=== PATIENT | female | born 1990 ===

== ENCOUNTER 2020-08-14 23:36 | Emergency (ER) | payer MEDICAID, SELFPAY ==
[2020-08-15 00:15] VITALS: BP 128/60; PULSE 109; RESP 17; TEMP 37; O2SAT 97; BMI 45.4
--- NOTE | 2020-08-15 00:35 | PC.NURSE ---
PT TO [facility] FOR DENTAL PAIN. MD AT BEDSIDE WITH PT.
[2020-08-15] MEDS: Lidocaine HCl 2 % MPF 5 ML VIAL INFILTRATI (00:50)
[2020-08-15] MEDS: oxyCODONE HCl Immed Release 5 MG TABLET PO (00:55)
[2020-08-15] MEDS: Amoxicillin/Potassium Clav 875 MG TABLET PO (00:55)
--- NOTE | 2020-08-15 00:58 | ED.DENTAL ---
HPI - Dental/Oral General Chief complaint: Dental/Oral Stated complaint: DENTAL PAIN Time Seen by Provider: 08/15/20 00:35 Source: patient Mode of arrival: ambulatory Limitations: language barrier History of Present Illness HPI Narrative: Patient complaining of toothache in upper right molars for last 3 days has cavities for long time plan to see a dentist next week. Patient denies any swelling of the face no fever MD Complaint: tooth pain Location: Tooth # (1,2,3) Onset (ago): day(s) (3) Related Data Previous Rx's Medication Instructions Recorded amoxicillin-pot clavulanate 1 tab PO BID #20 tab 08/15/20 [Augmentin] oxycodone 5 mg PO Q6H PRN #20 tab 08/15/20 Allergies Allergy/AdvReac Type Severity Reaction Status Date / Time No Known Allergies Allergy Verified 08/15/20 00:35 Review of Systems Review of Systems: Yes all other systems are reviewed and are negative PMFSH Past Medical History Medical History Asthma Hypotension Hypothyroid Physical Exam Vital Signs: Vital Signs: Last Vital Signs Temp 98.6 F 08/15/20 00:15 Pulse 109 H 08/15/20 00:15 Resp 17 08/15/20 00:15 BP 128/60 08/15/20 00:15 Pulse Ox 97 08/15/20 00:15 Body Mass Index 45.4 Const: General: cooperative, well developed and acute distress Orientation/consciousness: patient oriented x3 HENMT: Head: Yes normocephalic and Yes atraumatic Ears: hearing grossly normal bilaterally Face and sinus: Yes normal facial exam and No sinuses nontender Mouth: Normal oral and palatal mucosa present Teeth and gingiva: gingiva normal and caries (Right upper molars) Teeth image: 1. Broken 3rd molar with deep cavity 2. Cavity and tender 3. Cavity and tender Resp: Effort & Inspection: normal respiratory effort Auscultation: clear to auscultation bilaterally Cardio: Rate: regular rate Rhythm: regular rhythm Heart sounds: S1 normal heart sound present Neuro: General: patient oriented x3 Course Course Course Narrative: Right greater palatine block was given using lidocaine 2% patient felt much better pain is almost gone discharge home on Augmentin and oxycodone advised to see dentist next week as scheduled Procedures Nerve Block Nerve Block 1: Time out performed: Yes Amount of anesthesia used (mL): 4 Side: right Intraoral Nerve Block: other (Right greater palatine nerve) Procedure Successful: Yes Patient Tolerated Procedure: well and no complications Complications: none Discharge Plan Discharge Clinical Impression: Dental caries Patient Disposition: Home, Self-Care Instructions: Toothache (ED) Additional Instructions: Take antibiotic as prescribed. Take pain medication as prescribed. Follow with dentist as scheduled Prescriptions: New amoxicillin-pot clavulanate [Augmentin] 875-125 mg tablet 1 tab PO BID Qty: 20 RF: 0 oxycodone 5 mg tablet 5 mg PO Q6H PRN (Reason: Pain) Qty: 20 RF: 0
== END 2020-08-15 01:43 | disposition home or self-care (01) ==
LOC: HO.ED 08-15 01:12
PROVIDERS: Emergency Provider Internal Medicine
DX: K02.9 Dental caries, unspecified (principal)
CPT/HCPCS: 64400; 99283

== ENCOUNTER 2020-12-12 12:41 | Emergency (ER) | payer MEDICAID, SELFPAY ==
--- NOTE | ~2020-12-12 | US_ITS ---
EXAMINATION: US VENOUS ULTRASOUND WITH DOPPLER LOWER EXTREMITY, RIGHT CLINICAL INFORMATION: Calf pain. COMPARISON: None TECHNIQUE: Ultrasound of the deep veins is performed from the hip to the calf with compression sonography and color and pulse Doppler assessment. Spectral analysis with color-flow imaging is performed. FINDINGS: There is normal venous compression and respiratory variation and augmented flow. The visualized common femoral vein, superficial femoral vein, profunda femoral vein, popliteal vein, and the trifurcation region shows no evidence of deep venous thrombosis. There is no significant popliteal fossa cyst. If the patient's symptoms persist, followup ultrasound in 5 days 7 days might be of value to exclude proximal propagation from a non-visualized calf vein. US/US venous duplex LE RT IMPRESSION: No DVT demonstrated in the right lower extremity.
[2020-12-12 13:48] VITALS: BP 129/72; PULSE 85; RESP 18; TEMP 36.5; O2SAT 100; BMI 50.5
--- NOTE | 2020-12-12 13:54 | ED.GENADULT ---
HPI - General Adult General Chief complaint: Extremity Injury, Lower Stated complaint: FALL LEG PAIN Time Seen by Provider: 12/12/20 13:54 History of Present Illness HPI narrative: Patient complains of right lower leg pain for several weeks without injury, pain goes from the back of the ankle to the mid calf, there is no fever no chills no dizziness, no chest pain no shortness of breath Related Data Previous Rx's Medication Instructions Recorded amoxicillin-pot clavulanate 1 tab PO BID #20 tab 08/15/20 [Augmentin] oxycodone 5 mg PO Q6H PRN #20 tab 08/15/20 ibuprofen 600 mg PO Q6H PRN #20 tab 12/12/20 Allergies Allergy/AdvReac Type Severity Reaction Status Date / Time No Known Allergies Allergy Verified 08/15/20 00:35 Review of Systems Review of Systems: Positive for right leg pain Negatives are no fever no chills no dizziness no weakness no headache no neck pain no back pain no chest pain no shortness of breath no skin rash no numbness weakness or tingling Yes all other systems are reviewed and are negative PMFSH Past Medical History Source: nursing notes reviewed Medical History Asthma Hypotension Hypothyroid Social History Social History Advance Directives: No Advance Directives Information Provided: No Patient : No Physical Exam Vital Signs: Vital Signs: Last Vital Signs Temp 97.7 F 12/12/20 13:48 Pulse 85 12/12/20 13:48 Resp 18 12/12/20 13:48 BP 129/72 12/12/20 13:48 Pulse Ox 100 12/12/20 13:48 Body Mass Index 50.5 General appearance is no acute distress comfortable and cooperative Head is normocephalic atraumatic Neck is supple Respiratory are the lungs are clear to auscultation bilateral The heart no murmur Abdomen soft nontender Extremities full range of motion x4 Right lower posterior leg has tenderness to palpation, the skin is normal there is no redness no warmth no lymphangitis there is no edema there is no calf swelling, the knee has full range of motion as does the ankle Neuro no focal motor or sensory deficit Course Course Course Narrative: Ultrasound was done to rule out DVT for posterior calf pain and it was negative Most likely a muscle strain of some kind and patient is referred to Orthopedics, skin was normal there is no sign of any infection Discharge Plan Discharge Clinical Impression: Muscle strain of left lower extremity Patient Disposition: Home, Self-Care Additional Instructions: Ultrasound was done to make sure there is no blood clot and it was negative The skin was normal with no sign of any skin infection Most likely a muscle strain so if needed follow with orthopedist and primary doctor Return any time any worse condition or any concerns Prescriptions: New ibuprofen 600 mg tablet 600 mg PO Q6H PRN (Reason: pain) Qty: 20 RF: 0 No Action amoxicillin-pot clavulanate [Augmentin] 875-125 mg tablet 1 tab PO BID Qty: 20 RF: 0 oxycodone 5 mg tablet 5 mg PO Q6H PRN (Reason: Pain) Qty: 20 RF: 0 Stand Alone Forms: Work/School Release Interventions: ED Discharge Assessment Last Done: 12/12/20 15:35 Discharge Date/Time: 12/12/20 15:38
== END 2020-12-12 15:38 | disposition home or self-care (01) ==
PROVIDERS: Emergency Provider Emergency Medicine Emergency Medical Services
DX: S86.912A Strain of unspecified muscle(s) and tendon(s) at lower leg level, left leg, initial encounter (principal); R60.0 Localized edema; M79.604 Pain in right leg; X58.XXXA Exposure to other specified factors, initial encounter; Y93.9 Activity, unspecified; Y92.9 Unspecified place or not applicable; Y99.9 Unspecified external cause status; Z79.899 Other long term (current) drug therapy
CPT/HCPCS: 93971; 99283

== ENCOUNTER → 2021-02-18 10:49 | Outpatient (BNVA) | payer MEDICAID, SELFPAY | PROVIDERS: PCP Nurse Practitioner Family; Referring Provider Nurse Practitioner Family; Visit Provider Physician Assistant | DX: E66.01 Morbid (severe) obesity due to excess calories (principal); R40.0 Somnolence; J45.909 Unspecified asthma, uncomplicated; Z68.43 Body mass index [BMI] 50.0-59.9, adult | CPT/HCPCS: 99202 ==

== ENCOUNTER → 2021-03-10 08:16 | Outpatient (BNVA) | payer MEDICAID, SELFPAY | PROVIDERS: PCP Nurse Practitioner Family; Visit Provider Dietitian, Registered | DX: E66.01 Morbid (severe) obesity due to excess calories (principal) | CPT/HCPCS: 97802 ==

== ENCOUNTER → 2021-03-24 08:45 | Outpatient (REF) | payer MEDICAID, SELFPAY ==
--- NOTE | ~2021-03-24 | FL_ITS ---
EXAMINATION: XR UPPER GI SERIES CLINICAL INFORMATION: Morbid/severe obesity due to excess calories. COMPARISON: None TECHNIQUE: Routine upper GI exam was performed. FINDINGS: Following oral administration of thick barium and effervescent granules, there is normal propagation of bolus from the oral cavity through the pharynx, esophagus into the stomach without any evidence of obstruction, narrowing or stricture. On placing patient supine and prone lying, there is mild gastroesophageal reflux without hiatal hernia. There is a solitary gastric erosion in the mid body of the stomach on image 2 of 2. There are no ulcerations seen. There are increased secretions visualized likely secondary to hyperacidity. The duodenal bulb and the sweep appear normal. FLUOROSCOPY TIME: 1.6 minutes DOSE AREA PRODUCT: 49.371 uGy-m2 (microgray-meter squared) FL/FL upper GI series IMPRESSION: Mild gastroesophageal reflux without hiatal hernia. Solitary gastric erosion in the mid body of the stomach with hyperacidity suspected.
--- NOTE | ~2021-03-24 | XR_ITS ---
EXAMINATION: XR CHEST CLINICAL INFORMATION: Obesity COMPARISON: None TECHNIQUE: 2 views of the chest were obtained. FINDINGS: No significant abnormality is noted involving the heart, lungs, mediastinum, bony thorax or soft tissues. XR/XR chest 2V IMPRESSION: Unremarkable examination.
--- NOTE | ~2021-03-24 | US_ITS ---
EXAMINATION: US COMPLETE ABDOMEN WITH LIVER ELASTOGRAPHY CLINICAL INFORMATION: Obesity COMPARISON: None. TECHNIQUE: Real-time imaging of the abdominal viscera. Noninvasive ultrasound liver fibrosis assessment is performed using Lupis ElastPQ point quantification shear wave elastography (pSWE) with a C5-2 MHz transducer. Multiple elastography samples are obtained. FINDINGS: PANCREAS: Not well visualized due to bowel gas. ABDOMINAL AORTA: Not well visualized due to bowel gas INFERIOR VENA CAVA: Not well visualized due to bowel gas LIVER: Normal. The liver demonstrates normal size, contour and echogenicity. No focal lesion or intrahepatic biliary duct dilatation. The right lobe measures 12 cm in length. The left lobe measures 8 cm in length. Portal flow is normal/hepatopedal Shear wave liver elastography median stiffness is 1.5 m/s (reference: normal median stiffness is 1.3 m/s or less). IQR/median stiffness to assess sampling precision is 0.25 (reference: good quality data set is IQR/median stiffness of 0.15 or less). GALLBLADDER: Normal. The gallbladder is physiologically distended without evidence of stones, sludge, polyps, wall thickening or pericholecystic fluid. COMMON BILE DUCT: Normal in caliber measuring 0.2 cm in diameter. RIGHT KIDNEY: Normal. No hydronephrosis. No renal calculi or focal parenchymal lesions. The kidney measures 9.4 cm in maximum dimension. LEFT KIDNEY: Normal. No hydronephrosis. No renal calculi or focal parenchymal lesions. The kidney measures 10.2 cm in maximum dimension. SPLEEN: Normal. The spleen measures 11.8 cm in maximum dimension. FREE FLUID: None. US/US abdomen comp w elastography IMPRESSION: 1. Impression Limited visualization of the pancreas, aorta and IVC. Otherwise unremarkable exam. 2. Liver elastography: Slightly limited due to sampling error. In the absence of other known clinical signs, rules out compensated advanced chronic liver disease. REFERENCE: Society of Radiologists in Ultrasound Liver Stiffness Thresholds (2020): LIVER STIFFNESS THRESHOLDS: *Liver Stiffness equal or less than 1.3 m/s: High probability of being normal. *Liver Stiffness less than 1.7 m/s: In the absence of other known clinical signs, rules out compensated advanced chronic liver disease. *Liver Stiffness 1.7-2.1 m/s: Suggestive of compensated advanced chronic liver disease but need further test for confirmation. *Liver Stiffness over 2.1 m/s: Rules in compensated advanced chronic liver disease. *Liver Stiffness over 2.4 m/s: Suggestive of clinically significant portal hypertension. QUALITY OF DATA SET: *IQR/Median value equal or less than 0.15 implies a quality data set. *IQR/Median value over 0.15 implies a poor quality data set. SIGNIFICANT CHANGE FROM PRIOR EXAM: Significant change if liver stiffness measurement is 10% or greater from prior exam. OTHER CONSIDERATIONS: The stage of liver fibrosis may be overestimated in the setting of acute hepatitis, liver inflammation, elevated liver function tests, hepatic vascular congestion, obstructive cholestasis, non-fasting state, and infiltrative diseases such as amyloidosis and lymphoma. In some patients with NAFLD, the liver stiffness thresholds for compensated advanced chronic liver disease may be lower. In causes other than viral hepatitis and NAFLD, liver stiffness thresholds are not well established.
== END ==
LOC: HO.SL 08:45
PROVIDERS: Visit Provider Physician Assistant
DX: Z01.818 Encounter for other preprocedural examination (principal); G47.10 Hypersomnia, unspecified; G47.19 Other hypersomnia; E66.01 Morbid (severe) obesity due to excess calories; K21.9 Gastro-esophageal reflux disease without esophagitis; R40.0 Somnolence
CPT/HCPCS: 71046; 74240; 76705; 76981; 95806

== ENCOUNTER 2021-04-01 09:24 | Outpatient (REF) | payer MEDICAID, SELFPAY ==
[2021-04-01 10:29] LABS: MANUAL DIFF FLAG NO
[2021-04-01 10:40] LABS: Basophils Absolute Auto 0.1 X10*3/uL (0.0-0.2); Basophils Percent Auto 0.8 % (0-2); Eosinophils Absolute Auto 0.1 X10*3/uL (0.0-0.4); Hematocrit 39.6 % (37-47); Hemoglobin 12.4 g/dl (12.0-16.0); Imm Gran Abs Auto 0.02 X10*3/uL (0.00-0.03); Imm Gran Pct Auto 0.3 % (0.0-0.4); Lymphocytes Absolute Auto 1.6 X10*3/uL (1.2-4.9); Lymphocytes Percent Auto 23.2 % (20-40); Mean Corpuscular HGB Conc 31.3 g/dl (31.0-35.0); Mean Corpuscular Hemoglobin 26.5 pg (27.0-33.0); Mean Corpuscular Volume 84.6 fL (80-98); Mean Platelet Volume 11.7 fL (9.4-12.3); Monocytes Absolute Auto 0.4 X10*3/uL (0.1-1.2); Monocytes Percent Auto 5.9 % (2-11); Neutrophils Absolute Auto 4.9 X10*3/uL (2.0-8.3); Neutrophils Percent Auto 68.8 % (45-73); Platelet Count 272 X10*3/uL (160-400); Red Blood Count 4.68 X10*6/uL (4.20-5.50); White Blood Count 7.1 X10*3/uL (4.8-10.8)
[2021-04-01 10:59] LABS: Alanine Aminotransferase 11 U/L (0-31); Alkaline Phosphatase 74 U/L (39-117); Anion Gap 11 (12-20); Aspartate Amino Transferase 15 U/L (5-31); Bilirubin Total 0.6 mg/dL (0.0-1.0); Blood Urea Nitrogen 8 mg/dL (9-16); Carbon Dioxide 23 mmol/L (22-29); Chloride 107 mmol/L (96-108); Cholesterol 161 mg/dL; Estimated Glomerular Filt Rate > 60; Glucose Random 98 mg/dL (60-115); HDL Cholesterol 39 mg/dL; Iron 52 mcg/dL (30-160); LDL Cholesterol Calculated 104 mg/dl; Percent Iron Saturation 14 % (15-50); Potassium 4.3 mmol/L (3.3-5.1); Sodium 137 mmol/L (135-145); Total Iron Binding Capacity 361 mcg/dL (228-428); Total Protein 7.1 g/dL (6.5-8.0); Triglycerides 93 mg/dL; Unsaturated Iron Binding 309 ug/dL
[2021-04-01 11:16] LABS: Estimated Average Glucose 111 mg/dL; Hemoglobin A1c % 5.5 %
[2021-04-01 11:22] LABS: Ferritin 32 ng/mL (10-122); TSH reflex Free T4 0.88 uIU/mL (0.32-4.0); Vitamin D 25-OH Total 22.8 ng/mL (>30)
[2021-04-01 11:30] LABS: Folate 11.2 ng/mL (> or = 4.0); Vitamin B12 448 pg/mL (200-900)
[2021-04-02 15:25] LABS: H Pylori Breath Test Negative (Negative)
[2021-04-02 17:32] LABS: Insulin Level Total 12.6 uIU/mL
[2021-04-05 14:02] LABS: PTHI 67 pg/mL (14-64)
[2021-04-05 15:46] LABS: Zinc 63 mcg/dL (60-130)
[2021-04-07 16:52] LABS: Vitamin A 26 mcg/dL (38-98)
[2021-04-08 11:16] LABS: Vitamin B1 <6 nmol/L (8-30)
== END 2021-04-01 09:25 | disposition home or self-care (01) ==
LOC: HO.LAB 09:24
PROVIDERS: Absent Provider Physician Assistant; Visit Provider Physician Assistant Surgical
DX: E66.01 Morbid (severe) obesity due to excess calories (principal); R40.0 Somnolence
CPT/HCPCS: 36415; 80053; 80061; 82306; 82607; 82728; 82746; 83013; 83036; 83525; 83540; 83970; 84425; 84443; 84590; 84630; 85025; 86140; 99211

== ENCOUNTER → 2021-04-06 08:12 | Outpatient (BNVA) | payer MEDICAID, SELFPAY | PROVIDERS: Referring Provider Physician Assistant; Visit Provider Dietitian, Registered ==

== ENCOUNTER → 2021-04-09 09:03 | Outpatient (BNVA) | payer MEDICAID, SELFPAY | PROVIDERS: Visit Provider Physician Assistant | DX: E66.01 Morbid (severe) obesity due to excess calories (principal); Z68.42 Body mass index [BMI] 45.0-49.9, adult | CPT/HCPCS: 99212 ==

== ENCOUNTER → 2021-04-23 12:03 | Outpatient (REF) | payer MEDICAID, SELFPAY ==
--- NOTE | 2021-04-23 12:24 | ECG_ITS ---
Test Reason : morbid obesity Blood Pressure : / mmHG Vent. Rate : 081 BPM Atrial Rate : 081 BPM P-R Int : 138 ms QRS Dur : 082 ms QT Int : 362 ms P-R-T Axes : 056 035 036 degrees QTc Int : 420 ms Normal sinus rhythm Normal ECG No previous ECGs available Referred By: Tressa Brewer Electronically Signed By:TEA THAO MD
== END ==
LOC: HO.CARD 12:03
PROVIDERS: Visit Provider Physician Assistant
DX: E66.01 Morbid (severe) obesity due to excess calories (principal); R40.0 Somnolence
CPT/HCPCS: 93005

== ENCOUNTER 2022-01-10 20:33 | Emergency (ER) | payer MEDICAID, SELFPAY ==
[2022-01-10 21:19] VITALS: BP 117/68; PULSE 89; RESP 16; TEMP 36.7; O2SAT 99; BMI 50.5
--- NOTE | 2022-01-11 00:22 | PC.NURSE ---
PATIENT WAS GIVEN URINE CUP FOR SAMPLE ,PATIENT STATED NOT ABLE TO URINATE AT THIS TIME ,RN ELIO AWARE .
[2022-01-11 00:23] LABS: Basophils Absolute Auto 0.1 X10*3/uL (0.0-0.2); Basophils Percent Auto 0.7 % (0-2); Eosinophils Absolute Auto 0.2 X10*3/uL (0.0-0.4); Eosinophils Percent Auto 1.5 % (0-4); Hematocrit 43.9 % (37.0-47.0); Hemoglobin 13.7 g/dl (12.0-16.0); Imm Gran Abs Auto 0.03 X10*3/uL (0.00-0.03); Imm Gran Pct Auto 0.3 % (0.0-0.4); Lymphocytes Absolute Auto 3.4 X10*3/uL (1.2-4.9); Lymphocytes Percent Auto 29.4 % (20-40); MANUAL DIFF FLAG NO; Mean Corpuscular HGB Conc 31.2 g/dl (31.0-35.0); Mean Corpuscular Hemoglobin 26.3 pg (27.0-33.0); Mean Corpuscular Volume 84.4 fL (80.0-98.0); Mean Platelet Volume 11.2 fL (9.4-12.3); Monocytes Absolute Auto 0.7 X10*3/uL (0.1-1.2); Monocytes Percent Auto 5.7 % (2-11); Neutrophils Absolute Auto 7.2 x10*3/uL (2.0-8.3); Neutrophils Percent Auto 62.4 % (45-73); Platelet Count 319 X10*3/uL (160-400); Red Cell Distribution Width 14.6 % (11.0-16.0); White Blood Count 11.5 X10*3/uL (4.8-10.8)
--- NOTE | 2022-01-11 01:20 | ED_ITS ---
HPI - Abdominal Pain General Chief Complaint: Abdominal Pain Stated Complaint: lower abd pain, nausea Time Seen by Provider: 01/10/22 23:49 Source: patient Mode of arrival: ambulatory Limitations: language barrier History of Present Illness HPI narrative: History obtained by certified court/medical interpreter. No period since October, recent spotting. Now with pelvic and back pain. She has cramping. Home negative for . Patient with 4 pregnancies and 3 babies. one miscarriage. MD elicited complaint: abdominal pain Onset (ago): day(s) Pain Consistency: constant Severity: mild Quality: cramping Context: other (spotting) Related Data Previous Rx's Medication Instructions Recorded ibuprofen 600 mg tablet 600 mg PO Q6H PRN pain #20 tabs 12/12/20 naproxen 500 mg tablet (Naprosyn) 500 mg PO BID #20 tabs 01/11/22 Allergies Allergy/AdvReac Type Severity Reaction Status Date / Time Penicillins Allergy Unknown Verified 01/10/22 21:25 Review of Systems Constitutional: Reports no additional constitutional complaints Eyes: Reports no additional eye complaints Denies dizziness Cardiovascular: Reports no additional cardiovascular complaints Respiratory: Reports as per HPI Gastrointestinal: Reports no additional gastrointestinal complaints Genitourinary: Reports no additional female genitourinary complaints Musculoskeletal: Reports no additional musculoskeletal complaints Skin/Breast: Denies rash Reports system reviewed and no additional complaints, except as documented, Denies dizziness and Denies Sensory deficit (Neuro) Psychiatric: Denies anxiety PMFSH Past Medical History Medical History Hypotension Hypothyroid Surgical History Hx of section Family History Family History Mother Diabetes Father No problems noted. Brother No problems noted. Brother No problems noted. Daughter Asthma Prediabetes Thyroid condition Daughter Asthma Daughter No problems noted. Social History Social History Alcohol intake: never Patient Tobacco Use Status: Never used Tobacco Advance Directives: No Physical Exam ED Vital Signs: Vital Signs - 24 hr 01/10/22 21:19 01/11/22 02:27 Temperature 98.1 F 97.2 F Pulse Rate 89 82 Respiratory Rate 16 17 Blood Pressure 117/68 100/55 L Pulse Oximetry 99 100 Oxygen Delivery Method Room Air Room Air BMI result Body Mass Index 50.5 Const Nutritional Appearance: obese Orientation/consciousness: oriented to person and patient oriented x3 Limitations: no limitations HENMT Head: Yes normal to inspection Ears: external ears normal General nose exam: Normal external nose present Mouth: Normal oral and palatal mucosa present and oropharynx normal Throat: Yes posterior oropharynx normal Eyes General: appearance normal, both eyes and all related structures Neck Neck: Yes normal visual inspection Chest Chest palpation & inspection: normal inspection of the chest Resp Auscultation: clear to auscultation bilaterally Cardio Jugular venous distension: no JVD Rate: regular rate Rhythm: regular rhythm Heart sounds: S1 normal heart sound present and S2 normal heart sound present GI Inspection: Yes normal to inspection Palpation (GI): Soft to palpation, nontender and No hepatosplenomegaly present Auscultation: normal bowel sounds General: Yes no CVA tenderness Back/Spine/Pelvis Back: no CVA tenderness Skin General skin exam: no rashes or lesions noted Neuro General: oriented to person and patient oriented x3 Cranial nerves: Yes CN's II-XII intact bilaterally Motor exam (neuro): 5/5 motor strength present throughout Sensory Exam: No Sensory deficit (Neuro) Extrem General: Yes normal to inspection Psych Appearance: grossly normal Course Reevaluation(s) Reevaluation #1: patient with dysfunctional uterine bleeding, no blood work normal. Will start nsaids and dc home Time: 03:59 MDM - Abdominal Pain Lab Data Result diagrams: 01/11/22 00:19 01/11/22 00:59 Labs: Lab Results 01/11/22 01/11/22 01/11/22 Range/Units 00:19 00:59 02:37 WBC 11.5 H (4.8-10.8) X10*3/uL RBC 5.20 (4.20-5.50) X10*6/uL Hgb 13.7 (12.0-16.0) g/dl Hct 43.9 (37.0-47.0) % MCV 84.4 (80.0-98.0) fL MCH 26.3 L (27.0-33.0) pg MCHC 31.2 (31.0-35.0) g/dl RDW 14.6 (11.0-16.0) % Plt Count 319 (160-400) X10*3/uL MPV 11.2 (9.4-12.3) fL Immature Gran % (Auto) 0.3 (0.0-0.4) % Neut % (Auto) 62.4 (45-73) % Lymph % (Auto) 29.4 (20-40) % [place] % (Auto) 5.7 (2-11) % Eos % (Auto) 1.5 (0-4) % Baso % (Auto) 0.7 (0-2) % Lymph # (Auto) 3.4 (1.2-4.9) X10*3/uL [place] # (Auto) 0.7 (0.1-1.2) X10*3/uL Eos # (Auto) 0.2 (0.0-0.4) X10*3/uL Baso # (Auto) 0.1 (0.0-0.2) X10*3/uL Abs Immat Gran (auto) 0.03 (0.00-0.03) X10*3/uL Absolute Neuts (auto) 7.2 (2.0-8.3) x10*3/uL Absolute Nucleated RBC 0.000 (0.0-0.012) X10*3/uL Nucleated RBC % (auto) 0.0 (0.0-0.2) /100WBC Sodium 136 (135-145) mmol/L Potassium 4.4 (3.3-5.1) mmol/L Chloride 104 (96-108) mmol/L Carbon Dioxide 26 (22-29) mmol/L Anion Gap 10 L (12-20) BUN 12 (9-16) mg/dL Creatinine 0.79 (0.5-1.4) mg/dL Estim Creat Clear Calc 132.9 Estimated GFR > 60 Random Glucose 103 (60-115) mg/dL Calcium 9.2 (8.4-10.2) mg/dL Total Bilirubin 0.3 (0.0-1.0) mg/dL Direct Bilirubin < 0.2 (0.0-0.5) mg/dL AST 14 (5-31) U/L ALT 13 (0-31) U/L Alkaline Phosphatase 89 D (39-117) U/L Total Protein 7.5 (6.5-8.0) g/dL Albumin 4.1 (3.5-5.0) g/dL Lipase 17 (8-78) U/L Beta HCG, Quant < 2 mIU/mL Urine Color YELLOW Urine Appearance CLEAR Urine pH 5.5 (5.0-8.0) Ur Specific [place] >= 1.030 H (1.005-1.025) Urine Protein NEG (NEG-TRACE) MG/DL Urine Glucose (UA) NEG (NEG) MG/DL Urine Ketones NEG (NEG) MG/DL Urine Blood 1+ H (NEG) Urine Nitrite NEG (NEG) Ur Leukocyte Esterase NEG (NEG) Urine RBC 0-2 (0) /HPF Urine WBC 0-2 (0-4) /HPF Ur Squamous Epith Cells 2+ /LPF Urine Bacteria 1+ /LPF Urine Mucus 2+ /LPF Discharge Plan Discharge Clinical Impression: Dysfunctional uterine bleeding Patient Disposition: Home, Self-Care Instructions: Dysfunctional Uterine Bleeding (ED) Prescriptions: New naproxen [Naprosyn] 500 mg tablet 500 mg PO BID Qty: 20 0RF No Action ibuprofen 600 mg tablet 600 mg PO Q6H PRN (Reason: pain) Qty: 20 0RF Referrals: [facility] [Primary Care Provider] - 1 week
[2022-01-11 01:24] LABS: Alanine Aminotransferase 13 U/L (0-31); Albumin Level 4.1 g/dL (3.5-5.0); Alkaline Phosphatase 89 U/L (39-117); Anion Gap 10 (12-20); Aspartate Amino Transferase 14 U/L (5-31); Bilirubin Direct < 0.2 mg/dL (0.0-0.5); Bilirubin Total 0.3 mg/dL (0.0-1.0); Blood Urea Nitrogen 12 mg/dL (9-16); Calcium 9.2 mg/dL (8.4-10.2); Carbon Dioxide 26 mmol/L (22-29); Chloride 104 mmol/L (96-108); Creatinine Clr Calc Pharmacy 132.9; Estimated Glomerular Filt Rate > 60; Glucose Random 103 mg/dL (60-115); Lipase 17 U/L (8-78); Potassium 4.4 mmol/L (3.3-5.1); Sodium 136 mmol/L (135-145); Total Protein 7.5 g/dL (6.5-8.0)
[2022-01-11 02:27] VITALS: BP 100/55; PULSE 82; RESP 17; TEMP 36.2; O2SAT 100
[2022-01-11 02:53] LABS: Appearance Urine CLEAR; Color Urine YELLOW; Glucose Urine UA NEG (NEG); Leukocyte Esterase Urine NEG (NEG); Nitrite Urine NEG (NEG); PH 5.5 (5.0-8.0); Specific Gravity - Urine >= 1.030 (1.005-1.025); UACC Culture Trigger NO; Urine Blood 1+ (NEG); Urine Ketones NEG (NEG); Urine Protein NEG (NEG-TRACE)
[2022-01-11 02:56] LABS: Bacteria Urine 1+ /LPF; Mucus Urine 2+ /LPF; RBC Urine 0-2 /HPF (0); Squamous Epithelial Cell Urine 2+ /LPF; WBC Urine 0-2 /HPF (0-4)
[2022-01-11 03:43] LABS: HCG Quantitative < 2 mIU/mL
[2022-01-11] MEDS: Ketorolac Tromethamine 30 MG/ML VIAL IVPUSH (04:13)
--- NOTE | 2022-01-11 04:17 | PC.NURSE ---
I met Gloria at the same time that I discharged her. She was alert, oriented x 3, pleasant and calm and cooperative. Discharged at this time with assistance from Stephane, medical equipment repair technician. She verbalized an understanding of all DC orders and ambulated out of the ED independently and with steady gait.
== END 2022-01-11 04:18 | disposition home or self-care (01) ==
PROVIDERS: Emergency Provider Emergency Medicine
DX: N93.8 Other specified abnormal uterine and vaginal bleeding (principal)
CPT/HCPCS: 36415; 80053; 81001; 82248; 83690; 84702; 85025; 96374; 99283; 99284; J1885

== ENCOUNTER 2022-04-13 13:49 | Outpatient (REF) | payer MEDICAID, SELFPAY ==
--- NOTE | ~2022-04-13 | US_ITS ---
EXAMINATION: US PELVIS CLINICAL INFORMATION: Polycystic ovarian syndrome COMPARISON: None TECHNIQUE: Ultrasound of the pelvis is performed using both transabdominal and transvaginal transducers along with Doppler. Transvaginal imaging is performed due to inadequate visualization transabdominally. FINDINGS: The uterus is anteverted and measures 8.6 x 4.1 x 4.5 cm in dimension. No focal uterine lesion is seen. Endometrial thickness is normal measuring 0.9 cm. There are nabothian cysts in the cervix. The ovaries are not identified. There is no ascites. US/US pelvic and transvaginal IMPRESSION: Normal-appearing uterus. Ovaries not seen.
== END 2022-04-13 13:50 | disposition home or self-care (01) ==
LOC: HO.US 13:49
PROVIDERS: Visit Provider Nurse Practitioner Family
DX: E28.2 Polycystic ovarian syndrome (principal)
CPT/HCPCS: 76830; 76856

== ENCOUNTER 2023-12-01 13:55 | Outpatient (REF) | payer MEDICAID, SELFPAY ==
--- NOTE | ~2023-12-01 | US_ITS ---
EXAMINATION: US PELVIS COMPLETE TRANSVAGINAL PELVIC ULTRASOUND: CLINICAL INFORMATION: Irregular periods COMPARISON: 04/13/2022 TECHNIQUE: Transabdominal imaging initially performed. For more definitive evaluation of the endometrium and ovaries, transvaginal technique was employed. FINDINGS: Uterus is anteverted measuring 9.5 x 4.0 x 5.0cm. Endometrium measures 1.4 to 1.8 cm. There is fluid in the cervix. Nabothian cysts seen. Right ovary measures is not visualized. The left ovary measures 2.9 x 1.9 x 2.7 cm for a volume of 7.8 mL. 2.0 x 1.7 x 1.9 cm left ovarian cyst is seen. There is no pelvic free fluid. US/US pelvic and transvaginal IMPRESSION: Thickened endometrium, patient currently bleeding since 11/19/2023. 2 cm left ovarian cyst. Nonvisualization right ovary.
== END 2023-12-01 13:56 | disposition home or self-care (01) ==
LOC: HO.US 13:55
PROVIDERS: PCP Student in an Organized Health Care Education/Training Program; Visit Provider Student in an Organized Health Care Education/Training Program
DX: R10.2 Pelvic and perineal pain (principal)
CPT/HCPCS: 76830; 76856

== ENCOUNTER 2023-12-05 19:47 | Outpatient (REF) | payer MEDICAID, SELFPAY ==
[2023-12-06 09:13] LABS: Bacterial Vaginosis PCR POSITIVE (Negative); Candida Group PCR NOT DETECTED (Not Detect); Candida glab krusei PCR NOT DETECTED (Not Detect); Trichomonas vaginalis PCR NOT DETECTED (Not Detect)
[2023-12-06 09:23] LABS: CT PCR NOT DETECTED (Not Detect.); NG PCR NOT DETECTED (Not Detect.)
== END 2023-12-05 19:48 | disposition home or self-care (01) ==
LOC: HO.HHCLNP 19:47
PROVIDERS: Visit Provider Internal Medicine
DX: R10.10 Upper abdominal pain, unspecified (principal)
CPT/HCPCS: 0352U; 0353U

== ENCOUNTER 2024-01-24 08:45 | Outpatient (REF) | payer MEDICAID, SELFPAY ==
[2024-01-24 10:59] LABS: MANUAL DIFF FLAG NO
[2024-01-24 11:13] LABS: Basophils Percent Auto 0.7 % (0-2); Eosinophils Absolute Auto 0.2 X10*3/uL (0.0-0.4); Hematocrit 40.1 % (37.0-47.0); Hemoglobin 12.5 g/dl (12.0-16.0); Imm Gran Abs Auto 0.01 X10*3/uL (0.00-0.03); Imm Gran Pct Auto 0.2 % (0.0-0.4); Lymphocytes Absolute Auto 2.6 X10*3/uL (1.2-4.9); Lymphocytes Percent Auto 42.8 % (20-40); Mean Corpuscular HGB Conc 31.2 g/dl (31.0-35.0); Mean Corpuscular Hemoglobin 26.6 pg (27.0-33.0); Mean Corpuscular Volume 85.3 fL (80.0-98.0); Mean Platelet Volume 12.2 fL (9.4-12.3); Monocytes Absolute Auto 0.3 X10*3/uL (0.1-1.2); Monocytes Percent Auto 5.7 % (2-11); Neutrophils Absolute Auto 2.9 x10*3/uL (2.0-8.3); Neutrophils Percent Auto 47.6 % (45-73); Platelet Count 294 X10*3/uL (160-400); Red Cell Distribution Width 14.3 % (11.0-16.0)
[2024-01-24 11:14] LABS: INTERNATIONAL NORM RATIO 0.9 (0.9-1.1); Prothrombin Time 11.5 SEC (11.1-13.3)
[2024-01-24 11:17] LABS: Partial Thromboplastin Time 27.7 SEC (26.0-36.8)
[2024-01-24 11:42] LABS: TSH reflex Free T4 1.36 uIU/mL (0.32-4.0)
== END 2024-01-24 08:46 | disposition home or self-care (01) ==
LOC: HO.HHCL 08:45
PROVIDERS: Visit Provider Nurse Practitioner
DX: N93.8 Other specified abnormal uterine and vaginal bleeding (principal)
CPT/HCPCS: 36415; 84443; 85025; 85610; 85730

== ENCOUNTER 2024-01-25 09:04 | Outpatient (REF) | payer MEDICAID, SELFPAY | END 2024-01-25 09:05 | disposition home or self-care (01) | LOC: HO.LAB 09:04 | PROVIDERS: PCP Nurse Practitioner; Visit Provider Nurse Practitioner | DX: Z51.81 Encounter for therapeutic drug level monitoring (principal) | CPT/HCPCS: 36415; 85247 ==

== ENCOUNTER → 2024-10-02 09:30 | Outpatient (BNVA) | payer MEDICAID, SELFPAY | PROVIDERS: PCP Nurse Practitioner; Visit Provider Physician Assistant Surgical ==

== ENCOUNTER 2024-10-10 08:07 | Outpatient (AMB) | payer MEDICAID, SELFPAY ==
--- NOTE | 2024-10-10 12:03 | A.OFFVIS_ITS ---
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: Yes Obgyn Nurse Services: Obgyn Nurse Present Information Interpreted: clinical only Allergies Penicillins Allergy (Verified 10/10/24 12:03) Unknown Medication List - Last Reconciled 10/10/24 by Rodney Guevara MD albuterol sulfate 90 mcg/actuation 2 puffs inhalation Q6H PRN HPI HPI TV Re -Est SWL BMI 54.7 *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*: Details: Start time: 12PM, End time: 12.46PM ?I spent 41 minutes speaking with the patient on the phone plus an additional 5 minutes reviewing and updating records for a total of 46 minutes HPI Comments Details: Previous weight loss efforts: [facility], [facility] [place] [facility] Wakes up: 6am, Sleeps: 12am Breakfast: x3/wk 8am (Premier, eggs) Lunch: 2-3pm (pasta, rice) Dinner: 7pm (bread, cookie) Snacks: a lot of coffee Exercise: Has gym membership Beverages: Coffee (4-5/d with [place] milk), Tea: 2 cups/d (water), soda:3-4 cans of Sprite (stopped now), juice: Luu fruit punch, ETOH: none PFSH Medical History (Updated 10/10/24 @ 12:25 by Rodney Guevara MD) Sleep apnea Anxiety Hypotension Hypothyroid Asthma Surgical History Hx of section Family History Mother Diabetes Father No problems noted. Brother No problems noted. Brother No problems noted. Daughter Asthma Prediabetes Thyroid condition Daughter Asthma Daughter No problems noted. Social History Alcohol intake: never Patient Tobacco Use Status: Never used Tobacco Telehealth Telehealth Telehealth Platform: Telephone Location of provider rendering services: practice address Location of patient: address on file Patient Identification confirmed using: Name, : Yes Telehealth method: voice only Patient verbally consented to treatment: Yes Patient verbally consented to billing insurance company: Yes Patient informed of any privacy concerns related to visit: Yes Minutes spent on Phone/Video with Pt.: 46 Assessment & Plan Assessment & Plan (1) Morbid obesity: Code(s): E66.01 - Morbid (severe) obesity due to excess calories Category: Medical Plan: 1.? Plan for lap sleeve gastrectomy. If diaphragmatic or ventral hernias are present at time of surgery, these will be repaired laparoscopically as well. I emphasized the importance of close follow-up, adherence to instructions and good communication. The surgery does not replace the need to change your lifestlyle which is the cause of the obesity problem. The surgery provides the motivation to try again to change your lifestyle, it reduces the appetite and make the transition to a better lifestyle easier and doubles the amount of weight you would lose compared to doing the lifestyle change without the surgery. You will need to be on a liquid diet with protein shakes for 2 weeks before surgery to maximize weight loss and boost your nutritional status to recover better from surgery and also for the first two weeks after surgery to let the stomach heal before we introduce other foods. After the first 2 weeks we will introduce protein bars and soft foods like scrambled eggs, cottage cheese and yogurt and after the 6th week will introduce meat, fish and cooked vegetables in small amounts. Over time you should be able to eat everything in small amounts. Side effects like nausea, vomiting, heartburn or abdominal pain are not common in the practice unless you are not following in the practice. This operation requires lifetime commitment to following in our practice and communication with me. You will much less weight and experience side effects if you don?t communicate or not following in the practice. Complications are rare and in our practice is about 1/10 of the national average. However, you can develop bleeding that may require transfusion (hasn?t happened for year in the practice), you may from complications (we did not have any deaths in the practice) and infections. Infections are usually a result of breakdown in communication or not understanding or following directions correctly. They are difficult to treat, they can happen during the first 6 weeks, they may require to be in the hospital for weeks or even months, not being able to eat by mouth and you may have drains and surgeries to try and correct the issue. Other risks and complications include possible conversion to an open procedure, leaks, small bowel obstruction, blood clots, cardiac, or pulmonary complications, as [facility] complications such as ulcers, insufficient weight loss and vitamin deficiencies. 2. Nutritional counseling. Start with one PREMIER protein shake (mix 4oz of Premier with 4oz low fat unsweetened almond milk) at 7am-9am, one Fit Crunch protein bar at 10am-12pm, another PREMIER protein shake (mix 4oz of Premier with 4oz low fat unsweetened almond milk) at 1-3pm, another protein bar at 4pm-6pm, dinner at 7pm (10 forks of protein and 10 forks of salad/vegetables) AND one more protein bar after dinner at 9pm-11pm. So you do 2 protein shakes, 3 protein bars and one meal per day. Meal to include lean meat (beef, fish, pork, turkey, chicken), or vietnamese yogurt, or egg whites, or beans with a salad with olive oil and fruits (berries, pears, apples, kiwi). Avoid salt, breads, potatoes, rice, pasta, desserts. 3. Each shake would be drunk slowly, like coffee in a period of 2 hours. 4. Cut each bar in 4 pieces and eat each piece in 30min ?to make each bar last 2 hours. 5. I emphasized the importance of measuring accurately the food portion and measure it when serving the food in plate 6. The meal portions include 10 full-size forks of meat and 10 full-size forks of salad. You always eat the meat portion but you can replace up to 5 forks for salad/vegetables with rice, potatoes or pasta, or a fruit ?if you like. The less you do it the better weight loss will be. 7. One full-size fork is what it can be scooped on the fork without falling aside and not what can be bit with the fork. Use regular forks like those you find in a typical restaurant. 8.? Please buy the body composition scale we discussed and send me weight measurements as soon as possible and then once a week. Always include your diet and exercise plan. 9. Start treadmill with an incline of 2.0 and speed of 3.0. Increase incline by 1 every 3 min to a max incline of 8.0, stay 3min at 8.0 and then return to 2.0 and repeat same steps until calorie goal is met. Goal is to burn 2000 calories per week on exercise, which means either 300 calories daily, or 400 calories 5 days per week, or 500 calories 4 days per week, or 650 calories 3 days per week. Start also weight exercises with 20-30lbs for chest/shoulders/abdomen and 40- 50lbs for thighs doing 2 sets of 15 repetitions each. 10.?It is important of avoiding and for at least 18 months postoperatively and has been discussed at the infosession. 11. Goal is to lose at least 1.5-2lbs per week 12. Goal to lose 10% of your weight before surgery, which is about 30lbs. Ultimate weight goal: 278lbs before surgery 13. Please follow the diet plan exactly without any change. If you don't like something about the plan or you feel hungry you need to communicate with me so I can help you revise the plan. You should not change the plan yourself 14. To be scheduled for EGD to assess the stomach's anatomy. The possibility of biopsies was discussed. Patient needs to avoid use of NSAIDs and aspirin for 1 week prior to EGD. You must be on liquids only the day before your endoscopy. Risks of perforation and bleeding was discussed with the patient. This will be an outpatient procedure with IV sedation. Orders: Orders Lipid Panel Today E66.01 - Morbid (severe) obesity due to excess calories, G47.30 - Sleep apnea, unspecified IRON PROFILE Today E66.01 - Morbid (severe) obesity due to excess calories, G47.30 - Sleep apnea, unspecified Comprehensive Met. Panel Today E66.01 - Morbid (severe) obesity due to excess calories, G47.30 - Sleep apnea, unspecified Vitamin B12 and Folate Today E66.01 - Morbid (severe) obesity due to excess calories, G47.30 - Sleep apnea, unspecified C Reactive Protein Today E66.01 - Morbid (severe) obesity due to excess calories, G47.30 - Sleep apnea, unspecified Vitamin B1 Today E66.01 - Morbid (severe) obesity due to excess calories, G47.30 - Sleep apnea, unspecified TSH reflex Free T4 Today E66.01 - Morbid (severe) obesity due to excess calories, G47.30 - Sleep apnea, unspecified US abdomen comp w elastography Today E66.01 - Morbid (severe) obesity due to excess calories, G47.30 - Sleep apnea, unspecified XR chest 2V Today E66.01 - Morbid (severe) obesity due to excess calories, G47.30 - Sleep apnea, unspecified ECG 12 lead EKG Today E66.01 - Morbid (severe) obesity due to excess calories, G47.30 - Sleep apnea, unspecified FL upper GI w air Today E66.01 - Morbid (severe) obesity due to excess calories, G47.30 - Sleep apnea, unspecified RT home sleep study Today E66.01 - Morbid (severe) obesity due to excess calories, G47.30 - Sleep apnea, unspecified Insulin Today E66.01 - Morbid (severe) obesity due to excess calories, G47.30 - Sleep apnea, unspecified Hemoglobin A1c Today E66.01 - Morbid (severe) obesity due to excess calories, G47.30 - Sleep apnea, unspecified H Pylori Breath Test Today E66.01 - Morbid (severe) obesity due to excess calories, G47.30 - Sleep apnea, unspecified Complete Blood Count Auto Diff Today E66.01 - Morbid (severe) obesity due to excess calories, G47.30 - Sleep apnea, unspecified Zinc Today E66.01 - Morbid (severe) obesity due to excess calories, G47.30 - Sleep apnea, unspecified Vitamin A Today E66.01 - Morbid (severe) obesity due to excess calories, G47.30 - Sleep apnea, unspecified Ferritin Today E66.01 - Morbid (severe) obesity due to excess calories, G47.30 - Sleep apnea, unspecified Vitamin D 25-OH Total Today E66.01 - Morbid (severe) obesity due to excess calories, G47.30 - Sleep apnea, unspecified Referrals Behavioral Health Referral E66.01 - Morbid (severe) obesity due to excess calories, G47.30 - Sleep apnea, unspecified Nutrition/Dietitian Referral E66.01 - Morbid (severe) obesity due to excess calories, G47.30 - Sleep apnea, unspecified
[2024-10-10 12:26] VITALS: BMI 54.6
== END 2024-10-10 12:47 | disposition home or self-care (01) ==
LOC: HO.HBS 08:07
PROVIDERS: PCP Nurse Practitioner; Visit Provider Surgery
DX: E66.01 Morbid (severe) obesity due to excess calories (principal)
CPT/HCPCS: 99204

== ENCOUNTER → 2024-10-10 08:07 | Outpatient (BNVA) | payer MEDICAID, SELFPAY | PROVIDERS: PCP Nurse Practitioner; Visit Provider Surgery ==

== ENCOUNTER 2024-10-11 11:09 | Outpatient (REF) | payer MEDICAID, SELFPAY ==
[2024-10-11 13:51] LABS: Estimated Average Glucose 120 mg/dL; Hemoglobin A1c % 5.8 % (<6.0)
[2024-10-11 13:56] LABS: Anion Gap 11 (12-20); Blood Urea Nitrogen 13 mg/dL (9-16); Calcium 9.3 mg/dL (8.4-10.2); Carbon Dioxide 25 mmol/L (22-29); Chloride 105 mmol/L (96-108); Cholesterol 150 mg/dL (<200); Estimated Glomerular Filt Rate > 60; Glucose Random 96 mg/dL (60-115); HDL Cholesterol 42 mg/dL (>40); LDL Cholesterol Calculated 82 mg/dL (<100); Potassium 4.1 mmol/L (3.3-5.1); Sodium 137 mmol/L (135-145); Triglycerides 133 mg/dL (<150)
== END 2024-10-11 11:10 | disposition home or self-care (01) ==
LOC: HO.HHCL 11:09
PROVIDERS: Visit Provider Nurse Practitioner
DX: E66.01 Morbid (severe) obesity due to excess calories (principal)
CPT/HCPCS: 36415; 80048; 80061; 83036

== ENCOUNTER 2024-10-14 09:01 | Outpatient (REF) | payer MEDICAID, SELFPAY ==
--- NOTE | ~2024-10-14 | XR_ITS ---
EXAMINATION: XR CHEST 2 VIEWS HISTORY: E66.01 - Morbid (severe) obesity due to excess calories COMPARISON: Comparison is made with the prior examination dated 03/24/2021. FINDINGS: PA and lateral views of the chest are submitted. The lungs are expanded and clear. There is no pleural effusion, pneumothorax, or pulmonary vascular congestion. The heart is normal in size. The bones are intact. XR/XR chest 2V IMPRESSION: No acute cardiopulmonary abnormality. Electronically signed by: Igor Mckeon MD 10/14/2024 12:35 PM EDT
[2024-10-14 09:19] LABS: MANUAL DIFF FLAG NO
--- NOTE | 2024-10-14 09:47 | ECG_ITS ---
Test Reason : Mor Obs note: *Left Leg tremor Blood Pressure : */* mmHG Vent. Rate : 71 BPM Atrial Rate : 71 BPM P-R Int : 150 ms QRS Dur : 80 ms QT Int : 388 ms P-R-T Axes : 25 39 39 degrees QTcB Int : 421 ms Normal sinus rhythm Normal ECG When compared with ECG of 23-Apr-2021 12:27, No significant change was found Referred By: Rodney Guevara Electronically Signed By: PASCUAL SILVERIO
[2024-10-14 09:57] LABS: Basophils Absolute Auto 0.1 X10*3/uL (0.0-0.2); Basophils Percent Auto 0.9 % (0-2); Eosinophils Absolute Auto 0.2 X10*3/uL (0.0-0.4); Eosinophils Percent Auto 2.8 % (0-4); Hematocrit 41.2 % (37.0-47.0); Hemoglobin 13.2 g/dl (12.0-16.0); Imm Gran Abs Auto 0.02 X10*3/uL (0.00-0.03); Imm Gran Pct Auto 0.3 % (0.0-0.4); Lymphocytes Absolute Auto 2.3 X10*3/uL (1.2-4.9); Lymphocytes Percent Auto 34.6 % (20-40); Mean Corpuscular Volume 84.4 fL (80.0-98.0); Mean Platelet Volume 11.3 fL (9.4-12.3); Monocytes Absolute Auto 0.4 X10*3/uL (0.1-1.2); Monocytes Percent Auto 5.8 % (2-11); Neutrophils Absolute Auto 3.6 x10*3/uL (2.0-8.3); Neutrophils Percent Auto 55.6 % (45-73); Platelet Count 267 X10*3/uL (160-400); Red Blood Count 4.88 X10*6/uL (4.20-5.50); Red Cell Distribution Width 13.8 % (11.0-16.0); White Blood Count 6.5 X10*3/uL (4.8-10.8)
[2024-10-14 10:13] LABS: Estimated Average Glucose 117 mg/dL; Hemoglobin A1c % 5.7 % (<6.0); Total Hemoglobin (HGBA1C) 3451.4731 umol/L
[2024-10-14 11:10] LABS: Folate 9.5 ng/mL (> or = 4.0); Vitamin B12 1047 pg/mL (200-900)
[2024-10-14 11:13] LABS: Alanine Aminotransferase 19 U/L (0-31); Albumin Level 3.9 g/dL (3.5-5.0); Alkaline Phosphatase 70 U/L (39-117); Anion Gap 11 (12-20); Aspartate Amino Transferase 20 U/L (5-31); Bilirubin Total 0.2 mg/dL (0.0-1.0); Blood Urea Nitrogen 9 mg/dL (9-16); C Reactive Protein 2.25 mg/dL (< or = 0.50); Calcium 9.1 mg/dL (8.4-10.2); Carbon Dioxide 26 mmol/L (22-29); Chloride 106 mmol/L (96-108); Cholesterol 159 mg/dL (<200); Estimated Glomerular Filt Rate > 60; Ferritin 20 ng/mL (10-122); Glucose Random 105 mg/dL (60-115); HDL Cholesterol 42 mg/dL (>40); Iron 33 mcg/dL (30-160); LDL Cholesterol Calculated 93 mg/dL (<100); Percent Iron Saturation 10 % (15-50); Potassium 4.2 mmol/L (3.3-5.1); Sodium 139 mmol/L (135-145); Total Iron Binding Capacity 336 mcg/dL (228-428); Total Protein 7.6 g/dL (6.5-8.0); Triglycerides 120 mg/dL (<150); Unsaturated Iron Binding 303 ug/dL; Vitamin D 25-OH Total 24.4 ng/mL (>30)
[2024-10-14 11:45] LABS: Insulin 14 uU/mL (2-29)
[2024-10-17 15:49] LABS: Vitamin A 37 mcg/dL (38-98)
[2024-10-17 20:39] LABS: Zinc 74 mcg/dL (60-130)
[2024-10-21 12:59] LABS: Vitamin B1 14 nmol/L (8-30)
== END 2024-10-14 09:02 | disposition home or self-care (01) ==
LOC: HO.XRAY 09:01
PROVIDERS: PCP Nurse Practitioner; Visit Provider Surgery
DX: E66.01 Morbid (severe) obesity due to excess calories (principal); G47.30 Sleep apnea, unspecified
CPT/HCPCS: 36415; 71046; 80053; 80061; 82306; 82607; 82728; 82746; 83036; 83525; 83540; 84425; 84443; 84590; 84630; 85025; 86140; 93005

== ENCOUNTER → 2024-10-14 09:19 | Outpatient (BNV) | payer MEDICAID, SELFPAY | PROVIDERS: PCP Nurse Practitioner; Visit Provider Radiology Diagnostic Radiology | DX: E66.01 Morbid (severe) obesity due to excess calories (principal) | CPT/HCPCS: 71046 ==

== ENCOUNTER → 2024-10-14 09:47 | Outpatient (BNV) | payer MEDICAID, SELFPAY | PROVIDERS: PCP Nurse Practitioner; Visit Provider Internal Medicine | DX: E66.01 Morbid (severe) obesity due to excess calories (principal); R25.1 Tremor, unspecified | CPT/HCPCS: 93010 ==

== ENCOUNTER 2024-10-30 09:10 | Outpatient (AMB) | payer OTHER, SELFPAY ==
--- NOTE | 2024-10-30 09:00 | A.OFFWM_ITS ---
Intake Intake Visit Reasons: VIDEO BH Intake Allergies Penicillins Allergy (Verified 10/10/24 12:03) Unknown [facility] Medical History (Updated 10/20/24 @ 11:10 by Rodney Guevara MD) Sleep apnea Anxiety Hypotension Hypothyroid Asthma Surgical History Hx of section Family History Mother Diabetes Father No problems noted. Brother No problems noted. Brother No problems noted. Daughter Asthma Prediabetes Thyroid condition Daughter Asthma Daughter No problems noted. Social History Alcohol intake: never Patient Tobacco Use Status: Never used Tobacco Behavioral Health Assessment Weight Management Therapy Therapy Notes Details The patient is a 34-year-old female presenting for her first visit to initiate the behavioral health assessment as part of the surgical weight loss program. She reports previously enrolling in the program in 2020 but had to discontinue participation after traveling to [place] for longer than expected. The patient rejoined the program last month at a starting weight of 308 lbs. Her current goal is to achieve a healthy weight and develop the tools to maintain it successfully over time. Presenting Concerns Referral Source [facility]-Provider, Dr Aguilar Reason for referral Completion of behavioral health assessment as part of process for weight-loss surgery. Precipitating Event Obesity. Pt was 308Lbs when started the program. Living Situation Current Living Situation Rent At risk of losing current housing? No Satisfied with current living situation? Yes Comments PT lives with her 3 daughter. Food/Weight/Diet Expectations of change Her initial goal was to lose 10% of her weight before surgery, which is approximately 30 pounds. Ultimate weight goal: 278lbs before surgery PT started the program on 10/10/2024 at 308 Lbs. Recent weight on 10/27/24 was 300 lbs. PT is implementing the following: Current meal plan: 2 protein shakes, 3 protein bars, and one meal per day Exercise plan: Gym membership. Attending 5 days a week. 1 hr on the treadmill. Scale: yes Communication with provider: Sundays. History/Relationship with food PT reports she was used to skipping meals and had 1 big meal a day. During the day, she was drinking mostly soda during the day and snacking on Candy. Example of meals before starting the program: Breakfast: x3/wk 8am (Premier, eggs) Lunch: 2-3pm (pasta, rice) Dinner: 7pm (bread, cookie) Snacks: a lot of coffee Beverages: Coffee (4-5/d with Sherman milk), Tea: 2 cups/d (water), soda:3-4 cans of Sprite (stopped now), juice: Luu fruit punch History/Relationship with weight PT reports she was chunky and overweight in childhood. In adolescence, she was around 125-130Lbs. PT reports she started gaining a lot of weight after her last in 2008. In the last 10 years, the patient's Lowest weight was 180Lbs and the highest 335Lbs History/Relationship with dieting [employer]. Walking with/ portion control. WMP program in 2020. [facility]. -PT is aware that once returned to [facility], she would gain more weight than she lost. Social History Family history and relationship PT is a single mother of 3. Her daughters are 20, 18 and 15, and they all live with her. Parents alive, she has 2 brothers and 1 sister. They all live in [place]. PT reports she has good family relationships. She has some cousins, an aunt, and an uncle who live close, and they are close. Parental/Familial cloth worker obligations Full custody of children. Her youngest are 18 and 15. Developmental history and status None reported. currently WNL. Social support Children. Some family members. Community support None. Shinto/Spirituality Raised as Pentecost. Currently not attending rastafari. Cultural/Ethnic information PT is from [place] and moved to [place] 6 years ago. She decided to relocate to [place] after [place], as she lost her home and was struggling. Legal Involvement and History Current or historical involvement with the legal system? None reported. Education Highest grade completed 12, graduated HS. Did some college classes. Preferred learning style Auditory, Learn by doing and Visual Currently enrolled in educational program? No Interested in further educational program? Yes Educational Interests/Skills Wants to start [place] classes. 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 Employment Employment Status Unemployed (6 months ago. Searching for a new job.) Wants help to find employment? No Meaningful activities Family activities. Listen to music and watch Italian TV. Financial Situation Describe current financial situation Comfortable Financial assistance? Child Support (For 2 youngest.) and Food Humphrey Service Service? No Medical and Physical Health Summary Additional Medical History not covered in history PCOS. Sexual History concerns None reported. Physical exam in the last year? Yes Pain Screening Current pain? Yes Pain in the last few months? Yes Comments Back and leg pain. Medications Is the patient compliant with medications? Yes (Vitamins) Does the patient have [place] Guardian in place? Not applicable Does the patient use complimentary health approaches? No Questionnaires PHQ-9 Over the last 2 weeks, how often have you been bothered by any of the following problems? 1. Little interest or pleasure in doing things: several days 2. Feeling down, depressed, or hopeless: several days 3. Trouble falling or staying asleep, or sleeping too much: several days 4. Feeling tired or having little energy: several days 5. Poor appetite or overeating: several days 6. Feeling bad about yourself - or that you are a failure or have let yourself or your family down: several days 7. Trouble concentrating on things, such as reading the newspaper or watching television: not at all 8. Moving or speaking so slowly that other people could have noticed. Or the opposite - being so fidgety or restless that you have been moving around a lot more than usual: not at all 9. Thoughts that you would be better off or of hurting yourself in some way: not at all Total score: 6 Depression Screening Interpretation: Positive (From new PT pack. new one will be administered at next visit. ) Depression Screening Done: Yes Source: Developed by Drs. Igor Rodriguez, Sanam Hawkins, Mateusz Enriquez and colleagues, with an educational radha from [employer]. Binge Eating Scale Group 1 A. I don't feel self-conscious about my wt. or body size when I'm with others. B. I feel concerned about how I look to others, but it normally does not make me fell disappointed with myself C. I do get self-conscious about my appearance and wt. which makes me feel disappointed in myself. D. I feel very self-conscious about my wt. and frequently I feel intense shame and disgust for myself. I try to avoid social contacts because of my self- consciousness. Response Group 1: D Group 2 A. I don't have any difficulty eating slowly in the proper manner. B. Although I seem to gobble down foods, I don't end up feeling stuffed because of eating to much. C. At times, I tend to eat quickly and then, I feel uncomfortably full afterwards. D. I have the habit of bolting down my food, without really chewing it. When this happens I usually feel uncomfortably stuffed because I've eaten to much. Response Group 2: A Group 3 A. I feel capable to control my eating urges when I want to. B. I feel like I have failed to control my eating more than the average person. C. I feel utterly helpless when it comes to feeling in control of my eating urges. D. Because I feel so helpless about controlling my eating I have become very desperate about trying to get control. Response Group 3: A Group 4 A. I don't have the habit of eating when I'm bored. B. I sometimes eat when I'm bored, but often I'm able to get busy and get my mind off food. C. I have a regular habit of eating when I'm bored, but occasionally, I can use some other activity to get my mind off eating. D. I have a strong habit of eating when I'm bored. Nothing seems to help me breath the habit. Response Group 4: B Group 5 A. I'm usually physically hungry when I eat something. B. Occasionally, I eat something on impulse even though I really am not hungry. C. I have the regular habit of eating foods, that I might not really enjoy, to satisfy a hungry feeling even though physically, I don't need the food. D. Although I'm not physically hungry, I get a hungry feeling in my mouth that only seems to be satisfied when I eat a food, like sandwich, that fills my mouth. Sometimes, when I eat the food to satisfy my mouth hunger, I then spit the food out so I won't gain weight. Response Group 5: B Group 6 A. I don't feel any guilt or self-hate after I overeat. B. After I overeat, occasionally I feel guilt or self-hate. C. Almost all the time I experience strong guilt or self-hate after I overeat. Response Group 6: B Group 7 A. I don't lose total control of my eating when dieting even after periods when I overeat. B. Sometimes when I eat a forbidden food on a diet, I feel like I blew it and eat even more. C. Frequently, I have the habit of saying to myself, I've blown it now, why not go all the way, when I overeat on a diet. When that happens I eat more. D. I have a regular habit of starting a strict diets for myself but I break the diets by going on an eating binge. My life seems to be either a feast or famine. Response Group 7: A Group 8 A. I rarely eat so much food that I feel uncomfortably stuffed afterwards. B. Usually about once a month, I each such a quantity of food, I end up feeling very stuffed. C. I have regular periods during the month when I eat large amounts of food, either at mealtime or at snacks. D. I eat so much food that I regularly feel quite uncomfortable after eating and sometimes a bit nauseous. Response Group 8: A Group 9 A. My level of calorie intake does not go up very high or go down very low on a regular basis. B. Sometimes after I overeat, I will try to reduce my caloric intake to almost nothing to compensate for the excess calories I've eaten. C. I have a regular habit of overeating during the night. It seems that my routine is not to be hungry in the morning but overeat in the evening. D. In my adult years, I have had week-long periods where I practically starve myself. This follows periods when I overeat. It seems I live a life of either feast or famine. Response Group 9: B Group 10 A. I usually am able to stop eating when I want to. I know when enough is enough. B. Every so often, I experience a compulsion to eat which I can't seem to control. C. Frequently, I experience strong urges to eat which I seem unable to control, but at other times I can control my eating urges. D. I feel incapable of controlling urges to eat. I have a fear of not being able to stop eating voluntarily. Response Group 10: A Group 11 A. I don't have any problem stopping eating when I feel full. B. I usually can stop eating when I feel full but occasionally overeat leaving me feeling uncomfortably stuffed. C. I have a problem stopping eating once I start and usually I feel uncomfortably stuffed after I eat a meal. D. Because I have a problem not being able to stop eating when I want, I sometimes have to induce vomiting to relieve my stuffed feeling. Response Group 11: A Group 12 A. I seem to eat just as much when I'm with others, Family social gatherings as when I'm by myself. B. Sometimes, when I'm with other persons, I don't eat as much as I want to eat because I'm self-conscious about my eating. C. Frequently, I eat only a small amount of food when others are present, because I'm very embarrassed about my eating. D. I feel so ashamed about overeating that I pick times to overeat when I know no one will see me. I feel like a closet eater. Response Group 12: B Group 13 A. I eat three meals a day with only an occasional between meal snack. B. I eat 3 meals a day, but I also normally snack between meals. C. When I am snacking heavily, I get in the habit of skipping regular meals. D. There are regular periods when I seem to be continually eating, with no planned meals. Response Group 13: A Group 14 A. I don't think much about trying to control unwanted eating urges. B. At least some of the time, I feel my thoughts are pre-occupied with trying to control my eating urges. C. I feel that frequently I spend much time thinking about how much I ate or about trying not to eat anymore. D. It seems to me that most of my waking hours are pre-occupied by thoughts about eating or not eating. I feel like I'm constantly struggling not to eat. Response Group 14: A Group 15 A. I don't think about food a great deal. B. I have strong craving for food but they last only for brief periods of time. C. I have days when I can't seem to think about anything else but food. D. Most of my days seem to be pre-occupied with thoughts about food. I feel like I live to eat. Response Group 15: B Group 16 A. I usually know whether or not I'm physically hungry. I take the right portion of food to satisfy me. B. Occasionally, I feel uncertain about knowing whether or not I'm physically hungry. A these times it's hard to know how much food I should take to satisfy me. C. Even though I might know how many calories I should eat, I don't have any idea what is a normal amount of food for me. Response Group 16: A Binge Eating Score: 9 Score less than 17 Minimal Risk Score between 18-26 Moderate Risk Score between 27-46 High Risk Assessment & Plan Assessment & Plan (1) Morbid obesity: Code(s): E66.01 - Morbid (severe) obesity due to excess calories (2) Adjustment disorder: Code(s): F43.20 - Adjustment disorder, unspecified (3) Inappropriate diet or eating habits: Code(s): Z72.4 - Inappropriate diet and eating habits Plan The patient is not yet cleared and will return for a second visit to continue the behavioral health assessment. A new PHQ-9 will be administered during the next appointment. Next Appointment: 11/20/24 at 11am, Telehealth. Telehealth Telehealth Telehealth Platform: [facility] Location of provider rendering services: other Location of patient: address on file Patient Identification confirmed using: Name, : Yes Telehealth method: voice only Patient verbally consented to treatment: Yes Patient verbally consented to billing insurance company: Yes Patient informed of any privacy concerns related to visit: Yes Minutes spent on Phone/Video with Pt.: 55 Coding Level of Care Code New Pt Tele Psy Diag Eval (14574) Patient Type New Diagnoses Morbid obesity E66.01 Adjustment disorder F43.20 Inappropriate diet or eating habits Z72.4 Time Spent (min) 55
--- OUTSIDE RECORDS SUMMARY | 2024-10-30 09:56 | XMS_ITS | Clinical Summary ---
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 [address] [place] [address] Maya Mcginnis NP Results 10/16/[address] NUTRITION APPT REQUEST 10/14/2024 Orders Only GENERIC EXTERNAL DATA DEPARTMENT Provider, Generic External Data 2024 9:15 AM EDT Office Visit [address] [address] Maya Mcginnis NP Morbid obesity due to excess calories (CMS/HCC) (Primary Dx); Routine adult health maintenance; Complicated grief; Dietary counseling; Exercise counseling 2024 Travel 10/07/[address] [address] Gris Ennis MA chartprep 09/27/2024 Population Health Risk Score [facility] (C3) Department [address] [place] [phone] Provider, Population Health Generic 08/19/[address] [address] Maya Mcginnis NP No Show 08/15/[address] [address] Gris Ennis MA chartprep 08/08/2024 Patient Outreach [address] [address] Maya Mcginnis NP Care Coordination (CHW outreach SDOH pest control - referral completed ) 08/08/2024 Patient Outreach [address] [address] Maya Mcginnis NP Pre-visit Planning (SDOH screening [...] Description 01/10/2025 2:30 PM EDT Office Visit [facility] [address], [place] [phone] Maya Mcginnis NP [address] [place] [address] Health Maintenance Due Date Last Done Comments COVID-19 Vaccine ( season) 2024 05/14/2021, 04/23/2021 Influenza Vaccine (#1) 2024 05/23/2019 Depression Monitoring 04/13/2025 2024, 025 SDOH Screening 08/08/2025 08/08/2024 Alcohol/Substance Use Screening [...] 2 VIEWS Routine 10/14/2024 9:19 AM EDT VITAMIN B1 Routine 10/14/2024 9:18 AM EDT ZINC Routine 10/14/2024 9:18 AM [...] EDT Narrative 10/14/2024 12:38 PM EDT ? [facility] ?[address] ?[place] [address] ?XRay Report ? Signed ? Patient: Gloria Rodriguez ?MR#: ?? [id number] ? : 1990 ?Acct:[id number] ? Age/Sex: 34 / F ?ADM Date: 10/14/24 ? Loc: HO.XRAY ? Attending Dr: Rodney Guevara MD ? Ordering Physician: Rodney Guevara MD ?? Date of Service: 10/14/24 ?? Procedure(s): XR chest 2V ?? Accession Number(s): [id number] ? cc: Maya Mcginnis; Rodney Guevara MD [...] DD/ 0919 ? TD/TT: 10/14/24 0938 ? 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 N [...] ORDERAB LES Final Result Performing Organization Address [facility] Co de Phone Number [facility] [address] [place] [phone] * (ABNORMAL) Vitamin B12 (Cobalamin) and Folate Panel, Serum (10/14/2024 9:18 AM EDT) [facility] Vitamin B12 1,047(H) 200 - 900 pg/mL [facility] Comment:NORMAL 200-900 PG/ML INDETERMINATE 160-199 PG/ML DEFICIENT < 160 PG/ML Folate 9.5 > or = 4.0 ng/mL [facility] Comment:Reference Values:> o r = 4.0 ng/mL< 4.0 ng/mL suggests folate deficiency Methotrexate, aminopterin and folinic acid(leucovorin) are chemotherapeutic agents whose molecularstructures are similar to folate; therefore, the Architectfolate assay cannot be used for patients using these drugs. 10/14/2024 9:18 AM EDT 10/14/2024 9:18 AM EDT us Generic External Data Provider LAB BLOOD ORDERAB LES Final Result Performing Organization Address [facility] Co de Phone Number [facility] [address] [place] [phone] * TSH with Reflex to Free T4 (10/14/2024 9:18 AM EDT) Pathologist [facility] TSH reflex Free T4 1.50 0.32 - 4.0 uIU/mL [facility] 10/14/2024 9:18 AM EDT 10/14/2024 9:18 AM EDT us Generic External Data Provider LAB BLOOD ORDERAB LES Final Result Performing Organization Address City/[facility]/ZIP Co de Phone Number [facility] [address] [place] [phone] * CBC auto differential (10/14/2024 9:18 AM EDT) Pathologist [facility] White Blood Count 6.5 4.8 - 10.8 X10*3/uL [facility] Red Blood Count 4.88 4.20 - 5.50 X10*6/uL [facility] Hemoglobin 13.2 12.0 - 16.0 g/dl [facility] Hematocrit 41.2 37.0 - 47.0 % [facility] Mean Corpuscular Volume 84.4 80.0 - 98.0 fL [facility] Mean Corpuscular Hemoglobin 27.0 27.0 - 33.0 pg [facility] Mean Corpuscular HGB Conc 32.0 31.0 - 35.0 g/dl [facility] Red Cell Distribution Width 13.8 11.0 - 16.0 % [facility] Platelet Count 267 160 - 400 X10*3/uL [facility] Mean Platelet Volume 11.3 9.4 - 12.3 fL [facility] Neutrophils Percent Auto 55.6 45 - 73 % [facility] Imm Gran Pct Auto 0.3 0.0 - 0.4 % [facility] Lymphocytes Percent Auto 34.6 20 - 40 % [facility] Monocytes Percent Auto 5.8 2 - 11 % [facility] Eosinophils Percent Auto 2.8 0 - 4 % [facility] Basophils Percent Auto 0.9 0 - 2 % [facility] NRBC Pct Auto 0.0 0.0 - 0.2 /100WBC [facility] Neutrophils Absolute Auto 3.6 2.0 - 8.3 x10*3/uL [facility] Imm Gran Abs Auto 0.02 0.00 - 0.03 X10*3/uL [facility] Lymphocytes Absolute Auto 2.3 1.2 - 4.9 X10*3/uL [facility] Monocytes Absolute Auto 0.4 0.1 - 1.2 X10*3/uL [facility] Eosinophils Absolute Auto 0.2 0.0 - 0.4 X10*3/uL [facility] Basophils Absolute Auto 0.1 0.0 - 0.2 X10*3/uL [facility] NRBC Abs Auto 0.000 0.0 - 0.012 X10*3/uL [facility] 10/14/2024 9:18 AM EDT 10/14/2024 9:18 AM EDT us Generic External Data Provider LAB BLOOD ORDERAB LES Final Result Performing Organization Address [facility] de Phone Number [facility] [address] [place] [phone] * (ABNORMAL) Iron And Total Iron Binding Capacity (10/14/2024 9:18 AM EDT) Iron 33 30 - 160 mcg/dL [facility] Total Iron Binding Capacity 336 228 - 428 mcg/dL [facility] Percent Iron Saturation 10(L) 15 - 50 % [facility] Unsaturated Iron Binding 303 ug/dL [facility] 10/14/2024 9:18 AM EDT 10/14/2024 9:18 AM EDT us Generic External Data Provider LAB BLOOD ORDERAB LES Final Result Performing Organization Address City/[facility]/ZIP Co de Phone Number [facility] [address] [place] [phone] * Insulin (10/14/2024 9:18 AM EDT) Insulin 14 2 - 29 uU/mL [facility] Comment:This test was perfor med using the Crenshaw chemiluminescentmethod. Values obtained from different assay methods cannot beused interchangeably. This insulin assay shows a possiblecross-reactivity with antibodies generated against insulin(immunoreactive insulin and some patients treated withbovine or porcine insulin). Insulin levels may be measuredlower in patients with insulin autoimmune syndrome orfamilial high pro-insulinemia. 10/14/2024 9:1 8 AM EDT 10/14/2024 9:18 AM EDT us Generic External Data Provider LAB BLOOD ORDERAB LES Final Result Performing Organization Address [facility] Phone Number [facility] [address] [place] [phone] * Zinc (10/14/2024 9:18 AM EDT) Zinc 74 60 - 130 mcg/dL [facility] Comment:This test was develo ped and its analytical performancecharacteristics have been determined by [employer] [place], [place]. It hasnot been cleared or approved by the U.S. Food and DrugAdministration. This assay has been validated pursuantto the CLIA regulations and is used for clinicalpurposes.THIS TEST WAS PERFORMED AT:[facility] [place] [address]EIGHUXEARCELIA LI MD,PHD 10/14/2024 9:18 AM EDT 10/14/2024 9:18 AM EDT us Generic External Data Provider LAB BLOOD ORDERAB LES Final Result Performing Organization Address [facility] Co de Phone Number [facility] [address] [place] [phone] * (ABNORMAL) Vitamin A (10/14/2024 9:18 AM EDT) [facility] Vitamin A (Retinol) 37(A) 38 - 98 mcg/dL [facility] Comment:Vitamin supplementat ion within 24 hours prior toblood draw may affect the accuracy of the results.This test was developed and its analytical performancecharacteristics have been determined by [employer] [place] [place]. It hasnot been cleared or approved by the U.S. Food and DrugAdministration. This assay has been validated pursuantto the CLIA regulations and is used for clinicalpurposes.THIS TEST WAS PERFORMED AT:[facility] [place] [address]TJQEZQAARCELIA LI MD,PHD 10/14/2024 9:18 AM EDT 10/14/2024 9:18 AM EDT us Generic External Data Provider LAB BLOOD ORDERAB LES Final Result Performing Organization Address City/[facility]/ZIP Co de Phone Number [facility] [address] [place] [phone] * (ABNORMAL) C-reactive Protein (10/14/2024 9:18 AM EDT) [facility] C Reactive Protein 2.25(H) < or = 0.50 mg/dL [facility] 10/14/2024 9:18 AM EDT 10/14/2024 9:18 AM EDT us Generic External Data Provider LAB BLOOD ORDERAB LES Final Result Performing Organization Address [facility]/ZIP Co de Phone Number [facility] [address] [place] [phone] * Vitamin B1 (10/14/2024 9:18 AM EDT) [facility] Vitamin B1 14 8 - 30 nmol/L [facility] Comment:Vitamin supplementat ion within 24 hours prior toblood draw may affect the accuracy of the results.This test was developed and its analytical performancecharacteristics have been determined by [employer] [place] [place]. It hasnot been cleared or approved by the U.S. Food and DrugAdministration. This assay has been validated pursuantto the CLIA regulations and is used for clinicalpurposes.THIS TEST WAS PERFORMED AT:[facility] [place] [address]WLHJXZUARCELIA LI MD,PHD 10/14/2024 9:18 AM EDT 10/14/2024 9:18 AM EDT us Generic External Data Provider LAB BLOOD ORDERAB LES Final Result Performing Organization Address City/[facility]/ZIP Co de Phone Number [facility] [address] [place] [phone] * Hemoglobin A1c (10/14/2024 9:18 AM EDT) Only the most recent of2 resultswithin the time period is included. Hemoglobin A1c 5.7 <6.0 % [facility] Comment:Hemoglobin A1C Refer ence Range Adults: 4.8 - 6.0 % Non diabetic: < 6.0 % Goal: < 7.0 %Additional Action Suggested: > 8.0 %Note: Hemoglobin A1c results are invalid for patients with abnormal amounts of HbF. Blood transfusions may impact the HbA1c concentration in the patient sample. Estimated Average Glucose 117 mg/dL [facility] Comment:eAG = Estimated ave rage glucose which is %A1C expressed asaverage glucose, using the formula of the [id number] Glucose study (ADAG), Diabetes Care, Vol.31,#8,Feb. 2007 10/14/2024 9:18 AM EDT 10/14/2024 9:18 AM EDT us Generic External Data Provider LAB BLOOD ORDERAB LES Final Result [facility] [address] [place] [phone] * Ferritin (10/14/2024 9:18 AM EDT) Ferritin 20 10 - 122 ng/mL [facility] 10/14/2024 9:18 AM EDT 10/14/2024 9:18 AM EDT us Generic External Data Provider LAB BLOOD ORDERAB LES Final Result Performing Organization Address City/[facility] Co de Phone Number [facility] [address] [place] [phone] * Lipid Panel, Standard (10/14/2024 9:18 AM EDT) Only the most recent of2 resultswithin the time period is included. Triglycerides 120 <150 mg/dL [facility] Comment:Desirable Triglyceri de: less than 150 mg/dLBorderline High Triglyceride 150-199 mg/dLHigh Triglyceride: 200-499 mg/dLVery High Triglyceride: greater than or equal to 5OO mg/dL Cholesterol 159 <200 mg/dL [facility] Comment:Desirable Cholestero l: less than 200 mg/dLBorderline High Cholesterol: 200-239 mg/dLHigh Cholesterol: greater than 239 mg/dL LDL Cholesterol Calculated 93 <100 mg/dL [facility] Comment:Desirable LDL: less than 100 mg/dLNear Optimal/Above Optimal LDL: 110- 129 mg/dLBorderline High LDL: 130-159 mg/dLHigh LDL: 160-189 mg/dLVery High LDL: greater than or equal to 190 mg/dL HDL Cholesterol 42 >40 mg/dL [facility] Comment:Desirable HDL: great er than 40 mg/dL Note: This HDL assay may give artificially low results in patients with liver disease. 10/14/2024 9:18 AM EDT 10/14/2024 9:18 AM EDT us Generic External Data Provider LAB BLOOD ORDERAB LES Final Result Performing Organization Address City/[facility]/ZIP Co de Phone Number [facility] [address] [place] [phone] * (ABNORMAL) Comprehensive Metabolic Panel (10/14/2024 9:18 AM EDT) Sodium 139 135 - 145 mmol/L [facility] Potassium 4.2 3.3 - 5.1 mmol/L [facility] Chloride 106 96 - 108 mmol/L [facility] Carbon Dioxide 26 22 - 29 mmol/L [facility] Anion Gap 11(L) 12 - 20 [facility] Urea Nitrogen (BUN) 9 9 - 16 mg/dL [facility] Creatinine, Serum 0.74 0.5 - 1.4 mg/dL [facility] Estimated Glomerular Filt Rate >60 [facility] Comment:Chronic Kidney Disea se: Estimated GFR < 60 mL/min/1.28j4Gbkxzu Kidney Disease: Estimated GFR < 15 mL/min/1.73m2 Glucose 105 60 - 115 mg/dL [facility] Calcium 9.1 8.4 - 10.2 mg/dL [facility] Bilirubin, Total 0.2 0.0 - 1.0 mg/dL [facility] Aspartate Amino Transferase 20 5 - 31 U/L [facility] Alanine Aminotransferase 19 0 - 31 U/L [facility] Total Protein 7.6 6.5 - 8.0 g/dL [facility] Albumin Level 3.9 3.5 - 5.0 g/dL [facility] Alkaline Phosphatase 70 39 - 117 U/L [facility] 10/14/2024 9:18 AM EDT 10/14/2024 9:18 AM EDT us Generic External Data Provider LAB BLOOD ORDERAB LES Final Result Performing Organization Address [facility]/ZIP Co de Phone Number [facility] [address] [place] [phone] * (ABNORMAL) Basic Metabolic Panel (2024 11:11 AM EDT) Sodium 137 135 - 145 mmol/L [facility] Potassium 4.1 3.3 - 5.1 mmol/L [facility] Chloride 105 96 - 108 mmol/L [facility] Carbon Dioxide 25 22 - 29 mmol/L [facility] Anion Gap 11(L) 12 - 20 [facility] Urea Nitrogen (BUN) 13 9 - 16 mg/dL [facility] Creatinine, Serum 0.69 0.5 - 1.4 mg/dL [facility] Estimated Glomerular Filt Rate >60 [facility] Comment:Chronic Kidney Disea se: Estimated GFR < 60 mL/min/1.12m6Oioqds Kidney Disease: Estimated GFR < 15 mL/min/1.73m2 Glucose 96 60 - 115 mg/dL [facility] Calcium 9.3 8.4 - 10.2 mg/dL [facility] Blood Venous blood specimen / Unknown 2024 11:11 AM EDT 2024 1:41 PM EDT Maya Mcginnis NP LAB BLOOD ORDERABLES Final Resu lt [facility] [address] [place] [phone] * HPV mRNA E6/E7 (12/02/2020 12:00 AM EDT) HPV nRNA E6/E7 Not Detected Not Detected [facility] Comment: Methodology: Store Receiving Clerk-Mediated Amplification This assay detects E6/E7 viral messenger RNA (mRNA) from 14 high-risk HPV types (16,18,31,33,35,39,45,51,52,56,58,59,66,68). ? The analytical performance characteristics of this assay have been determined by [employer]. The modifications have not been cleared or approved by the FDA. This assay has been validated pursuant to the CLIA regulations and is used for clinical purposes. ?? For additional information, please refer to http://education.CabbyGo/faq/CKC409k0 (This link if provided for information/ educational purposes only.) 12/02/2020 Morena Hare AIRLINE SECURITY REPRESENTATIVE LAB BLOOD ORDERABLES Final Res ult Performing Organization Address [facility]/ZIP Co de Phone Number [facility] [address] [place] [address], * Pap Smear (12/02/2020 12:00 AM EDT) Swab Marianne Joy CN LAB CYTOLOGY ORDERABLES F inal Result Performing Organization Address [facility] Co de Phone Number [address], [place] [phone] * HEPATITIS C AB W/REFL TO HCV RNA, QN, PCR (10/23/2020 11:11 AM EDT) HEPATITIS C ANTIBODY NON-REACT HENRY NON-REACT HENRY [facility] INDEX 0.01 <1.00 [facility] Comment: ?? HCV antibody was non-reactive. There is no laboratory ?? evidence of HCV infection. ?? In most cases, no further action is required. However, if recent HCV exposure is suspected, a test for HCV RNA (test code 33535) is suggested. ?? For additional information please refer to http://education.CabbyGo/faq/DRA51p1 (This link is being provided for informational/ educational purposes only.) ?? 10/23/2020 11:1 1 AM EDT us Morenaindigo Hare AIRLINE SECURITY REPRESENTATIVE HISTORICAL/NON ORDERABLE LABS Final Result Performing Organization Address [facility] Co de Phone Number [facility] [address] [place] [address], * HIV 1/2 ANTIGEN/ANTIBODY,FOURTH GENERATION W/RFL (10/23/2020 11:11 AM EDT) HIV-1/2 ANTIGEN AND ANTIBODIES, 4TH GENERATION W/ REFLEX NON-REACT HENRY NON-REACT HENRY [facility] Comment: HIV-1 antigen and HIV-1/HIV-2 [...] ? For additional information please refer to http://education.CabbyGo/faq/AFY672 (This link is being provided for informational/ educational purposes only.) ? The performance of this assay has not been clinically validated in patients less than 2 years old. ?? 10/23/2020 11:1 1 AM EDT Morena Hare [facility] LAB BLOOD ORDERABLES Final Res ult [facility] [address] from Last 3 Months or Most Recently Relevant to Health Maintenance Insurance [facility] C3 Care Teams Assistant Director Of Admissions Relationship Specialty Start Date End Date Maya Mcginnis NP [address] [place] [phone] PCP - General Family Medicine 08/21/23
== END 2024-10-30 09:57 | disposition home or self-care (01) ==
LOC: HO.HBST 09:10
PROVIDERS: PCP Nurse Practitioner; Visit Provider Counselor Mental Health
DX: F43.20 Adjustment disorder, unspecified (principal); E66.01 Morbid (severe) obesity due to excess calories; Z72.4 Inappropriate diet and eating habits
CPT/HCPCS: 90791

== ENCOUNTER 2024-11-05 11:08 | Outpatient (AMB) | payer MEDICAID, SELFPAY ==
[2024-11-05 11:14] VITALS: BP 116/68; BMI 54.6
--- NOTE | 2024-11-05 11:14 | MHC.OFFVIS ---
Vital Signs 11/05/24 11:14 Height 5 ft 3 in Weight 308 lb BMI 54.6 BP 116/68 Intake Visit Reasons: AUB Heel Seat Flap Stapler Required: Yes Heel Seat Flap Stapler Language: Footwear Production Machine Operator Services: Heel Seat Flap Stapler Present Heel Seat Flap Stapler Name: JAMEY Morel Information Interpreted: non-clinical & clinical Director Of Casework Services: Director Of Casework Services Present (Lashanda Jones RMA) Accompanied by: Self / Same As Patient Allergies Penicillins Allergy (Verified 11/05/24 11:30) Unknown Is last menstrual period known: Yes Last menstrual period: 09/17/24 (Ended on 10/28/24) Post menopausal: No Patient : No HPI Comments Details: Presenting complaining of heavy irregular menstrual cycles associated with passage of blood clots, facial hair growth and left unilateral breast discharge, induced nonbloody, clear discharge. [facility] Medical History Sleep apnea Anxiety Hypotension Hypothyroid Asthma Surgical History Hx of section Family History Mother Diabetes Breast cancer Father No problems noted. Brother No problems noted. Brother No problems noted. Daughter Asthma Prediabetes Thyroid condition Daughter Asthma Daughter No problems noted. Social History Alcohol intake: never Patient Tobacco Use Status: Never used Tobacco Patient : No Female Reproductive History Menstrual Age of Menarche: 8 Date of last menstrual period: 09/17/24 (Ended on 10/28/24) control method: none Total pregnancies: 4 Full term: 3 Ab induced: 1 History of abnormal pap smear: No Review of Systems Const All systems reviewed & are unremarkable except as noted in HPI and below Card Reports as per HPI Resp Reports as per HPI GI Reports as per HPI and Reports no additional complaints Reports as per HPI Physical Exam Vital Signs: Last Vital Signs BP 116/68 11/05/24 11:14 BMI result Body Mass Index 54.6 Const General: cooperative, healthy appearing and comfortable Chest Chest palpation & inspection: normal inspection of the chest and normal palpation of entire chest wall Breast/axilla inspection: normal inspection of the breasts and normal inspection of the axillae Breast/axilla palpation: normal palpation of the breasts, normal palpation of the axillae and no axillary lymphadenopathy Resp Effort & Inspection: normal respiratory effort Auscultation: clear to auscultation bilaterally Percussion: percussion normal Cardio Palpation: normal PMI Rate: regular rate Rhythm: regular rhythm Heart sounds: no murmurs and no rubs Peripheral pulses: Peripheral pulses 2+ throughout GI Inspection: Yes normal to inspection Palpation (GI): Soft to palpation, nontender, no guarding, not rigid and No hepatosplenomegaly present Percussion: Yes normal to percussion Auscultation: normal bowel sounds Rectal Exam - Female: deferred General: Yes bladder normal to palpation External Female Exam: No lesion Speculum Exam - Vagina: normal appearance of the vagina, normal palpation, normal vaginal discharge and not erythematous Speculum Exam - Cervix: normal appearance of the cervix and normal palpation Bimanual exam- vagina & uterus: normal bimanual exam, normal palpation, uterine size normal, bladder normal to palpation, consistency normal and normal palpation Bimanual Exam- Adnexa, other: normal adnexae, no masses and no tenderness Assessment & Plan Assessment & Plan (1) Abnormal uterine bleeding (AUB): Code(s): N93.9 - Abnormal uterine and vaginal bleeding, unspecified Category: Medical Plan: Co testing done, GC and chlamydia taken CBC, TSH, prolactin, HCG, testosterone total and free, 17 hydroxyprogesterone and pelvic ultrasound ordered. Discussed with the patient the different causes of abnormal bleeding including thyroid disorders, uterine and ovarian pathology, endometrial hyperplasia, carcinoma and other potential causes. Discussed with the patient the work up including CBC (to r/o anemia), TSH, prolactin, testosterone total and free, 17 hydroxyprogesterone pelvic Ultrasound, endometrial biopsy to r/o endometrial pathology. All questions answered and the patient verbalized understanding. Instructed the patient to schedule an appointment for an endometrial biopsy in 2 weeks. (2) Hirsutism: Code(s): L68.0 - Hirsutism Category: Medical Plan: Testosterone total and free, 17 hydroxyprogesterone ordered. Instructions given the patient to schedule a follow-up appointment (3) Nipple discharge: Comment: Left, clear Code(s): N64.52 - Nipple discharge Category: Medical Plan: Discussed with the patient the differential diagnosis of nipple discharge including but not limited to: hypothyroidism, prolactinoma, non secreting pituitary tumors, intraductal papillomas, breast pre ca and ca and other causes. The workup includes TSH, PRL ( Instructed the patient to have a blood drawn when fasting and with 3 days of no nipple manipulation), diagnostic bilateral mammogram and a left breast ultrasound and surgical breast c/s Instructed the patient to call our office back in case a referral appointment is not scheduled, missed or canceled so that we will assist on rescheduling another appointment, the patient verbalized understanding agreed with the plan. Orders: Orders TSH reflex Free T4 Today N64.52 - Nipple discharge, N93.9 - Abnormal uterine and vaginal bleeding, unspecified HCG Quantitative Today N6.52 - Nipple discharge, N93.9 - Abnormal uterine and vaginal bleeding, unspecified Complete Blood Count no Diff Today N6. - Nipple discharge, N93.9 - Abnormal uterine and vaginal bleeding, unspecified US pelvic and transvaginal Today N6.52 - Nipple discharge, N93.9 - Abnormal uterine and vaginal bleeding, unspecified 17 Hydroxyprogesterone Today L68.0 - Hirsutism, N64.52 - Nipple discharge US breast LT limited Today N64.52 - Nipple discharge Prolactin Today N93.9 - Abnormal uterine and vaginal bleeding, unspecified Testosterone, Free/Total Today L68.0 - Hirsutism, N64.52 - Nipple discharge MM tomosynthesis diagnostic BI Today N6.52 - Nipple discharge Referrals General Surgery Referral N6. - Nipple discharge Coding Level of Care Code New Pt Level 3 (68649) Diagnoses Abnormal uterine bleeding (AUB) N93.9 Hirsutism L68.0 Nipple discharge N64.52
--- OUTSIDE RECORDS SUMMARY | 2024-11-05 13:22 | XMS_ITS | Encounter Summary ---
Author Organization [employer] Address [address] [place] [address] Care Team Providers Care Labor Relations Or Personnel Negotiator Name Role Phone Rahel Maya CONDE Primary Care Provider [phone] Encounter Details Date Type Department Care Team (Late st Contact Info) Description 11/05/2024 Orders Only GENERIC EXTERNAL DATA DEPARTMENT Provider, Generic External Data Social History Tobacco Use Types Packs/Day Years [...] AM EDT documented as of this encounter Plan of Treatment Upcoming Encounters Date Type Department Care Team (Late st Contact Info) Description 01/10/2025 2:30 PM EDT Office Visit [facility] [address], [place] [phone] Maya Mcginnis NP [address] [place] [address] documented as of this encounter Procedures Procedure Name Priority Date/Time Associated Diagnosis Comments CBC Routine 11/05/2024 12:28 PM EDT documented in this encounter Results * (ABNORMAL) CBC (11/05/2024 12:28 PM EDT) White Blood Count 8.4 4.8 - 10.8 X10*3/uL [facility] Red Blood Count 4.68 4.20 - 5.50 X10*6/uL [facility] Hemoglobin 12.6 12.0 - 16.0 g/dl [facility] Hematocrit 39.7 37.0 - 47.0 % [facility] Mean Corpuscular Volume 84.8 80.0 - 98.0 fL [facility] Mean Corpuscular Hemoglobin 26.9(L) 27.0 - 33.0 pg [facility] Mean Corpuscular HGB Conc 31.7 31.0 - 35.0 g/dl [facility] Red Cell Distribution Width 14.1 11.0 - 16.0 % [facility] Platelet Count 307 160 - 400 X10*3/uL [facility] Mean Platelet Volume 11.1 9.4 - 12.3 fL [facility] NRBC Pct Auto 0.0 0.0 - 0.2 /100WBC [facility] NRBC Abs Auto 0.000 0.0 - 0.012 X10*3/uL [facility] 11/05/2024 12:2 8 PM EDT 11/05/2024 12:28 PM EDT us Generic External Data Provider LAB BLOOD ORDERAB LES Final Result [facility] [address] [place] [address] [phone] documented in this encounter Visit Diagnoses Not on filedocumented in this encounter Additional Health Concerns Assessment Noted Time PHQ-9 Depression Total Score: 15 10/11/ 025 9:26 AM EDT documented as of this encounter Care Teams Labor Relations Or Personnel Negotiator Relationship Specialty Start Date End Date Maya Mcginnis NP [address] [place] [phone] PCP - General Family Medicine 08/21/23 documented as of this encounter
--- OUTSIDE RECORDS SUMMARY | 2024-11-05 13:22 | XMS_ITS | Clinical Summary ---
Author Organization [employer] Address [address] [facility] [address] [place] [address] Care Team Providers Care Stock Saw Operator Name Role Phone Rahel Maya CONDE Primary Care Provider [phone] Allergies No known active allergies Medications Multiple [...] is evidenced by PhQ9 score 15 today -BH consulted -she declines medication management for depression [...] bleeding noted on exam today, referral to facilities maintenance manager placed for further work-up -cbc ordered today [...] pt is able to get in with PATIENT INTAKE COORDINATOR Assessment & Plan (12/05/2023 7:07 PM EDT): NEG test today Order vaginal swab and fu results RS appt with high man Encounters Date Type Department Care Team Description 11/05/2024 Orders Only GENERIC EXTERNAL DATA DEPARTMENT Provider, Generic External Data 10/21/[address] [address] Maya Mcginnis NP Results 10/16/[address] NUTRITION APPT REQUEST 10/14/2024 Orders Only GENERIC EXTERNAL DATA DEPARTMENT Provider, Generic External Data 2024 9:15 AM EDT Office Visit [address] [address] Maya Mcginnis NP Morbid obesity due to excess calories (CMS/HCC) (Primary Dx); Routine adult health maintenance; Complicated grief; Dietary counseling; Exercise counseling 2024 Travel 10/07/[address] [address] Gris Ennis MA chartprep 09/27/2024 Population Health Risk Score [facility] () Department [address] [place] [phone] Provider, Population Health Generic 08/19/[address] [address] Maya Mcginnis NP No Show 08/15/[address] [address] Gris Ennis MA chartprep 08/08/2024 Patient Outreach [address] [address] Maya Mcginnis NP Care Coordination (CHW outreach SDOH pest control - referral completed ) 08/08/2024 Patient Outreach [address] [address] Maya Mcginnis NP Pre-visit Planning (SDOH screening [...] Description 01/10/2025 2:30 PM EDT Office Visit [facility] [address], [place] [phone] Maya Mcginnis NP [address] [place] [address] Health Maintenance Due Date Last Done Comments [...] Comments CBC Routine 11/05/2024 12:28 PM EDT XR CHEST 2 VIEWS Routine 10/14/2024 9:19 [...] Recently Relevant to Health Maintenance Results * (ABNORMAL) CBC (11/05/2024 12:28 PM EDT) White Blood Count 8.4 4.8 - 10.8 X10*3/uL [facility] Red Blood Count 4.68 4.20 - 5.50 X10*6/uL [facility] Hemoglobin 12.6 12.0 - 16.0 g/dl [facility] Hematocrit 39.7 37.0 - 47.0 % [facility] Mean Corpuscular Volume 84.8 80.0 - 98.0 fL [facility] Mean Corpuscular Hemoglobin 26.9(L) 27.0 - 33.0 pg [facility] Mean Corpuscular HGB Conc 31.7 31.0 - 35.0 g/dl [facility] Red Cell Distribution Width 14.1 11.0 - 16.0 % [facility] Platelet Count 307 160 - 400 X10*3/uL [facility] Mean Platelet Volume 11.1 9.4 - 12.3 fL [facility] NRBC Pct Auto 0.0 0.0 - 0.2 /100WBC [facility] NRBC Abs Auto 0.000 0.0 - 0.012 X10*3/uL [facility] 11/05/2024 12:2 8 PM EDT 11/05/2024 12:28 PM EDT us Generic External Data Provider LAB BLOOD ORDERAB LES Final Result [facility] [address] [place] [phone] * XR Chest 2 Views (10/14/2024 9:19 AM EDT) Anatomical Region Laterality Modality Chest Radiographic [place] ging 10/14/2024 9:19 AM EDT Narrative 10/14/2024 12:38 PM EDT ? [facility] ?[address] ?[place], [place] [address] ?XRay Report ? Signed ? Patient: Gloria Rodriguez ?MR#: ?? [id number] ? : 1990 ?Acct:[id number] ? Age/Sex: 34 / F ?ADM Date: 10/14/24 ? Loc: HO.XRAY ? Attending Dr: Rodney Guevara MD ? Ordering Physician: Rodney Guevara MD ?? Date of Service: 10/14/24 ?? Procedure(s): XR chest 2V ?? Accession Number(s): [id number] ? cc: Maya Mcginnis; Rodney Guevara MD [...] ??Igor Mckeon MD ??10/14/2024 12:35 PM EDT ? Dictated By: ?Igor Mckeon MD ? Signed By: ?<Electronically signed by Igor Mckeon MD in OV> ?10/14/24 1235 ? DD/ 0919 ? TD/TT: 10/14/24 0938 ? Retail Account Manager: ? Procedure Note Nahum, Kendra - 10/14/[address] [address] XRay Report Signed Patient: Isabela Gloria Mast EMR#: [id number] : 1990Acct:[id number] Age/Sex: 34 / FADM Date: 10/14/24 Loc: HO.XRAY Attending Dr: Rodney Guevara MD Ordering Physician: Rodney Guevara MD Date of Service: 10/14/24 Procedure(s): XR chest 2V Accession Number(s): [id number] cc: Maya Mcginnis; Rodney Guevara MD EXAMINATION: [...] 10/14/24 1235 DD/ 0919 TD/TT: 10/14/24 0938 Retail Account Manager: [facility] External Provider IMG XR PROCEDURES Final Result * (ABNORMAL) Vitamin D, 25-Hydroxy, Total, Immunoassay (10/14/2024 9:18 AM EDT) Vitamin D 25-OH Total 24.4(L) >30 ng/mL [facility] Comment: Health Based Reference Values*< 20 ??ng/mL ??Vxsgqwbmy00-26 ng/mL ??Insufficient> 30 ??ng/mL ??Sufficient*Chacho SAUCEDA. N [...] ORDERAB LES Final Result Performing Organization Address [facility] Co de Phone Number [facility] [address] [place] [phone] * (ABNORMAL) Vitamin B12 (Cobalamin) and Folate Panel, Serum (10/14/2024 9:18 AM EDT) Pathologist [facility] Vitamin B12 1,047(H) 200 - 900 pg/mL [facility] Comment:NORMAL 200-900 PG/M L INDETERMINATE 160-199 PG/ML DEFICIENT < 160 PG/ML Folate 9.5 > or = 4.0 ng/mL [facility] Comment:Reference Values:> o r = 4.0 ng/mL< 4.0 ng/mL suggests folate deficiency Methotrexate, aminopterin and folinic acid(leucovorin) are chemotherapeutic agents whose molecularstructures are similar to folate; therefore, the Architectfolate assay cannot be used for patients using these drugs. 10/14/2024 9:18 AM EDT 10/14/2024 9:18 AM EDT Generic External Data Provider LAB BLOOD ORDERAB LES Final Result Performing Organization Address [facility] Co de Phone Number [facility] [address] [place] [phone] * TSH with Reflex to Free T4 (10/14/2024 9:18 AM EDT) TSH reflex Free T4 1.50 0.32 - 4.0 uIU/mL [facility] 10/14/2024 9:18 AM EDT 10/14/2024 9:18 AM EDT us Generic External Data Provider LAB BLOOD ORDERAB LES Final Result Performing Organization Address City/State/[facility] Co de Phone Number [facility] [address] [place] [phone] * CBC auto differential (10/14/2024 9:18 AM EDT) Pathologist [facility] White Blood Count 6.5 4.8 - 10.8 X10*3/uL [facility] Red Blood Count 4.88 4.20 - 5.50 X10*6/uL [facility] Hemoglobin 13.2 12.0 - 16.0 g/dl [facility] Hematocrit 41.2 37.0 - 47.0 % [facility] Mean Corpuscular Volume 84.4 80.0 - 98.0 fL [facility] Mean Corpuscular Hemoglobin 27.0 27.0 - 33.0 pg [facility] Mean Corpuscular HGB Conc 32.0 31.0 - 35.0 g/dl [facility] Red Cell Distribution Width 13.8 11.0 - 16.0 % [facility] Platelet Count 267 160 - 400 X10*3/uL [facility] Mean Platelet Volume 11.3 9.4 - 12.3 fL [facility] Neutrophils Percent Auto 55.6 45 - 73 % [facility] Imm Gran Pct Auto 0.3 0.0 - 0.4 % [facility] Lymphocytes Percent Auto 34.6 20 - 40 % [facility] Monocytes Percent Auto 5.8 2 - 11 % [facility] Eosinophils Percent Auto 2.8 0 - 4 % [facility] Basophils Percent Auto 0.9 0 - 2 % [facility] NRBC Pct Auto 0.0 0.0 - 0.2 /100WBC [facility] Neutrophils Absolute Auto 3.6 2.0 - 8.3 x10*3/uL [facility] Imm Gran Abs Auto 0.02 0.00 - 0.03 X10*3/uL [facility] Lymphocytes Absolute Auto 2.3 1.2 - 4.9 X10*3/uL [facility] Monocytes Absolute Auto 0.4 0.1 - 1.2 X10*3/uL [facility] Eosinophils Absolute Auto 0.2 0.0 - 0.4 X10*3/uL [facility] Basophils Absolute Auto 0.1 0.0 - 0.2 X10*3/uL [facility] NRBC Abs Auto 0.000 0.0 - 0.012 X10*3/uL [facility] 10/14/2024 9:18 AM EDT 10/14/2024 9:18 AM EDT us Generic External Data Provider LAB BLOOD ORDERAB LES Final Result Performing Organization Address City/[facility]/ZIP Co de Phone Number [facility] [address] [place] [phone] * (ABNORMAL) Iron And Total Iron Binding Capacity (10/14/2024 9:18 AM EDT) Iron 33 30 - 160 mcg/dL [facility] Total Iron Binding Capacity 336 228 - 428 mcg/dL [facility] Percent Iron Saturation 10(L) 15 - 50 % [facility] Unsaturated Iron Binding 303 ug/dL [facility] 10/14/2024 9:18 AM EDT 10/14/2024 9:18 AM EDT us Generic External Data Provider LAB BLOOD ORDERAB LES Final Result Performing Organization Address [facility]/ZIP Co de Phone Number [facility] [address] [place] [phone] * Insulin (10/14/2024 9:18 AM EDT) Pathologist [facility] Insulin 14 2 - 29 uU/mL [facility] Comment:This test was perfor med using [...] ORDERAB LES Final Result Performing Organization Address [facility] de Phone Number [facility] [address] [place] [phone] * Zinc (10/14/2024 9:18 AM EDT) [facility] Zinc 74 60 - 130 mcg/dL [facility] Comment:This test was develo ped and its analytical performancecharacteristics have been determined by [employer] [place], [place]. It hasnot been cleared or approved by the U.S. Food and DrugAdministration. This assay has been validated pursuantto the CLIA regulations and is used for clinicalpurposes.THIS TEST WAS PERFORMED AT:[employer] [place] [address]NLFSQDEARCELIA LI MD,PHD 10/14/2024 9:18 AM EDT 10/14/2024 9:18 AM EDT Generic External Data Provider LAB BLOOD ORDERAB LES Final Result Performing Organization Address [facility] de Phone Number [facility] [address] [place] [phone] * (ABNORMAL) Vitamin A (10/14/2024 9:18 AM EDT) [facility] Vitamin A (Retinol) 37(A) 38 - 98 mcg/dL [facility] Comment:Vitamin supplementat ion within 24 hours prior toblood draw may affect the accuracy of the results.This test was developed and its analytical performancecharacteristics have been determined [place] [facility] [place] It hasnot been cleared or approved by the U.S. Food and DrugAdministration. This assay has been validated pursuantto the CLIA regulations and is used for clinicalpurposes.THIS TEST WAS PERFORMED AT:[employer] [place] [address]CLVCGDFARCELIA LI MD,PHD 10/14/2024 9:18 AM EDT 10/14/2024 9:18 AM EDT Generic External Data Provider LAB BLOOD ORDERAB LES Final Result Performing Organization Address [facility]/ZIP Co de Phone Number [facility] [address] [place] [phone] * (ABNORMAL) C-reactive Protein (10/14/2024 9:18 AM EDT) [facility] C Reactive Protein 2.25(H) < or = 0.50 mg/dL [facility] 10/14/2024 9:18 AM EDT 10/14/2024 9:18 AM EDT Generic External Data Provider LAB BLOOD ORDERAB LES Final Result Performing Organization Address City/[facility]/ZIP Co de Phone Number [facility] [address] [place] [phone] * Vitamin B1 (10/14/2024 9:18 AM EDT) Pathologist [facility] Vitamin B1 14 8 - 30 nmol/L [facility] Comment:Vitamin supplementat ion within 24 hours prior toblood draw may affect the accuracy of the results.This test was developed and its analytical performancecharacteristics have been determined by [employer] [place], [place]. It hasnot been cleared or approved by the U.S. Food and DrugAdministration. This assay has been validated pursuantto the CLIA regulations and is used for clinicalpurposes.THIS TEST WAS PERFORMED AT:[employer] [place] [address]NCQWFDGARCELIA LI MD,PHD 10/14/2024 9:18 AM EDT 10/14/2024 9:18 AM EDT Generic External Data Provider LAB BLOOD ORDERAB LES Final Result Performing Organization Address City/[facility]/ZIP Co de Phone Number [facility] [address] [place] [phone] * Hemoglobin A1c (10/14/2024 9:18 AM EDT) Only the most recent of2 resultswithin the time period is included. Hemoglobin A1c 5.7 <6.0 % [facility] Comment:Hemoglobin A1C Refer ence Range Adults: 4.8 - 6.0 % Non diabetic: < 6.0 % Goal: < 7.0 %Additional Action Suggested: > 8.0 %Note: Hemoglobin A1c results are invalid for patients with abnormal amounts of HbF. Blood transfusions may impact the HbA1c concentration in the patient sample. Estimated Average Glucose 117 mg/dL [facility] Comment:eAG = Estimated ave rage glucose which is %A1C expressed asaverage glucose, using the formula of the [id number] Glucose study (ADAG), Diabetes Care, Vol.31,#8,Feb. 2007 10/14/2024 9:18 AM EDT 10/14/2024 9:18 AM EDT us Generic External Data Provider LAB BLOOD ORDERAB LES Final Result Performing Organization Address City/[facility]/ZIP Co de Phone Number [facility] [address] [place] [phone] * Ferritin (10/14/2024 9:18 AM EDT) Ferritin 20 10 - 122 ng/mL [facility] 10/14/2024 9:18 AM EDT 10/14/2024 9:18 AM EDT Generic External Data Provider LAB BLOOD ORDERAB LES Final Result Performing Organization Address City/[facility]/ZIP Co de Phone Number [facility] [address] [place] [phone] * Lipid Panel, Standard (10/14/2024 9:18 AM EDT) Only the most recent of2 resultswithin the time period is included. Triglycerides 120 <150 mg/dL [facility] Comment:Desirable Triglyceri de: less than 150 mg/dLBorderline High Triglyceride 150-199 mg/dLHigh Triglyceride: 200-499 mg/dLVery High Triglyceride: greater than or equal to 5OO mg/dL Cholesterol 159 <200 mg/dL [facility] Comment:Desirable Cholestero l: less than 200 mg/dLBorderline High Cholesterol: 200-239 mg/dLHigh Cholesterol: greater than 239 mg/dL LDL Cholesterol Calculated 93 <100 mg/dL [facility] Comment:Desirable LDL: less than 100 mg/dLNear Optimal/Above Optimal LDL: 110- 129 mg/dLBorderline High LDL: 130-159 mg/dLHigh LDL: 160-189 mg/dLVery High LDL: greater than or equal to 190 mg/dL HDL Cholesterol 42 >40 mg/dL [facility] Comment:Desirable HDL: great er than 40 mg/dL Note: This HDL assay may give artificially low results in patients with liver disease. 10/14/2024 9:18 AM EDT 10/14/2024 9:18 AM EDT us Generic External Data Provider LAB BLOOD ORDERAB LES Final Result Performing Organization Address City/[facility]/ZIP Co de Phone Number [facility] [address] [place] [phone] * (ABNORMAL) Comprehensive Metabolic Panel (10/14/2024 9:18 AM EDT) Sodium 139 135 - 145 mmol/L [facility] Potassium 4.2 3.3 - 5.1 mmol/L [facility] Chloride 106 96 - 108 mmol/L [facility] Carbon Dioxide 26 22 - 29 mmol/L [facility] Anion Gap 11(L) 12 - 20 [facility] Urea Nitrogen (BUN) 9 9 - 16 mg/dL [facility] Creatinine, Serum 0.74 0.5 - 1.4 mg/dL [facility] Estimated Glomerular Filt Rate >60 [facility] Comment:Chronic Kidney Disea se: Estimated GFR < 60 mL/min/1.09c3Ucgthk Kidney Disease: Estimated GFR < 15 mL/min/1.73m2 Glucose 105 60 - 115 mg/dL [facility] Calcium 9.1 8.4 - 10.2 mg/dL [facility] Bilirubin, Total 0.2 0.0 - 1.0 mg/dL [facility] Aspartate Amino Transferase 20 5 - 31 U/L [facility] Alanine Aminotransferase 19 0 - 31 U/L [facility] Total Protein 7.6 6.5 - 8.0 g/dL [facility] Albumin Level 3.9 3.5 - 5.0 g/dL [facility] Alkaline Phosphatase 70 39 - 117 U/L [facility] 10/14/2024 9:18 AM EDT 10/14/2024 9:18 AM EDT us Generic External Data Provider LAB BLOOD ORDERAB LES Final Result [facility] [address], [place] [phone] * (ABNORMAL) Basic Metabolic Panel (2024 11:11 AM EDT) Sodium 137 135 - 145 mmol/L [facility] Potassium 4.1 3.3 - 5.1 mmol/L [facility] Chloride 105 96 - 108 mmol/L [facility] Carbon Dioxide 25 22 - 29 mmol/L [facility] Anion Gap 11(L) 12 - 20 [facility] Urea Nitrogen (BUN) 13 9 - 16 mg/dL [facility] Creatinine, Serum 0.69 0.5 - 1.4 mg/dL [facility] Estimated Glomerular Filt Rate >60 [facility] Comment:Chronic Kidney Disea se: Estimated GFR < 60 mL/min/1.10g8Dtbitc Kidney Disease: Estimated GFR < 15 mL/min/1.73m2 Glucose 96 60 - 115 mg/dL [facility] Calcium 9.3 8.4 - 10.2 mg/dL [facility] Blood Venous blood specimen / Unknown 2024 11:11 AM EDT 2024 1:41 PM EDT Maya Mcginnis NP LAB BLOOD ORDERABLES Final Resu lt [facility] [address] [place] [phone] * HPV mRNA E6/E7 (12/02/2020 12:00 AM EDT) HPV nRNA E6/E7 Not Detected Not Detected [facility] Comment: Methodology: Accounting Recruiter-Mediated Amplification This assay detects E6/E7 viral messenger RNA (mRNA) from 14 high-risk HPV types (16,18,31,33,35,39,45,51,52,56,58,59,66,68). ? The analytical performance characteristics of this assay have been determined by [employer]. The modifications have not been cleared or approved by the FDA. This assay has been validated pursuant to the CLIA regulations and is used for clinical purposes. ?? For additional information, please refer to http://education.Opzi/faq/LBE272v8 (This link if provided for information/ educational purposes only.) 12/02/2020 Morena Hare [facility] LAB BLOOD ORDERABLES Final Res ult Performing Organization Address [facility] de Phone Number [facility] [address] [place] [address], * Pap Smear (12/02/2020 12:00 AM EDT) Swab Marianne Joy CN LAB CYTOLOGY ORDERABLES F inal Result Performing Organization Address [facility] de Phone Number [facility] [address] [place] [address], [place] [phone] * HEPATITIS C AB W/REFL TO HCV RNA, QN, PCR (10/23/2020 11:11 AM EDT) HEPATITIS C ANTIBODY NON-REACT HENRY NON-REACT HENRY [facility] INDEX 0.01 <1.00 [facility] Comment: ?? HCV antibody was non-reactive. There is no laboratory ?? evidence of HCV infection. ?? In most cases, no further action is required. However, if recent HCV exposure is suspected, a test for HCV RNA (test code 23602) is suggested. ?? For additional information please refer to http://education.Opzi/faq/CVR51u9 (This link is being provided for informational/ educational purposes only.) ?? 10/23/2020 11:1 [address] MESSENGER HISTORICAL/NON ORDERABLE LABS Final Result Performing Organization Address [facility] de Phone Number [facility] [address] [place] [address], * HIV 1/2 ANTIGEN/ANTIBODY,FOURTH GENERATION W/RFL (10/23/2020 11:11 AM EDT) HIV-1/2 ANTIGEN AND ANTIBODIES, 4TH GENERATION W/ REFLEX NON-REACT HENRY NON-REACT [facility] Comment: HIV-1 antigen and HIV-1/HIV-2 [...] ? For additional information please refer to http://[employer].Opzi/faq/ISS062 (This link is being provided for informational/ educational purposes only.) ? The performance of this assay has not been clinically validated in patients less than 2 years old. ?? 10/23/2020 11:1 1 AM EDT us Morena Hare [address] MESSENGER LAB BLOOD ORDERABLES Final Res ult [facility] [address] from Last 3 Months or Most Recently Relevant to Health Maintenance [facility] [employer] C[employer] * Guarantor: Gloria Rodriguez Account Type Relation to Patient Date of Phone Billing Address Personal/Family Self [address] [place] [address] * Guarantor: Gloria Rodriguez Account Type Relation to Patient Date of Phone Billing Address Personal/Family Self [address] [place] [address] * Guarantor: Gloria Rodriguezid Account Type Relation to Patient Date of Phone Billing Address Personal/Family Self [address] [address] Care Teams Stock Saw Operator Relationship Specialty Start Date End Date Maya Mcginnis NP [address] [place] [phone] PCP - General Family Medicine 08/21/23
== END 2024-11-05 12:38 | disposition home or self-care (01) ==
LOC: HO.HWS 11:08
PROVIDERS: PCP Nurse Practitioner; Visit Provider Obstetrics & Gynecology
DX: N93.9 Abnormal uterine and vaginal bleeding, unspecified (principal); L68.0 Hirsutism; N64.52 Nipple discharge
CPT/HCPCS: 99203

== ENCOUNTER 2024-11-05 11:08 | Outpatient (REF) | payer MEDICAID, SELFPAY ==
[2024-11-05 12:41] LABS: Hematocrit 39.7 % (37.0-47.0); Hemoglobin 12.6 g/dl (12.0-16.0); Mean Corpuscular HGB Conc 31.7 g/dl (31.0-35.0); Mean Corpuscular Hemoglobin 26.9 pg (27.0-33.0); Mean Corpuscular Volume 84.8 fL (80.0-98.0); Mean Platelet Volume 11.1 fL (9.4-12.3); Platelet Count 307 X10*3/uL (160-400); Red Blood Count 4.68 X10*6/uL (4.20-5.50); Red Cell Distribution Width 14.1 % (11.0-16.0); White Blood Count 8.4 X10*3/uL (4.8-10.8)
[2024-11-05 13:34] LABS: HCG Quantitative < 2 mIU/mL; TSH reflex Free T4 1.25 uIU/mL (0.32-4.0)
--- OUTSIDE RECORDS SUMMARY | 2024-11-05 14:36 | XMS_ITS | Clinical Summary ---
Author Organization [employer] Address [address] [facility] [address] [place] [address] Care Team Providers Care Web Publisher Name Role Phone Rahel Maya CONDE Primary Care Provider [phone] Allergies No known active allergies Medications Multiple [...] bleeding noted on exam today, referral to chinese language professor placed for further work-up -cbc ordered today [...] pt is able to get in with [employer] Assessment & Plan (12/05/2023 7:07 PM EDT): NEG test today Order vaginal swab and fu results RS appt with animal control officer Encounters Date Type Department Care Team Description 11/05/2024 Orders Only GENERIC EXTERNAL DATA DEPARTMENT Provider, Generic External Data 10/21/[address] [address] Maya Mcginnis NP Results 10/16/[address] NUTRITION APPT REQUEST 10/14/2024 Orders Only GENERIC EXTERNAL DATA DEPARTMENT Provider, Generic External Data 2024 9:15 AM EDT Office Visit [address] [address] Maya Mcginnis NP Morbid obesity due to excess calories (CMS/HCC) (Primary Dx); Routine adult health maintenance; Complicated grief; Dietary counseling; Exercise counseling 2024 Travel 10/07/[address] [address] Gris Ennis MA chartprep 09/27/2024 Population Health Risk Score [facility] () Department [address] [place] [phone] Provider, Population Health Generic 08/19/[address] [address] Maya Mcginnis NP No Show 08/15/[address] [address] Gris Ennis MA chartprep 08/08/2024 Patient Outreach [address] [address] Maya Mcginnis NP Care Coordination (CHW outreach SDOH pest control - referral completed ) 08/08/2024 Patient Outreach [address] [address] Maya Mcginnis NP Pre-visit Planning (SDOH screening [...] Description 01/10/2025 2:30 PM EDT Office Visit [facility] [address] [place], [place] [phone] Maya Mcginnis NP [address] [place] [address] Health Maintenance Due Date Last Done Comments COVID-19 Vaccine ( season) 2024 05/14/2021, 04/23/2021 Influenza Vaccine (#1) 2024 05/23/2019 SDOH Screening 08/08/2025 08/08/2024 Alcohol/Substance Use Screening 2025 2024 Depression Screening 2025 2024, 10/12/19 Family Planning (PISQ) 2025 2024 Tobacco Screening 2025 2024 Diabetes: Hemoglobin A1C 10/14/202510/14/ 025, 2024, 04/01/2021, Additional history exists Cervical [...] Procedure Name Priority Date/Time Associated Diagnosis Comments HCG, TOTAL, QN Routine 11/05/2024 12:28 PM EDT TSH W/REFLEX TO FT4 Routine 11/05/2024 1 2:28 PM EDT CBC Routine 11/05/2024 12:28 PM EDT XR [...] Recently Relevant to Health Maintenance Results * TSH with Reflex to Free T4 (11/05/2024 12:28 PM EDT) Only the most recent of2 resultswithin the time period is included. TSH reflex Free T4 1.25 0.32 - 4.0 uIU/mL [facility] 11/05/2024 12:2 8 PM EDT 11/05/2024 12:28 PM EDT us Generic External Data Provider LAB BLOOD ORDERAB LES Final Result [facility] [address] [place] [address] [phone] * (ABNORMAL) CBC (11/05/2024 12:28 PM EDT) White Blood Count 8.4 4.8 - 10.8 X10*3/uL [facility] Red Blood Count 4.68 4.20 - 5.50 X10*6/uL [facility] Hemoglobin 12.6 12.0 - 16.0 g/dl [facility] Hematocrit 39.7 37.0 - 47.0 % [facility] Mean Corpuscular Volume 84.8 80.0 - 98.0 fL [facility] Mean Corpuscular Hemoglobin 26.9(L) 27.0 - 33.0 pg [facility] Mean Corpuscular HGB Conc 31.7 31.0 - 35.0 g/dl [facility] Red Cell Distribution Width 14.1 11.0 - 16.0 % [facility] Platelet Count 307 160 - 400 X10*3/uL [facility] Mean Platelet Volume 11.1 9.4 - 12.3 fL [facility] NRBC Pct Auto 0.0 0.0 - 0.2 /100WBC [facility] NRBC Abs Auto 0.000 0.0 - 0.012 X10*3/uL [facility] 11/05/2024 12:2 8 PM EDT 11/05/2024 12:28 PM EDT us Generic External Data Provider LAB BLOOD ORDERAB LES Final Result Performing Organization Address [facility]/ZIP Co de Phone Number [facility] [address] [place] [phone] * hCG, Total, Quantitative (11/05/2024 12:28 PM EDT) HCG Quantitative <2 mIU/mL [facility] Comment:Weeks post LMP Appr oximate hCG(Last Menstrual Period) Range (mIU/ml)3 - 4 weeks 9 - 1304 - 5 weeks 75 - 2,6005 - 6 weeks 850 - 20,8006 - 7 weeks 4000 - 100,2007 - 12 weeks 11,500 - 289,66159 - 16 weeks 18,300 - 137,02382 - 29 weeks (2nd trimester) 1,400 - 53,17354 - 41 weeks (3rd trimester) 940 - 60,000The [place]shaw B-hCG assay is used for the early detection ofpregnancy; it cannot be used to diagnose any conditionunrelated to . If a B-hCG level is not supportedby the clinical evidence, results should be confirmed by analternative method (qualitative urine hCG, for example). 11/05/2024 12:2 8 PM EDT 11/05/2024 12:28 PM EDT us Generic External Data Provider LAB BLOOD ORDERAB LES Final Result Performing Organization Address City/[facility]/ZIP Co de Phone Number [facility] [address] [place] [phone] * XR Chest 2 Views (10/14/2024 9:19 AM EDT) Anatomical Region Laterality Modality Chest Radiographic [place] ging 10/14/2024 9:19 AM EDT Narrative 10/14/2024 12:38 PM EDT ? [facility] ?[address] ?[place] [address] ?XRay Report ? Signed ? Patient: MarGloria Lawrence ?MR#: ?? [id number] ? : 1990 ?Acct:[id number] ? Age/Sex: 34 / F ?ADM Date: 10/14/24 ? Loc: HO.XRAY ? Attending Dr: Rodney Guevara MD ? Ordering Physician: Rodney Guevara MD ?? Date of Service: 10/14/24 ?? Procedure(s): XR chest 2V ?? Accession Number(s): [id number] ? cc: Maya Mcginnis; Rodney Guevara MD [...] DD/ 0919 ? TD/TT: 10/14/24 0938 ? Headlight Assembler: ? Procedure Note Nahum, Kendra - 10/14/[address] [place] [address] XRay Report Signed Patient: Gloria Rodriguez EMR#: [id number] : 1990Acct:[id number] Age/Sex: 34 / FADM Date: 10/14/24 Loc: XRAY Attending Dr: Rodney Guevara MD Ordering Physician: Rodney Guevara MD Date of Service: 10/14/24 Procedure(s): XR chest 2V Accession Number(s): [id number] cc: Maya Mcginnis; Rodney Guevara MD EXAMINATION: [...] 10/14/24 1235 DD/ 0919 TD/TT: 10/14/24 0938 Headlight Assembler: [facility] External Provider IMG XR PROCEDURES Final Result * (ABNORMAL) Vitamin D, 25-Hydroxy, Total, Immunoassay (10/14/2024 9:18 AM EDT) Vitamin D 25-OH Total 24.4(L) >30 ng/mL [facility] Comment: Health Based Reference Values*< 20 ??ng/mL ??Rwjlwqema47-52 ng/mL ??Insufficient> 30 ??ng/mL ??Sufficient*Chacho SAUCEDA. N [...] ORDERAB LES Final Result Performing Organization Address [facility] de Phone Number [facility] [address] [place] [phone] * (ABNORMAL) Vitamin B12 (Cobalamin) and Folate Panel, Serum (10/14/2024 9:18 AM EDT) [facility] Vitamin B12 1,047(H) 200 - 900 pg/mL [facility] Comment:NORMAL 200-900 PG/ML INDETERMINATE 160-199 PG/ML DEFICIENT < 160 PG/ML Folate 9.5 > or = 4.0 ng/mL [facility] Comment:Reference Values:> o r = 4.0 ng/mL< 4.0 ng/mL suggests folate deficiency Methotrexate, aminopterin and folinic acid(leucovorin) are chemotherapeutic agents whose molecularstructures are similar to folate; therefore, the Architectfolate assay cannot be used for patients using these drugs. 10/14/2024 9:18 AM EDT 10/14/2024 9:18 AM EDT Generic External Data Provider LAB BLOOD ORDERAB LES Final Result Performing Organization Address [facility] Co de Phone Number [facility] [address] [place] [phone] * CBC auto differential (10/14/2024 9:18 AM EDT) White Blood Count 6.5 4.8 - 10.8 X10*3/uL [facility] Red Blood Count 4.88 4.20 - 5.50 X10*6/uL [facility] Hemoglobin 13.2 12.0 - 16.0 g/dl [facility] Hematocrit 41.2 37.0 - 47.0 % [facility] Mean Corpuscular Volume 84.4 80.0 - 98.0 fL [facility] Mean Corpuscular Hemoglobin 27.0 27.0 - 33.0 pg [facility] Mean Corpuscular HGB Conc 32.0 31.0 - 35.0 g/dl [facility] Red Cell Distribution Width 13.8 11.0 - 16.0 % [facility] Platelet Count 267 160 - 400 X10*3/uL [facility] Mean Platelet Volume 11.3 9.4 - 12.3 fL [facility] Neutrophils Percent Auto 55.6 45 - 73 % [facility] Imm Gran Pct Auto 0.3 0.0 - 0.4 % [facility] Lymphocytes Percent Auto 34.6 20 - 40 % [facility] Monocytes Percent Auto 5.8 2 - 11 % [facility] Eosinophils Percent Auto 2.8 0 - 4 % [facility] Basophils Percent Auto 0.9 0 - 2 % [facility] NRBC Pct Auto 0.0 0.0 - 0.2 /100WBC [facility] Neutrophils Absolute Auto 3.6 2.0 - 8.3 x10*3/uL [facility] Imm Gran Abs Auto 0.02 0.00 - 0.03 X10*3/uL [facility] Lymphocytes Absolute Auto 2.3 1.2 - 4.9 X10*3/uL [facility] Monocytes Absolute Auto 0.4 0.1 - 1.2 X10*3/uL [facility] Eosinophils Absolute Auto 0.2 0.0 - 0.4 X10*3/uL [facility] Basophils Absolute Auto 0.1 0.0 - 0.2 X10*3/uL [facility] NRBC Abs Auto 0.000 0.0 - 0.012 X10*3/uL [facility] 10/14/2024 9:18 AM EDT 10/14/2024 9:18 AM EDT Generic External Data Provider LAB BLOOD ORDERAB LES Final Result Performing Organization Address [facility] de Phone Number [facility] [address] [place] [phone] * (ABNORMAL) Iron And Total Iron Binding Capacity (10/14/2024 9:18 AM EDT) Iron 33 30 - 160 mcg/dL [facility] Total Iron Binding Capacity 336 228 - 428 mcg/dL [facility] Percent Iron Saturation 10(L) 15 - 50 % [facility] Unsaturated Iron Binding 303 ug/dL [facility] 10/14/2024 9:18 AM EDT 10/14/2024 9:18 AM EDT Generic External Data Provider LAB BLOOD ORDERAB LES Final Result Performing Organization Address [facility] Number [facility] [address] [place] [phone] * Insulin (10/14/2024 9:18 AM EDT) Insulin 14 2 - 29 uU/mL [facility] Comment:This test was perfor med using [...] ORDERAB LES Final Result Performing Organization Address [facility] Co de Phone Number [facility] [address] [place] [phone] * Zinc (10/14/2024 9:18 AM EDT) Zinc 74 60 - 130 mcg/dL [facility] Comment:This test was develo ped and its analytical performancecharacteristics have been determined by [email or web address] It hasnot been cleared or approved by the U.S. Food and DrugAdministration. This assay has been validated pursuantto the CLIA regulations and is used for clinicalpurposes.THIS TEST WAS PERFORMED AT:[employer] [address] [id number] LI MD,PHD 10/14/2024 9:18 AM EDT 10/14/2024 9:18 AM EDT Generic External Data Provider LAB BLOOD ORDERAB LES Final Result Performing Organization Address [facility] de Phone Number [facility] [address] [place] [phone] * (ABNORMAL) Vitamin A (10/14/2024 9:18 AM EDT) Pathologist [facility] Vitamin A (Retinol) 37(A) 38 - 98 mcg/dL [facility] Comment:Vitamin supplementat ion within 24 hours prior toblood draw may affect the accuracy of the results.This test was developed and its analytical performancecharacteristics have been determined by [email or web address] It hasnot been cleared or approved by the U.S. Food and DrugAdministration. This assay has been validated pursuantto the CLIA regulations and is used for clinicalpurposes.THIS TEST WAS PERFORMED AT:[employer] [id number] [place] [address]AFPKKVSARCELIA LI MD,PHD 10/14/2024 9:18 AM EDT 10/14/2024 9:18 AM EDT Generic External Data Provider LAB BLOOD ORDERAB LES Final Result Performing Organization Address [facility]/ZIP Co de Phone Number [facility] [address] [place] [phone] * (ABNORMAL) C-reactive Protein (10/14/2024 9:18 AM EDT) Pathologist [facility] C Reactive Protein 2.25(H) < or = 0.50 mg/dL [facility] 10/14/2024 9:18 AM EDT 10/14/2024 9:18 AM EDT Generic External Data Provider LAB BLOOD ORDERAB LES Final Result Performing Organization Address [facility] Co de Phone Number [facility] [address] [place] [phone] * Vitamin B1 (10/14/2024 9:18 AM EDT) [facility] Vitamin B1 14 8 - 30 nmol/L [facility] Comment:Vitamin supplementat ion within 24 hours prior toblood draw may affect the accuracy of the results.This test was developed and its analytical performancecharacteristics have been determined by [employer] [place], [place]. It hasnot been cleared or approved by the U.S. Food and DrugAdministration. This assay has been validated pursuantto the CLIA regulations and is used for clinicalpurposes.THIS TEST WAS PERFORMED AT:[employer]/[id number] [place] [address]GNHDZKPARCELIA LI MD,PHD 10/14/2024 9:18 AM EDT 10/14/2024 9:18 AM EDT us Generic External Data Provider LAB BLOOD ORDERAB LES Final Result Performing Organization Address [facility] Co de Phone Number [facility] [address] [place] [phone] * Hemoglobin A1c (10/14/2024 9:18 AM EDT) Only the most recent of2 resultswithin the time period is included. Hemoglobin A1c 5.7 <6.0 % [facility] Comment:Hemoglobin A1C Refer ence Range Adults: 4.8 - 6.0 % Non diabetic: < 6.0 % Goal: < 7.0 %Additional Action Suggested: > 8.0 %Note: Hemoglobin A1c results are invalid for patients with abnormal amounts of HbF. Blood transfusions may impact the HbA1c concentration in the patient sample. Estimated Average Glucose 117 mg/dL [facility] Comment:eAG = Estimated ave rage glucose which is %A1C expressed asaverage glucose, using the formula of the [id number]-[id number] Glucose study (ADAG), Diabetes Care, Vol.31,#8,Feb. 2007 10/14/2024 9:18 AM EDT 10/14/2024 9:18 AM EDT us Generic External Data Provider LAB BLOOD ORDERAB LES Final Result Performing Organization Address [facility] Co de Phone Number [facility] [address] [place] [phone] * Ferritin (10/14/2024 9:18 AM EDT) Ferritin 20 10 - 122 ng/mL [facility] 10/14/2024 9:18 AM EDT 10/14/2024 9:18 AM EDT us Generic External Data Provider LAB BLOOD ORDERAB LES Final Result Performing Organization Address [facility] Co de Phone Number [facility] [address] [place] [phone] * Lipid Panel, Standard (10/14/2024 9:18 AM EDT) Only the most recent of2 resultswithin the time period is included. Triglycerides 120 <150 mg/dL [facility] Comment:Desirable Triglyceri de: less than 150 mg/dLBorderline High Triglyceride 150-199 mg/dLHigh Triglyceride: 200-499 mg/dLVery High Triglyceride: greater than or equal to 5OO mg/dL Cholesterol 159 <200 mg/dL [facility] Comment:Desirable Cholestero l: less than 200 mg/dLBorderline High Cholesterol: 200-239 mg/dLHigh Cholesterol: greater than 239 mg/dL LDL Cholesterol Calculated 93 <100 mg/dL [facility] Comment:Desirable LDL: less than 100 mg/dLNear Optimal/Above Optimal LDL: 110- 129 mg/dLBorderline High LDL: 130-159 mg/dLHigh LDL: 160-189 mg/dLVery High LDL: greater than or equal to 190 mg/dL HDL Cholesterol 42 >40 mg/dL [facility] Comment:Desirable HDL: great er than 40 mg/dL Note: This HDL assay may give artificially low results in patients with liver disease. 10/14/2024 9:18 AM EDT 10/14/2024 9:18 AM EDT us Generic External Data Provider LAB BLOOD ORDERAB LES Final Result [facility] [address] [place] [phone] * (ABNORMAL) Comprehensive Metabolic Panel (10/14/2024 9:18 AM EDT) Sodium 139 135 - 145 mmol/L [facility] Potassium 4.2 3.3 - 5.1 mmol/L [facility] Chloride 106 96 - 108 mmol/L [facility] Carbon Dioxide 26 22 - 29 mmol/L [facility] Anion Gap 11(L) 12 - 20 [facility] Urea Nitrogen (BUN) 9 9 - 16 mg/dL [facility] Creatinine, Serum 0.74 0.5 - 1.4 mg/dL [facility] Estimated Glomerular Filt Rate >60 [facility] Comment:Chronic Kidney Disea se: Estimated GFR < 60 mL/min/1.78l1Wqbbrx Kidney Disease: Estimated GFR < 15 mL/min/1.73m2 Glucose 105 60 - 115 mg/dL [facility] Calcium 9.1 8.4 - 10.2 mg/dL [facility] Bilirubin, Total 0.2 0.0 - 1.0 mg/dL [facility] Aspartate Amino Transferase 20 5 - 31 U/L [facility] Alanine Aminotransferase 19 0 - 31 U/L [facility] Total Protein 7.6 6.5 - 8.0 g/dL [facility] Albumin Level 3.9 3.5 - 5.0 g/dL [facility] Alkaline Phosphatase 70 39 - 117 U/L [facility] 10/14/2024 9:18 AM EDT 10/14/2024 9:18 AM EDT us Generic External Data Provider LAB BLOOD ORDERAB LES Final Result [facility] [address] [place] [phone] * (ABNORMAL) Basic Metabolic Panel (2024 11:11 AM EDT) Sodium 137 135 - 145 mmol/L [facility] Potassium 4.1 3.3 - 5.1 mmol/L [facility] Chloride 105 96 - 108 mmol/L [facility] Carbon Dioxide 25 22 - 29 mmol/L [facility] Anion Gap 11(L) 12 - 20 [facility] Urea Nitrogen (BUN) 13 9 - 16 mg/dL [facility] Creatinine, Serum 0.69 0.5 - 1.4 mg/dL [facility] Estimated Glomerular Filt Rate >60 [facility] Comment:Chronic Kidney Disea se: Estimated GFR < 60 mL/min/1.73f0Yplxha Kidney Disease: Estimated GFR < 15 mL/min/1.73m2 Glucose 96 60 - 115 mg/dL [facility] Calcium 9.3 8.4 - 10.2 mg/dL [facility] Blood Venous blood specimen / Unknown 2024 11:11 AM EDT 2024 1:41 PM EDT Maya Rahel CONSULTING MANAGER LAB BLOOD ORDERABLES Final Resu lt Performing Organization Address [facility] Co de Phone Number [facility] [address] [place] [phone] * HPV mRNA E6/E7 (12/02/2020 12:00 AM EDT) HPV nRNA E6/E7 Not Detected Not Detected [facility] Comment: Methodology: Environmental Protection Specialist-Mediated Amplification This assay detects E6/E7 viral messenger RNA (mRNA) from 14 high-risk HPV types (16,18,31,33,35,39,45,51,52,56,58,59,66,68). ? The analytical performance characteristics of this assay have been determined by [employer]. The modifications have not been cleared or approved by the FDA. This assay has been validated pursuant to the CLIA regulations and is used for clinical purposes. ?? For additional information, please refer to http://education.TheRouteBox/faq/PYW339j1 (This link if provided for information/ educational purposes only.) 12/02/2020 us Morena Hare SUPERVISOR CORRESPONDENCE SECTION LAB BLOOD ORDERABLES Final Res ult Performing Organization Address City/[facility]/ZIP Co de Phone Number [facility] [address] * Pap Smear (12/02/2020 12:00 AM EDT) Swab Marianne Hamilton CNM LAB CYTOLOGY ORDERABLES F inal Result Performing Organization Address City/[facility]/ZIP Co de Phone Number [address], [place] [phone] * HEPATITIS C AB W/REFL TO HCV RNA, QN, PCR (10/23/2020 11:11 AM EDT) HEPATITIS C ANTIBODY NON-REACT HENRY NON-REACT HENRY [facility] INDEX 0.01 <1.00 [facility] Comment: ?? HCV antibody was non-reactive. There is no laboratory ?? evidence of HCV infection. ?? In most cases, no further action is required. However, if recent HCV exposure is suspected, a test for HCV RNA (test code 66296) is suggested. ?? For additional information please refer to http://[employer].TheRouteBox/faq/KBG19t5 (This link is being provided for informational/ educational purposes only.) ?? 10/23/2020 11:1 [address] [facility] HISTORICAL/NON ORDERABLE LABS Final Result [facility] [address] * HIV 1/2 ANTIGEN/ANTIBODY,FOURTH GENERATION W/RFL (10/23/2020 11:11 AM EDT) HIV-1/2 ANTIGEN AND ANTIBODIES, 4TH GENERATION W/ REFLEX NON-REACT HENRY NON-REACT HENRY [facility] Comment: HIV-1 antigen and HIV-1/HIV-2 [...] ? For additional information please refer to http://[employer] [place] [employer].TheRouteBox/faq/LRA018 (This link is being provided for informational/ educational purposes only.) ? The performance of this assay has not been clinically validated in patients less than 2 years old. ?? 10/23/2020 11:1 1 AM EDT us Morena Hare SUPERVISOR CORRESPONDENCE SECTION LAB BLOOD ORDERABLES Final Res ult [facility] [address] [place] [address], from Last 3 Months or Most Recently Relevant to Health Maintenance Insurance [employer] * Guarantor: Gloria Rodriguez Account Type Relation to Patient Date of Phone Billing Address Personal/Family Self [address] [place] [phone] * Guarantor: Gloria Rodriguezid Account Type Relation to Patient Date of Phone Billing Address Personal/Family Self [address] [place] [phone] Care Teams Web Publisher Relationship Specialty Start Date End Date Maya Mcginnis NP [address] [place] [address] PCP - General Family Medicine 08/21/23
--- OUTSIDE RECORDS SUMMARY | 2024-11-05 14:36 | XMS_ITS | Encounter Summary ---
Author Organization [facility] Address [address] [facility] [address] [place] [address] Care Team Providers Care Color Coater Name Role Phone Rahel Maya CONDE Primary Care Provider [phone] Encounter Details Date Type Department Care Team [...] Description 01/10/2025 2:30 PM EDT Office Visit [facility] [address], [place] [phone] Maya Mcginnis NP [address] [place], [place] [phone] documented as of this encounter Procedures Procedure Name Priority Date/Time Associated Diagnosis Comments TSH W/REFLEX TO FT4 Routine 11/05/2024 1 2:28 PM EDT CBC Routine 11/05/2024 12:28 PM EDT HCG, TOTAL, QN Routine 11/05/2024 12:28 PM EDT documented in this encounter Results * hCG, Total, Quantitative (11/05/2024 12:28 PM EDT) HCG Quantitative <2 mIU/mL [facility] Comment:Weeks post LMP Appro ximate hCG(Last Menstrual Period) Range (mIU/ml)3 - 4 weeks 9 - 1304 - 5 weeks 75 - 2,6005 - 6 weeks 850 - 20,8006 - 7 weeks 4000 - 100,2007 - 12 weeks 11,500 - 289,84182 - 16 weeks 18,300 - 137,37316 - 29 weeks (2nd trimester) 1,400 - 53,11485 - 41 weeks (3rd trimester) 940 - 60,000The [place] B- hCG assay is used for the early detection ofpregnancy; it cannot be used to diagnose any conditionunrelated to . If a B-hCG level is not supportedby the clinical evidence, results should be confirmed by analternative method (qualitative urine hCG, for example). 11/05/2024 12:2 8 PM EDT 11/05/2024 12:28 PM EDT us Generic External Data Provider LAB BLOOD ORDERAB LES Final Result Performing Organization Address City/[facility]/ZIP Co de Phone Number [facility] [address] [place] [phone] * TSH with Reflex to Free T4 (11/05/2024 12:28 PM EDT) TSH reflex Free T4 1.25 0.32 - 4.0 uIU/mL [facility] 11/05/2024 12:2 8 PM EDT 11/05/2024 12:28 PM EDT Generic External Data Provider LAB BLOOD ORDERAB LES Final Result Performing Organization Address [facility] Co de Phone Number [facility] [address] [place] [phone] * (ABNORMAL) CBC (11/05/2024 12:28 PM EDT) White Blood Count 8.4 4.8 - 10.8 X10*3/uL [facility] Red Blood Count 4.68 4.20 - 5.50 X10*6/uL [facility] Hemoglobin 12.6 12.0 - 16.0 g/dl [facility] Hematocrit 39.7 37.0 - 47.0 % [facility] Mean Corpuscular Volume 84.8 80.0 - 98.0 fL [facility] Mean Corpuscular Hemoglobin 26.9(L) 27.0 - 33.0 pg [facility] Mean Corpuscular HGB Conc 31.7 31.0 - 35.0 g/dl [facility] Red Cell Distribution Width 14.1 11.0 - 16.0 % [facility] Platelet Count 307 160 - 400 X10*3/uL [facility] Mean Platelet Volume 11.1 9.4 - 12.3 fL [facility] NRBC Pct Auto 0.0 0.0 - 0.2 /100WBC [facility] NRBC Abs Auto 0.000 0.0 - 0.012 X10*3/uL [facility] 11/05/2024 12:2 8 PM EDT 11/05/2024 12:28 PM EDT us Generic External Data Provider LAB BLOOD ORDERAB LES Final Result [facility] [address] [place] [phone] documented in this encounter Visit Diagnoses Not on filedocumented in this encounter Additional Health Concerns Assessment Noted Time PHQ-9 Depression Total Score: 15 10/11/ 025 9:26 AM EDT documented as of this encounter Care Teams Color Coater Relationship Specialty Start Date End Date Maya Mcginnis NP [address] [place] [address] PCP - General Family Medicine 08/21/23 documented as of this encounter
[2024-11-06 10:39] LABS: Prolactin 15.8 ng/mL
[2024-11-09 13:52] LABS: Testosterone, Free 6.5 pg/mL (0.1-6.4); Testosterone, Total 43 ng/dL (2-45)
== END 2024-11-05 11:09 | disposition home or self-care (01) ==
LOC: HO.LAB 11:08
PROVIDERS: PCP Nurse Practitioner; Visit Provider Obstetrics & Gynecology
DX: N64.52 Nipple discharge (principal); N93.9 Abnormal uterine and vaginal bleeding, unspecified; L68.0 Hirsutism
CPT/HCPCS: 36415; 83498; 84146; 84402; 84403; 84443; 84702; 85027; 87491; 87591; 87626; 88175; 99202

== ENCOUNTER 2024-11-05 12:29 | Outpatient (REF) | payer MEDICAID, SELFPAY ==
[2024-11-06 10:07] LABS: CT PCR NOT DETECTED (Not Detect.); NG PCR NOT DETECTED (Not Detect.)
[2024-11-11 12:11] LABS: HPV Genotype 16 Negative (Negative); HPV Genotype 18 Negative (Negative); HPV High Risk Negative (Negative)
== END 2024-11-05 12:30 | disposition home or self-care (01) ==
LOC: HO.LNP 12:29
PROVIDERS: Visit Provider Obstetrics & Gynecology
DX: N93.9 Abnormal uterine and vaginal bleeding, unspecified (principal)
CPT/HCPCS: 87491; 87591; 87626; 88175

== ENCOUNTER 2024-11-08 09:55 | Day surgery (SDC) | payer MEDICAID, SELFPAY ==
--- OUTSIDE RECORDS SUMMARY | 2024-10-21 10:50 | XMS_ITS | Encounter Summary ---
Author Organization [employer] Address 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 Name Role Phone Maya Mcginnis NP Primary Care Provider [phone] Reason for Visit * Reason Onset Date Comments NUTRITION APPT REQUEST 10/16/2024 Encounter Details Date Type Department Care Team ([facility] Contact Info) Description 10/16/2024 Telephone [facility] MED[facility] [address] [place] [address] Huong Lindquist, MARYJO [address] [place] [address] NUTRITION APPT REQUEST Social History Tobacco Use Types Packs/Day Years Used Date Smoking Tobacco: Never Passive Smoke Exposure: Never Smokeless Tobacco: Never Depression Answer Date Recorded Patient Health Questionnaire-9 Score 15 2024 Patient Health Questionnaire-9 Score 15 2024 Last PHQ-9: Questionnaire Data Not on file 0 2024 Housing Stability Answer Date Recorded What is your housing situation today? I have nasim sena 08/08/[address] you li ve. Do you have problems with any of the following? Pests such as bugs, ants, or mice 08/08/2024 Food Insecurity Answer Date Recorded Within the past 12 months, y ou worried that your food would run out before you got money to buy more: Never True 01/17/2024 Within the past 12 months,th e food you bought just didn't last and you didn't have enough money to get more: Never True 09/2023 Transportation Answer Date Recorded In the past 12 months, has l ack of transportation kept you from medical appts, meetings, work or from getting things needed for daily living? No 08/08/2024 Utilities Answer Date Recorded In the past 12 months, has t he electric, gas, oil or water company threatened to shut off services in your home? Yes 01/17/2024 Depression Answer Date Recorded Patient Health Questionnaire-2 Score 4 2024 Internet Access Answer Date Recorded Internet Access Q1 Yes 03/18/2024 Internet Access Q2 Not on file 03/18/2024 Comments Unknown Sex and Gender Information Value Date Recorded Sex Assigned at Female 05/16/2022 10:36 AM EDT Legal Sex Female 10:36 AM EDT Gender Identity Female 05/16/2022 10:36 AM EDT Sexual Orientation Straight 05/16/2022 10 :36 AM EDT documented as of this encounter Miscellaneous Notes * Telephone Encounter - Johnna Mcfarlane - 10/16/2024 3:34 PM EDT Called PT to schedule a nutrition appt, NA\LVM documented in this encounter Plan of Treatment Upcoming Encounters Date Type Department Care Team (Late st Contact Info) Description 01/10/2025 2:30 PM EDT Office Visit [facility] MED[facility] [address] [place] [address] Maya Mcginnis NP [address] [place] [address] documented as of this encounter Visit Diagnoses Not on filedocumented in this encounter Additional Health Concerns Assessment Noted Time PHQ-9 Depression Total Score: 15 025 9:26 AM EDT documented as of this encounter Care Teams Bottle Machine Operator Relationship Specialty Start Date End Date Maya Mcginnis NP [address] [place] [address] PCP - General Family Medicine 08/21/23 documented as of this encounter
--- OUTSIDE RECORDS SUMMARY | 2024-10-21 10:50 | XMS_ITS | Clinical Summary ---
Author Organization [employer] Address [address] [facility] [address] [place] [address] Care Team Providers Care Inventory Worker Name Role Phone Rahel Maya CONDE Primary Care Provider [phone] Allergies No known active allergies Medications Multiple Vitamin (multivitamin) tablet Take 1 tablet by mouth Once per day. Active dicyclomine (Bentyl) 10 MG capsule Take 1 capsule (10 mg) by mouth 4 times daily. 60 capsule 12/05/19 24 025 Discontinued(Me d list cleanup (will not trigger notification to Pharmacy)) Active Problems Problem Noted Date Diagnosed Date Morbid obesity due to excess calories 2024 Assessment & Plan (2024 11:36 AM EDT): -documented 21 lb weight gain within 9 month span -discussed overall health benefits associated with weight loss -reviewed importance of being emotionally and mentally prepared for the process. This includes addressing complicated grief resulting in depression -she is encouraged to continue with lifestyle modifications -Dietary Recommendations: Fruits, vegetables, whole grains, protein foods, and fat-free or low-fat dairy products are healthy choices. Eat different types of protein foods in your diet. This can include seafood, lean meats, poultry, beans, peas, lentils, nuts, seeds, soy products, and eggs. Limit foods and beverages higher in added sugars, saturated fat, and sodium. Exercise Recommendations: At least 150 minutes of moderate-intensity physical activity per week, or an equivalent combination of moderate- and vigorous-intensity activity -discussed starting metformin pending A1c level ordered today Complicated grief 2024 Assessment & Plan (2024 11:34 AM EDT): -patient has sustained multiple deaths in the family affecting her mental health. This is evidenced by PhQ9 score 15 today - consulted -she declines medication management for depression at this time opting to engage with therapist first -non-pharm interventions for depression reviewed Prediabetes 08/14/2024 Pain of upper abdomen 12/05/2023 Assessment & Plan (12/05/2023 7:04 PM EDT): Ro cholecystitis vs gastritis FU results of abd US, not available at this time. Rx Sucralfate 1g tid ac meals + at bedtime x 1w and fu with PCP Bentyl prn severe abd pain Advised re liquid diet for 1d, then advance to bland diet as tolerated and avoid fat melas until seen by PCP. Re consult prn fever, PO intolerance, worsening of abdominal pain. DUB (dysfunctional uterine bleeding) 12/05/2023 Assessment & Plan (01/22/2024 4:31 PM EDT): -PE reassuring to rule out PID. -STI testing completed without significant findings -will benefit from endometrial biopsy given thickened endometrium noted on transvaginal US (see above) -given no evidence of acute uterine bleeding noted on exam today, referral to bedspread inspector placed for further work-up -cbc ordered today to evaluate hemodynamic status given prolonged duration of bleeding. Will treat accordingly -TSH, PT/PTT, and vonWillibrand labs ordered to rule out thyroid dysfunction and bleeding disorder -consider starting monophasic OCP one pill 3x day x 3d, then 2x day x 3d then daily skipping placebo pills for heavier bleeding or tranexamic acid if bleeding continues before pt is able to get in with ENGINE DYNAMOMETER TESTER Assessment & Plan (12/05/2023 7:07 PM EDT): NEG test today Order vaginal swab and fu results RS appt with manager it security Encounters Date Type Department Care Team Description 10/21/2024 Telephone [facility] MEDICINE [address] [place] [address] Maya Mcginnis NP Results 10/16/[address] NUTRITION APPT REQUEST 10/14/2024 Orders Only GENERIC EXTERNAL DATA DEPARTMENT Provider, Generic External Data 2024 9:15 AM EDT Office Visit [address] [address] Maya Mcginnis NP Morbid obesity due to excess calories (CMS/HCC) (Primary Dx); Routine adult health maintenance; Complicated grief; Dietary counseling; Exercise counseling 2024 Travel 10/07/[address] [address] Gris Ennis MA chartprep 09/27/2024 Population Health Risk Score [facility] (C3) Department [address] [place] [phone] Provider, Population Health Generic 08/19/[address] [address] Maya Mcginnis NP No Show 08/15/[address] [address] Gris Ennis MA chartprep 08/08/2024 Patient Outreach [address] [address] Maya Mcginnis NP Care Coordination (CHW outreach SDOH pest control - referral completed ) 08/08/2024 Patient Outreach [address] [address] Maya Mcginnis NP Pre-visit Planning (SDOH screening positive and Tobacco screening negative) from Last 3 Months Immunizations Name Administration Dates Next Due DTP 01/27/1993, 1,10/23/1989,1988,1988 Hep B, Adolescent or Pediatric 10/16/2001 Hep B, Unspecified 02/23/2004,03/05/2003 Hib (PRP-T) 08/30/1990 IPV 01/27/1993, 1,10/23/1989,1988,1988 Influenza injectable quadriv alent IIV4 with preservative 05/23/2019 MMR 01/27/1993,10/23/1989 TD (adult), 2 Lf tetanus tox oid, preservative free, adsorbed 03/05/2003 Tdap 05/23/2019 Family History Medical History Relation Name Comments Breast cancer Cousin Diabetes type I Daughter Bone cancer Father's Brother Diabetes Maternal Grandmother Breast cancer Mother's Sister Relation Name Status Comments Cousin Alive Daughter Father's Brother Maternal Grandmother Mother's Sister Social History Tobacco Use Types Packs/Day Years Used Date Smoking Tobacco: Never Passive Smoke Exposure: Never Smokeless Tobacco: Never Tobacco Cessation:Counseling Given: Not Answered Depression Answer Date Recorded Patient Health Questionnaire-9 [...] Orientation Straight 05/16/2022 10 :36 AM EDT Last Filed Vital Signs Vital Sign Reading Time Taken Comments Blood Pressure 100/59 2024 9:16 AM EDT Pulse 77 2024 9:16 AM EDT Temperature 36.7 ??C (98.1 ??F) 2024 9:16 AM ED T Respiratory Rate 18 2024 9:16 AM EDT Oxygen Saturation 98% 2024 9:16 AM EDT Inhaled Oxygen Concentration - - Weight 141 kg (311 lb 9.6 oz) 2024 9:16 AM EDT Height 157.5 cm (5' 2 ) 2024 9:16 AM EDT Body Mass Index 56.99 2024 9:16 AM EDT Plan of Treatment Upcoming Encounters Date Type Department Care Team (Late st Contact Info) Description 01/10/2025 2:30 PM EDT Office Visit [facility] MEDICINE [address], [place] [phone] Maya Mcginnis NP [address] [place] [address] Health Maintenance Due Date Last Done Comments COVID-19 Vaccine ( season) 2024 05/14/2021, 04/23/2021 Influenza Vaccine (#1) 2024 05/23/2019 Depression Monitoring (PHQ-9) 04/13/2025 2024, 2024 SDOH Screening 08/08/2025 08/08/2024 Alcohol/Substance Use Screening 2025 2024 Depression Screening 2025 2024, 10/12/19 Family Planning (PISQ) 2025 2024 Tobacco Screening 2025 2024 Diabetes: Hemoglobin A1C 10/14/2025 025, 2024, 04/01/2021, Additional history exists Cervical Cancer Screening 12/02/2025 HPV/Cotest 12/02/2025 12/02/2020 Pap Smear 12/02/2025 12/02/2020, 12/02/2020 DTaP/Tdap/Td Vaccines (7 - Td or Tdap) 05/23/2029 05/23/2019, 03/05/2003, 01/27/1993, Additional history exists Lipid Panel 10/14/2029 10/14/2024, 09/15, 10/23/2020 Zoster Vaccines (1 of 2) 2038 RSV Patients and Patients Aged 60 years or older (1 - 1-dose 75+ series) 10/12/2063 HIB Vaccines Completed 08/30/1990 IPV Vaccines Completed 01/27/1993, 08/17, 10/23/1989, Additional history exists Hepatitis B Vaccines Completed 02/23/2004, 03/05/2003, 10/16/2001 HIV Screening Completed 10/23/2020 Hepatitis C Screening Completed 10/23/2020 HPV Vaccines Aged Out No longer eligi ble based on patient's age to complete this topic Hepatitis A Vaccines Aged Out No long er eligible based on patient's age to complete this topic Meningococcal Vaccine Aged Out No cyrus daryl eligible based on patient's age to complete this topic Pneumococcal Vaccine: Pediatrics (0 to 5 Years) and At-Risk Patients (6 to 49) Years) Aged Out No longer eligible based on patient's age to complete this topic RSV under 20 months Aged Out No longe r eligible based on patient's age to complete this topic Rotavirus Vaccines Aged Out No longer eligible based on patient's age to complete this topic Procedures Procedure Name Priority Date/Time Associated Diagnosis Comments XR CHEST 2 VIEWS Routine 10/14/2024 9:19 AM EDT ZINC Routine 10/14/2024 9:18 AM EDT VITAMIN A Routine 10/14/2024 9:18 AM EDT INSULIN Routine 10/14/2024 9:18 AM EDT TSH W/REFLEX TO FT4 Routine 10/14/2024 9 :18 AM EDT VITAMIN D,25-OH,TOTAL,IA Routine 10/14/2024 9:18 AM EDT LIPID PANEL, STANDARD Routine 10/14/2024 9:18 AM EDT C-REACTIVE PROTEIN Routine 10/14/2024 9: 18 AM EDT FERRITIN Routine 10/14/2024 9:18 AM EDT IRON AND TOTAL IRON BINDING CAPACITY Routine 10/14/2024 9:18 AM EDT COMPREHENSIVE METABOLIC PANEL Routine 10/14/2024 9:18 AM EDT VITAMIN B12/FOLATE, SERUM PANEL Routine 10/14/2024 9:18 AM EDT HEMOGLOBIN A1C Routine 10/14/2024 9:18 AM EDT CBC WITH AUTO DIFFERENTIAL Routine 10/14/2024 9:18 AM EDT BASIC METABOLIC PANEL Routine 2024 11:11 AM EDT Morbid obesity due to excess calories (CMS/HCC) LIPID PANEL, STANDARD Routine 2024 11:11 AM EDT Morbid obesity due to excess calories (CMS/HCC) HEMOGLOBIN A1C Routine 2024 11:11 AM EDT Morbid obesity due to excess calories (CMS/HCC) HPV MRNA E6/E7 Routine 12/02/2020 12:00 AM EDT PAP SMEAR Routine 12/02/2020 12:00 AM EDT ZZZ HISTORICAL HEPATITIS C AB W/REFL TO HCV RNA, QN, PCR Routine 10/23/2020 11:11 AM EDT HIV 1/2 ANTIGEN/ANTIBODY, FOURTH GENERATION W/RFL Routine 10/23/2020 11:11 AM EDT from Last 3 Months or Most Recently Relevant to Health Maintenance Results * XR Chest 2 Views (10/14/2024 9:19 AM EDT) Anatomical Region Laterality Modality Chest Radiographic [place] ging 10/14/2024 9:19 AM EDT Narrative 10/14/2024 12:38 PM EDT ? [facility] ?[address] ?[place] [address] ?XRay Report ? Signed ? Patient: Gloria Rodriguez ?MR#: ?? [id number] ? : 1990 ?Acct:[id number] ? Age/Sex: 34 / F ?ADM Date: 10/14/24 ? Loc: HO.XRAY ? Attending Dr: Rodney Guevara MD ? Ordering Physician: Rodney Guevara MD ?? Date of Service: 10/14/24 ?? Procedure(s): XR chest 2V ?? Accession Number(s): [id number] ? cc: Maya Mcginnis; Rodney Guevara MD ? EXAMINATION: ??XR CHEST 2 VIEWS ? HISTORY: E66.01 - Morbid (severe) obesity due to excess calories ? COMPARISON: Comparison is made with the prior examination dated ?? 03/24/2021. ? FINDINGS: ??PA and lateral views of the chest are submitted. The lungs ?? are expanded and clear. ??There is no pleural effusion, pneumothorax, or ?? pulmonary vascular congestion. ??The heart is normal in size. ??The bones ?? are intact. ? XR/XR chest 2V ?? IMPRESSION: ?? No acute cardiopulmonary abnormality. ? Electronically signed by: ??Igor Mckeon MD ??10/14/2024 12:35 PM EDT ?? RP ? Dictated By: ?Igor Mckeon MD ? Signed By: ?<Electronically signed by Igor Mckeon MD in OV> ?10/14/24 1235 ? DD/ 0919 ? TD/TT: 10/14/24 0938 ? Redye Hand: ? Procedure Note Nahum, Kendra - 10/14/2024 [facility] [address] [place] [address] XRay Report Signed Patient: MarGloria Oneal EMR#: [id number] : 1990Acct:[id number] Age/Sex: 34 / FADM Date: 10/14/24 Loc: [facility] Attending Dr: Rodney Guevara MD Ordering Physician: Rodney Guevara MD Date of Service: 10/14/24 Procedure(s): XR chest 2V Accession Number(s): [id number] cc: Maya Mcginnis; Rodney Guevara MD EXAMINATION: XR CHEST 2 VIEWS HISTORY: E66.01 - Morbid (severe) obesity due to excess calories COMPARISON: Comparison is made with the prior examination dated 03/24/2021. FINDINGS: PA and lateral views of the chest are submitted. The lungs are expanded and clear. There is no pleural effusion, pneumothorax, or pulmonary vascular congestion. The heart is normal in size. The bones are intact. XR/XR chest 2V IMPRESSION: No acute cardiopulmonary abnormality. Electronically signed by: Igor Mckeon MD 10/14/2024 12:35 PM EDT Dictated By: Igor Mckeon MD Signed By: <Electronically signed by Igor Mckeon MD in OV> 10/14/24 1235 DD/ 0919 TD/TT: 10/14/24 0938 Redye Hand: [facility] External Provider IMG XR PROCEDURES Final Result * (ABNORMAL) Vitamin D, 25-Hydroxy, Total, Immunoassay (10/14/2024 9:18 AM EDT) Vitamin D 25-OH Total 24.4(L) >30 ng/mL [facility] Comment: Health Based Reference Values*< 20 ??ng/mL ??Prthdvlcy98-58 ng/mL ??Insufficient> 30 ??ng/mL ??Sufficient*Chacho SAUCEDA. N Engl J Med. 2007;357:266-280There is no well-established upper level of normal vitamin Dlevels. Some laboratories use 50 ng/mL as an upper limit ofnormal. However, toxicity is patient-dependent and may occurat any level. Careful correlation with the patient'spresentation is necessary and, if there is concern forvitamin D toxicity, treatment should be consideredirrespective of the serum level.Care must be taken in interpreting Vitamin D results fromdifferent laboratories and methodologies. ??Published datademonstrated that results from patients undergoinghemodialysis may show a negative bias when tested withvarious automated 25-OH vitamin D assays when compared toLC- MS/MS.When testing samples from patients whose predominant form ofVitamin D is Vitamin D2, such as patients receiving VitaminD2 supplementation, results that are subtherapeutic shouldbe confirmed with another method such as LC-MS/MS. 10/14/2024 9:18 AM EDT 10/14/2024 9:18 AM EDT Generic External Data Provider LAB BLOOD ORDERAB LES Final Result Performing Organization Address [facility] Co de Phone Number [facility] [address] [place] [phone] * (ABNORMAL) Vitamin B12 (Cobalamin) and Folate Panel, Serum (10/14/2024 9:18 AM EDT) Pathologist [facility] Vitamin B12 1,047(H) 200 - 900 pg/mL [facility] Comment:NORMAL 200-900 PG/ML INDETERMINATE 160-199 PG/ML DEFICIENT < 160 PG/ML Folate 9.5 > or = 4.0 ng/mL [facility] Comment:Reference Values:> o r = 4.0 ng/mL< 4.0 ng/mL suggests folate deficiency Methotrexate, aminopterin and folinic acid(leucovorin) are chemotherapeutic agents whose molecularstructures are similar to folate; therefore, the Architectfolate assay cannot be used for patients using these drugs. 10/14/2024 9:18 AM EDT 10/14/2024 9:18 AM EDT Generic External Data Provider LAB BLOOD ORDERAB LES Final Result Performing Organization Address [facility] Co de Phone Number [facility] [address] [place] [phone] * TSH with Reflex to Free T4 (10/14/2024 9:18 AM EDT) TSH reflex Free T4 1.50 0.32 - 4.0 uIU/mL [facility] 10/14/2024 9:18 AM EDT 10/14/2024 9:18 AM EDT us Generic External Data Provider LAB BLOOD ORDERAB LES Final Result [facility] [address] [place] [phone] * CBC auto differential (10/14/2024 9:18 AM EDT) White Blood Count 6.5 4.8 - 10.8 X10*3/uL [facility] Red Blood Count 4.88 4.20 - 5.50 X10*6/uL [facility] Hemoglobin 13.2 12.0 - 16.0 g/dl [facility] Hematocrit 41.2 37.0 - 47.0 % [facility] Mean Corpuscular Volume 84.4 80.0 - 98.0 fL [facility] Mean Corpuscular Hemoglobin 27.0 27.0 - 33.0 pg [facility] Mean Corpuscular HGB Conc 32.0 31.0 - 35.0 g/dl [facility] Red Cell Distribution Width 13.8 11.0 - 16.0 % [facility] Platelet Count 267 160 - 400 X10*3/uL [facility] Mean Platelet Volume 11.3 9.4 - 12.3 fL [facility] Neutrophils Percent Auto 55.6 45 - 73 % [facility] Imm Gran Pct Auto 0.3 0.0 - 0.4 % [facility] Lymphocytes Percent Auto 34.6 20 - 40 % [facility] Monocytes Percent Auto 5.8 2 - 11 % [facility] Eosinophils Percent Auto 2.8 0 - 4 % [facility] Basophils Percent Auto 0.9 0 - 2 % [facility] NRBC Pct Auto 0.0 0.0 - 0.2 /100WBC [facility] Neutrophils Absolute Auto 3.6 2.0 - 8.3 x10*3/uL [facility] Imm Gran Abs Auto 0.02 0.00 - 0.03 X10*3/uL [facility] Lymphocytes Absolute Auto 2.3 1.2 - 4.9 X10*3/uL [facility] Monocytes Absolute Auto 0.4 0.1 - 1.2 X10*3/uL [facility] Eosinophils Absolute Auto 0.2 0.0 - 0.4 X10*3/uL [facility] Basophils Absolute Auto 0.1 0.0 - 0.2 X10*3/uL [facility] NRBC Abs Auto 0.000 0.0 - 0.012 X10*3/uL [facility] 10/14/2024 9:18 AM EDT 10/14/2024 9:18 AM EDT us Generic External Data Provider LAB BLOOD ORDERAB LES Final Result Performing Organization Address City/[facility]/ZIP Co de Phone Number [facility] [address] [place] [phone] * (ABNORMAL) Iron And Total Iron Binding Capacity (10/14/2024 9:18 AM EDT) Iron 33 30 - 160 mcg/dL [facility] Total Iron Binding Capacity 336 228 - 428 mcg/dL [facility] Percent Iron Saturation 10(L) 15 - 50 % [facility] Unsaturated Iron Binding 303 ug/dL [facility] 10/14/2024 9:18 AM EDT 10/14/2024 9:18 AM EDT us Generic External Data Provider LAB BLOOD ORDERAB LES Final Result Performing Organization Address City/[facility]/ZIP Co de Phone Number [facility] [address] [place] [phone] * Insulin (10/14/2024 9:18 AM EDT) Insulin 14 2 - 29 uU/mL [facility] Comment:This test was perfor med using the Crenshaw chemiluminescentmethod. Values obtained from different assay methods cannot beused interchangeably. This insulin assay shows a possiblecross-reactivity with antibodies generated against insulin(immunoreactive insulin and some patients treated withbovine or porcine insulin). Insulin levels may be measuredlower in patients with insulin autoimmune syndrome orfamilial high pro-insulinemia. 10/14/2024 9:18 AM EDT 10/14/2024 9:18 AM EDT Generic External Data Provider LAB BLOOD ORDERAB LES Final Result Performing Organization Address [facility] Co de Phone Number [facility] [address] [place] [phone] * Zinc (10/14/2024 9:18 AM EDT) Zinc 74 60 - 130 mcg/dL [facility] Comment:This test was develo ped and its analytical performancecharacteristics have been determined by [employer] [place], [place]. It hasnot been cleared or approved by the U.S. Food and DrugAdministration. This assay has been validated pursuantto the CLIA regulations and is used for clinicalpurposes.THIS TEST WAS PERFORMED AT:[employer] [place] [phone] LI MD,PHD 10/14/2024 9:18 AM EDT 10/14/2024 9:18 AM EDT us Generic External Data Provider LAB BLOOD ORDERAB LES Final Result Performing Organization Address [facility] Co de Phone Number [facility] [address] [place] [phone] * (ABNORMAL) C-reactive Protein (10/14/2024 9:18 AM EDT) C Reactive Protein 2.25(H) < or = 0.50 mg/dL [facility] 10/14/2024 9:18 AM EDT 10/14/2024 9:18 AM EDT Generic External Data Provider LAB BLOOD ORDERAB LES Final Result Performing Organization Address City/[facility]/ZIP Co de Phone Number [facility] [address] [place] [phone] * Hemoglobin A1c (10/14/2024 9:18 AM EDT) Only the most recent of2 resultswithin the time period is included. Hemoglobin A1c 5.7 <6.0 % [facility] Comment:Hemoglobin A1C Refer ence Range Adults: 4.8 - 6.0 % Non diabetic: < 6.0 % Goal: < 7.0 %Additional Action Suggested: > 8.0 %Note: Hemoglobin A1c results are invalid for patients with abnormal amounts of HbF. Blood transfusions may impact the HbA1c concentration in the patient sample. Estimated Average Glucose 117 mg/dL [facility] Comment:eAG = Estimated ave rage glucose which is %A1C expressed asaverage glucose, using the formula of the O0C-TxsnwqpJazrrem Glucose study (ADAG), Diabetes Care, Vol.31,#8,Feb. 2007 10/14/2024 9:18 AM EDT 10/14/2024 9:18 AM EDT us Generic External Data Provider LAB BLOOD ORDERAB LES Final Result Performing Organization Address City/[facility]/ZIP Co de Phone Number [facility] [address] [place] [phone] * Ferritin (10/14/2024 9:18 AM EDT) Ferritin 20 10 - 122 ng/mL [facility] 10/14/2024 9:18 AM EDT 10/14/2024 9:18 AM EDT Generic External Data Provider LAB BLOOD ORDERAB LES Final Result Performing Organization Address City/[facility]/ZIP Co de Phone Number [facility] [address] [place] [phone] * Lipid Panel, Standard (10/14/2024 9:18 AM EDT) Only the most recent of2 resultswithin the time period is included. Triglycerides 120 <150 mg/dL [facility] Comment:Desirable Triglyceri de: less than 150 mg/dLBorderline High Triglyceride 150-199 mg/dLHigh Triglyceride: 200-499 mg/dLVery High Triglyceride: greater than or equal to 5OO mg/dL Cholesterol 159 <200 mg/dL [facility] Comment:Desirable Cholestero l: less than 200 mg/dLBorderline High Cholesterol: 200-239 mg/dLHigh Cholesterol: greater than 239 mg/dL LDL Cholesterol Calculated 93 <100 mg/dL [facility] Comment:Desirable LDL: less than 100 mg/dLNear Optimal/Above Optimal LDL: 110- 129 mg/dLBorderline High LDL: 130-159 mg/dLHigh LDL: 160-189 mg/dLVery High LDL: greater than or equal to 190 mg/dL HDL Cholesterol 42 >40 mg/dL [facility] Comment:Desirable HDL: great er than 40 mg/dL Note: This HDL assay may give artificially low results in patients with liver disease. 10/14/2024 9:18 AM EDT 10/14/2024 9:18 AM EDT us Generic External Data Provider LAB BLOOD ORDERAB LES Final Result Performing Organization Address City/[facility]/ZIP Co de Phone Number [facility] [address] [place] [phone] * (ABNORMAL) Comprehensive Metabolic Panel (10/14/2024 9:18 AM EDT) Sodium 139 135 - 145 mmol/L [facility] Potassium 4.2 3.3 - 5.1 mmol/L [facility] Chloride 106 96 - 108 mmol/L [facility] Carbon Dioxide 26 22 - 29 mmol/L [facility] Anion Gap 11(L) 12 - 20 [facility] Urea Nitrogen (BUN) 9 9 - 16 mg/dL [facility] Creatinine, Serum 0.74 0.5 - 1.4 mg/dL [facility] Estimated Glomerular Filt Rate >60 [facility] Comment:Chronic Kidney Disea se: Estimated GFR < 60 mL/min/1.20b3Doqomi Kidney Disease: Estimated GFR < 15 mL/min/1.73m2 Glucose 105 60 - 115 mg/dL [facility] Calcium 9.1 8.4 - 10.2 mg/dL [facility] Bilirubin, Total 0.2 0.0 - 1.0 mg/dL [facility] Aspartate Amino Transferase 20 5 - 31 U/L [facility] Alanine Aminotransferase 19 0 - 31 U/L [facility] Total Protein 7.6 6.5 - 8.0 g/dL [facility] Albumin Level 3.9 3.5 - 5.0 g/dL [facility] Alkaline Phosphatase 70 39 - 117 U/L [facility] 10/14/2024 9:18 AM EDT 10/14/2024 9:18 AM EDT us Generic External Data Provider LAB BLOOD ORDERAB LES Final Result [facility] [address] [place] [phone] * (ABNORMAL) Basic Metabolic Panel (2024 11:11 AM EDT) Sodium 137 135 - 145 mmol/L [facility] Potassium 4.1 3.3 - 5.1 mmol/L [facility] Chloride 105 96 - 108 mmol/L [facility] Carbon Dioxide 25 22 - 29 mmol/L [facility] Anion Gap 11(L) 12 - 20 [facility] Urea Nitrogen (BUN) 13 9 - 16 mg/dL [facility] Creatinine, Serum 0.69 0.5 - 1.4 mg/dL [facility] Estimated Glomerular Filt Rate >60 [facility] Comment:Chronic Kidney Disea se: Estimated GFR < 60 mL/min/1.71b4Mquuhw Kidney Disease: Estimated GFR < 15 mL/min/1.73m2 Glucose 96 60 - 115 mg/dL [facility] Calcium 9.3 8.4 - 10.2 mg/dL [facility] Blood Venous blood specimen / Unknown 2024 11:11 AM EDT 2024 1:41 PM EDT Maya Mcginnis CARBIDE TOOL MAKER LAB BLOOD ORDERABLES Final Resu lt [facility] [address] [place] [address] [phone] * HPV mRNA E6/E7 (12/02/2020 12:00 AM EDT) HPV nRNA E6/E7 Not Detected Not Detected [facility] Comment: Methodology: Cat Driver-Mediated Amplification This assay detects E6/E7 viral messenger RNA (mRNA) from 14 high-risk HPV types (16,18,31,33,35,39,45,51,52,56,58,59,66,68). ? The analytical performance characteristics of this assay have been determined by [employer]. The modifications have not been cleared or approved by the FDA. This assay has been validated pursuant to the CLIA regulations and is used for clinical purposes. ?? For additional information, please refer to http://education.DirectRM.Stunn/faq/ZHA781t4 (This link if provided for information/ educational purposes only.) 12/02/2020 Morena Hare [facility]ELDER LAB BLOOD ORDERABLES Final Res ult Performing Organization Address City/[facility]/ZIP Co de Phone Number [facility] [address] * Pap Smear (12/02/2020 12:00 AM EDT) Swab Marianne Hamilton CN LAB CYTOLOGY ORDERABLES F inal Result [facility] [address] [facility], [place] [address] * HEPATITIS C AB W/REFL TO HCV RNA, QN, PCR (10/23/2020 11:11 AM EDT) HEPATITIS C ANTIBODY NON-REACT HENRY NON-REACT HENRY [facility] INDEX 0.01 <1.00 [facility] Comment: ?? HCV antibody was non-reactive. There is no laboratory ?? evidence of HCV infection. ?? In most cases, no further action is required. However, if recent HCV exposure is suspected, a test for HCV RNA (test code 19719) is suggested. ?? For additional information please refer to http://education.Gemfire/faq/LSG96t1 (This link is being provided for informational/ educational purposes only.) ?? 10/23/2020 11:1 1 AM EDT Morena Hare [facility] HISTORICAL/NON ORDERABLE LABS Final Result [facility] [address] * HIV 1/2 ANTIGEN/ANTIBODY,FOURTH GENERATION W/RFL (10/23/2020 11:11 AM EDT) HIV-1/2 ANTIGEN AND ANTIBODIES, 4TH GENERATION W/ REFLEX NON-REACT HENRY NON-REACT HENRY [facility] Comment: HIV-1 antigen and HIV-1/HIV-2 antibodies were not detected. There is no laboratory evidence of HIV infection. ?? PLEASE NOTE: This information has been disclosed to you from records whose confidentiality may be protected by state law. ??If your state requires such protection, then the state law prohibits you from making any further disclosure of the information without the specific written consent of the person to whom it pertains, or as otherwise permitted by law. A general authorization for the release of medical or other information is NOT sufficient for this purpose. ? For additional information please refer to http://education.DirectRM.Stunn/faq/SSQ680 (This link is being provided for informational/ educational purposes only.) ? The performance of this assay has not been clinically validated in patients less than 2 years old. ?? 10/23/2020 11:1 1 AM EDT us Morena Hare [facility] LAB BLOOD ORDERABLES Final Res ult [facility] [address] from Last 3 Months or Most Recently Relevant to Health Maintenance Insurance [employer]xt C3 * Guarantor: Gloria Rodriguez Account Type Relation to Patient Date of Phone Billing Address Personal/Family Self [address] [place] [phone] * Guarantor: Gloria Rodriguez Account Type Relation to Patient Date of Phone Billing Address Personal/Family Self [address] [place] [phone] * Guarantor: Gloria Rodriguez Account Type Relation to Patient Date of Phone Billing Address Personal/Family Self [address] [place] [phone] Care Teams Inventory Worker Relationship Specialty Start Date End Date Maya Mcginnis NP [address] [place] [address] PCP - General Family Medicine 08/21/23
--- OUTSIDE RECORDS SUMMARY | 2024-10-21 10:50 | XMS_ITS | Encounter Summary ---
Author Organization [employer] Address [address] [facility] [address] [place] [address] Care Team Providers Care Mathematics Academic Chair Name Role Phone Maya Mcginnis NP Primary Care Provider [phone] Reason for Visit * Reason Onset Date Comments Results 10/21/2024 Encounter Details Date Type Department Care Team ([facility] Contact Info) Description 10/21/2024 Telephone [facility] [address] [place] [address] Maya Mcginnis NP [address] [place] [address] Results Social History Tobacco Use Types Packs/Day Years [...] encounter Miscellaneous Notes * Telephone Encounter - Rebecca Dallas RN - 10/21/2024 8:40 AM EDT TC placed to pt via [employer] fitness supervisor (Tanisha ID#[id number]) to inform of below PCP message. Pt verbalized understanding of stable labs and denies questions at this time. ----- Message from Maya Mcginnis sent at 10/18/2024 6:11 PM EDT ----- Please inform patient of stable labs documented in this encounter Plan of Treatment Upcoming Encounters Date Type Department Care Team (Late st Contact Info) Description 01/10/2025 2:30 PM EDT Office Visit [facility] [address] [place] [address] Maya Mcginnis NP [address] [place] [address] documented as of this encounter Visit Diagnoses Not on filedocumented in this encounter Additional Health Concerns Assessment Noted Time PHQ-9 Depression Total Score: 15 10/11/ 025 9:26 AM EDT documented as of this encounter Care Teams Mathematics Academic Chair Relationship Specialty Start Date End Date Maya Mcginnis NP [address] [place] [address] PCP - General Family Medicine 08/21/23 documented as of this encounter
--- NOTE | 2024-11-07 09:11 | HO.ANESPROP2 ---
Documented by User: Kamila Chowdhury NP 11/07/24 09:11 HPI - Anesthesia Eval Consult details Narrative: 34yo F for Upper Endoscopy BMI 54.6 PMFSH Active Problems Active Problems: All Active Problems Nipple discharge (Acute) Hirsutism (Acute) Abnormal uterine bleeding (AUB) (Acute) Vitamin D deficiency (Acute) Sleep apnea (Acute) Anxiety (Acute) Vitamin A deficiency (Acute) Moderate major depression (Acute) Daytime somnolence (Acute) Asthma (Acute) Morbid obesity (Acute) Past Medical History Medical History Sleep apnea Anxiety Hypotension Hypothyroid Asthma Family History Family History Mother Diabetes Breast cancer Father No problems noted. Brother No problems noted. Brother No problems noted. Daughter Asthma Prediabetes Thyroid condition Daughter Asthma Daughter No problems noted. Surgical History Surgical History Hx of section Social History Social History Alcohol intake: never Patient Tobacco Use Status: Never used Tobacco Advance Directives: No Advance Directives Information Provided: Yes Meds Allergies Allergy/AdvReac Type Severity Reaction Status Date / Time Penicillins Allergy Unknown Verified 11/05/24 11:30 Home Medications ?Medication ?Instructions ?Recorded ?Confirmed ?Last Taken ?Type albuterol sulfate 90 mcg/actuation 2 puff inhalation Q6H PRN 10/10/24 10/10/24 Unknown History aerosol inhaler Assessment and Plan Assessment Anesthesia Assessment: Chart Reviewed Documented by User: Lorena Mccarthy MD 11/08/24 10:18 PMFSH Past Medical History Medical History Sleep apnea Anxiety Hypotension Hypothyroid Asthma Family History Family History Mother Diabetes Breast cancer Father No problems noted. Brother No problems noted. Brother No problems noted. Daughter Asthma Prediabetes Thyroid condition Daughter Asthma Daughter No problems noted. Family history of problems with anesthesia: No Surgical History Surgical History Hx of section History of Problems with Anesthesia: No Social History Social History Alcohol intake: never Patient Tobacco Use Status: Never used Tobacco Advance Directives: No Advance Directives Information Provided: Yes Meds Allergies Allergy/AdvReac Type Severity Reaction Status Date / Time Penicillins Allergy Unknown Verified 11/05/24 11:30 Home Medications ?Medication ?Instructions ?Recorded ?Confirmed ?Last Taken ?Type albuterol sulfate 90 mcg/actuation 2 puff inhalation Q6H PRN 10/10/24 10/10/24 Unknown History aerosol inhaler Exam Airway Mallampati Class: III TM Dist: >3cm Neck ROM: Full Assessment and Plan Assessment Anesthesia Assessment: Anesthesia Plan Discussed Final Anesthetic Review Family History of Problems with Anesthesia: No History of Problems with Anesthesia: No NPO: Yes ASA Class: III Final Preanesthetic Review: No Changes in Pt Med Stat, Meds/Allgs Chart Reviewed, Consent Obtained/Reviewed and Anes Risks/Benef Reviewed Patient Risk: Intermediate Procedure Risk: Low Anesthetic Plan Anesthetic Plan: TIVA Disposition: Standard PACU
[2024-11-08 10:10] VITALS: BMI 53.2
[2024-11-08 10:19] VITALS: BP 120/54; PULSE 85; RESP 18; TEMP 36.8; O2SAT 97
[2024-11-08] MEDS: Lactated Ringers 1,000 ML 100 ML IVCONT (10:43)
[2024-11-08 11:00] LABS: HCG Quantitative < 2 mIU/mL
--- NOTE | 2024-11-08 11:10 | MHC.SHP ---
Pre-Procedural Eval Section A - 24 Hr Update-Section A only Date of Service: 11/08/24 The patient is an INPATIENT: No The patient has been examined within 24 hours of the surgical procedure. The History & Physical has been completed within 30 days and I have reviewed it.: Yes Section B - Complete if H&P > 30 days Chief Complaint: Morbid (severe) obesity due to excess calories Details of Present Illness: GERD Relevant Family History (Specify if Yes): No Relevant Social History: None Present Medications: None Medical History: No relevant PMH History of Previous Operations: No relevant previous surgery Allergies: Allergies Allergy/AdvReac Type Severity Reaction Status Date / Time Penicillins Allergy Unknown Verified 11/05/24 11:30 Review of Systems Sugical H&P ROS: Negative: Constitution, Cardiovascular, Respiratory, Neurological, Psychiatric, Hem-Onc, Allergic/Immunologic, Gastrointestinal, Genitourinary, Musculoskeletal, Integumentary, Endocrine and Eyes/Ears/Nose/Throat Exam Surgical H&P Exam: Normal: HEENT, Normal: Heart, Normal: Lungs, Normal: Extremities, Normal: Abdomen, Normal: Skin and Normal: Neurological Plan Diagnosis/Plan: Unchanged (EGD to assess etiology of GERD. Risks of bleeding and perforation were discussed with the patient and she is in agreement with the plan.) I have reviewed the history and physical and performed a pertinent physical examination on my patient. No changes have occurred unless specified. Time Spent With Patient Time: Total time managing care of this patient today ____ minutes.
--- NOTE | 2024-11-08 11:12 | P.BOP_ITS ---
Brief Operative Note Date of Service: 11/08/24 Pre-op diagnosis: GERD Post-op diagnosis: same Procedure: PROCEDURE DATE: 11/08/2024 PREOPERATIVE DIAGNOSIS: GERD POSTOPERATIVE DIAGNOSIS: ?Same as above. Normal endoscopy PROCEDURE: [id number]-[id number] with biopsies Surgeon: Evelina Guevara M.D.. Ph.D. Welding Machine Operator Plasma Arc: None ? Anesthesia: IV sedation Estimated blood loss: ?Minimal FINDINGS AND PROCEDURE: ? OPERATIVE INDICATIONS: ?The patient is a 34 year old female known to me who is interested in bariatric surgery. The patient has GERD. Based on this information I recommended an upper endoscopy to evaluate the patient's symptoms. Risks and complications of the surgery were discussed with the patient in advance particularly the possibility of perforation or bleeding that may require surgical intervention. The patient understood the risks and was in agreement with the plan. ? PROCEDURE: After informed consent was obtained by the patient, the patient was ?transferred to the Operating Room and was placed in the supine position.? After successful induction of IV sedation, a mouth block was inserted and the patient was placed in the left lateral decubitus position. An upper endoscopy was performed next, the oropharynx and esophagus appeared within the normal limits. There was no hiatal hernia. The z-line was smooth. Two biopsies were obtained from the distal esophagus 2-3 cm proximal to the GE junction and two additional biopsies from the GE junction. The stomach was entered and it appeared to be of normal size. There was no gastritis. There was no stricture or ulcer. A biopsy was obtained from the distal antrum. No significant bleeding was noted from any of the biopsy sites. Retroflexion of the scope confirmed a normal GE junction. The scope was then advanced into the duodenum which appeared to be normal as well. At that point the duodenum ?and the stomach were decompressed and the scope was withdrawn from the patient's mouth. The patient extubated and was transferred in stable condition to the Recovery Room for further care. I was present and performed all steps of the procedure. There were no residents to assist with this case. Leland Guevara M.D., Ph.D. Surgeon: Rodney Guevara MD Anesthesia: MAC Was an Welding Machine Operator Plasma Arc used for this Procedure?: No Estimated blood loss (mL): 0 IV fluids (mL): 400 Urine output (mL): 0 (No Paulson to record output) Pathology: other (1) antrum x1, 2) fundus x1, 3) GE junction x2, 4) distal esophagus x2) Condition: stable Disposition: PACU
[2024-11-08 11:50] VITALS: BP 119/79; PULSE 90; RESP 12; TEMP 36.5; O2SAT 99
[2024-11-08 12:05] VITALS: BP 119/70; PULSE 76; RESP 12; O2SAT 99
[2024-11-08 12:18] VITALS: BP 117/70; PULSE 74; RESP 18; TEMP 36.3; O2SAT 96
== END 2024-11-08 12:44 | disposition home or self-care (01) ==
PROVIDERS: Anesthesiology; PCP Nurse Practitioner; Visit Provider Surgery
PROC: 0DJ08ZZ Inspection of Upper Intestinal Tract, Via Natural or Artificial Opening Endoscopic (ICD-10-PCS; CPT 43235; principal; 2024-11-08 11:40)
DX: K21.9 Gastro-esophageal reflux disease without esophagitis (principal); E66.01 Morbid (severe) obesity due to excess calories; Z68.43 Body mass index [BMI] 50.0-59.9, adult; I95.9 Hypotension, unspecified; J45.909 Unspecified asthma, uncomplicated; E03.9 Hypothyroidism, unspecified; G47.30 Sleep apnea, unspecified; Z79.899 Other long term (current) drug therapy; Z88.0 Allergy status to penicillin
CPT/HCPCS: 43239; 36415; 84702; 88305; 88313; 88342; J2003; J2704

== ENCOUNTER → 2024-11-08 09:55 | Outpatient (BNV) | payer MEDICAID, SELFPAY | PROVIDERS: PCP Nurse Practitioner; Visit Provider Surgery | DX: K21.9 Gastro-esophageal reflux disease without esophagitis (principal) | CPT/HCPCS: 43239 ==

== ENCOUNTER 2024-11-20 11:10 | Outpatient (AMB) | payer OTHER, SELFPAY ==
--- NOTE | 2024-11-20 11:00 | A.OFFWM_ITS ---
Intake Intake Visit Reasons: VIDEO Intake Part 2 Allergies Penicillins Allergy (Verified 11/05/24 11:30) Unknown [facility] Medical History Sleep apnea Anxiety Hypotension Hypothyroid Asthma Surgical History Hx of section Family History Mother Diabetes Breast cancer Father No problems noted. Brother No problems noted. Brother No problems noted. Daughter Asthma Prediabetes Thyroid condition Daughter Asthma Daughter No problems noted. Social History Alcohol intake: never Patient Tobacco Use Status: Never used Tobacco Female Reproductive History Menstrual Age of Menarche: 8 Behavioral Health Assessment Weight Management Therapy Therapy Notes Details The patient is a 34-year-old female presenting for her second visit to complete the behavioral health assessment as part of the surgical weight loss program. She initially enrolled in the program in 2020 but discontinued participation after an extended stay in [place]. She rejoined the program last month with a starting weight of 308 lbs. Her current goal is to achieve a healthy weight and develop sustainable tools to support long-term success. The patient began counseling approximately three weeks ago at [facility] ([facility]), following a referral from her primary care provider about eight months ago due to grief related to the loss of three close family members in a short period. She previously engaged in counseling 2?3 years ago at [facility] for symptoms of depression and anxiety. She reports a suicide attempt at age 12 during a period of family transition and adolescent stress, including her father's move out of the household. The patient denies any history of trauma and reports no current concerns regarding self-harm or harm to others. She also denies any history of substance use. There is no indication of stress or emotional eating. Scores from the Binge Eating Scale (BES) suggest a low risk for binge eating behavior. PHQ-9 results indicate no current depressive symptoms. Additionally, her mental status exam is within normal limits, with no evidence of impaired functioning. Presenting Concerns Referral Source [facility]-Provider, Dr Aguilar Reason for referral Completion of behavioral health assessment as part of process for weight-loss surgery. Precipitating Event Obesity. Pt was 308Lbs when started the program. Living Situation Current Living Situation Rent At risk of losing current housing? No Satisfied with current living situation? Yes Comments PT lives with her 3 daughter. Food/Weight/Diet Expectations of change Her initial goal was to lose 10% of her weight before surgery, approximately 30 pounds. Ultimate weight goal: 278lbs before surgery PT started the program on 10/10/2024 at 308 Lbs. weight on 10/27/24: 300 lbs. Weight on 11/18/2024: 295 Lbs PT is implementing the following: Current meal plan: 2 protein shakes, 3 protein bars, and one meal per day Exercise plan: Gym membership. Attending 5 days a week. 1 hr on the treadmill. Scale: yes Communication with provider: Sundays. History/Relationship with food PT reports she was used to skipping meals and had 1 big meal a day. During the day, she was drinking mostly soda during the day and snacking on Candy. PT used to skip meals and then would have a big dinner, often overeating at that time, and would drink soda all day. Example of meals before starting the program: Breakfast: Skip. Lunch: Skip Dinner: 6-8pm Rice, beans, fried chicken/pork. Mostly , Tanzanian style meals. Snacks: all day, multiple times a day. Some chips, cupcakes, mark leches cake, Beverages: Coffee (6 or more cups with vanilla, sugar, and [place] milk), water: 1 bottle at day, soda: 1 bottle Coca Cola - 2 Lit (67.6 oz), juice: passion fruit juice, 2 cans. History/Relationship with weight PT reports she was chunky and overweight in childhood. In adolescence, she was around 125-130Lbs. PT reports she started gaining a lot of weight after her last in 2008. In the last 10 years, the patient's Lowest weight was 180Lbs and the highest 335Lbs History/Relationship with dieting [employer]. Walking with/ portion control. WMP program in 2020. [facility]. -PT is aware that once returned to old h abits, she would gain more weight than she lost. Binge Eating0 Do you frequently eat large amounts of food in short periods of time, not feeling physically hungry? Yes Do you feel out of control when you eat a large amount of food in a short period of time? No Do you eat large amounts of food rapidly and typically alone? No Night Eating Do you wake up at least once during the night to eat? No If you wake up in the night, do you find that it is necessary to eat something in order to fall back asleep? No Do you have little or no appetite in the morning and feel very hungry in the evening, often overeating between dinner and when you go to bed? Yes Social History Family history and relationship PT is a single mother of 3. Her daughters are 20, 18 and 15, and they all live with her. Parents alive, she has 2 brothers and 1 sister. They all live in [place]. PT reports she has good family relationships. She has some cousins, an aunt, and an uncle who live close, and they are close. 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 Her youngest are 18 and 15. Developmental history and status None reported. currently WNL. Social support Children. Some family members. Community support None. Confucianism/Spirituality Raised as Pentecost. Currently not attending mosque. Cultural/Ethnic information PT is from [place] and moved to [place] 6 years ago. She decided to relocate to [place] after [place], as she lost her home and was struggling. Legal Involvement and History Current or historical involvement with the legal system? None reported. Education Highest grade completed 12, graduated HS. Did some college classes. Preferred learning style Auditory, Learn by doing and Visual Currently enrolled in educational program? No Interested in further educational program? Yes Educational Interests/Skills Wants to start [place] classes. 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 Employment Employment Status Unemployed (6 months ago. Searching for a new job.) Wants help to find employment? No Meaningful activities Family activities. Listen to music and watch Turkish TV. Financial Situation Describe current financial situation Comfortable Financial assistance? Child Support (For 2 youngest.) and Food [place] Service Service? No Mental Health and Addiction Treatment Current/Past substance abuse? No Comments Alcohol: None. Cigarettes/Tobacco: None. Cannabis/Edibles: None Current/Past addictive behavior concerns? No Psychiatric history PT started counseling about 3 weeks ago at [facility] ([facility]), after a referral her PCP made about 8 months ago due to grief after losing 3 family members in a short period. Also, she attended counseling about 2-3 years ago at [facility]. She was dealing with symptoms of depression and anxiety. Had a SA around age 12, taking pills around that time, she was going through family adjustments after father moved to the us and was dealing with adolescent issues. PT denies any history of trauma. Denies any recent safety concerns around self-harm and/or other-harm. Medical and Physical Health Summary Additional Medical History not covered in history PCOS. Sexual History concerns None reported. Physical exam in the last year? Yes Pain Screening Current pain? Yes Pain in the last few months? Yes Comments Back and leg pain. Medications Is the patient compliant with medications? Yes (Vitamins) Does the patient have [place] Guardian in place? Not applicable Does the patient use complimentary health approaches? No Trauma/Abuse History History of trauma? No Questionnaires PHQ-9 Over the last 2 weeks, how often have you been bothered by any of the following problems? 1. Little interest or pleasure in doing things: not at all 2. Feeling down, depressed, or hopeless: not at all 3. Trouble falling or staying asleep, or sleeping too much: not at all 4. Feeling tired or having little energy: several days (tired ) 5. Poor appetite or overeating: not at all 6. Feeling bad about yourself - or that you are a failure or have let yourself or your family down: not at all 7. Trouble concentrating on things, such as reading the newspaper or watching television: not at all 8. Moving or speaking so slowly that other people could have noticed. Or the opposite - being so fidgety or restless that you have been moving around a lot more than usual: several days (fidgety ) 9. Thoughts that you would be better off or of hurting yourself in some way: not at all Total score: 2 Depression Screening Interpretation: Negative Depression Screening Done: Yes 37254 - PHQ-9 Billing: Yes Source: Developed by Drs. Igor Rodriguez, Sanam Hawkins, Mateusz Enriquez and colleagues, with an educational radha from [employer]. Binge Eating Scale Group 1 A. I don't feel self-conscious about my wt. or body size when I'm with others. B. I feel concerned about how I look to others, but it normally does not make me fell disappointed with myself C. I do get self-conscious about my appearance and wt. which makes me feel disappointed in myself. D. I feel very self-conscious about my wt. and frequently I feel intense shame and disgust for myself. I try to avoid social contacts because of my self- consciousness. Response Group 1: D Group 2 A. I don't have any difficulty eating slowly in the proper manner. B. Although I seem to gobble down foods, I don't end up feeling stuffed because of eating to much. C. At times, I tend to eat quickly and then, I feel uncomfortably full afterwards. D. I have the habit of bolting down my food, without really chewing it. When this happens I usually feel uncomfortably stuffed because I've eaten to much. Response Group 2: A Group 3 A. I feel capable to control my eating urges when I want to. B. I feel like I have failed to control my eating more than the average person. C. I feel utterly helpless when it comes to feeling in control of my eating urges. D. Because I feel so helpless about controlling my eating I have become very desperate about trying to get control. Response Group 3: A Group 4 A. I don't have the habit of eating when I'm bored. B. I sometimes eat when I'm bored, but often I'm able to get busy and get my mind off food. C. I have a regular habit of eating when I'm bored, but occasionally, I can use some other activity to get my mind off eating. D. I have a strong habit of eating when I'm bored. Nothing seems to help me breath the habit. Response Group 4: B Group 5 A. I'm usually physically hungry when I eat something. B. Occasionally, I eat something on impulse even though I really am not hungry. C. I have the regular habit of eating foods, that I might not really enjoy, to satisfy a hungry feeling even though physically, I don't need the food. D. Although I'm not physically hungry, I get a hungry feeling in my mouth that only seems to be satisfied when I eat a food, like sandwich, that fills my mouth. Sometimes, when I eat the food to satisfy my mouth hunger, I then spit the food out so I won't gain weight. Response Group 5: B Group 6 A. I don't feel any guilt or self-hate after I overeat. B. After I overeat, occasionally I feel guilt or self-hate. C. Almost all the time I experience strong guilt or self-hate after I overeat. Response Group 6: B Group 7 A. I don't lose total control of my eating when dieting even after periods when I overeat. B. Sometimes when I eat a forbidden food on a diet, I feel like I blew it and eat even more. C. Frequently, I have the habit of saying to myself, I've blown it now, why not go all the way, when I overeat on a diet. When that happens I eat more. D. I have a regular habit of starting a strict diets for myself but I break the diets by going on an eating binge. My life seems to be either a feast or famine. Response Group 7: A Group 8 A. I rarely eat so much food that I feel uncomfortably stuffed afterwards. B. Usually about once a month, I each such a quantity of food, I end up feeling very stuffed. C. I have regular periods during the month when I eat large amounts of food, either at mealtime or at snacks. D. I eat so much food that I regularly feel quite uncomfortable after eating and sometimes a bit nauseous. Response Group 8: A Group 9 A. My level of calorie intake does not go up very high or go down very low on a regular basis. B. Sometimes after I overeat, I will try to reduce my caloric intake to almost nothing to compensate for the excess calories I've eaten. C. I have a regular habit of overeating during the night. It seems that my routine is not to be hungry in the morning but overeat in the evening. D. In my adult years, I have had week-long periods where I practically starve myself. This follows periods when I overeat. It seems I live a life of either feast or famine. Response Group 9: B Group 10 A. I usually am able to stop eating when I want to. I know when enough is enough. B. Every so often, I experience a compulsion to eat which I can't seem to control. C. Frequently, I experience strong urges to eat which I seem unable to control, but at other times I can control my eating urges. D. I feel incapable of controlling urges to eat. I have a fear of not being able to stop eating voluntarily. Response Group 10: A Group 11 A. I don't have any problem stopping eating when I feel full. B. I usually can stop eating when I feel full but occasionally overeat leaving me feeling uncomfortably stuffed. C. I have a problem stopping eating once I start and usually I feel uncomfortably stuffed after I eat a meal. D. Because I have a problem not being able to stop eating when I want, I sometimes have to induce vomiting to relieve my stuffed feeling. Response Group 11: A Group 12 A. I seem to eat just as much when I'm with others, Family social gatherings as when I'm by myself. B. Sometimes, when I'm with other persons, I don't eat as much as I want to eat because I'm self-conscious about my eating. C. Frequently, I eat only a small amount of food when others are present, because I'm very embarrassed about my eating. D. I feel so ashamed about overeating that I pick times to overeat when I know no one will see me. I feel like a closet eater. Response Group 12: B Group 13 A. I eat three meals a day with only an occasional between meal snack. B. I eat 3 meals a day, but I also normally snack between meals. C. When I am snacking heavily, I get in the habit of skipping regular meals. D. There are regular periods when I seem to be continually eating, with no planned meals. Response Group 13: A Group 14 A. I don't think much about trying to control unwanted eating urges. B. At least some of the time, I feel my thoughts are pre-occupied with trying to control my eating urges. C. I feel that frequently I spend much time thinking about how much I ate or about trying not to eat anymore. D. It seems to me that most of my waking hours are pre-occupied by thoughts about eating or not eating. I feel like I'm constantly struggling not to eat. Response Group 14: A Group 15 A. I don't think about food a great deal. B. I have strong craving for food but they last only for brief periods of time. C. I have days when I can't seem to think about anything else but food. D. Most of my days seem to be pre-occupied with thoughts about food. I feel like I live to eat. Response Group 15: B Group 16 A. I usually know whether or not I'm physically hungry. I take the right portion of food to satisfy me. B. Occasionally, I feel uncertain about knowing whether or not I'm physically hungry. A these times it's hard to know how much food I should take to satisfy me. C. Even though I might know how many calories I should eat, I don't have any idea what is a normal amount of food for me. Response Group 16: A Binge Eating Score: 9 Score less than 17 Minimal Risk Score between 18-26 Moderate Risk Score between 27-46 High Risk Assessment & Plan Assessment & Plan (1) Adjustment disorder: Code(s): F43.20 - Adjustment disorder, unspecified (2) Inappropriate diet or eating habits: Code(s): Z72.4 - Inappropriate diet and eating habits (3) Pre-bariatric surgery psychological evaluation: Code(s): Z71.89 - Other specified counseling Plan The patient has been cleared from a behavioral health standpoint and may be submitted for insurance approval when appropriate. She is scheduled to return 2?3 weeks postoperatively for behavioral health screening and continued support. Next nhi: 2-3 weeks PO Telehealth Telehealth Telehealth Platform: [employer] Location of provider rendering services: other Location of patient: address on file Patient Identification confirmed using: Name, : Yes Telehealth method: video Patient verbally consented to treatment: Yes Patient verbally consented to billing insurance company: Yes Patient informed of any privacy concerns related to visit: Yes Minutes spent on Phone/Video with Pt.: 55 Coding Level of Care Code Established Pt Tele Psytx >53 mins (10992) Patient Type Established Diagnoses Adjustment disorder F43.20 Inappropriate diet or eating habits Z72.4 Pre-bariatric surgery psychological evaluation Z71.89 Additional Codes PHQ-9 - 87135 - PHQ-9 Billing: Yes ([id number]) Time Spent (min) 55
--- OUTSIDE RECORDS SUMMARY | 2024-11-20 12:36 | XMS_ITS | Clinical Summary ---
Author Organization [employer] Address [address] [facility] 7[address] [place] [address] Care Team Providers Care Rotating Equipment Specialist Name Role Phone Maya Mcginnis NP Primary Care Provider [phone] Allergies No known active allergies Medications Multiple Vitamin (multivitamin) tablet Take 1 tablet by mouth Once per day. Active Active Problems Problem Noted Date Diagnosed Date [...] bleeding noted on exam today, referral to filter cleaner placed for further work-up -cbc ordered today [...] pt is able to get in with [facility] Assessment & Plan (12/05/2023 7:07 PM EDT): NEG test today Order vaginal swab and fu results RS appt with faucet polisher Encounters Date Type Department Care Team Description 11/08/2024 Orders Only GENERIC EXTERNAL DATA DEPARTMENT Provider, Generic External Data 11/05/2024 Orders Only GENERIC EXTERNAL DATA DEPARTMENT Provider, Generic External Data 10/21/2024 Telephone [facility] MEDICINE [address] [place] [address] Maya Mcginnis NP Results 10/16/2024 Telephone [facility] MEDICINE [address] [place] [address] NUTRITION APPT REQUEST 10/14/2024 Orders Only GENERIC EXTERNAL DATA DEPARTMENT Provider, Generic External Data 2024 9:15 AM EDT Office Visit [facility] MEDICINE [address] [place] [address] Maya Mcginnis NP Morbid obesity due to excess calories (CMS/HCC) (Primary Dx); Routine adult health maintenance; Complicated grief; Dietary counseling; Exercise counseling 2024 Travel 10/07/2024 Telephone [facility] MEDICINE [address] [place] [address] Gris Ennis MA chartprep 09/27/2024 Population Health Risk Score [facility] ([facility]) Department [address] [place] [phone] Provider, Population Health Generic from Last 3 Months Immunizations Name Administration [...] Team (Late st Contact Info) Description 01/10/2025 10:30 AM EDT Office Visit [facility] OPTOMETRY [address] [place] [address] Jennifer Spears, OD [address] [place] [address] 01/10/2025 2:30 PM EDT Office Visit [facility] MEDICINE [address] [place] [address] Maya Mcginnis, EL[place] [address] [place] [address] Health Maintenance Due Date Last Done Comments [...] Procedure Name Priority Date/Time Associated Diagnosis Comments HEMATOXYLIN AND EOSIN STAIN Routine 11/08/2024 11:43 AM EDT HCG, TOTAL, QN Routine 11/08/2024 10:26 AM EDT 17-HYDROXYPROGESTERONE Routine 12:28 PM EDT TESTOSTERONE, FREE (DIALYSIS) AND TOTAL,MS Routine 11/05/2024 12:28 PM EDT PROLACTIN Routine 11/05/2024 12:28 PM EDT HCG, TOTAL, QN Routine 11/05/2024 12:28 PM EDT TSH W/REFLEX TO FT4 Routine 11/05/2024 1 2:28 PM EDT CBC Routine 11/05/2024 12:28 PM EDT AMB REFERRAL TO [facility] STAT 11/05/2024 DUB (dysfunctional uterine bleeding) XR CHEST 2 VIEWS Routine 10/14/2024 9:19 AM EDT VITAMIN B1 Routine 10/14/2024 9:18 AM EDT ZINC Routine 10/14/2024 9:18 AM EDT VITAMIN A Routine 10/14/2024 9:18 AM EDT INSULIN Routine 10/14/2024 9:18 AM EDT TSH W/REFLEX TO FT4 Routine 10/14/2024 9:18 AM EDT VITAMIN D,25-OH,TOTAL,IA Routine 10/14/2024 9:18 [...] PAP SMEAR Routine 12/02/2020 12:00 AM EDT [facility] HISTORICAL HEPATITIS C AB W/REFL TO HCV RNA, QN, PCR Routine 10/23/2020 11:11 AM EDT HIV 1/2 ANTIGEN/ANTIBODY, FOURTH GENERATION W/RFL Routine 10/23/2020 11:11 AM EDT from Last 3 Months or Most Recently Relevant to Health Maintenance Results * Hematoxylin and Eosin Stain (11/08/2024 11:43 AM EDT) 11/08/2024 11:4 3 AM EDT 11/08/2024 1:05 PM EDT [facility] - 11/12/2024 2:07 PM EDT ----- ------- Name: Gloria Rodriguez ?Age/Sex: 34/F ? : 1990 Unit#: [id number] ?? Attend Dr: Rodney Guevara MD ?Re11/08/24 ?Status: DEP SDC ? Location: HO.SSS ?Disch: ? ----- ------- SPEC : [id number] ? RECD: 11/08/24-1305 ? STATUS: ??SOUT ? REQ NUM: [id number] ? KETURAH: 11/08/24-1143 ? SUBM DR: Rodney Guevara MD ? ENTERED: ??11/08/24-1310 ?SP TYPE: Surgical ? OTHR : Appram,Maya ? ORDERED: ??HE Stain/9, Gross Micro L4/4, IHC/2, Special st. 2/3, H. pylori/2, AB/PAS/3 ? Diagnosis ?? A. ??Stomach, antrum, biopsy: ??Antral-type and oxyntic mucosa with mild chronic inactive ?? inflammation; no Helicobacter organisms seen. ? B. ??Stomach, fundus, biopsy: ??Oxyntic mucosa with mild chronic inactive inflammation; no ?? Helicobacter organisms seen. ? C. ??EG junction, biopsy: ?- Cardiac-type mucosa with moderate chronic inactive inflammation; no intestinal ?? metaplasia seen. ?- Active esophagitis (maximum eosinophil count 2 per high powered field). ? D. ??Esophagus, biopsy: ??Squamous epithelium within normal limits; no inflammation seen. ?Clinical History Pre-Op Dx: ??Obesity Post-Op Dx: Normal EGD ?Microscopic Description A-D. ??Microscopic sections examined. ??No metaplastic changes are seen, supported by AB/PAS stains (A, B and C); no Helicobacter organisms are seen, supported by H. pylori immunostain (A and B). ? Material Received ?? A. Antrum bx's ?? B. Fundus bx's ?? C. EG junction bx's ?? D. Esophagus bx's ? Gross Description Received in four parts. Part A: ??Received in formalin labeled ?antrum bx (sic)? is a 0.25 cm robles-pink rubbery irregular tissue fragment, submitted in toto in a cassette labeled A. Part B: ??Received in formalin labeled ?fundus bx (sic)? is a 0.25 cm rubbery irregular robles- pink tissue fragment, submitted in toto in a cassette labeled B. Part C: ??Received in formalin labeled ?EG junction bx's? are 2 robles- pink irregular tissue ? CONTINUED ON NEXT PAGE ----- ------- Name: Gloria Rodriguez ?Age/Sex: 34/F ? : 1990 Unit#: [id number] ?? Attend Dr: Rodney Guevara MD ?Re11/08/24 ?Status: DEP SDC ? Location: HO.SSS ?Disch: ? ----- ------- SPEC : [id number] ? RECD: 11/08/24-1304 ? STATUS: ??SOUT ? REQ NUM: [id number] ? KETURAH: 11/08/24-1143 ? SUBM DR: Rodney Guevara MD ? ENTERED: ??11/08/24-1310 ?SP TYPE: Surgical ? OTHR DR: Maya Mcginnis ? ORDERED: ??HE Stain/9, Gross Micro L4/4, IHC/2, Special st. 2/3, H. pylori/2, AB/PAS/3 ? Gross Description ?(Continued) fragments measuring 0.25 and 0.35 cm, submitted in toto in a cassette labeled C. Part D: ??Received in formalin labeled ?esophagus bx (sic)? are 2 dickinson-white and robles-red rectangular tissue fragments measuring 0.3 and 0.45 cm, submitted in toto in a cassette labeled D. CEDS Copies To: ?? Maya Mcginnis ?? [address] ?? [place] [address] ?? [phone] ?? Rodney Guevara MD ?? [facility] ?? [address] ?? [place] [address] ?? [phone] ----- ------- Signed (signature on file) Juan Diego Rowe MD 11/12/24 1407 ? ----- ------- ? END OF REPORT ? us Generic External Data Provider LAB BLOOD ORDERAB LES Final Result [facility] [address] [place] [address] [phone] * hCG, Total, Quantitative (11/08/2024 10:26 AM EDT) Only the most recent of2 resultswithin the time period is included. HCG Quantitative <2 mIU/mL [facility] Comment:Weeks post LMP Appro ximate hCG(Last Menstrual Period) Range (mIU/ml)3 - 4 weeks 9 - 1304 - 5 weeks 75 - 2,6005 - 6 weeks 850 - 20,8006 - 7 weeks 4000 - 100,2007 - 12 weeks 11,500 - 289,89668 - 16 weeks 18,300 - 137,05484 - 29 weeks (2nd trimester) 1,400 - 53,32176 - 41 weeks (3rd trimester) 940 - 60,000The Crenshaw B- hCG assay is used for the early detection ofpregnancy; it cannot be used to diagnose any conditionunrelated to . If a B-hCG level is not supportedby the clinical evidence, results should be confirmed by analternative method (qualitative urine hCG, for example). 11/08/2024 10:2 6 AM EDT 11/08/2024 10:29 AM EDT Generic External Data Provider LAB BLOOD ORDERAB LES Final Result Performing Organization Address [facility] Co de Phone Number [facility] [address] [place] [phone] [phone] * TSH with Reflex to Free T4 (11/05/2024 12:28 PM EDT) Only the most recent of2 resultswithin the time period is included. TSH reflex Free T4 1.25 0.32 - 4.0 uIU/mL [facility] 11/05/2024 12:2 8 PM EDT 11/05/2024 12:28 PM EDT Generic External Data Provider LAB BLOOD ORDERAB LES Final Result Performing Organization Address [facility] Co de Phone Number [facility] [address] [place] [phone] * 17-Hydroxyprogesterone (11/05/2024 12:28 PM EDT) 17-OHProgesterone 60 see note ng/dL [facility] Comment: Unable to flag abnormal result(s), please refer ?to reference range(s) below:Adult Female Reference Ranges ??for 17-Hydroxyprogesterone: ??Pre- Menopausal Mid Follicular: ??23 - 102 ng/dL ??Pre-Menopausal Surge: ? 67 - 349 ng/dL ??Pre-Menopausal Mid Luteal: ? 139 - 431 ng/dL ??Postmenopausal Phase: ?< or = 45 ng/dL ?Female Tom Stages: ??II - III Females: ??18 - 220 ng/dL ??IV - V ?? Females: ??36 - 200 ng/dLIncludes data from J Clin Endocrinol Metab. ??1990;73:674-686; J Clin Endocrinol Metab. ??1989;69;7970-3834; J Clin Endocrinol Metab. ??1994;78:226-270. Pediatr Res 1988;23:525-529. ??MedLinePlus (accessed 12/30/13).This test was developed and its analytical performancecharacteristics have been determined by [employer] [place], [place]. It hasnot been cleared or approved by the U.S. Food and DrugAdministration. This assay has been validated pursuantto the CLIA regulations and is used for clinicalpurposes.THIS TEST WAS PERFORMED AT:[id number] [place], [place] ??[address]PAJONELLE LI MD,PHD 11/05/2024 12:2 8 PM EDT 11/05/2024 12:28 PM EDT Generic External Data Provider LAB BLOOD ORDERAB LES Final Result Performing Organization Address [facility] Co de Phone Number [facility] [address] [place] [phone] * Prolactin (11/05/2024 12:28 PM EDT) Prolactin 15.8 ng/mL [facility] Comment:Reference Range Fema les Non- 3.0-30.0 10.0-209.0 Postmenopausal 2.0-20.0THIS TEST WAS PERFORMED AT:[employer] [address] [address]CTCTRSCOTT DELACRUZ MD 11/05/2024 12:2 8 PM EDT 11/05/2024 12:28 PM EDT Generic External Data Provider LAB BLOOD ORDERAB LES Final Result Performing Organization Address [facility]/ZIP Co de Phone Number [facility] [address] [place] [phone] * (ABNORMAL) CBC (11/05/2024 12:28 PM EDT) White Blood Count 8.4 4.8 - 10.8 X10*3/uL [facility] Red Blood Count 4.68 4.20 - 5.50 X10*6/uL [facility] Hemoglobin 12.6 12.0 - 16.0 g/dl [facility] Hematocrit 39.7 37.0 - 47.0 % [facility] Mean Corpuscular Volume 84.8 80.0 - 98.0 fL [facility] Mean Corpuscular Hemoglobin 26.9(L) 27.0 - 33.0 pg [facility] Mean Corpuscular HGB Conc 31.7 31.0 - 35.0 g/dl [facility] Red Cell Distribution Width 14.1 11.0 - 16.0 % [facility] Platelet Count 307 160 - 400 X10*3/uL [facility] Mean Platelet Volume 11.1 9.4 - 12.3 fL [facility] NRBC Pct Auto 0.0 0.0 - 0.2 /100WBC [facility] NRBC Abs Auto 0.000 0.0 - 0.012 X10*3/uL [facility] 11/05/2024 12:2 8 PM EDT 11/05/2024 12:28 PM EDT us Generic External Data Provider LAB BLOOD ORDERAB LES Final Result [facility] [address] [place] [phone] * (ABNORMAL) Testosterone, Free (Dialysis) And Total, MS (11/05/2024 12:28 PM EDT) Testosterone, Total 43 2 - 45 ng/dL [facility] Comment:For additional infor mation, please refer [email or web address]://education.Team-Match/faq/PFM334(This link is being provided for informational/educational purposes only.)(Note)This test was developed and its analytical performancecharacteristics have been determined by [employer]. It hasnot been cleared or approved by the FDA. This assay hasbeen validated pursuant to the CLIA regulations and isused for clinical purposes. Testosterone, Free 6.5(A) 0.1 - 6.4 pg/mL [facility] Comment:(Note)This test was developed and its analytical performancecharacteristics have been determined by [employer]. It hasnot been cleared or approved by the FDA. This assay hasbeen validated pursuant to the CLIA regulations and isused for clinical purposes.MDFmed [address] [place] [address],[address] [place] [address] [phone] Gupta MD, PhDTHIS TEST WAS PERFORMED AT:[id number] [place] [address] [place] [address] 8151ARGELIA GUPTA MD,PHD 11/05/2024 12:2 8 PM EDT 11/05/2024 12:28 PM EDT Generic External Data Provider LAB BLOOD ORDERAB LES Final Result Performing Organization Address City/State/[facility] Co de Phone Number [facility] [address] [place] [phone] * Referral to Obstetrics / Gynecology (11/05/2024) us Maya Mcginnis [facility] OUTPATIENT REFERRAL ORDERABLES Final Result * XR Chest 2 Views (10/14/2024 9:19 AM EDT) Anatomical Region Laterality Modality Chest Radiographic [place] ging 10/14/2024 9:19 AM EDT Narrative 10/14/2024 12:38 PM EDT ? [facility] ?[address] ?[place] [address] ?XRay Report ? Signed ? Patient: Mar Mast,Gloria E ?MR#: ?? [id number] ? : 1990 ?Acct:[id number] ? Age/Sex: 34 / F ?ADM Date: 03/31/25 ? Loc: HO.XRAY ? Attending Dr: Rodney Guevara MD ? Ordering Physician: Rodney Guevara MD ?? Date of Service: 10/14/24 ?? Procedure(s): XR chest 2V ?? Accession Number(s): [id number] ? cc: Maya Mcginnis; Rodney Guevara MD [...] DD/ 0919 ? TD/TT: 10/14/24 0938 ? Geodesy Teacher: ? Procedure Note Donnickter, Image - 10/14/2024 [place] [address] XRay Report Signed Patient: Gloria Rodriguez EMR#: [id number] : 1990Acct:[id number] Age/Sex: 34 / FADM Date: 10/14/24 Loc: MALLY Attending Dr: Rodney Guevara MD Ordering Physician: Rodney Guevara MD Date of Service: 10/14/24 Procedure(s): XR chest 2V Accession Number(s): [id number] cc: Maya Mcginnis; Rodney Guevara MD EXAMINATION: [...] Mckeon MD in OV> 10/14/24 1235 DD/ 8 TD/TT: 10/14/24 0938 Geodesy Teacher: [facility] External Provider IMG XR PROCEDURES Final Result * (ABNORMAL) Vitamin D, 25-Hydroxy, Total, Immunoassay (10/14/2024 9:18 AM EDT) Vitamin D 25-OH Total 24.4(L) >30 ng/mL [facility] Comment: Health Based Reference Values*< 20 ??ng/mL ??Gokrqxphz75-28 ng/mL ??Insufficient> 30 ??ng/mL ??Sufficient*Chacho SAUCEDA. N [...] ORDERAB LES Final Result Performing Organization Address [facility] Co de Phone Number [facility] [address] [place] [phone] * (ABNORMAL) Vitamin B12 (Cobalamin) and Folate Panel, Serum (10/14/2024 9:18 AM EDT) Vitamin B12 1,047(H) 200 - 900 pg/mL [facility] Comment:NORMAL 200-900 PG/ML INDETERMINATE 160-199 PG/ML DEFICIENT < 160 PG/ML Folate 9.5 > or = 4.0 ng/mL [facility] Comment:Reference Values:> o r = 4.0 ng/mL< 4.0 ng/mL suggests folate deficiency Methotrexate, aminopterin and folinic acid(leucovorin) are chemotherapeutic agents whose molecularstructures are similar to folate; therefore, the Architectfolate assay cannot be used for patients using these drugs. 10/14/2024 9:18 AM EDT 10/14/2024 9:18 AM EDT Generic External Data Provider LAB BLOOD ORDERAB LES Final Result Performing Organization Address [facility] [place] [facility] de Phone Number [facility] [address] [place] [phone] * CBC auto differential (10/14/2024 9:18 AM EDT) White Blood Count 6.5 4.8 - 10.8 X10*3/uL [facility] Red Blood Count 4.88 4.20 - 5.50 X10*6/uL [facility] Hemoglobin 13.2 12.0 - 16.0 g/dl [facility] Hematocrit 41.2 37.0 - 47.0 % [facility] Mean Corpuscular Volume 84.4 80.0 - 98.0 fL [facility] Mean Corpuscular Hemoglobin 27.0 27.0 - 33.0 pg [facility] Mean Corpuscular HGB Conc 32.0 31.0 - 35.0 g/dl [facility] Red Cell Distribution Width 13.8 11.0 - 16.0 % [facility] Platelet Count 267 160 - 400 X10*3/uL [facility] Mean Platelet Volume 11.3 9.4 - 12.3 fL [facility] Neutrophils Percent Auto 55.6 45 - 73 % [facility] Imm Gran Pct Auto 0.3 0.0 - 0.4 % [facility] Lymphocytes Percent Auto 34.6 20 - 40 % [facility] Monocytes Percent Auto 5.8 2 - 11 % [facility] Eosinophils Percent Auto 2.8 0 - 4 % [facility] Basophils Percent Auto 0.9 0 - 2 % [facility] NRBC Pct Auto 0.0 0.0 - 0.2 /100WBC [facility] Neutrophils Absolute Auto 3.6 2.0 - 8.3 x10*3/uL [facility] Imm Gran Abs Auto 0.02 0.00 - 0.03 X10*3/uL [facility] Lymphocytes Absolute Auto 2.3 1.2 - 4.9 X10*3/uL [facility] Monocytes Absolute Auto 0.4 0.1 - 1.2 X10*3/uL [facility] Eosinophils Absolute Auto 0.2 0.0 - 0.4 X10*3/uL [facility] Basophils Absolute Auto 0.1 0.0 - 0.2 X10*3/uL [facility] NRBC Abs Auto 0.000 0.0 - 0.012 X10*3/uL [facility] 10/14/2024 9:18 AM EDT 10/14/2024 9:18 AM EDT us Generic External Data Provider LAB BLOOD ORDERAB LES Final Result [facility] [address] [place] [phone] * (ABNORMAL) Iron And Total Iron Binding Capacity (10/14/2024 9:18 AM EDT) Iron 33 30 - 160 mcg/dL [facility] Total Iron Binding Capacity 336 228 - 428 mcg/dL [facility] Percent Iron Saturation 10(L) 15 - 50 % [facility] Unsaturated Iron Binding 303 ug/dL [facility] 10/14/2024 9:18 AM EDT 10/14/2024 9:18 AM EDT Generic External Data Provider LAB BLOOD ORDERAB LES Final Result Performing Organization Address [facility] Phone Number [facility] [address] [place] [phone] * Insulin (10/14/2024 9:18 AM EDT) [facility] Insulin 14 2 - 29 uU/mL [facility] Comment:This test was perfor med using the [employer] chemiluminescentmethod. Values obtained from different assay methods [...] ORDERAB LES Final Result Performing Organization Address [facility] de Phone Number [facility] [address] [place] [phone] * Zinc (10/14/2024 9:18 AM EDT) Zinc 74 60 - 130 mcg/dL [facility] Comment:This test was develo ped and its analytical performancecharacteristics have been determined by [employer] [place], [place]. It hasnot been cleared or approved by the U.S. Food and DrugAdministration. This assay has been validated pursuantto the CLIA regulations and is used for clinicalpurposes.THIS TEST WAS PERFORMED AT:[employer] [id number] [place] [address]PTVYJSHARCELIA LI MD,PHD 10/14/2024 9:18 AM EDT 10/14/2024 9:18 AM EDT us Generic External Data Provider LAB BLOOD ORDERAB LES Final Result Performing Organization Address [facility]/ZIP Co de Phone Number [facility] [address] [place] [phone] * (ABNORMAL) Vitamin A (10/14/2024 9:18 AM EDT) [facility] Vitamin A (Retinol) 37(A) 38 - 98 mcg/dL [facility] Comment:Vitamin supplementat ion within 24 hours prior toblood draw may affect the accuracy of the results.This test was developed and its analytical performancecharacteristics have been determined by [employer] [place], [place]. It hasnot been cleared or approved by the U.S. Food and DrugAdministration. This assay has been validated pursuantto the CLIA regulations and is used for clinicalpurposes.THIS TEST WAS PERFORMED AT:[id number] [place] [address]FIGMGVCARCELIA LI MD,PHD 10/14/2024 9:18 AM EDT 10/14/2024 9:18 AM EDT Generic External Data Provider LAB BLOOD ORDERAB LES Final Result Performing Organization Address [facility]/ZIP Co de Phone Number [facility] [address] [place] [phone] * (ABNORMAL) C-reactive Protein (10/14/2024 9:18 AM EDT) Pathologist [facility] C Reactive Protein 2.25(H) < or = 0.50 mg/dL [facility] 10/14/2024 9:18 AM EDT 10/14/2024 9:18 AM EDT Generic External Data Provider LAB BLOOD ORDERAB LES Final Result Performing Organization Address City/[facility]/ZIP Co de Phone Number [facility] [address] [place] [phone] * Vitamin B1 (10/14/2024 9:18 AM EDT) Pathologist [facility] Vitamin B1 14 8 - 30 nmol/L [facility] Comment:Vitamin supplementat ion within 24 hours prior toblood draw may affect the accuracy of the results.This test was developed and its analytical performancecharacteristics have been determined by [employer] [place], [place]. It hasnot been cleared or approved by the U.S. Food and DrugAdministration. This assay has been validated pursuantto the CLIA regulations and is used for clinicalpurposes.THIS TEST WAS PERFORMED AT:[employer] [place] [address]CYJTRCG W. MASON,MD,PHD 10/14/2024 9:18 AM EDT 10/14/2024 9:18 AM EDT us Generic External Data Provider LAB BLOOD ORDERAB LES Final Result Performing Organization Address [facility] Co de Phone Number [facility] [address] [place] [phone] * Hemoglobin A1c (10/14/2024 9:18 AM EDT) Only the most recent of2 resultswithin the time period is included. Pathologist [facility] Hemoglobin A1c 5.7 <6.0 % [facility] Comment:Hemoglobin A1C Refer ence Range Adults: 4.8 - 6.0 % Non diabetic: < 6.0 % Goal: < 7.0 %Additional Action Suggested: > 8.0 %Note: Hemoglobin A1c results are invalid for patients with abnormal amounts of HbF. Blood transfusions may impact the HbA1c concentration in the patient sample. Estimated Average Glucose 117 mg/dL [facility] Comment:eAG = Estimated ave rage glucose which is %A1C expressed asaverage glucose, using the formula of the B3A-PkhnqvtPohvmxi Glucose study (ADAG), Diabetes Care, Vol.31,#8,Feb. 2007 10/14/2024 9:18 AM EDT 10/14/2024 9:18 AM EDT Generic External Data Provider LAB BLOOD ORDERAB LES Final Result Performing Organization Address City/[facility]/ZIP Co de Phone Number [facility] [address] [place] [phone] * Ferritin (10/14/2024 9:18 AM EDT) Ferritin 20 10 - 122 ng/mL [facility] 10/14/2024 9:18 AM EDT 10/14/2024 9:18 AM EDT Generic External Data Provider LAB BLOOD ORDERAB LES Final Result Performing Organization Address [facility] Co de Phone Number [facility] [address] [place] [phone] * Lipid Panel, Standard (10/14/2024 9:18 AM EDT) Only the most recent of2 resultswithin the time period is included. Triglycerides 120 <150 mg/dL [facility] Comment:Desirable Triglyceri de: less than 150 mg/dLBorderline High Triglyceride 150-199 mg/dLHigh Triglyceride: 200-499 mg/dLVery High Triglyceride: greater than or equal to 5OO mg/dL Cholesterol 159 <200 mg/dL [facility] Comment:Desirable Cholestero l: less than 200 mg/dLBorderline High Cholesterol: 200-239 mg/dLHigh Cholesterol: greater than 239 mg/dL LDL Cholesterol Calculated 93 <100 mg/dL [facility] Comment:Desirable LDL: less than 100 mg/dLNear Optimal/Above Optimal LDL: 110- 129 mg/dLBorderline High LDL: 130-159 mg/dLHigh LDL: 160-189 mg/dLVery High LDL: greater than or equal to 190 mg/dL HDL Cholesterol 42 >40 mg/dL [facility] Comment:Desirable HDL: great er than 40 mg/dL Note: This HDL assay may give artificially low results in patients with liver disease. 10/14/2024 9:18 AM EDT 10/14/2024 9:18 AM EDT us Generic External Data Provider LAB BLOOD ORDERAB LES Final Result [facility] [address] [place] [phone] * (ABNORMAL) Comprehensive Metabolic Panel (10/14/2024 9:18 AM EDT) Sodium 139 135 - 145 mmol/L [facility] Potassium 4.2 3.3 - 5.1 mmol/L [facility] Chloride 106 96 - 108 mmol/L [facility] Carbon Dioxide 26 22 - 29 mmol/L [facility] Anion Gap 11(L) 12 - 20 [facility] Urea Nitrogen (BUN) 9 9 - 16 mg/dL [facility] Creatinine, Serum 0.74 0.5 - 1.4 mg/dL [facility] Estimated Glomerular Filt Rate >60 [facility] Comment:Chronic Kidney Disea se: Estimated GFR < 60 mL/min/1.21c6Ksehgm Kidney Disease: Estimated GFR < 15 mL/min/1.73m2 Glucose 105 60 - 115 mg/dL [facility] Calcium 9.1 8.4 - 10.2 mg/dL [facility] Bilirubin, Total 0.2 0.0 - 1.0 mg/dL [facility] Aspartate Amino Transferase 20 5 - 31 U/L [facility] Alanine Aminotransferase 19 0 - 31 U/L [facility] Total Protein 7.6 6.5 - 8.0 g/dL [facility] Albumin Level 3.9 3.5 - 5.0 g/dL [facility] Alkaline Phosphatase 70 39 - 117 U/L [facility] 10/14/2024 9:18 AM EDT 10/14/2024 9:18 AM EDT us Generic External Data Provider LAB BLOOD ORDERAB LES Final Result Performing Organization Address [facility]/ZIP Co de Phone Number [facility] [address] [place] [phone] * (ABNORMAL) Basic Metabolic Panel (2024 11:11 AM EDT) Sodium 137 135 - 145 mmol/L [facility] Potassium 4.1 3.3 - 5.1 mmol/L [facility] Chloride 105 96 - 108 mmol/L [facility] Carbon Dioxide 25 22 - 29 mmol/L [facility] Anion Gap 11(L) 12 - 20 [facility] Urea Nitrogen (BUN) 13 9 - 16 mg/dL [facility] Creatinine, Serum 0.69 0.5 - 1.4 mg/dL [facility] Estimated Glomerular Filt Rate >60 [facility] Comment:Chronic Kidney Disea se: Estimated GFR < 60 mL/min/1.20d6Gmpwra Kidney Disease: Estimated GFR < 15 mL/min/1.73m2 Glucose 96 60 - 115 mg/dL [facility] Calcium 9.3 8.4 - 10.2 mg/dL [facility] Blood Venous blood specimen / Unknown 2024 11:11 AM EDT 2024 1:41 PM EDT us Maya Mcginnis [employer] LAB BLOOD ORDERABLES Final Resu lt Performing Organization Address City/[facility]/ZIP Co de Phone Number [facility] [address] [place] [phone] * HPV mRNA E6/E7 (12/02/2020 12:00 AM EDT) Pathologist [facility] HPV nRNA E6/E7 Not Detected Not Detected [facility] Comment: Methodology: Storage Manager-Mediated Amplification This assay detects E6/E7 viral messenger RNA (mRNA) from 14 high-risk HPV types (16,18,31,33,35,39,45,51,52,56,58,59,66,68). ? The analytical performance characteristics of this assay have been determined by [employer]. The modifications have not been cleared or approved by the FDA. This assay has been validated pursuant to the CLIA regulations and is used for clinical purposes. ?? For additional information, please refer to http://education.Team-Match/faq/LOK508x3 (This link if provided for information/ educational purposes only.) 12/02/2020 Morena Hare HOSPICE OFFICE COORDINATOR LAB BLOOD ORDERABLES Final Res ult [facility] [address] * Pap Smear (12/02/2020 12:00 AM EDT) Swab Marianne Hamilton CN LAB CYTOLOGY ORDERABLES F inal Result Performing Organization Address City/[facility]/ZIP Co de Phone Number [address], [place] [phone] * HEPATITIS C AB W/REFL TO HCV RNA, QN, PCR (10/23/2020 11:11 AM EDT) Pathologist [facility] HEPATITIS C ANTIBODY NON-REACT HENRY NON-REACT HENRY [facility] INDEX 0.01 <1.00 [facility] Comment: ?? HCV antibody was non-reactive. There is no laboratory ?? evidence of HCV infection. ?? In most cases, no further action is required. However, if recent HCV exposure is suspected, a test for HCV RNA (test code 93207) is suggested. ?? For additional information please refer to http://[employer] 1.Team-Match/faq/JFC98n7 (This link is being provided for informational/ educational purposes only.) ?? 10/23/2020 11:1 1 AM EDT Morena Ananya HOSPICE OFFICE COORDINATOR HISTORICAL/NON ORDERABLE LABS Final Result Performing Organization Address [facility] Phone Number [facility] [address] * HIV 1/2 ANTIGEN/ANTIBODY,FOURTH GENERATION W/RFL (10/23/2020 11:11 AM EDT) HIV-1/2 ANTIGEN AND ANTIBODIES, 4TH GENERATION W/ REFLEX NON-REACT HENRY NON-REACT HENRY [facility] Comment: HIV-1 antigen and HIV-1/HIV-2 [...] ? For additional information please refer to http://Social Strategy 1.Team-Match/faq/CYB587 (This link is being provided for informational/ educational purposes only.) ? The performance of this assay has not been clinically validated in patients less than 2 years old. ?? 10/23/2020 11:1 1 AM EDT Morena Ananya HOSPICE OFFICE COORDINATOR LAB BLOOD ORDERABLES Final Res ult Performing Organization Address [facility] Phone Number [facility] [address] from Last 3 Months or Most Recently Relevant to Health Maintenance Insurance [address] [place] [address] [facility] [address] [place] [phone] [place] [phone] [place] [phone] Care Teams Rotating Equipment Specialist Relationship Specialty Start Date End Date Maya Mcginnis NP [address] [place] [phone] PCP - General Family Medicine 08/21/23
== END 2024-11-20 12:14 | disposition home or self-care (01) ==
LOC: HO.HBST 11:10
PROVIDERS: PCP Nurse Practitioner; Visit Provider Counselor Mental Health
DX: F43.20 Adjustment disorder, unspecified (principal); Z72.4 Inappropriate diet and eating habits; Z71.89 Other specified counseling
CPT/HCPCS: 90837

== ENCOUNTER 2024-12-02 08:59 | Outpatient (REF) | payer MEDICAID, SELFPAY ==
--- NOTE | ~2024-12-02 | US_ITS ---
EXAMINATION: US ABDOMEN COMPLETE WITH LIVER ELASTOGRAPHY HISTORY: E66.01 - Morbid (severe) obesity due to excess calories TECHNIQUE: Real-time grayscale ultrasound imaging of the abdomen was performed and images were reviewed. COMPARISON: Comparison is made with the prior examination dated 03/24/2021. FINDINGS: Liver: The right lobe of the liver measures 16.5 cm in size. The left lobe of the liver measures 8.9 cm in size. The liver demonstrates increased echotexture, consistent with steatosis. No focal mass or intrahepatic biliary ductal dilatation is identified. There is normal hepatopedal flow in the portal vein. Ultrasound elastography of the liver was performed with 10 separate measurements of the liver parenchyma with the patient in the supine position. Measurements were obtained approximately 2 cm below Meena's capsule and perpendicular to the capsule. Images are of satisfactory quality. The median shear wave velocity is 0.91 m/s (previously 1.47 m/s). The interquartile range/median (IQR/median) is 0.34. Gallbladder and biliary tree: Multiple shadowing calculi are noted in the gallbladder. There is no wall thickening or pericholecystic fluid. There is no sonographic Tubbs sign. The common bile duct is normal in caliber measuring 4 mm. Kidneys: The right kidney measures 10.5 cm in length. The left kidney measures 10.0 cm in length. The kidneys are unremarkable, without evidence of masses, hydronephrosis, or calculi. Pancreas: The pancreas is not well visualized. Spleen: The spleen is normal in size and contour, measuring 11.2 cm in length. Abdominal aorta and inferior vena cava: The visualized portions of the abdominal aorta and inferior vena cava are normal in caliber. There is no free fluid in the abdomen. US/US abdomen comp w elastography IMPRESSION: Hepatic steatosis. Cholelithiasis without evidence of acute cholecystitis. The median shear wave velocity in the liver is 0.91 m/s, corresponding to a median liver stiffness of 2.5 kPa. The IQR/median value is 0.31. This is indicative of a poor quality data set, and the estimated liver stiffness may be unreliable. Findings are indicative of a normal elastography value with a low likelihood of severe fibrosis or cirrhosis. REFERENCE: Society of Radiologists in Ultrasound Liver Stiffness Thresholds (2020): LIVER STIFFNESS THRESHOLDS: *Shear wave velocity less than 1.3 m/s (Liver Stiffness equal or less than 5 kPa): High probability of being normal. *Shear wave velocity less than 1.7 m/s (Liver Stiffness less than 9 kPa): In the absence of other known clinical signs, rules out compensated advanced chronic liver disease. *Shear wave velocity between 1.7-2.1 m/s (Liver Stiffness 9-13 kPa): Suggestive of compensated advanced chronic liver disease but need further test for confirmation. *Shear wave velocity between 2.1-2.4 m/s (Liver Stiffness 13-17 kPa): Rules in compensated advanced chronic liver disease. *Shear wave velocity greater than 2.4 m/s (Liver Stiffness over 17 kPa): Suggestive of clinically significant portal hypertension. QUALITY OF DATA SET: *IQR/Median value equal or less than 0.30 implies a quality data set. *IQR/Median value over 0.30 implies a poor quality data set. SIGNIFICANT CHANGE FROM PRIOR EXAM: Significant change if liver stiffness measurement is 10% or greater from prior exam. OTHER CONSIDERATIONS: The stage of liver fibrosis may be overestimated in the setting of acute hepatitis, liver inflammation, elevated liver function tests, hepatic vascular congestion, obstructive cholestasis, non-fasting state, and infiltrative diseases such as amyloidosis and lymphoma. In some patients with NAFLD, the liver stiffness thresholds for compensated advanced chronic liver disease may be lower. In causes other than viral hepatitis and NAFLD, liver stiffness thresholds are not well established. Electronically signed by: Igor Mckeon MD 12/02/2024 09:57 AM EDT
--- OUTSIDE RECORDS SUMMARY | 2024-12-02 09:10 | XMS_ITS | Clinical Summary ---
Author Organization [employer] Address [address] [facility] [address] [place] [address] Care Team Providers Care Nuclear Security Officer Name Role Phone Maya Mcginnis NP Primary Care Provider [phone] Allergies No known active allergies Medications [...] bleeding noted on exam today, referral to front end software engineer placed for further work-up -cbc ordered today [...] pt is able to get in with TAX SERVICES MANAGER Assessment & Plan (12/05/2023 7:07 PM EDT): NEG test today Order vaginal swab and fu results RS appt with certified professional midwife Encounters Date Type Department Care Team Description 11/08/2024 Orders Only GENERIC EXTERNAL DATA DEPARTMENT Provider, Generic External Data 11/05/2024 Orders Only GENERIC EXTERNAL DATA DEPARTMENT Provider, Generic External Data 10/21/2024 Telephone [facility] MEDICINE [address] [place] [address] Maya Mcginnis NP Results 10/16/2024 Telephone [facility] MEDICINE [address] [place] [address] NUTRITION APPT REQUEST 10/14/2024 Orders Only GENERIC EXTERNAL DATA DEPARTMENT Provider, Generic External Data 2024 9:15 AM EDT Office Visit [facility] MEDICINE [address] [place] [address] Maya Mcginnis NP Morbid obesity due to excess calories (CMS/HCC) (Primary Dx); Routine adult health maintenance; Complicated grief; Dietary counseling; Exercise counseling 2024 Travel 10/07/2024 Telephone [facility] MEDICINE [address] [place] [address] Gris Ennis MA chartprep 09/27/2024 Population Health Risk Score [facility] () Department [address] [place] [phone] Provider, Population Health Generic from Last 3 Months Immunizations Immunization Administration Dates Next Due DTP 01/27/1993, 1,10/23/1989,1988,1988 [...] Q2 Not on file 03/18/2024 Comments Unknown Intention Date Recorded No desire to become (finding) 0 2024 Sex and Gender Information Value Date Recorded [...] Description 01/10/2025 10:30 AM EDT Office Visit [facility] OPTOMETRY [address] [place] [address] Jennifer Spears, OD [address] [place] [address] 01/10/2025 2:30 PM EDT Office Visit [facility] MEDICINE [address] [place] [address] Maya Mcginnis, EL[place] [address] [place] [address] Health Maintenance Due Date Last Done Comments [...] patient's age to complete this topic Meningococcal B Vaccine Aged Out No l onger eligible based on patient's age to complete [...] 11/05/2024 12:28 PM EDT AMB REFERRAL TO OB-TAX SERVICES MANAGER STAT 11/05/2024 DUB (dysfunctional uterine bleeding) XR [...] 3 AM EDT 11/08/2024 1:05 PM EDT [facility] - 11/12/2024 2:07 PM EDT ----- ------- Name: Gloria Rodriguez ?Age/Sex: 34/F ? : 1990 Unit#: [id number] ?? Attend Dr: Rodney Guevara MD ?Re11/08/24 ?Status: DEP SDC ? Location: HO.SSS ?Disch: ? ----- ------- SPEC : [id number] ? RECD: 11/08/24-5 ? STATUS: ??SOUT ? REQ NUM: [id number] ? KETURAH: 11/08/24-1143 ? SUBM DR: Rodney Guevara MD ? ENTERED: ??11/08/24-131 ?SP TYPE: Surgical ? OTHR DR: Maya [...] Rodriguez ?Age/Sex: 34/F ? : 1990 Unit#: [id number] ?? Attend Dr: Rodney Guevara MD ?Re11/08/24 ?Status: DEP SDC ? Location: HO.SSS ?Disch: ? ----- ------- SPEC : [id number] ? RECD: 11/08/24-5 ? STATUS: ??SOUT ? REQ NUM: [id number] ? KETURAH: 11/08/24-1143 ? SUBM DR: Rodney [...] ?? [address] ?? [place] [address] ?? [phone] ?? Rodney Guevara MD ?? [facility] ?? [address] ?? [place] [address] ?? [phone] ----- ------- Signed (signature on file) Juan Diego Rowe MD 11/12/24 1407 ? ----- ------- ? END OF REPORT ? us Generic External Data Provider LAB BLOOD ORDERAB LES Final Result [facility] [address] [place] [phone] * hCG, Total, Quantitative (11/08/2024 10:26 AM EDT) Only the most recent of2 resultswithin the time period is included. Pathologist [facility] HCG Quantitative <2 mIU/mL [facility] Comment:Weeks post LMP Appro ximate hCG(Last Menstrual Period) Range (mIU/ml)3 - 4 weeks 9 - 1304 - 5 weeks 75 - 2,6005 - 6 weeks 850 - 20,8006 - 7 weeks 4000 - 100,2007 - 12 weeks 11,500 - 289,95578 - 16 weeks 18,300 - 137,46873 - 29 weeks (2nd trimester) 1,400 - 53,57039 - 41 weeks (3rd trimester) 940 - [...] Final Result Performing Organization Address [facility] de Phone Number [facility] [address] [place] [phone] * TSH with Reflex to Free T4 (11/05/2024 12:28 PM EDT) Only the most recent of2 resultswithin the time period is included. TSH reflex Free T4 1.25 0.32 - 4.0 uIU/mL [facility] 11/05/2024 12:2 8 PM EDT 11/05/2024 12:28 PM EDT Generic External Data Provider LAB BLOOD ORDERAB LES Final Result Performing Organization Address [facility] de Phone Number [facility] [address] [place] [phone] * 17-Hydroxyprogesterone (11/05/2024 12:28 PM EDT) 17-OHProgesterone 60 see note ng/dL [facility] Comment: Unable to flag abnormal result(s), [...] Endocrinol Metab. ??1990;73:674-686; J Clin Endocrinol Metab. ??1989;69;2146-9303; J Clin Endocrinol Metab. ??1994;78:226-270. Pediatr Res 1988;23:525-529. ??MedLinePlus (accessed 12/30/13).This test was developed and its analytical performancecharacteristics have been determined by [employer] [place], [place]. It hasnot been cleared or approved by the U.S. Food and DrugAdministration. This assay has been validated pursuantto the CLIA regulations and is used for clinicalpurposes.THIS TEST WAS PERFORMED AT:[facility] [place], [place] ??- [address]ARCELIA LI MD,PHD 11/05/2024 12:2 8 PM EDT 11/05/2024 12:28 PM EDT Generic External Data Provider LAB BLOOD ORDERAB LES Final Result [facility] [address] [place] [phone] * Prolactin (11/05/2024 12:28 PM EDT) Prolactin 15.8 ng/mL [facility] Comment:Reference Range Fema les Non- 3.0-30.0 10.0-209.0 Postmenopausal 2.0-20.0THIS TEST WAS PERFORMED AT:[facility] [address] [address]IIKXTSCOTT DELACRUZ MD 11/05/2024 12:2 8 PM EDT 11/05/2024 12:28 PM EDT Generic External Data Provider LAB BLOOD ORDERAB LES Final Result [facility] [address] [place] [address] [phone] * (ABNORMAL) CBC (11/05/2024 12:28 PM EDT) Pathologist [facility] White Blood Count 8.4 4.8 - 10.8 X10*3/uL [facility] Red Blood Count 4.68 4.20 - 5.50 X10*6/uL [facility] Hemoglobin 12.6 12.0 - 16.0 g/dl [facility] Hematocrit 39.7 37.0 - 47.0 % [facility] Mean Corpuscular Volume 84.8 80.0 - 98.0 fL [facility] Mean Corpuscular Hemoglobin 26.9(L) 27.0 - 33.0 pg [facility] Mean Corpuscular HGB Conc 31.7 31.0 - 35.0 g/dl [facility] Red Cell Distribution Width 14.1 11.0 - 16.0 % [facility] Platelet Count 307 160 - 400 X10*3/uL [facility] Mean Platelet Volume 11.1 9.4 - 12.3 fL [facility] NRBC Pct Auto 0.0 0.0 - 0.2 /100WBC [facility] NRBC Abs Auto 0.000 0.0 - 0.012 X10*3/uL [facility] 11/05/2024 12:2 8 PM EDT 11/05/2024 12:28 PM EDT us Generic External Data Provider LAB BLOOD ORDERAB LES Final Result Performing Organization Address City/[facility]/ZIP Co de Phone Number [facility] [address] [place] [phone] * (ABNORMAL) Testosterone, Free (Dialysis) And Total, MS (11/05/2024 12:28 PM EDT) Pathologist [facility] Testosterone, Total 43 2 - 45 ng/dL [facility] Comment:For additional infor walker, please refer tohttps://education.Typeform.Wize/faq/KSD379(This link is being provided for informational/educational purposes only.)(Note)This test was developed and its analytical performancecharacteristics have been determined by [employer]. It hasnot been cleared or approved by the FDA. This assay hasbeen validated pursuant to the CLIA regulations and isused for clinical purposes. Testosterone, Free 6.5(A) 0.1 - 6.4 pg/mL [facility] Comment:(Note)This test was developed and its analytical performancecharacteristics have been determined by [employer]. It hasnot been cleared or approved by the FDA. This assay hasbeen validated pursuant to the CLIA regulations and isused for clinical purposes.MDFmed [address] [place] [address],[address] [place] [address] [phone] Shailesh Gupta MD, PhDTHIS TEST WAS PERFORMED AT:[id number] [place] [address] [place] [address] 8194FADUMO GUPTA MD,PHD 11/05/2024 12:2 8 PM EDT 11/05/2024 12:28 PM EDT us Generic External Data Provider LAB BLOOD ORDERAB LES Final Result [facility] [address] [place] [phone] * Referral to Obstetrics / Gynecology (11/05/2024) us Maya Mcginnis CMO OUTPATIENT REFERRAL ORDERABLES Final Result * XR Chest 2 Views (10/14/2024 9:19 AM EDT) Anatomical Region Laterality Modality Chest Radiographic [place] ging 10/14/2024 9:19 AM EDT Narrative 10/14/2024 12:38 PM EDT ? [facility] ?[address] ?[place] [address] ?XRay Report ? Signed ? Patient: Mar Mast,Gloria E ?MR#: ?? [id number] ? : 1990 ?Acct:[id number] ? Age/Sex: 34 / F ?ADM Date: 10/14/24 ? Loc: HO.XRAY ? Attending Dr: Rodney Guevara MD ? Ordering Physician: Rodney Guevara MD ?? Date of Service: 10/14/24 ?? Procedure(s): XR chest 2V ?? Accession Number(s): [id number] ? cc: Maya Mcginnis; Rodney Guevara MD [...] DD/ 0919 ? TD/TT: 10/14/24 0938 ? Land Examiner: ? Procedure Note Nahum, Image - 10/14/[address] [address] XRay Report Signed Patient: Gloria Rodriguez EMR#: [id number] : 1990Acct:[id number] Age/Sex: 34 / FADM Date: 10/14/24 Loc: HO.XRAY Attending Dr: Rodney Guevara MD Ordering Physician: Rodney Guevara MD Date of Service: 10/14/24 Procedure(s): XR chest 2V Accession Number(s): [id number] cc: Maya Mcginnis; Rodney Guevara MD EXAMINATION: [...] in OV> 10/14/24 1235 DD/ 8 TD/TT: 10/14/2438 Land Examiner: [facility] External Provider IMG XR PROCEDURES Final Result * (ABNORMAL) Vitamin D, 25-Hydroxy, Total, Immunoassay (10/14/2024 9:18 AM EDT) Vitamin D 25-OH Total 24.4(L) >30 ng/mL [facility] Comment: Health Based Reference Values*< 20 ??ng/mL ??Hlzdqdzza05-09 ng/mL ??Insufficient> 30 ??ng/mL ??Sufficient*Chacho SAUCEDA. N [...] ORDERAB LES Final Result Performing Organization Address City/[facility]/ZIP Co de Phone Number [facility] [address] [place] [phone] * (ABNORMAL) Vitamin B12 (Cobalamin) and Folate Panel, Serum (10/14/2024 9:18 AM EDT) [facility] Vitamin B12 1,047(H) 200 - 900 pg/mL [facility] Comment:NORMAL 200-900 PG/ML INDETERMINATE 160-199 PG/ML DEFICIENT < 160 PG/ML Folate 9.5 > or = 4.0 ng/mL [facility] Comment:Reference Values:> o r = 4.0 ng/mL< 4.0 ng/mL suggests folate deficiency Methotrexate, aminopterin and folinic acid(leucovorin) are chemotherapeutic agents whose molecularstructures are similar to folate; therefore, the Architectfolate assay cannot be used for patients using these drugs. 10/14/2024 9:18 AM EDT 10/14/2024 9:18 AM EDT Generic External Data Provider LAB BLOOD ORDERAB LES Final Result Performing Organization Address [facility] Co de Phone Number [facility] [address] [place] [phone] * CBC auto differential (10/14/2024 9:18 AM EDT) [facility] White Blood Count 6.5 4.8 - 10.8 X10*3/uL [facility] Red Blood Count 4.88 4.20 - 5.50 X10*6/uL [facility] Hemoglobin 13.2 12.0 - 16.0 g/dl [facility] Hematocrit 41.2 37.0 - 47.0 % [facility] Mean Corpuscular Volume 84.4 80.0 - 98.0 fL [facility] Mean Corpuscular Hemoglobin 27.0 27.0 - 33.0 pg [facility] Mean Corpuscular HGB Conc 32.0 31.0 - 35.0 g/dl [facility] Red Cell Distribution Width 13.8 11.0 - 16.0 % [facility] Platelet Count 267 160 - 400 X10*3/uL [facility] Mean Platelet Volume 11.3 9.4 - 12.3 fL [facility] Neutrophils Percent Auto 55.6 45 - 73 % [facility] Imm Gran Pct Auto 0.3 0.0 - 0.4 % [facility] Lymphocytes Percent Auto 34.6 20 - 40 % [facility] Monocytes Percent Auto 5.8 2 - 11 % [facility] Eosinophils Percent Auto 2.8 0 - 4 % [facility] Basophils Percent Auto 0.9 0 - 2 % [facility] NRBC Pct Auto 0.0 0.0 - 0.2 /100WBC [facility] Neutrophils Absolute Auto 3.6 2.0 - 8.3 x10*3/uL [facility] Imm Gran Abs Auto 0.02 0.00 - 0.03 X10*3/uL [facility] Lymphocytes Absolute Auto 2.3 1.2 - 4.9 X10*3/uL [facility] Monocytes Absolute Auto 0.4 0.1 - 1.2 X10*3/uL [facility] Eosinophils Absolute Auto 0.2 0.0 - 0.4 X10*3/uL [facility] Basophils Absolute Auto 0.1 0.0 - 0.2 X10*3/uL [facility] NRBC Abs Auto 0.000 0.0 - 0.012 X10*3/uL [facility] 10/14/2024 9:18 AM EDT 10/14/2024 9:18 AM EDT Generic External Data Provider LAB BLOOD ORDERAB LES Final Result Performing Organization Address [facility] de Phone Number [facility] [address] [place] [phone] * (ABNORMAL) Iron And Total Iron Binding Capacity (10/14/2024 9:18 AM EDT) Iron 33 30 - 160 mcg/dL [facility] Total Iron Binding Capacity 336 228 - 428 mcg/dL [facility] Percent Iron Saturation 10(L) 15 - 50 % [facility] Unsaturated Iron Binding 303 ug/dL [facility] 10/14/2024 9:18 AM EDT 10/14/2024 9:18 AM EDT Generic External Data Provider LAB BLOOD ORDERAB LES Final Result Performing Organization Address [facility] de Phone Number [facility] [address] [place] [phone] * Insulin (10/14/2024 9:18 AM EDT) Pathologist [facility] Insulin 14 2 - 29 uU/mL [facility] Comment:This test was perfor med [...] ORDERAB LES Final Result Performing Organization Address [facility] Co de Phone Number [facility] [address] [place] [phone] * Zinc (10/14/2024 9:18 AM EDT) Zinc 74 60 - 130 mcg/dL [facility] Comment:This test was develo ped and its analytical performancecharacteristics have been determined by [employer] [place], [place]. It hasnot been cleared or approved by the U.S. Food and DrugAdministration. This assay has been validated pursuantto the CLIA regulations and is used for clinicalpurposes.THIS TEST WAS PERFORMED AT:[facility] [place] [address]CZZCAPRARCELIA LI MD,PHD 10/14/2024 9:18 AM EDT 10/14/2024 9:18 AM EDT us Generic External Data Provider LAB BLOOD ORDERAB LES Final Result Performing Organization Address City/[facility]/ZIP Co de Phone Number [facility] [address] [place], [place] [phone] * (ABNORMAL) Vitamin A (10/14/2024 9:18 AM EDT) Vitamin A (Retinol) 37(A) 38 - 98 mcg/dL [facility] Comment:Vitamin supplementat ion within 24 hours prior toblood draw may affect the accuracy of the results.This test was developed and its analytical performancecharacteristics have been determined by [employer] [place], [place]. It hasnot been cleared or approved by the U.S. Food and DrugAdministration. This assay has been validated pursuantto the CLIA regulations and is used for clinicalpurposes.THIS TEST WAS PERFORMED AT:[employer] [place] [address]RXZKMDQARCELIA LI MD,PHD 10/14/2024 9:18 AM EDT 10/14/2024 9:18 AM EDT us Generic External Data Provider LAB BLOOD ORDERAB LES Final Result [facility] [address] [place] [phone] * (ABNORMAL) C-reactive Protein (10/14/2024 9:18 AM EDT) C Reactive Protein 2.25(H) < or = 0.50 mg/dL [facility] 10/14/2024 9:18 AM EDT 10/14/2024 9:18 AM EDT us Generic External Data Provider LAB BLOOD ORDERAB LES Final Result Performing Organization Address [facility] Co de Phone Number [facility] [address] [place] [phone] * Vitamin B1 (10/14/2024 9:18 AM EDT) Vitamin B1 14 8 - 30 nmol/L [facility] Comment:Vitamin supplementat ion within 24 hours prior toblood draw may affect the accuracy of the results.This test was developed and its analytical performancecharacteristics have been determined by [employer] [place], [place]. It hasnot been cleared or approved by the U.S. Food and DrugAdministration. This assay has been validated pursuantto the CLIA regulations and is used for clinicalpurposes.THIS TEST WAS PERFORMED AT:[facility] [place] [address]LJYHIWIARCELIA LI MD,PHD 10/14/2024 9:18 AM EDT 10/14/2024 9:18 AM EDT us Generic External Data Provider LAB BLOOD ORDERAB LES Final Result Performing Organization Address [facility] Co de Phone Number [facility] [address] [place] [phone] * Hemoglobin A1c (10/14/2024 9:18 AM EDT) Only the most recent of2 resultswithin the time period is included. Hemoglobin A1c 5.7 <6.0 % [facility] Comment:Hemoglobin A1C Refer ence Range Adults: 4.8 - 6.0 % Non diabetic: < 6.0 % Goal: < 7.0 %Additional Action Suggested: > 8.0 %Note: Hemoglobin A1c results are invalid for patients with abnormal amounts of HbF. Blood transfusions may impact the HbA1c concentration in the patient sample. Estimated Average Glucose 117 mg/dL [facility] Comment:eAG = Estimated ave rage glucose which is %A1C expressed asaverage glucose, using the formula of the I2D-SpnsrvqUygucki Glucose study (ADAG), Diabetes Care, Vol.31,#8,2007 10/14/2024 9:18 AM EDT 10/14/2024 9:18 AM EDT us Generic External Data Provider LAB BLOOD ORDERAB LES Final Result Performing Organization Address [facility] Co de Phone Number [facility] [address] [place] [phone] * Ferritin (10/14/2024 9:18 AM EDT) Pathologist [facility] Ferritin 20 10 - 122 ng/mL [facility] 10/14/2024 9:18 AM EDT 10/14/2024 9:18 AM EDT Generic External Data Provider LAB BLOOD ORDERAB LES Final Result Performing Organization Address [facility] Co de Phone Number [facility] [address] [place] [phone] * Lipid Panel, Standard (10/14/2024 9:18 AM EDT) Only the most recent of2 resultswithin the time period is included. Triglycerides 120 <150 mg/dL [facility] Comment:Desirable Triglyceri de: less than 150 mg/dLBorderline High Triglyceride 150-199 mg/dLHigh Triglyceride: 200-499 mg/dLVery High Triglyceride: greater than or equal to 5OO mg/dL Cholesterol 159 <200 mg/dL [facility] Comment:Desirable Cholestero l: less than 200 mg/dLBorderline High Cholesterol: 200-239 mg/dLHigh Cholesterol: greater than 239 mg/dL LDL Cholesterol Calculated 93 <100 mg/dL [facility] Comment:Desirable LDL: less than 100 mg/dLNear Optimal/Above Optimal LDL: 110- 129 mg/dLBorderline High LDL: 130-159 mg/dLHigh LDL: 160-189 mg/dLVery High LDL: greater than or equal to 190 mg/dL HDL Cholesterol 42 >40 mg/dL [facility] Comment:Desirable HDL: great er than 40 mg/dL Note: This HDL assay may give artificially low results in patients with liver disease. 10/14/2024 9:18 AM EDT 10/14/2024 9:18 AM EDT us Generic External Data Provider LAB BLOOD ORDERAB LES Final Result [facility] [address] [place] [phone] * (ABNORMAL) Comprehensive Metabolic Panel (10/14/2024 9:18 AM EDT) Sodium 139 135 - 145 mmol/L [facility] Potassium 4.2 3.3 - 5.1 mmol/L [facility] Chloride 106 96 - 108 mmol/L [facility] Carbon Dioxide 26 22 - 29 mmol/L [facility] Anion Gap 11(L) 12 - 20 [facility] Urea Nitrogen (BUN) 9 9 - 16 mg/dL [facility] Creatinine, Serum 0.74 0.5 - 1.4 mg/dL [facility] Estimated Glomerular Filt Rate >60 [facility] Comment:Chronic Kidney Disea se: Estimated GFR < 60 mL/min/1.92d9Oatasg Kidney Disease: Estimated GFR < 15 mL/min/1.73m2 Glucose 105 60 - 115 mg/dL [facility] Calcium 9.1 8.4 - 10.2 mg/dL [facility] Bilirubin, Total 0.2 0.0 - 1.0 mg/dL [facility] Aspartate Amino Transferase 20 5 - 31 U/L [facility] Alanine Aminotransferase 19 0 - 31 U/L [facility] Total Protein 7.6 6.5 - 8.0 g/dL [facility] Albumin Level 3.9 3.5 - 5.0 g/dL [facility] Alkaline Phosphatase 70 39 - 117 U/L [facility] 10/14/2024 9:18 AM EDT 10/14/2024 9:18 AM EDT us Generic External Data Provider LAB BLOOD ORDERAB LES Final Result [facility] [address] [place] [phone] * (ABNORMAL) Basic Metabolic Panel (2024 11:11 AM EDT) Sodium 137 135 - 145 mmol/L [facility] Potassium 4.1 3.3 - 5.1 mmol/L [facility] Chloride 105 96 - 108 mmol/L [facility] Carbon Dioxide 25 22 - 29 mmol/L [facility] Anion Gap 11(L) 12 - 20 [facility] Urea Nitrogen (BUN) 13 9 - 16 mg/dL [facility] Creatinine, Serum 0.69 0.5 - 1.4 mg/dL [facility] Estimated Glomerular Filt Rate >60 [facility] Comment:Chronic Kidney Disea se: Estimated GFR < 60 mL/min/1.95t7Iqtmdm Kidney Disease: Estimated GFR < 15 mL/min/1.73m2 Glucose 96 60 - 115 mg/dL [facility] Calcium 9.3 8.4 - 10.2 mg/dL [facility] Blood Venous blood specimen / Unknown 2024 11:11 AM EDT 2024 1:41 PM EDT us Maya Mcginnis CMO LAB BLOOD ORDERABLES Final Resu lt [facility] [address] [place] [phone] * HPV mRNA E6/E7 (12/02/2020 12:00 AM EDT) HPV nRNA E6/E7 Not Detected Not Detected [facility] Comment: Methodology: Cloth Dyer-Mediated Amplification This assay detects E6/E7 viral messenger RNA (mRNA) from 14 high-risk HPV types (16,18,31,33,35,39,45,51,52,56,58,59,66,68). ? The analytical performance characteristics of this assay have been determined by [employer]. The modifications have not been cleared or approved by the FDA. This assay has been validated pursuant to the CLIA regulations and is used for clinical purposes. ?? For additional information, please refer to http://education.[employer]/faq/VTM113j0 (This link if provided for information/ educational purposes only.) 12/02/2020 Morenajm Hare EARLY INTERVENTIONIST LAB BLOOD ORDERABLES Final Res ult Performing Organization Address [facility] Co de Phone Number [facility] [address] * Pap Smear (12/02/2020 12:00 AM EDT) Swab Marianne Hamilton CN LAB CYTOLOGY ORDERABLES F inal Result [address], [place] [phone] * HEPATITIS C AB W/REFL TO HCV RNA, QN, PCR (10/23/2020 11:11 AM EDT) HEPATITIS C ANTIBODY NON-REACT [facility] NON-REACT [facility] INDEX 0.01 <1.00 [facility] [facility] Comment: ?? HCV antibody was non-reactive. There is no laboratory ?? evidence of HCV infection. ?? In most cases, no further action is required. However, if recent HCV exposure is suspected, a test for HCV RNA (test code 42611) is suggested. ?? For additional information please refer to http://[employer].GlucoSentient/faq/TIC72i7 (This link is being provided for informational/ educational purposes only.) ?? 10/23/2020 11:1 1 AM EDT Morena Ananya EARLY INTERVENTIONIST HISTORICAL/NON ORDERABLE LABS Final Result Performing Organization Address [facility] Phone Number [facility] [address] * HIV 1/2 ANTIGEN/ANTIBODY,FOURTH GENERATION W/RFL (10/23/2020 11:11 AM EDT) Pathologist [facility] HIV-1/2 ANTIGEN AND ANTIBODIES, 4TH GENERATION W/ REFLEX NON-REACT HENRY NON-REACT HENRY [facility] Comment: HIV-1 antigen and [...] ? For additional information please refer to http://[employer].GlucoSentient/faq/BJV188 (This link is being provided for informational/ educational purposes only.) ? The performance of this assay has not been clinically validated in patients less than 2 years old. ?? 10/23/2020 11:1 1 AM EDT Morena Ananya EARLY INTERVENTIONIST LAB BLOOD ORDERABLES Final Res ult Performing Organization Address [facility] Phone Number [facility] [address] [place] [address], [place] from Last 3 Months or Most Recently Relevant to Health Maintenance Insurance [facility] [address] [place] [address] [id number] [place] [address] [id number] [place] [address] Care Teams Nuclear Security Officer Relationship Specialty Start Date End Date Maya Mcginnis NP [address] [place] [id number] PCP - General Family Medicine 08/21/23
== END 2024-12-02 09:00 | disposition home or self-care (01) ==
LOC: HO.US 08:59
PROVIDERS: PCP Nurse Practitioner; Visit Provider Surgery
DX: E66.01 Morbid (severe) obesity due to excess calories (principal); G47.30 Sleep apnea, unspecified
CPT/HCPCS: 76700; 76981

== ENCOUNTER → 2024-12-02 09:02 | Outpatient (BNV) | payer MEDICAID, SELFPAY | PROVIDERS: PCP Nurse Practitioner; Visit Provider Radiology Diagnostic Radiology | DX: K76.0 Fatty (change of) liver, not elsewhere classified (principal); K80.20 Calculus of gallbladder without cholecystitis without obstruction | CPT/HCPCS: 76700 ==

== ENCOUNTER → 2024-12-18 10:51 | Outpatient (REF) | payer MEDICAID, SELFPAY ==
--- OUTSIDE RECORDS SUMMARY | 2024-12-18 11:46 | XMS_ITS | Clinical Summary ---
Author Organization [employer] Address [address] [facility] 7t [place] [address] Care Team Providers Care Operator Supply Name Role Phone Maya Mcginnis NP Primary Care Provider [phone] Allergies No known active allergies Medications Multiple [...] bleeding noted on exam today, referral to gate person placed for further work-up -cbc ordered today [...] pt is able to get in with SERVICE AGENT Assessment & Plan (12/05/2023 7:07 PM EDT): NEG test today Order vaginal swab and fu results RS appt with window draper Encounters Date Type Department Care Team Description 12/02/2024 Orders Only [facility] External Provider, [facility] 11/08/2024 Orders Only GENERIC EXTERNAL DATA DEPARTMENT Provider, Generic External Data 11/05/2024 Orders Only GENERIC EXTERNAL DATA DEPARTMENT Provider, Generic External Data 10/21/[address] [address] Maya Mcginnis NP Results 10/16/2024 Telephone [facility] [address] [place] [address] NUTRITION APPT REQUEST 10/14/2024 Orders Only GENERIC EXTERNAL DATA DEPARTMENT Provider, Generic External Data 2024 9:15 AM EDT Office Visit [facility] [address] [place] [address] Maya Mcginnis NP Morbid obesity due to excess calories (CMS/HCC) (Primary Dx); Routine adult health maintenance; Complicated grief; Dietary counseling; Exercise counseling 2024 Travel 10/07/2024 Telephone [facility] [address] [place] [address] Gris Ennis MA chartprep 09/27/2024 Population Health Risk Score [facility] ([facility]) Department [address] [place] [phone] Provider, Population Health Generic from Last [...] Description 01/10/2025 10:30 AM EDT Office Visit [facility] [address] [place], [place] [phone] Jennifer Spears, OD [address] [place] [address] 01/10/2025 2:30 PM EDT Office Visit [facility] [address] [place] [address] Maya Mcginnis, ELTON [address] [place] [address] Health Maintenance Due Date Last Done Comments COVID-19 Vaccine ( season) 2024 05/14/2021, 04/23/2021 Influenza Vaccine (Season Ended) 2025 05/23/2019 Depression Monitoring 04/13/2025 2024, 025 SDOH Screening 08/08/2025 08/08/2024 Alcohol/Substance Use Screening 2025 2024 Disability Screening 2025 2024 Family Planning (PISQ) 2025 2024 Tobacco Screening [...] Procedure Name Priority Date/Time Associated Diagnosis Comments US ABDOMEN COMPLETE WITH ELASTOGRAPHY Routine 12/02/2024 9:07 AM EDT HEMATOXYLIN AND EOSIN STAIN Routine 11/08/2024 11:43 [...] 11/05/2024 12:28 PM EDT AMB REFERRAL TO OB-SERVICE AGENT STAT 11/05/2024 DUB (dysfunctional uterine bleeding) XR [...] Recently Relevant to Health Maintenance Results * US Abdomen Comp w elastography (12/02/2024 9:07 AM EDT) Anatomical Region Laterality Modality Abdomen Ultrasound 12/02/2024 9:07 AM EDT Narrative 12/02/2024 10:00 AM EDT ? [facility] ?[address] ?[place] [address] ? Ultrasound Report ? Signed ? Patient: Isabela Mast,Gloria E ?MR#: ?? [id number] ? : 1990 ?Acct:[id number] ? Age/Sex: 34 / F ?ADM Date: 05/19/25 ? Loc: HO.US ? Attending Dr: Rodney Guevara MD ? Ordering Physician: Rodney Guevara MD ?? Date of Service: 12/02/24 ?? Procedure(s): US abdomen comp w elastography ?? Accession Number(s): [id number] ? cc: Maya Mcginnis; Rodney Guevara MD ? EXAMINATION: ??US ABDOMEN COMPLETE WITH LIVER ELASTOGRAPHY ? HISTORY: E66.01 - Morbid (severe) obesity due to excess calories ? TECHNIQUE: Real-time grayscale ultrasound imaging of the abdomen was ?? performed and images were reviewed. ? COMPARISON: Comparison is made with the prior examination dated ?? 03/24/2021. ? FINDINGS: ?? Liver: ??The right lobe of the liver measures 16.5 cm in size. The left ?? lobe of the liver measures 8.9 cm in size. The liver demonstrates ?? increased echotexture, consistent with steatosis. ??No focal mass or ?? intrahepatic biliary ductal dilatation is identified. ??There is normal ?? hepatopedal flow in the portal vein. ? Ultrasound elastography of the liver was performed with 10 separate ?? measurements of the liver parenchyma with the patient in the supine ?? position. ??Measurements were obtained approximately 2 cm below ?? Meena's capsule and perpendicular to the capsule. ??Images are of ?? satisfactory quality. ? The median shear wave velocity is 0.91 m/s (previously 1.47 m/s). ?? The interquartile range/median (IQR/median) is 0.34. ? Gallbladder and biliary tree: Multiple shadowing calculi are noted in ?? the gallbladder. There is no wall thickening or pericholecystic fluid. ? There is no sonographic Tubbs sign. ??The common bile duct is normal in ?? caliber measuring 4 mm. ? Kidneys: ??The right kidney measures 10.5 cm in length. The left kidney ?? measures 10.0 cm in length. ??The kidneys are unremarkable, without ?? evidence of masses, hydronephrosis, or calculi. ? Pancreas: The pancreas is not well visualized. ? Spleen: The spleen is normal in size and contour, measuring 11.2 cm in ?? length. ? Abdominal aorta and inferior vena cava: The visualized portions of the ?? abdominal aorta and inferior vena cava are normal in caliber. ? There is no free fluid in the abdomen. ? US/US abdomen comp w elastography ?? IMPRESSION: ? Hepatic steatosis. Cholelithiasis without evidence of acute ?? cholecystitis. ? The median shear wave velocity in the liver is 0.91 m/s, corresponding ?? to a median liver stiffness of 2.5 kPa. ??The IQR/median value is 0.31. ? This is indicative of a poor quality data set, and the estimated liver ?? stiffness may be unreliable. ?? Findings are indicative of a normal elastography value with a low ?? likelihood of severe fibrosis or cirrhosis. ? REFERENCE: ?? Society of Radiologists in Ultrasound Liver Stiffness Thresholds (2019): ? LIVER STIFFNESS THRESHOLDS: ?? *Shear wave velocity less than 1.3 m/s (Liver Stiffness equal or less ?? than 5 kPa): ??High probability of being normal. ?? *Shear wave velocity less than 1.7 m/s (Liver Stiffness less than 9 ?? kPa): ??In the absence of other known clinical signs, rules out ?? compensated advanced chronic liver disease. ?? *Shear wave velocity between 1.7-2.1 m/s (Liver Stiffness 9-13 kPa): ? Suggestive of compensated advanced chronic liver disease but need ?? further test for confirmation. ?? *Shear wave velocity between 2.1-2.4 m/s (Liver Stiffness 13-17 kPa): ? Rules in compensated advanced chronic liver disease. ?? *Shear wave velocity ??greater than 2.4 m/s (Liver Stiffness over 17 ?? kPa): ??Suggestive of clinically significant portal hypertension. ? QUALITY OF DATA SET: ?? *IQR/Median value equal or less than 0.30 implies a quality data set. ?? *IQR/Median value over 0.30 implies a poor quality data set. ? SIGNIFICANT CHANGE FROM PRIOR EXAM: ?? Significant change if liver stiffness measurement is 10% or greater ?? from prior exam. ? OTHER CONSIDERATIONS: ?? The stage of liver fibrosis may be overestimated in the setting of ?? acute hepatitis, liver inflammation, elevated liver function tests, ?? hepatic vascular congestion, obstructive cholestasis, non-fasting ?? state, and infiltrative diseases such as amyloidosis and lymphoma. ??In ?? some patients with NAFLD, the liver stiffness thresholds for ?? compensated advanced chronic liver disease may be lower. ??In causes ?? other than viral hepatitis and NAFLD, liver stiffness thresholds are ?? not well established. ? Electronically signed by: ??Igor Mckeon MD ??12/02/2024 09:57 AM EDT ?? RP ? Dictated By: ?Igor Mckeon MD ? Signed By: ?<Electronically signed by Igor Mckeon MD in OV> ?12/02/24 09 ? DD/ 0907 ? TD/TT: 12/02/24 0924 ? Help Desk Representative: ? Procedure Note Donotuseinterpreter, Image - 12/02/[address] [address] Ultrasound Report Signed Patient: Gloria Rodriguez EMR#: [id number] : 1990Acct:[id number] Age/Sex: 34 / FADM Date: 12/02/24 Loc: HO.US Attending Dr: Rodney Guevara MD Ordering Physician: Rodney Guevara MD Date of Service: 12/02/24 Procedure(s): US abdomen comp w elastography Accession Number(s): [id number] cc: Maya Mcginnis; Rodney Guevara MD EXAMINATION: US ABDOMEN COMPLETE WITH LIVER ELASTOGRAPHY HISTORY: E66.01 - Morbid (severe) obesity due to excess calories TECHNIQUE: Real-time grayscale ultrasound imaging of the abdomen was performed and images were reviewed. COMPARISON: Comparison is made with the prior examination dated 03/24/2021. FINDINGS: Liver: The right lobe of the liver measures 16.5 cm in size. The left lobe of the liver measures 8.9 cm in size. The liver demonstrates increased echotexture, consistent with steatosis. No focal mass or intrahepatic biliary ductal dilatation is identified. There is normal hepatopedal flow in the portal vein. Ultrasound elastography of the liver was performed with 10 separate measurements of the liver parenchyma with the patient in the supine position. Measurements were obtained approximately 2 cm below Meena's capsule and perpendicular to the capsule. Images are of satisfactory quality. The median shear wave velocity is 0.91 m/s (previously 1.47 m/s). The interquartile range/median (IQR/median) is 0.34. Gallbladder and biliary tree: Multiple shadowing calculi are noted in the gallbladder. There is no wall thickening or pericholecystic fluid. There is no sonographic Tubbs sign. The common bile duct is normal in caliber measuring 4 mm. Kidneys: The right kidney measures 10.5 cm in length. The left kidney measures 10.0 cm in length. The kidneys are unremarkable, without evidence of masses, hydronephrosis, or calculi. Pancreas: The pancreas is not well visualized. Spleen: The spleen is normal in size and contour, measuring 11.2 cm in length. Abdominal aorta and inferior vena cava: The visualized portions of the abdominal aorta and inferior vena cava are normal in caliber. There is no free fluid in the abdomen. US/US abdomen comp w elastography IMPRESSION: Hepatic steatosis. Cholelithiasis without evidence of acute cholecystitis. The median shear wave velocity in the liver is 0.91 m/s, corresponding to a median liver stiffness of 2.5 kPa. The IQR/median value is 0.31. This is indicative of a poor quality data set, and the estimated liver stiffness may be unreliable. Findings are indicative of a normal elastography value with a low likelihood of severe fibrosis or cirrhosis. REFERENCE: Society of Radiologists in Ultrasound Liver Stiffness Thresholds (2020): LIVER STIFFNESS THRESHOLDS: *Shear wave velocity less than 1.3 m/s (Liver Stiffness equal or less than 5 kPa): High probability of being normal. *Shear wave velocity less than 1.7 m/s (Liver Stiffness less than 9 kPa): In the absence of other known clinical signs, rules out compensated advanced chronic liver disease. *Shear wave velocity between 1.7-2.1 m/s (Liver Stiffness 9-13 kPa): Suggestive of compensated advanced chronic liver disease but need further test for confirmation. *Shear wave velocity between 2.1-2.4 m/s (Liver Stiffness 13-17 kPa): Rules in compensated advanced chronic liver disease. *Shear wave velocity greater than 2.4 m/s (Liver Stiffness over 17 kPa): Suggestive of clinically significant portal hypertension. QUALITY OF DATA SET: *IQR/Median value equal or less than 0.30 implies a quality data set. *IQR/Median value over 0.30 implies a poor quality data set. SIGNIFICANT CHANGE FROM PRIOR EXAM: Significant change if liver stiffness measurement is 10% or greater from prior exam. OTHER CONSIDERATIONS: The stage of liver fibrosis may be overestimated in the setting of acute hepatitis, liver inflammation, elevated liver function tests, hepatic vascular congestion, obstructive cholestasis, non-fasting state, and infiltrative diseases such as amyloidosis and lymphoma. In some patients with NAFLD, the liver stiffness thresholds for compensated advanced chronic liver disease may be lower. In causes other than viral hepatitis and NAFLD, liver stiffness thresholds are not well established. Electronically signed by: Igor Mckeon MD 12/02/2024 09:57 AM EDT Dictated By: Igor Mckeon MD Signed By: <Electronically signed by Igor Mckeon MD in OV> 12/02/24956 DD/ 6 TD/TT: 12/02/24923 Help Desk Representative: [facility] External Provider IMG US PROCEDURES Edited Result - Final * Hematoxylin and Eosin Stain (11/08/2024 11:43 AM EDT) 11/08/2024 11:4 3 AM EDT 11/08/2024 1:05 PM EDT [facility] LABS - 11/12/2024 2:07 PM EDT ----- ------- Name: Gloria Rodriguez ?Age/Sex: 34/F ? : 1990 Unit#: [id number] ?? Attend Dr: Rodney Guevara MD ?Re11/08/24 ?Status: DEP SDC ? Location: HO.SSS ?Disch: ? ----- ------- SPEC : [id number] ? RECD: 11/08/24-1305 ? STATUS: ??SOUT ? REQ NUM: [id number] ? KETURAH: 11/08/24-1143 ? SUBM DR: Rodney Guevara MD ? ENTERED: ??11/08/24-1311 ?SP TYPE: Surgical ? OTHR : Maya Mcginnis ? ORDERED: ??HE Stain/9, Gross [...] Rodriguez ?Age/Sex: 34/F ? : 1990 Unit#: [id number] ?? Attend Dr: Rodney Guevara MD ?Re11/08/24 ?Status: DEP SDC ? Location: HO.SSS ?Disch: ? ----- ------- SPEC : [id number] ? RECD: 11/08/24-1304 ? STATUS: ??SOUT ? REQ NUM: [id number] ? KETURAH: 11/08/24-1143 ? SUBM DR: Rodney [...] ?? [address] ?? [place] [address] ?? [phone] ?? Rodney Guevara MD ?? [facility] ?? [address] ?? [place] [address] ?? [phone] ----- ------- Signed (signature on file) Juan Diego Rowe MD 11/12/24 1407 ? ----- ------- ? END OF REPORT ? us Generic External Data Provider LAB BLOOD ORDERAB LES Final Result [facility] [address] [place] [phone] * hCG, Total, Quantitative (11/08/2024 10:26 AM EDT) Only the most recent of2 resultswithin the time period is included. HCG Quantitative <2 mIU/mL [facility] Comment:Weeks post LMP Appro ximate hCG(Last Menstrual Period) Range (mIU/ml)3 - 4 weeks 9 - 1304 - 5 weeks 75 - 2,6005 - 6 weeks 850 - 20,8006 - 7 weeks 4000 - 100,2007 - 12 weeks 11,500 - 289,55297 - 16 weeks 18,300 - 137,15268 - 29 weeks (2nd trimester) 1,400 - 53,76919 - 41 weeks (3rd trimester) 940 - [...] ORDERAB LES Final Result Performing Organization Address [facility] de Phone Number [facility] [address] [place] [phone] * TSH with Reflex to Free T4 (11/05/2024 12:28 PM EDT) Only the most recent of2 resultswithin the time period is included. TSH reflex Free T4 1.25 0.32 - 4.0 uIU/mL [facility] 11/05/2024 12:2 8 PM EDT 11/05/2024 12:28 PM EDT Generic External Data Provider LAB BLOOD ORDERAB LES Final Result Performing Organization Address [facility] de Phone Number [facility] [address] [place] [phone] * 17-Hydroxyprogesterone (11/05/2024 12:28 PM EDT) 17-OHProgesterone 60 see note ng/dL [facility] Comment: Unable to flag abnormal result(s), [...] Endocrinol Metab. ??1990;73:674-686; J Clin Endocrinol Metab. ??1989;69;1379-8550; J Clin Endocrinol Metab. ??1994;78:226-270. Pediatr Res 1988;23:525-529. ??MedLinePlus (accessed 12/30/13).This test was developed and its analytical performancecharacteristics have been determined by [facility] [place], [place]. It hasnot been cleared or approved by the U.S. Food and DrugAdministration. This assay has been validated pursuantto the CLIA regulations and is used for clinicalpurposes.THIS TEST WAS PERFORMED AT:[facility] [place], [place] ??- [address]ARCELIA LI MD,PHD 11/05/2024 12:2 8 PM EDT 11/05/2024 12:28 PM EDT Generic External Data Provider LAB BLOOD ORDERAB LES Final Result Performing Organization Address [facility] de Phone Number [facility] [address] [place] [phone] * Prolactin (11/05/2024 12:28 PM EDT) Prolactin 15.8 ng/mL [facility] Comment:Reference Range Fema les Non- 3.0-30.0 10.0-209.0 Postmenopausal 2.0-20.0THIS TEST WAS PERFORMED AT:[facility] [address] [id number] DELACRUZ MD 11/05/2024 12:2 8 PM EDT 11/05/2024 12:28 PM EDT Generic External Data Provider LAB BLOOD ORDERAB LES Final Result Performing Organization Address [facility]/State/ZIP Co de Phone Number [facility] [address] [place] [address] [phone] * (ABNORMAL) CBC (11/05/2024 12:28 PM EDT) White Blood Count 8.4 4.8 - 10.8 X10*3/uL [facility] Red Blood Count 4.68 4.20 - 5.50 X10*6/uL [facility] Hemoglobin 12.6 12.0 - 16.0 g/dl [facility] Hematocrit 39.7 37.0 - 47.0 % [facility] Mean Corpuscular Volume 84.8 80.0 - 98.0 fL [facility] Mean Corpuscular Hemoglobin 26.9(L) 27.0 - 33.0 pg [facility] Mean Corpuscular HGB Conc 31.7 31.0 - 35.0 g/dl [facility] Red Cell Distribution Width 14.1 11.0 - 16.0 % [facility] Platelet Count 307 160 - 400 X10*3/uL [facility] Mean Platelet Volume 11.1 9.4 - 12.3 fL [facility] NRBC Pct Auto 0.0 0.0 - 0.2 /100WBC [facility] NRBC Abs Auto 0.000 0.0 - 0.012 X10*3/uL [facility] 11/05/2024 12:2 8 PM EDT 11/05/2024 12:28 PM EDT us Generic External Data Provider LAB BLOOD ORDERAB LES Final Result [facility] [address] [place] [address] [phone] * (ABNORMAL) Testosterone, Free (Dialysis) And Total, MS (11/05/2024 12:28 PM EDT) Pathologist [facility] Testosterone, Total 43 2 - 45 ng/dL [facility] Comment:For additional infor mation, please refer [email or web address]/[email or web address](This link is being provided for informational/educational purposes only.)(Note)This test was developed and its analytical performancecharacteristics have been determined by [facility]. It hasnot been cleared or approved by the FDA. This assay hasbeen validated pursuant to the CLIA regulations and isused for clinical purposes. Testosterone, Free 6.5(A) 0.1 - 6.4 pg/mL [facility] Comment:(Note)This test was developed and its analytical performancecharacteristics have been determined by [employer]. It hasnot been cleared or approved by the FDA. This assay hasbeen validated pursuant to the CLIA regulations and isused for clinical purposes.[facility]Fmed [id number] [place] [address],[address] [place] [address] [phone] Shailesh Gupta MD, PhDTHIS TEST WAS PERFORMED AT:[id number] [place] [address] [place] [address] 8188FADUMO GUPTA MD,PHD 11/05/2024 12:2 8 PM EDT 11/05/2024 12:28 PM EDT Generic External Data Provider LAB BLOOD ORDERAB LES Final Result Performing Organization Address City/State/[facility] Co de Phone Number [facility] [address] [place] [phone] * Referral to Obstetrics / Gynecology (11/05/2024) us Maya Appram [employer] OUTPATIENT REFERRAL ORDERABLES Final Result * XR Chest 2 Views (10/14/2024 9:19 AM EDT) Anatomical Region Laterality Modality Chest Radiographic [place] ging 10/14/2024 9:19 AM EDT Narrative 10/14/2024 12:38 PM EDT ? [facility] ?[address] ?[place] [address] ?XRay Report ? Signed ? Patient: Mar Mast,Gloria E ?MR#: ?? [id number] ? : 1990 ?Acct:[id number] ? Age/Sex: 34 / F ?ADM Date: 10/14/24 ? Loc: HO.XRAY ? Attending Dr: Rodney Guevara MD ? Ordering Physician: Rodney Guevara MD ?? Date of Service: 10/14/24 ?? Procedure(s): XR chest 2V ?? Accession Number(s): [id number] ? cc: Maya Mcginnis; Rodney Guevara MD [...] DD/ 0919 ? TD/TT: 10/14/24 0938 ? Help Desk Representative: ? Procedure Note Kendra Sidhu - 10/14/[address] [address] XRay Report Signed Patient: Gloria Rodriguez EMR#: [id number] : 1990Acct:[id number] Age/Sex: 34 / FADM Date: 10/14/24 Loc: MALLY Attending Dr: Rodney Guevara MD Ordering Physician: Rodney Guevara MD Date of Service: 10/14/24 Procedure(s): XR chest 2V Accession Number(s): [id number] cc: Maya Mcginnis; Rodney Guevara MD EXAMINATION: [...] in OV> 10/14/24 1235 DD/ 8 TD/TT: 10/14/24937 Help Desk Representative: [facility] External Provider IMG XR PROCEDURES Final Result * (ABNORMAL) Vitamin D, 25-Hydroxy, Total, Immunoassay (10/14/2024 9:18 AM EDT) Vitamin D 25-OH Total 24.4(L) >30 ng/mL [facility] Comment: Health Based Reference Values*< 20 ??ng/mL ??Jlplybpba09-49 ng/mL ??Insufficient> 30 ??ng/mL ??Sufficient*Chacho SAUCEDA. N [...] ORDERAB LES Final Result Performing Organization Address [facility] Co de Phone Number [facility] [address] [place] [phone] * (ABNORMAL) Vitamin B12 (Cobalamin) and Folate Panel, Serum (10/14/2024 9:18 AM EDT) Pathologist [facility] Vitamin B12 1,047(H) 200 - 900 pg/mL [facility] Comment:NORMAL 200-900 PG/M L INDETERMINATE 160-199 PG/ML DEFICIENT < 160 PG/ML Folate 9.5 > or = 4.0 ng/mL [facility] Comment:Reference Values:> o r = 4.0 ng/mL< 4.0 ng/mL suggests folate deficiency Methotrexate, aminopterin and folinic acid(leucovorin) are chemotherapeutic agents whose molecularstructures are similar to folate; therefore, the Architectfolate assay cannot be used for patients using these drugs. 10/14/2024 9:18 AM EDT 10/14/2024 9:18 AM EDT Generic External Data Provider LAB BLOOD ORDERAB LES Final Result Performing Organization Address [facility] Co de Phone Number [facility] [address] [place] [phone] * CBC auto differential (10/14/2024 9:18 AM EDT) [facility] White Blood Count 6.5 4.8 - 10.8 X10*3/uL [facility] Red Blood Count 4.88 4.20 - 5.50 X10*6/uL [facility] Hemoglobin 13.2 12.0 - 16.0 g/dl [facility] Hematocrit 41.2 37.0 - 47.0 % [facility] Mean Corpuscular Volume 84.4 80.0 - 98.0 fL [facility] Mean Corpuscular Hemoglobin 27.0 27.0 - 33.0 pg [facility] Mean Corpuscular HGB Conc 32.0 31.0 - 35.0 g/dl [facility] Red Cell Distribution Width 13.8 11.0 - 16.0 % [facility] Platelet Count 267 160 - 400 X10*3/uL [facility] Mean Platelet Volume 11.3 9.4 - 12.3 fL [facility] Neutrophils Percent Auto 55.6 45 - 73 % [facility] Imm Gran Pct Auto 0.3 0.0 - 0.4 % [facility] Lymphocytes Percent Auto 34.6 20 - 40 % [facility] Monocytes Percent Auto 5.8 2 - 11 % [facility] Eosinophils Percent Auto 2.8 0 - 4 % [facility] Basophils Percent Auto 0.9 0 - 2 % [facility] NRBC Pct Auto 0.0 0.0 - 0.2 /100WBC [facility] Neutrophils Absolute Auto 3.6 2.0 - 8.3 x10*3/uL [facility] Imm Gran Abs Auto 0.02 0.00 - 0.03 X10*3/uL [facility] Lymphocytes Absolute Auto 2.3 1.2 - 4.9 X10*3/uL [facility] Monocytes Absolute Auto 0.4 0.1 - 1.2 X10*3/uL [facility] Eosinophils Absolute Auto 0.2 0.0 - 0.4 X10*3/uL [facility] Basophils Absolute Auto 0.1 0.0 - 0.2 X10*3/uL [facility] NRBC Abs Auto 0.000 0.0 - 0.012 X10*3/uL [facility] 10/14/2024 9:18 AM EDT 10/14/2024 9:18 AM EDT us Generic External Data Provider LAB BLOOD ORDERAB LES Final Result Performing Organization Address [facility] de Phone Number [facility] [address] [place] [address] [phone] * (ABNORMAL) Iron And Total Iron Binding Capacity (10/14/2024 9:18 AM EDT) [facility] Iron 33 30 - 160 mcg/dL [facility] Total Iron Binding Capacity 336 228 - 428 mcg/dL [facility] Percent Iron Saturation 10(L) 15 - 50 % [facility] Unsaturated Iron Binding 303 ug/dL [facility] 10/14/2024 9:18 AM EDT 10/14/2024 9:18 AM EDT Generic External Data Provider LAB BLOOD ORDERAB LES Final Result Performing Organization Address [facility] Number [facility] [address] [place] [address] [phone] * Insulin (10/14/2024 9:18 AM EDT) [facility] Insulin 14 2 - 29 uU/mL [facility] Comment:This test was perfor med [...] ORDERAB LES Final Result Performing Organization Address [facility] Co de Phone Number [facility] [address] [place] [address] [phone] * Zinc (10/14/2024 9:18 AM EDT) [facility] Zinc 74 60 - 130 mcg/dL [facility] Comment:This test was develo ped and its analytical performancecharacteristics have been determined by [facility] [place], [place]. It hasnot been cleared or approved by the .[place]. Food and DrugAdministration. This assay has been validated pursuantto the CLIA regulations and is used for clinicalpurposes.THIS TEST WAS PERFORMED AT:[employer] [id number] [place] [id number] LI MD,PHD 10/14/2024 9:18 AM EDT 10/14/2024 9:18 AM EDT Generic External Data Provider LAB BLOOD ORDERAB LES Final Result Performing Organization Address [facility] Co de Phone Number [facility] [address] [place] [address] [phone] * (ABNORMAL) Vitamin A (10/14/2024 9:18 AM EDT) Vitamin A (Retinol) 37(A) 38 - 98 mcg/dL [facility] Comment:Vitamin supplementat ion within 24 hours prior toblood draw may affect the accuracy of the results.This test was developed and its analytical performancecharacteristics have been determined by [facility] [place], [place]. It hasnot been cleared or approved by the U.S. Food and DrugAdministration. This assay has been validated pursuantto the CLIA regulations and is used for clinicalpurposes.THIS TEST WAS PERFORMED AT:[id number] [place] [address]DCTEQQCARCELIA LI MD,PHD 10/14/2024 9:18 AM EDT 10/14/2024 9:18 AM EDT us Generic External Data Provider LAB BLOOD ORDERAB LES Final Result Performing Organization Address City/[facility]/ZIP Co de Phone Number [facility] [address] [place] [address] [phone] * (ABNORMAL) C-reactive Protein (10/14/2024 9:18 AM EDT) [facility] C Reactive Protein 2.25(H) < or = 0.50 mg/dL [facility] 10/14/2024 9:18 AM EDT 10/14/2024 9:18 AM EDT Generic External Data Provider LAB BLOOD ORDERAB LES Final Result Performing Organization Address [facility]/ZIP Co de Phone Number [facility] [address] [place] [phone] * Vitamin B1 (10/14/2024 9:18 AM EDT) [facility] Vitamin B1 14 8 - 30 nmol/L [facility] Comment:Vitamin supplementat ion within 24 hours prior toblood draw may affect the accuracy of the results.This test was developed and its analytical performancecharacteristics have been determined by [employer] [place], [place]. It hasnot been cleared or approved by the U.S. Food and DrugAdministration. This assay has been validated pursuantto the CLIA regulations and is used for clinicalpurposes.THIS TEST WAS PERFORMED AT:[id number] [place] [address]WRYXUGVARCELIA LI MD,PHD 10/14/2024 9:18 AM EDT 10/14/2024 9:18 AM EDT us Generic External Data Provider LAB BLOOD ORDERAB LES Final Result Performing Organization Address City/[facility]/ZIP Co de Phone Number [facility] [address] [place] [address] [phone] * Hemoglobin A1c (10/14/2024 9:18 AM EDT) Only the most recent of2 resultswithin the time period is included. [facility] Hemoglobin A1c 5.7 <6.0 % [facility] Comment:Hemoglobin A1C Refer ence Range Adults: 4.8 - 6.0 % Non diabetic: < 6.0 % Goal: < 7.0 %Additional Action Suggested: > 8.0 %Note: Hemoglobin A1c results are invalid for patients with abnormal amounts of HbF. Blood transfusions may impact the HbA1c concentration in the patient sample. Estimated Average Glucose 117 mg/dL [facility] Comment:eAG = Estimated ave rage glucose which is %A1C expressed asaverage glucose, using the formula of the A2P-XrmolckNlkappp Glucose study (ADAG), Diabetes Care, Vol.31,#8,2007 10/14/2024 9:18 AM EDT 10/14/2024 9:18 AM EDT us Generic External Data Provider LAB BLOOD ORDERAB LES Final Result Performing Organization Address [facility] Co de Phone Number [facility] [address] [place] [phone] * Ferritin (10/14/2024 9:18 AM EDT) Pathologist [facility] Ferritin 20 10 - 122 ng/mL [facility] 10/14/2024 9:18 AM EDT 10/14/2024 9:18 AM EDT Generic External Data Provider LAB BLOOD ORDERAB LES Final Result Performing Organization Address [facility] Co de Phone Number [facility] [address] [place] [address] [phone] * Lipid Panel, Standard (10/14/2024 9:18 AM EDT) Only the most recent of2 resultswithin the time period is included. Pathologist [facility] Triglycerides 120 <150 mg/dL [facility] Comment:Desirable Triglyceri de: less than 150 mg/dLBorderline High Triglyceride 150-199 mg/dLHigh Triglyceride: 200-499 mg/dLVery High Triglyceride: greater than or equal to 5OO mg/dL Cholesterol 159 <200 mg/dL [facility] Comment:Desirable Cholestero l: less than 200 mg/dLBorderline High Cholesterol: 200-239 mg/dLHigh Cholesterol: greater than 239 mg/dL LDL Cholesterol Calculated 93 <100 mg/dL [facility] Comment:Desirable LDL: less than 100 mg/dLNear Optimal/Above Optimal LDL: 110- 129 mg/dLBorderline High LDL: 130-159 mg/dLHigh LDL: 160-189 mg/dLVery High LDL: greater than or equal to 190 mg/dL HDL Cholesterol 42 >40 mg/dL [facility] Comment:Desirable HDL: great er than 40 mg/dL Note: This HDL assay may give artificially low results in patients with liver disease. 10/14/2024 9:18 AM EDT 10/14/2024 9:18 AM EDT us Generic External Data Provider LAB BLOOD ORDERAB LES Final Result [facility] [address] [place] [address] [phone] * (ABNORMAL) Comprehensive Metabolic Panel (10/14/2024 9:18 AM EDT) Sodium 139 135 - 145 mmol/L [facility] Potassium 4.2 3.3 - 5.1 mmol/L [facility] Chloride 106 96 - 108 mmol/L [facility] Carbon Dioxide 26 22 - 29 mmol/L [facility] Anion Gap 11(L) 12 - 20 [facility] Urea Nitrogen (BUN) 9 9 - 16 mg/dL [facility] Creatinine, Serum 0.74 0.5 - 1.4 mg/dL [facility] Estimated Glomerular Filt Rate >60 [facility] Comment:Chronic Kidney Disea se: Estimated GFR < 60 mL/min/1.17h4Lucapd Kidney Disease: Estimated GFR < 15 mL/min/1.73m2 Glucose 105 60 - 115 mg/dL [facility] Calcium 9.1 8.4 - 10.2 mg/dL [facility] Bilirubin, Total 0.2 0.0 - 1.0 mg/dL [facility] Aspartate Amino Transferase 20 5 - 31 U/L [facility] Alanine Aminotransferase 19 0 - 31 U/L [facility] Total Protein 7.6 6.5 - 8.0 g/dL [facility] Albumin Level 3.9 3.5 - 5.0 g/dL [facility] Alkaline Phosphatase 70 39 - 117 U/L [facility] 10/14/2024 9:18 AM EDT 10/14/2024 9:18 AM EDT us Generic External Data Provider LAB BLOOD ORDERAB LES Final Result [facility] [address] [place] [address] [phone] * (ABNORMAL) Basic Metabolic Panel (2024 11:11 AM EDT) Sodium 137 135 - 145 mmol/L [facility] Potassium 4.1 3.3 - 5.1 mmol/L [facility] Chloride 105 96 - 108 mmol/L [facility] Carbon Dioxide 25 22 - 29 mmol/L [facility] Anion Gap 11(L) 12 - 20 [facility] Urea Nitrogen (BUN) 13 9 - 16 mg/dL [facility] Creatinine, Serum 0.69 0.5 - 1.4 mg/dL [facility] Estimated Glomerular Filt Rate >60 [facility] Comment:Chronic Kidney Disea se: Estimated GFR < 60 mL/min/1.14o7Ivnlll Kidney Disease: Estimated GFR < 15 mL/min/1.73m2 Glucose 96 60 - 115 mg/dL [facility] Calcium 9.3 8.4 - 10.2 mg/dL [facility] Blood Venous blood specimen / Unknown 2024 11:11 AM EDT 2024 1:41 PM EDT us Maya [employer]ST[employer] LAB BLOOD ORDERABLES Final Resu lt Performing Organization Address [facility]/ZIP Co de Phone Number [facility] [address] [place] [phone] * HPV mRNA E6/E7 (12/02/2020 12:00 AM EDT) HPV nRNA E6/E7 Not Detected Not Detected [facility] Comment: Methodology: Food Service Coordinator-Mediated Amplification This assay detects E6/E7 viral messenger RNA (mRNA) from 14 high-risk HPV types (16,18,31,33,35,39,45,51,52,56,58,59,66,68). ? The analytical performance characteristics of this assay have been determined by [employer]. The modifications have not been cleared or approved by the FDA. This assay has been validated pursuant to the CLIA regulations and is used for clinical purposes. ?? For additional information, please refer to http://education.[employer]/faq/EVG827d2 (This link if provided for information/ educational purposes only.) 12/02/2020 Morena Hare SNAKER TRACTOR DRIVER LAB BLOOD ORDERABLES Final Res ult Performing Organization Address [facility] Co de Phone Number [facility] [address] * Pap Smear (12/02/2020 12:00 AM EDT) Swab Marianne SWAN LAB CYTOLOGY ORDERABLES F inal Result Performing Organization Address City/[facility]/ZIP Co de Phone Number [facility] [address], [place] [phone] * HEPATITIS C AB W/REFL TO HCV RNA, QN, PCR (10/23/2020 11:11 AM EDT) HEPATITIS C ANTIBODY NON-REACT HENRY NON-REACT HENRY [facility] INDEX 0.01 <1.00 [facility] Comment: ?? HCV antibody was non-reactive. There is no laboratory ?? evidence of HCV infection. ?? In most cases, no further action is required. However, if recent HCV exposure is suspected, a test for HCV RNA (test code 79722) is suggested. ?? For additional information please refer to http://[employer]apa.[employer]/faq/RGV96r3 (This link is being provided for informational/ educational purposes only.) ?? 10/23/2020 11:1 1 AM EDT Morena Ananya SNAKER TRACTOR DRIVER HISTORICAL/NON ORDERABLE LABS Final Result Performing Organization Address [facility] Phone Number [facility] [address] * HIV 1/2 ANTIGEN/ANTIBODY,FOURTH GENERATION W/RFL (10/23/2020 11:11 AM EDT) Pathologist [facility] HIV-1/2 ANTIGEN AND ANTIBODIES, 4TH GENERATION W/ REFLEX NON-REACT HENRY NON-REACT HENRY [facility] Comment: HIV-1 antigen and HIV-1/HIV-2 [...] ? For additional information please refer to http://Qapa.[employer]/faq/UVH242 (This link is being provided for informational/ educational purposes only.) ? The performance of this assay has not been clinically validated in patients less than 2 years old. ?? 10/23/2020 11:1 1 AM EDT Morena Ananya SNAKER TRACTOR DRIVER LAB BLOOD ORDERABLES Final Res ult Performing Organization Address [facility] Phone Number [facility] [address] from Last 3 Months or Most Recently Relevant to Health Maintenance Insurance [facility] C3 Care Teams Operator Supply Relationship Specialty Start Date End Date Maya Mcginnis NP [address] [place] [phone] PCP - General Family Medicine 08/21/23
== END ==
LOC: HO.SL 10:51
PROVIDERS: PCP Nurse Practitioner; Visit Provider Surgery
DX: E66.01 Morbid (severe) obesity due to excess calories (principal); G47.30 Sleep apnea, unspecified
CPT/HCPCS: 95806

== ENCOUNTER → 2024-12-18 11:04 | Outpatient (BNV) | payer MEDICAID, SELFPAY | PROVIDERS: PCP Nurse Practitioner; Visit Provider Internal Medicine | DX: G47.33 Obstructive sleep apnea (adult) (pediatric) (principal) | CPT/HCPCS: 95806 ==

== ENCOUNTER 2024-12-30 08:13 | Outpatient (AMB) | payer MEDICAID, SELFPAY ==
--- OUTSIDE RECORDS SUMMARY | 2024-12-30 08:27 | XMS_ITS | Clinical Summary ---
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 Encounters Date Type Department Care Team Description 12/02/2024 Orders Only [facility] External Provider, [facility] 11/08/2024 Orders Only GENERIC EXTERNAL DATA DEPARTMENT Provider, Generic External Data 11/05/2024 Orders Only GENERIC EXTERNAL DATA DEPARTMENT Provider, Generic External Data 10/21/[address] [address] Maya Mcginnis NP Results 10/16/2024 Telephone [facility] [address] [place] [address] NUTRITION APPT REQUEST 10/14/2024 Orders Only GENERIC EXTERNAL DATA DEPARTMENT Provider, Generic External Data 2024 9:15 AM EDT Office Visit [facility] [address] [place] [phone] Maya Mcginnis NP Morbid obesity due to excess calories (CMS/HCC) (Primary Dx); Routine adult health maintenance; Complicated grief; Dietary counseling; Exercise counseling 2024 Travel 10/07/2024 Telephone [facility] [address] [place] [address] Gris Ennis MA chartprep from Last 3 Months Immunizations Immunization Administration [...] 10:30 AM EDT Office Visit [facility] OPTOMETRY [address] [place] [address] Jennifer Spears, OD [address] [place] [address] 01/10/2025 2:30 PM EDT Office Visit [facility] [address] [place] [address] Maya Mcginnis, ELTON [address] [place] [address] Health Maintenance Due Date Last Done Comments [...] 11/05/2024 12:28 PM EDT AMB REFERRAL TO OB-[facility] PL[employer]ING MANAGER STAT 11/05/2024 DUB (dysfunctional uterine bleeding) [...] EDT Narrative 12/02/2024 10:00 AM EDT ? [facility] ?[address] [facility]. ?[place] [address] ? Ultrasound Report ? Signed ? Patient: Gloria Rodriguez ?MR#: ?? [id number] ? : 1990 ?Acct:[id number] ? Age/Sex: 34 / F ?ADM Date: 12/02/24 ? Loc: HO.US ? Attending Dr: Rodney Guevara MD ? Ordering Physician: Rodney Guevara MD ?? Date of Service: 12/02/24 ?? Procedure(s): US abdomen comp w elastography ?? Accession Number(s): [id number] ? cc: Appram,Maya; Rodney Guevara MD ? EXAMINATION: ??US ABDOMEN [...] by Igor Mckeon MD in OV> ?12/02/24 0957 ? DD/ 6 ? TD/TT: 12/02/24 0924 ? Ammonia Print Operator: ? Procedure Note Donotdevoninterpreter, Image - 12/02/2024 [place] [address] Ultrasound Report Signed Patient: Gloria Rodriguez EMR#: [id number] : 1990Acct:[id number] Age/Sex: 34 / FADM Date: 12/02/24 Loc: HO.US Attending Dr: Rodney Guevara MD Ordering Physician: Rodney Guevara MD Date of Service: 12/02/24 Procedure(s): US abdomen comp w elastography Accession Number(s): [id number] cc: Maya Mcginnis; Rodney Guevara MD EXAMINATION: [...] not well established. Electronically signed by: Igor Mckoen MD 12/02/2024 09:57 AM EDT Dictated By: Igor Mckeon MD Signed By: <Electronically signed by Igor Mckeon MD in OV> 12/02/2457 DD/ 6 TD/TT: 12/02/24923 Ammonia Print Operator: us [facility] External Provider IMG US PROCEDURES Edited Result - Final * Hematoxylin and Eosin Stain (11/08/2024 11:43 AM EDT) 11/08/2024 11:4 3 AM EDT 11/08/2024 1:05 PM EDT Stacy [facility] - 11/12/2024 2:07 PM EDT ----- ------- Name: Gloria Rodriguez ?Age/Sex: 34/F ? : 1990 Unit#: [id number] ?? Attend Dr: Rodney Guevara MD ?Re11/08/24 ?Status: DEP SDC ? Location: HO.SSS ?Disch: ? ----- ------- SPEC : [id number] ? RECD: 11/08/24-5 ? STATUS: ??SOUT ? REQ NUM: [id number] ? KETURAH: 11/08/24-1143 ? SUBM DR: Rodney [...] Rodriguez ?Age/Sex: 34/F ? : 1990 Unit#: [id number] ?? Attend Dr: Rodney Guevara MD ?Re11/08/24 ?Status: DEP SDC ? Location: HO.SSS ?Disch: ? ----- ------- SPEC : [id number] ? RECD: 11/08/24-5 ? STATUS: ??SOUT ? REQ NUM: [id number] ? KETURAH: 11/08/24-1143 ? SUBM DR: Rodney [...] ?? [address] ?? [place] [address] ?? [phone] ?? Rodney Guevara MD ?? [facility] Weight Management [facility] ?? [address] ?? [place] [address] ?? [phone] ----- ------- Signed (signature on file) Juan Diego Rowe MD 11/12/24 1407 ? ----- ------- ? END OF REPORT ? us Generic External Data Provider LAB BLOOD ORDERAB LES Final Result [facility] [address] [place] [phone] * hCG, Total, Quantitative (11/08/2024 10:26 AM EDT) Only the most recent of2 resultswithin the time period is included. HCG Quantitative <2 mIU/mL [facility] Comment:Weeks post LMP Appro ximate hCG(Last Menstrual Period) Range (mIU/ml)3 - 4 weeks 9 - 1304 - 5 weeks 75 - 2,6005 - 6 weeks 850 - 20,8006 - 7 weeks 4000 - 100,2007 - 12 weeks 11,500 - 289,65870 - 16 weeks 18,300 - 137,04113 - 29 weeks (2nd trimester) 1,400 - 53,61607 - 41 weeks (3rd trimester) 940 - [...] Final Result Performing Organization Address [facility] Co de Phone Number [facility] [address] [place] [address] [phone] * TSH with Reflex to Free T4 (11/05/2024 12:28 PM EDT) Only the most recent of2 resultswithin the time period is included. TSH reflex Free T4 1.25 0.32 - 4.0 uIU/mL [facility] 11/05/2024 12:2 8 PM EDT 11/05/2024 12:28 PM EDT Generic External Data Provider LAB BLOOD ORDERAB LES Final Result Performing Organization Address [facility] Co de Phone Number [facility] [address] [place] [address] [phone] * 17-Hydroxyprogesterone (11/05/2024 12:28 PM EDT) Pathologist [facility] 17-OHProgesterone 60 see note ng/dL [facility] Comment: Unable to flag abnormal [...] ng/dLIncludes data from J Clin Endocrinol Metab. ??1991;73:674-686; J Clin Endocrinol Metab. ??1989;69;6699-3826; J Clin Endocrinol Metab. ??1994;78:226-270. Pediatr Res 1988;23:525-529. ??MedLinePlus (accessed 12/30/13).This test was developed and its analytical performancecharacteristics have been determined by [facility] [place], [place]. It hasnot been cleared or approved by the U.S. Food and DrugAdministration. This assay has been validated pursuantto the CLIA regulations and is used for clinicalpurposes.THIS TEST WAS PERFORMED AT:[employer] [place], [place] ??- [address]ARCELIA LI MD,PHD 11/05/2024 12:2 8 PM EDT 11/05/2024 12:28 PM EDT Generic External Data Provider LAB BLOOD ORDERAB LES Final Result Performing Organization Address [facility] de Phone Number [facility] [address] [place] [phone] * Prolactin (11/05/2024 12:28 PM EDT) Prolactin 15.8 ng/mL [facility] Comment:Reference Range Fema les Non- 3.0-30.0 10.0-209.0 Postmenopausal 2.0-20.0THIS TEST WAS PERFORMED AT:[employer] [address] [address]OEPXSSCOTT DELACRUZ MD 11/05/2024 12:2 8 PM EDT 11/05/2024 12:28 PM EDT Generic External Data Provider LAB BLOOD ORDERAB LES Final Result Performing Organization Address [facility]/ZIP Co de Phone Number [facility] [address] [place] [phone] * (ABNORMAL) CBC (11/05/2024 12:28 PM EDT) White Blood Count 8.4 4.8 - 10.8 X10*3/uL [facility] Red Blood Count 4.68 4.20 - 5.50 X10*6/uL [facility] Hemoglobin 12.6 12.0 - 16.0 g/dl [facility] Hematocrit 39.7 37.0 - 47.0 % [facility] Mean Corpuscular Volume 84.8 80.0 - 98.0 fL [facility] Mean Corpuscular Hemoglobin 26.9(L) 27.0 - 33.0 pg [facility] Mean Corpuscular HGB Conc 31.7 31.0 - 35.0 g/dl [facility] Red Cell Distribution Width 14.1 11.0 - 16.0 % [facility] Platelet Count 307 160 - 400 X10*3/uL [facility] Mean Platelet Volume 11.1 9.4 - 12.3 fL [facility] NRBC Pct Auto 0.0 0.0 - 0.2 /100WBC [facility] NRBC Abs Auto 0.000 0.0 - 0.012 X10*3/uL [facility] 11/05/2024 12:2 8 PM EDT 11/05/2024 12:28 PM EDT us Generic External Data Provider LAB BLOOD ORDERAB LES Final Result [facility] [address] [place] [phone] * (ABNORMAL) Testosterone, Free (Dialysis) And Total, MS (11/05/2024 12:28 PM EDT) Pathologist [facility] Testosterone, Total 43 2 - 45 ng/dL [facility] Comment:For additional infor walker, please refer tohttps://[email or web address]/faq/CII320(This link is being provided for informational/educational purposes only.)(Note)This test was developed and its analytical performancecharacteristics have been determined by [employer]. It hasnot been cleared or approved by the FDA. This assay hasbeen validated pursuant to the CLIA regulations and isused for clinical purposes. Testosterone, Free 6.5(A) 0.1 - 6.4 pg/mL [facility] Comment:(Note)This test was developed and its analytical performancecharacteristics have been determined by [employer]. It hasnot been cleared or approved by the FDA. This assay hasbeen validated pursuant to the CLIA regulations and isused for clinical purposes.MDFmed [id number] [place] [address],[address] [place] [address] [phone] James L. Frame, MD, PhDTHIS TEST WAS PERFORMED AT:[id number] [place] [address] [place] [phone] GUPTA MD,PHD 11/05/2024 12:2 8 PM EDT 11/05/2024 12:28 PM EDT us Generic External Data Provider LAB BLOOD ORDERAB LES Final Result [facility] [address] [place] [phone] * Referral to Obstetrics / Gynecology (11/05/2024) Maya Mcginnis ROUNDING AND BACKING MACHINE OPERATOR OUTPATIENT REFERRAL ORDERABLES Final Result * XR Chest 2 Views (10/14/2024 9:19 AM EDT) Anatomical Region Laterality Modality Chest Radiographic [place] ging 10/14/2024 9:19 AM EDT Narrative 10/14/2024 12:38 PM EDT ? [facility] ?[address] ?[place] [address] ?XRay Report ? Signed ? Patient: Mar Mast,Gloria E ?MR#: ?? [id number] ? : 1990 ?Acct:[id number] ? Age/Sex: 34 / F ?ADM Date: 03/31/25 ? Loc: HO.XRAY ? Attending Dr: Rodney Guevara MD ? Ordering Physician: Rodney Guevara MD ?? Date of Service: 10/14/24 ?? Procedure(s): XR chest 2V ?? Accession Number(s): [id number] ? cc: Maya Mcginnis; Rodney Guevara MD [...] DD/ 0919 ? TD/TT: 10/14/24 0938 ? Ammonia Print Operator: ? Procedure Note Nahum, Image - 10/14/2024 [place] [address] XRay Report Signed Patient: Gloria Rodriguez EMR#: [id number] : 1990Acct:[id number] Age/Sex: 34 / FADM Date: 10/14/24 Loc: MALLY Attending Dr: Rodney Guevara MD Ordering Physician: Rodney Guevara MD Date of Service: 10/14/24 Procedure(s): XR chest 2V Accession Number(s): [id number] cc: Maya Mcginnis; Rodney Guevara MD EXAMINATION: [...] Mckeon MD in OV> 10/14/24 1235 DD/ TD/TT: 10/14/24 0938 Ammonia Print Operator: [facility] External Provider IMG XR PROCEDURES Final Result * (ABNORMAL) Vitamin D, 25-Hydroxy, Total, Immunoassay (10/14/2024 9:18 AM EDT) Vitamin D 25-OH Total 24.4(L) >30 ng/mL [facility] Comment: Health Based Reference Values*< 20 ??ng/mL ??Jzjiycgys83-62 ng/mL ??Insufficient> 30 ??ng/mL ??Sufficient*Chacho SAUCEDA. N [...] Final Result Performing Organization Address [facility] Co de Phone Number [facility] [address] [place] [phone] * (ABNORMAL) Vitamin B12 (Cobalamin) and Folate Panel, Serum (10/14/2024 9:18 AM EDT) Pathologist [facility] Vitamin B12 1,047(H) 200 - 900 pg/mL [facility] Comment:NORMAL 200-900 PG/ML INDETERMINATE 160-199 PG/ML DEFICIENT < 160 PG/ML Folate 9.5 > or = 4.0 ng/mL [facility] Comment:Reference Values:> o r = 4.0 ng/mL< 4.0 ng/mL suggests folate deficiency Methotrexate, aminopterin and folinic acid(leucovorin) are chemotherapeutic agents whose molecularstructures are similar to folate; therefore, the Architectfolate assay cannot be used for patients using these drugs. 10/14/2024 9:18 AM EDT 10/14/2024 9:18 AM EDT Generic External Data Provider LAB BLOOD ORDERAB LES Final Result Performing Organization Address [facility] de Phone Number [facility] [address] [place] [phone] * CBC auto differential (10/14/2024 9:18 AM EDT) White Blood Count 6.5 4.8 - 10.8 X10*3/uL [facility] Red Blood Count 4.88 4.20 - 5.50 X10*6/uL [facility] Hemoglobin 13.2 12.0 - 16.0 g/dl [facility] Hematocrit 41.2 37.0 - 47.0 % [facility] Mean Corpuscular Volume 84.4 80.0 - 98.0 fL [facility] Mean Corpuscular Hemoglobin 27.0 27.0 - 33.0 pg [facility] Mean Corpuscular HGB Conc 32.0 31.0 - 35.0 g/dl [facility] Red Cell Distribution Width 13.8 11.0 - 16.0 % [facility] Platelet Count 267 160 - 400 X10*3/uL [facility] Mean Platelet Volume 11.3 9.4 - 12.3 fL [facility] Neutrophils Percent Auto 55.6 45 - 73 % [facility] Imm Gran Pct Auto 0.3 0.0 - 0.4 % [facility] Lymphocytes Percent Auto 34.6 20 - 40 % [facility] Monocytes Percent Auto 5.8 2 - 11 % [facility] Eosinophils Percent Auto 2.8 0 - 4 % [facility] Basophils Percent Auto 0.9 0 - 2 % [facility] NRBC Pct Auto 0.0 0.0 - 0.2 /100WBC [facility] Neutrophils Absolute Auto 3.6 2.0 - 8.3 x10*3/uL [facility] Imm Gran Abs Auto 0.02 0.00 - 0.03 X10*3/uL [facility] Lymphocytes Absolute Auto 2.3 1.2 - 4.9 X10*3/uL [facility] Monocytes Absolute Auto 0.4 0.1 - 1.2 X10*3/uL [facility] Eosinophils Absolute Auto 0.2 0.0 - 0.4 X10*3/uL [facility] Basophils Absolute Auto 0.1 0.0 - 0.2 X10*3/uL [facility] NRBC Abs Auto 0.000 0.0 - 0.012 X10*3/uL [facility] 10/14/2024 9:18 AM EDT 10/14/2024 9:18 AM EDT us Generic External Data Provider LAB BLOOD ORDERAB LES Final Result [facility] [address] [place] [phone] * (ABNORMAL) Iron And Total Iron Binding Capacity (10/14/2024 9:18 AM EDT) Pathologist [facility] Iron 33 30 - 160 mcg/dL [facility] Total Iron Binding Capacity 336 228 - 428 mcg/dL [facility] Percent Iron Saturation 10(L) 15 - 50 % [facility] Unsaturated Iron Binding 303 ug/dL [facility] 10/14/2024 9:18 AM EDT 10/14/2024 9:18 AM EDT Generic External Data Provider LAB BLOOD ORDERAB LES Final Result Performing Organization Address [facility] Co de Phone Number [facility] [address] [place] [phone] * Insulin (10/14/2024 9:18 AM EDT) [facility] Insulin 14 2 - 29 uU/mL [facility] Comment:This test was perfor med using the [employer] chemiluminescentmethod. Values obtained from different assay methods [...] Final Result Performing Organization Address [facility]/ZIP Co de Phone Number [facility] [address] [place] [phone] [phone] * Zinc (10/14/2024 9:18 AM EDT) [facility] Zinc 74 60 - 130 mcg/dL [facility] Comment:This test was develo ped and its analytical performancecharacteristics have been determined by [employer] [place], [place]. It hasnot been cleared or approved by the U.S. Food and DrugAdministration. This assay has been validated pursuantto the CLIA regulations and is used for clinicalpurposes.THIS TEST WAS PERFORMED AT:[employer] [facility] [id number] [place] [address]QKADUFRARCELIA LI MD,PHD 10/14/2024 9:18 AM EDT 10/14/2024 9:18 AM EDT us Generic External Data Provider LAB BLOOD ORDERAB LES Final Result Performing Organization Address [facility]/ZIP Co de Phone Number [facility] [address] [place] [phone] * (ABNORMAL) Vitamin A (10/14/2024 9:18 AM EDT) Vitamin A (Retinol) 37(A) 38 - 98 mcg/dL [facility] Comment:Vitamin supplementat ion within 24 hours prior toblood draw may affect the accuracy of the results.This test was developed and its analytical performancecharacteristics have been determined by [employer] [place], [place]. It hasnot been cleared or approved by the .S. Food and DrugAdministration. This assay has been validated pursuantto the CLIA regulations and is used for clinicalpurposes.THIS TEST WAS PERFORMED AT:[employer] [id number] [place] [address]DBEIPVNARCELIA LI MD,PHD 10/14/2024 9:18 AM EDT 10/14/2024 9:18 AM EDT Generic External Data Provider LAB BLOOD ORDERAB LES Final Result Performing Organization Address City/[facility]/ZIP Co de Phone Number [facility] [address] [place] [phone] * (ABNORMAL) C-reactive Protein (10/14/2024 9:18 AM EDT) Pathologist [facility] C Reactive Protein 2.25(H) < or = 0.50 mg/dL [facility] 10/14/2024 9:18 AM EDT 10/14/2024 9:18 AM EDT Generic External Data Provider LAB BLOOD ORDERAB LES Final Result Performing Organization Address [facility]/ZIP Co de Phone Number [facility] [address] [place] [phone] * Vitamin B1 (10/14/2024 9:18 AM EDT) [facility] Vitamin B1 14 8 - 30 nmol/L [facility] Comment:Vitamin supplementat ion within 24 hours prior toblood draw may affect the accuracy of the results.This test was developed and its analytical performancecharacteristics have been determined by [employer] [place], [place]. It hasnot been cleared or approved by the U.S. Food and DrugAdministration. This assay has been validated pursuantto the CLIA regulations and is used for clinicalpurposes.THIS TEST WAS PERFORMED AT:[employer] [place] [address]TQDWLRRARCELIA LI MD,PHD 10/14/2024 9:18 AM EDT 10/14/2024 9:18 AM EDT Generic External Data Provider LAB BLOOD ORDERAB LES Final Result Performing Organization Address City/[facility]/ZIP Co de Phone Number [facility] [address] [place] [phone] * Hemoglobin A1c (10/14/2024 9:18 AM EDT) Only the most recent of2 resultswithin the time period is included. Hemoglobin A1c 5.7 <6.0 % [facility] Comment:Hemoglobin A1C Refer ence Range Adults: 4.8 - 6.0 % Non diabetic: < 6.0 % Goal: < 7.0 %Additional Action Suggested: > 8.0 %Note: Hemoglobin A1c results are invalid for patients with abnormal amounts of HbF. Blood transfusions may impact the HbA1c concentration in the patient sample. Estimated Average Glucose 117 mg/dL [facility] Comment:eAG = Estimated ave rage glucose which is %A1C expressed asaverage glucose, using the formula of the H5Y-NzlisvySndbotq Glucose study (ADAG), Diabetes Care, Vol.31,#8,Feb. 2007 10/14/2024 9:18 AM EDT 10/14/2024 9:18 AM EDT Generic External Data Provider LAB BLOOD ORDERAB LES Final Result Performing Organization Address City/[facility]/ZIP Co de Phone Number [facility] [address] [place] [phone] * Ferritin (10/14/2024 9:18 AM EDT) Ferritin 20 10 - 122 ng/mL [facility] 10/14/2024 9:18 AM EDT 10/14/2024 9:18 AM EDT Generic External Data Provider LAB BLOOD ORDERAB LES Final Result Performing Organization Address City/[facility] Co de Phone Number [facility] [address] [place] [phone] * Lipid Panel, Standard (10/14/2024 9:18 AM EDT) Only the most recent of2 resultswithin the time period is included. Triglycerides 120 <150 mg/dL [facility] Comment:Desirable Triglyceri de: less than 150 mg/dLBorderline High Triglyceride 150-199 mg/dLHigh Triglyceride: 200-499 mg/dLVery High Triglyceride: greater than or equal to 5OO mg/dL Cholesterol 159 <200 mg/dL [facility] Comment:Desirable Cholestero l: less than 200 mg/dLBorderline High Cholesterol: 200-239 mg/dLHigh Cholesterol: greater than 239 mg/dL LDL Cholesterol Calculated 93 <100 mg/dL [facility] Comment:Desirable LDL: less than 100 mg/dLNear Optimal/Above Optimal LDL: 110- 129 mg/dLBorderline High LDL: 130-159 mg/dLHigh LDL: 160-189 mg/dLVery High LDL: greater than or equal to 190 mg/dL HDL Cholesterol 42 >40 mg/dL [facility] Comment:Desirable HDL: great er than 40 mg/dL Note: This HDL assay may give artificially low results in patients with liver disease. 10/14/2024 9:18 AM EDT 10/14/2024 9:18 AM EDT us Generic External Data Provider LAB BLOOD ORDERAB LES Final Result [facility] [address] [place] [phone] [phone] * (ABNORMAL) Comprehensive Metabolic Panel (10/14/2024 9:18 AM EDT) Sodium 139 135 - 145 mmol/L [facility] Potassium 4.2 3.3 - 5.1 mmol/L [facility] Chloride 106 96 - 108 mmol/L [facility] Carbon Dioxide 26 22 - 29 mmol/L [facility] Anion Gap 11(L) 12 - 20 [facility] Urea Nitrogen (BUN) 9 9 - 16 mg/dL [facility] Creatinine, Serum 0.74 0.5 - 1.4 mg/dL [facility] Estimated Glomerular Filt Rate >60 [facility] Comment:Chronic Kidney Disea se: Estimated GFR < 60 mL/min/1.55i5Ynggiy Kidney Disease: Estimated GFR < 15 mL/min/1.73m2 Glucose 105 60 - 115 mg/dL [facility] Calcium 9.1 8.4 - 10.2 mg/dL [facility] Bilirubin, Total 0.2 0.0 - 1.0 mg/dL [facility] Aspartate Amino Transferase 20 5 - 31 U/L [facility] Alanine Aminotransferase 19 0 - 31 U/L [facility] Total Protein 7.6 6.5 - 8.0 g/dL [facility] Albumin Level 3.9 3.5 - 5.0 g/dL [facility] Alkaline Phosphatase 70 39 - 117 U/L [facility] 10/14/2024 9:18 AM EDT 10/14/2024 9:18 AM EDT us Generic External Data Provider LAB BLOOD ORDERAB LES Final Result Performing Organization Address [facility]/ZIP Co de Phone Number [facility] [address] [place] [phone] * (ABNORMAL) Basic Metabolic Panel (2024 11:11 AM EDT) Sodium 137 135 - 145 mmol/L [facility] Potassium 4.1 3.3 - 5.1 mmol/L [facility] Chloride 105 96 - 108 mmol/L [facility] Carbon Dioxide 25 22 - 29 mmol/L [facility] Anion Gap 11(L) 12 - 20 [facility] Urea Nitrogen (BUN) 13 9 - 16 mg/dL [facility] Creatinine, Serum 0.69 0.5 - 1.4 mg/dL [facility] Estimated Glomerular Filt Rate >60 [facility] Comment:Chronic Kidney Disea se: Estimated GFR < 60 mL/min/1.03n1Fccnff Kidney Disease: Estimated GFR < 15 mL/min/1.73m2 Glucose 96 60 - 115 mg/dL [facility] Calcium 9.3 8.4 - 10.2 mg/dL [facility] Blood Venous blood specimen / Unknown 2024 11:11 AM EDT 2024 1:41 PM EDT us Maya Mcginnis NP LAB BLOOD ORDERABLES Final Resu lt Performing Organization Address [facility]/ZIP Co de Phone Number [facility] [address] [place] [address] [phone] * HPV mRNA E6/E7 (12/02/2020 12:00 AM EDT) HPV nRNA E6/E7 Not Detected Not Detected [facility] Comment: Methodology: Special Education Director-Mediated Amplification This assay detects E6/E7 viral messenger RNA (mRNA) from 14 high-risk HPV types (16,18,31,33,35,39,45,51,52,56,58,59,66,68). ? The analytical performance characteristics of this assay have been determined by [employer]. The modifications have not been cleared or approved by the FDA. This assay has been validated pursuant to the CLIA regulations and is used for clinical purposes. ?? For additional information, please refer to http://[employer]/faq/RYV675z1 (This link if provided for information/ educational purposes only.) 12/02/2020 Morena Hare FEED MIXER HELPER LAB BLOOD ORDERABLES Final Res ult [facility] [address] * Pap Smear (12/02/2020 12:00 AM EDT) Swab Marianne Hamilton [facility] LAB CYTOLOGY ORDERABLES F inal Result Performing Organization Address City/[facility]/ZIP Co de Phone Number [address], [place] [address] * HEPATITIS C AB W/REFL TO HCV RNA, QN, PCR (10/23/2020 11:11 AM EDT) HEPATITIS C ANTIBODY NON-REACT HENRY NON-REACT HENRY [facility] INDEX 0.01 <1.00 [facility] Comment: ?? HCV antibody was non-reactive. There is no laboratory ?? evidence of HCV infection. ?? In most cases, no further action is required. However, if recent HCV exposure is suspected, a test for HCV RNA (test code 90083) is suggested. ?? For additional information please refer to http://education.[employer]/faq/IZH92u8 (This link is being provided for informational/ educational purposes only.) ?? 10/23/2020 11:1 1 AM EDT Morena Ananya FEED MIXER HELPER HISTORICAL/NON ORDERABLE LABS Final Result Performing Organization Address [facility] Phone Number [facility] [address] * HIV 1/2 ANTIGEN/ANTIBODY,FOURTH GENERATION W/RFL (10/23/2020 11:11 AM EDT) HIV-1/2 ANTIGEN AND ANTIBODIES, 4TH GENERATION W/ REFLEX NON-REACT HENRY NON-REACT HENRY [facility] Comment: HIV-1 antigen and HIV-1/HIV-2 [...] ? For additional information please refer to http://education.[employer]/faq/ACD880 (This link is being provided for informational/ educational purposes only.) ? The performance of this assay has not been clinically validated in patients less than 2 years old. ?? 10/23/2020 11:1 1 AM EDT us Morena Ananya FEED MIXER HELPER LAB BLOOD ORDERABLES Final Res ult Performing Organization Address [facility] Phone Number [facility] [address] from Last 3 Months or Most Recently Relevant to Health Maintenance Insurance * Guarantor: Gloria Rodriguez Account Type Relation to Patient Date of Phone Billing Address Personal/Family Self [address] [place] [address] [facility] C[facility] * Guarantor: Gloria Rodriguez Account Type Relation to Patient Date of Phone Billing Address Personal/Family Self [address] [place] [id number] [place] [id number] Care Teams Reconnaissance Man Relationship Specialty Start Date End Date Maya cMginnis NP [address] [place] [id number] PCP - General Family Medicine 08/21/23
--- NOTE | 2024-12-30 09:14 | A.OFFVIS_ITS ---
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* Multimedia Coordinator Required: Yes Multimedia Coordinator Services: Multimedia Coordinator Present Information Interpreted: clinical only Allergies Penicillins Allergy (Verified 12/30/24 09:14) Unknown Medication List - Last Reconciled 12/30/24 by Rodney Guevara MD albuterol sulfate 90 mcg/actuation 2 puffs inhalation Q6H PRN cholecalciferol (vitamin D3) 125 mcg PO DAILY [multivitamin ] ondansetron 4 mg PO Q12H pantoprazole 40 mg PO DAILY polyethylene glycol 3350 17 grams PO DAILY sucralfate 10 mL PO BID vitamin A palmitate 10,000 units PO DAILY HPI HPI TV Pre Op 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 12/30/24 *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*: Details: Start time: 9.02am, End time: 9.32am ?I spent 25 minutes speaking with the patient on the phone plus an additional 5 minutes reviewing and updating records for a total of 30 minutes HPI Comments Details: Overall weight loss: 31.6lbs, or 10.23% TBWL Is doing 2 premade Premier shakes (4oz of Premier mixed with 4oz almond milk), 2 Fit Crunch protein bars, and one meal (10 forks of meat and 10 forks Exercise: is doing the stationary bike for 300 calories daily or gym treadmill PFSH Medical History Sleep apnea Anxiety Hypotension Hypothyroid Asthma Surgical History Hx of section Family History Mother Diabetes Breast cancer Father No problems noted. Brother No problems noted. Brother No problems noted. Daughter Asthma Prediabetes Thyroid condition Daughter Asthma Daughter No problems noted. Social History Alcohol intake: never Patient Tobacco Use Status: Never used Tobacco Female Reproductive History Menstrual Age of Menarche: 8 Telehealth Telehealth Telehealth Platform: Telephone Location of provider rendering services: practice address Location of patient: address on file Patient Identification confirmed using: Name, : Yes Telehealth method: voice only Patient verbally consented to treatment: Yes Patient verbally consented to billing insurance company: Yes Patient informed of any privacy concerns related to visit: Yes Minutes spent on Phone/Video with Pt.: 30 Assessment & Plan Assessment & Plan (1) Morbid obesity: Code(s): E66.01 - Morbid (severe) obesity due to excess calories Category: Medical Plan: 1. Plan for lap sleeve gastrectomy including upper GI endoscopy. All tests has been completed and reviewed and the patient is cleared for the surgery. ?If diaphragmatic or ventral hernias are present at time of surgery, these will be repaired laparoscopically as well. Risks and complications were discussed in detail including possible conversion to an open procedure, anastomotic leak, b leeding requiring transfusion, small bowel obstruction, , DVT and pulmonary embolism, cardiac, or pulmonary complications, as oil heaterman complications such as anastomotic ulcer, insufficient weight loss and vitamin deficiencies. I emphasized the importance of close follow-up, adherence to instructions and good communication. So far she has proven to be an excellent communicator and very compliant with all our directions accomplishing a great weight loss. I believe that she is an excellent candidate and she is ready. 2. Preop prescriptions were provided and explained the purpose of each one. Need to be purchased preop. Start Pantoprazole now as you get it from the pharmacy, 1 pill per day. Sucralfate and Zofran are for after surgery as needed. 3. Bowel prep: please do 7 packets ?of Miralax mixing each one with a an 8oz glass of water, crystal light, gatorade zero, or propel ?on 01/07/25 and the same amount on 01/08/25. The Miralax you begin with one packet at a time in 8oz water or crystal light, gatorade zero, or propel ?as early in the day as you can and you do them back to back until you finish them. Continue the protein shakes during ?the bowel prep. 4. Needs to purchase 1oz medicine cups . 5. Needs to purchase Children's liquid Tylenol for postop pain control. 6. Avoid aspirin, motrin, Advil, Aleve, Meloxicam, Excedrin, Ibuprofen, Naproxyn. Tylenol is OK. 7. She needs to purchase the Celebrate multivitamins from the hospital's gift shop, chewable or pills whatever you prefer. 8. Will do basic preop blood work-up any day between Monday12/31/24 and Monday01/03/25 fasting for 12 hours and is scheduled to see the Anesthesiologist prior to the day of surgery. 9. Importance of adherence to postop folllow-up and recommendations was underscored and she understands that. 10. Stop food and bars as of tomorrow 12/31/24 and continue with 3 premade PREMIER protein shakes (mix 6oz of the Premier shake with 4oz almond milk) at 7am-9am, 10am-12pm and 1pm-3pm and two more WHOLE-BOTTLE premade PREMIER protein shakes with ONE scoop in 8oz of almond milk at 4pm-6pm and 7pm-9pm 11. No soups, broths or V8 12. The patient's?medical?history has been reviewed and they are considered low risk for post op DVT and therefore DVT prophylaxis is not considered necessary. Travel after surgery was reviewed. The patient has not disclosed any travel plans during the first 30 days after surgery and they have been advised that within the first 30 days after surgery any bus, plane, train or car travel over 2 hours in duration is contraindicated due to the possibility of developing blood clots from immobility. Any travel, needs to include periods of ambulation of 10 minutes in duration every 2 hours.? Patient was instructed to discuss any plans for travel during this period with their bariatric surgeon.? 13. Please take at the day of surgery the following medications: None 14. Stop any control pills and don't use them for one month after surgery 15. Absolutely no smoking or vaping, or marijuana until the surgery and for at least the first 4 weeks. Only nicotine patches are allowed. 16. Send me weight measurements today 12/30/24, on Monday01/05/25 and then on 01/09/25, the day of surgery before you go to the hospital. 17. Avoid any steroids by mouth for any reason. Let me know if someone prescribes them to you 18. These instructions supersede anything else you read in the handbook, anything you watched in videos or classes or you were told by any other provider. If there is any conflict, you follow the above instructions and nothing else. Orders: Orders Comprehensive Met. Panel Today E66.01 - Morbid (severe) obesity due to excess calories Type and Screen Today E66.01 - Morbid (severe) obesity due to excess calories C Reactive Protein Today E66.01 - Morbid (severe) obesity due to excess calories TSH reflex Free T4 Today E66.01 - Morbid (severe) obesity due to excess calories Prothrombin Time INR Today E66.01 - Morbid (severe) obesity due to excess calories Partial Thromboplastin Time Today E66.01 - Morbid (severe) obesity due to excess calories Lipid Panel Today E66.01 - Morbid (severe) obesity due to excess calories Hemoglobin A1c Today E66.01 - Morbid (severe) obesity due to excess calories Complete Blood Count Auto Diff Today E66.01 - Morbid (severe) obesity due to excess calories Insulin Today E66.01 - Morbid (severe) obesity due to excess calories Medications: New sucralfate 10 mL PO BID 600 mL 2RF K21.9 - Gastro-esophageal reflux disease without esophagitis polyethylene glycol 3350 Mix each measuring cup with 8oz of water, Crystal light, or Gatorade zero, or Propel and do 7 measuring cups on 01/07/25 and another 7 measuring cups on 01/08/25 17 grams PO DAILY 238 grams 0RF Z01.818 - Encounter for other preprocedural examination pantoprazole 40 mg PO DAILY 90 tabs 0RF K21.9 - Gastro-esophageal reflux disease without esophagitis ondansetron Only take one every 12 hours as needed if you have nausea 4 mg PO Q12H 20 tabs 0RF nausea and vomiting R11.0 - Nausea
[2024-12-30 09:21] VITALS: BMI 49.1
== END 2024-12-30 09:33 | disposition home or self-care (01) ==
LOC: HO.HBS 08:13
PROVIDERS: PCP Nurse Practitioner; Visit Provider Surgery
DX: E66.01 Morbid (severe) obesity due to excess calories (principal)
CPT/HCPCS: 99214

== ENCOUNTER → 2025-01-03 09:08 | Outpatient (BNVA) | payer MEDICAID, SELFPAY | PROVIDERS: PCP Nurse Practitioner; Visit Provider Physician Assistant Surgical ==

== ENCOUNTER 2025-01-09 10:34 | Inpatient (IN) | payer MEDICAID, SELFPAY ==
[2025-01-03 09:07] LABS: MANUAL DIFF FLAG NO
[2025-01-03 10:01] LABS: Basophils Absolute Auto 0.1 X10*3/uL (0.0-0.2); Basophils Percent Auto 0.9 % (0-2); Eosinophils Absolute Auto 0.5 X10*3/uL (0.0-0.4); Eosinophils Percent Auto 7.7 % (0-4); Hematocrit 40.8 % (37.0-47.0); Hemoglobin 12.9 g/dl (12.0-16.0); Imm Gran Abs Auto 0.01 X10*3/uL (0.00-0.03); Imm Gran Pct Auto 0.1 % (0.0-0.4); Lymphocytes Absolute Auto 2.5 X10*3/uL (1.2-4.9); Lymphocytes Percent Auto 36.3 % (20-40); Mean Corpuscular HGB Conc 31.6 g/dl (31.0-35.0); Mean Corpuscular Hemoglobin 26.8 pg (27.0-33.0); Mean Corpuscular Volume 84.6 fL (80.0-98.0); Mean Platelet Volume 12.4 fL (9.4-12.3); Monocytes Absolute Auto 0.4 X10*3/uL (0.1-1.2); Monocytes Percent Auto 6.3 % (2-11); Neutrophils Absolute Auto 3.4 x10*3/uL (2.0-8.3); Neutrophils Percent Auto 48.7 % (45-73); Platelet Count 269 X10*3/uL (160-400); Red Blood Count 4.82 X10*6/uL (4.20-5.50); Red Cell Distribution Width 14.4 % (11.0-16.0)
[2025-01-03 10:07] LABS: Estimated Average Glucose 111 mg/dL; Hemoglobin A1c % 5.5 % (<6.0)
[2025-01-03 10:08] LABS: INTERNATIONAL NORM RATIO 1.1 (0.9-1.1); Prothrombin Time 12.9 SEC (10.9-12.4)
[2025-01-03 10:11] LABS: Partial Thromboplastin Time 30.2 SEC (26.0-36.8)
[2025-01-03 11:06] LABS: Alanine Aminotransferase 14 U/L (0-31); Alkaline Phosphatase 70 U/L (39-117); Anion Gap 15 (12-20); Aspartate Amino Transferase 24 U/L (5-31); Bilirubin Total 0.3 mg/dL (0.0-1.0); Blood Urea Nitrogen 10 mg/dL (9-16); C Reactive Protein 3.16 mg/dL (< or = 0.50); Carbon Dioxide 22 mmol/L (22-29); Chloride 105 mmol/L (96-108); Cholesterol 153 mg/dL (<200); Estimated Glomerular Filt Rate > 60; Glucose Random 85 mg/dL (60-115); HDL Cholesterol 35 mg/dL (>40); Insulin 11 uU/mL (2-29); LDL Cholesterol Calculated 99 mg/dL (<100); Potassium 3.7 mmol/L (3.3-5.1); Sodium 138 mmol/L (135-145); TSH reflex Free T4 1.52 uIU/mL (0.32-4.0); Total Protein 7.2 g/dL (6.5-8.0); Triglycerides 97 mg/dL (<150)
--- NOTE | 2025-01-07 14:43 | HO.ANESPROP2 ---
Documented by User: Kamila Chowdhury NP 01/07/25 14:44 HPI - Anesthesia Eval Consult details Narrative: 34yo F for Gastrectomy Sleeve - EGD, possible diaphragmatic hernia, possible ventral hernia, possible open BMI 49.1 PMFSH Active Problems Active Problems: All Active Problems Nipple discharge (Acute) Hirsutism (Acute) Abnormal uterine bleeding (AUB) (Acute) Vitamin D deficiency (Acute) Vitamin A deficiency (Acute) Moderate major depression (Acute) Daytime somnolence (Acute) Morbid obesity (Acute) Sleep apnea (Acute) Anxiety (Acute) Asthma (Acute) Past Medical History Medical History Sleep apnea Anxiety Hypotension Hypothyroid Asthma Family History Family History Mother Diabetes Breast cancer Father No problems noted. Brother No problems noted. Brother No problems noted. Daughter Asthma Prediabetes Thyroid condition Daughter Asthma Daughter No problems noted. Family history of problems with anesthesia: No Surgical History Surgical History History of esophagogastroduodenoscopy (EGD) Hx of section History of Problems with Anesthesia: No Social History Social History Alcohol intake: never Patient Tobacco Use Status: Never used Tobacco Use of substances other than those prescribed or required for medical reasons: No Have you been hit, kicked, punched, or otherwise hurt by someone within the past year? If so, by whom?: No Are you DNR?: No Advance Directives: No Advance Directives Information Provided: No Advance Directives on File: No Patient : No : No Poor oral hygiene: Yes Meds Allergies Allergy/AdvReac Type Severity Reaction Status Date / Time Penicillins Allergy Unknown Verified 12/30/24 09:14 Home Medications ?Medication ?Instructions ?Recorded ?Confirmed ?Last Taken ?Type multivitamin 1 tab PO DAILY 01/03/25 01/03/25 01/06/25 History omega-3 fatty acids-fish oil 684 1 cap PO DAILY 01/03/25 01/03/25 01/01/25 History mg-1,200 mg capsule,delayed release Exam Height,Weight and Vital Signs: Height 5 ft 3 in Pertinent Lab Results Pertinent Lab Results: Laboratory Tests 01/03/25 01/03/25 09:00 09:05 WBC 7.0 RBC 4.82 Hgb 12.9 Hct 40.8 MCV 84.6 MCH 26.8 L MCHC 31.6 RDW 14.4 Plt Count 269 MPV 12.4 H Immature Gran % (Auto) 0.1 Neut % (Auto) 48.7 Lymph % (Auto) 36.3 Scurry % (Auto) 6.3 Eos % (Auto) 7.7 H Baso % (Auto) 0.9 Lymph # (Auto) 2.5 Scurry # (Auto) 0.4 Eos # (Auto) 0.5 H Baso # (Auto) 0.1 Abs Immat Gran (auto) 0.01 Absolute Neuts (auto) 3.4 Absolute Nucleated RBC 0.000 Nucleated RBC % (auto) 0.0 PT 12.9 H INR 1.1 APTT 30.2 Sodium 138 Potassium 3.7 Chloride 105 Carbon Dioxide 22 Anion Gap 15 BUN 10 Creatinine 0.67 Estim Creat Clear Calc TNP Estimated GFR > 60 Random Glucose 85 Estimat Average Glucose 111 Hemoglobin A1c % 5.5 Insulin Level 11 Calcium 9.0 Total Bilirubin 0.3 AST 24 ALT 14 Alkaline Phosphatase 70 C-Reactive Protein 3.16 H Total Protein 7.2 Albumin 4.0 Triglycerides 97 Cholesterol 153 LDL Cholesterol, Calc 99 HDL Cholesterol 35 L TSH 1.52 Blood Type O Positive Antibody Screen NEGATIVE Narrative Narrative: EKG 09/2024 Vent. Rate : 71 BPM Atrial Rate : 71 BPM P-R Int : 150 ms QRS Dur : 80 ms QT Int : 388 ms P-R-T Axes : 25 39 39 degrees QTcB Int : 421 ms Normal sinus rhythm Normal ECG When compared with ECG of 23-Apr-2021 12:27, No significant change was found Assessment and Plan Assessment Anesthesia Assessment: Chart Reviewed Final Anesthetic Review Family History of Problems with Anesthesia: No History of Problems with Anesthesia: No Documented by User: Addy Marshall MD 01/09/25 12:11 ON LICENSE OF [facility] Past Medical History Medical History Sleep apnea Anxiety Hypotension Hypothyroid Asthma Functional capacity: independent ambulation Family History Family History Mother Diabetes Breast cancer Father No problems noted. Brother No problems noted. Brother No problems noted. Daughter Asthma Prediabetes Thyroid condition Daughter Asthma Daughter No problems noted. Surgical History Surgical History History of esophagogastroduodenoscopy (EGD) Hx of section Social History Social History Alcohol intake: never Patient Tobacco Use Status: Never used Tobacco Use of substances other than those prescribed or required for medical reasons: No Have you been hit, kicked, punched, or otherwise hurt by someone within the past year? If so, by whom?: No Are you DNR?: No Advance Directives: No Advance Directives Information Provided: No Advance Directives on File: No Patient : No : No Poor oral hygiene: Yes Meds Allergies Allergy/AdvReac Type Severity Reaction Status Date / Time Penicillins Allergy Unknown Verified 12/30/24 09:14 Home Medications ?Medication ?Instructions ?Recorded ?Confirmed ?Last Taken ?Type multivitamin 1 tab PO DAILY 01/03/25 01/03/25 01/06/25 History omega-3 fatty acids-fish oil 684 1 cap PO DAILY 01/03/25 01/03/25 01/01/25 History mg-1,200 mg capsule,delayed release Exam Exam Date and Time: 01/09/25 Airway TM Dist: >3cm Neck ROM: Full Loose/Missing/Broken Teeth: No Heart: rrr Lungs: cta Other: normal cognition Assessment and Plan Final Anesthetic Review NPO: Yes ASA Class: II Final Preanesthetic Review: No Changes in Pt Med Stat, Meds/Allgs Chart Reviewed, Consent Obtained/Reviewed and Anes Risks/Benef Reviewed Patient Risk: Intermediate Procedure Risk: Intermediate Anesthetic Plan Anesthetic Plan: GA Disposition: Standard PACU
[2025-01-09] VITALS (16 sets, daily range): BP systolic 115–141; BP diastolic 55–85; PULSE 72–93; RESP 16–21; TEMP 36–36.6; O2SAT 94–98; BMI 49.1; BMI 49.4
[2025-01-09] MEDS: Lactated Ringers 1,000 ML 999 ML IV (11:01)
[2025-01-09] MEDS: Aprepitant 32 MG/4.4 ML VIAL IVPUSH (11:01)
[2025-01-09 11:43] LABS: HCG Quantitative < 2 mIU/mL
--- NOTE | 2025-01-09 11:53 | PHA.MEDREC ---
Addendum entered by Kathi Reynolds [facility] 01/09/25 11:59: Reviewed by [facility] Original Note: Pharmacy Consult ? Medication Reconciliation Pharmacy reviewed med rec done by nursing. 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 Pt stated the Ondansetron, Pantoprazole and Sucralfate are to be started after she gets out of surgery; I took those off the med rec.
--- NOTE | 2025-01-09 12:13 | MHC.SHP ---
Pre-Procedural Eval Section A - 24 Hr Update-Section A only Date of Service: 01/09/25 The patient is an INPATIENT: Yes The patient has been examined within 24 hours of the surgical procedure. The History & Physical has been completed within 30 days and I have reviewed it.: Yes Section B - Complete if H&P > 30 days Chief Complaint: Morbid Obesity Relevant Family History (Specify if Yes): No Relevant Social History: None Present Medications: None Medical History: No relevant PMH History of Previous Operations: No relevant previous surgery Allergies: Allergies Allergy/AdvReac Type Severity Reaction Status Date / Time Penicillins Allergy Unknown Verified 12/30/24 09:14 Review of Systems Sugical H&P ROS: Negative: Constitution, Cardiovascular, Respiratory, Neurological, Psychiatric, Hem-Onc, Allergic/Immunologic, Gastrointestinal, Genitourinary, Musculoskeletal, Integumentary, Endocrine and Eyes/Ears/Nose/Throat Exam Surgical H&P Exam: Normal: HEENT, Normal: Heart, Normal: Lungs, Normal: Extremities, Normal: Abdomen, Normal: Skin and Normal: Neurological Plan Diagnosis/Plan: Unchanged I have reviewed the history and physical and performed a pertinent physical examination on my patient. No changes have occurred unless specified. Time Spent With Patient Time: Total time managing care of this patient today ____ minutes.
--- NOTE | 2025-01-09 12:14 | P.BOP_ITS ---
Brief Operative Note Date of Service: 01/09/25 Pre-op diagnosis: Morbid obesity with comorbidities (see below) Post-op diagnosis: same Procedure: INITIAL PATIENT BMI ON PRESENTATION AT OUR OFFICE: 54.7 kg/m2 LAST BMI BEFORE SURGERY: 48.4 kg/m2 COMORBIDITIES: asthma, sleep apnea,depression, anxiety, liver steatosis ?The patient presented to the Weight Management Program with significant obesity that was negatively impacting the patient's comorbidities as listed above.? The program is a phased program with a special focus on preoperative medical weight management to promote substantial weight loss and prepare the patients for the second phase of the program: bariatric surgery. The patient participated in an intensive weekly lifestyle ?intervention and exercise program during which the patient ?has lost between the initial office visit and the last preoperative visit 35.6lbs, or 11.5% of initial actual body weight. It was deemed appropriate for the patient to now have bariatric surgery. In light of the current Covid-19 pandemic and the well documented strong association of obesity and increased risk of worse outcomes if infected with Covid-19 (REFERENCES: https://pubmed.ncbi.nlm.nih.gov/43972635/ ,? https://pubmed.ncbi.nlm.nih.gov/38949845/ ), any delay in undergoing bariatric surgery may lead to the patient's worsening health condition and increased?risk of more severe Covid-19 disease if infected. In addition a recent?study from [facility] published in [facility] on 07/12/2021 ([id number] [email or web address]) found that, among patients with obesity, substantial weight loss achieved with surgery was associated with improved outcomes of COVID-19 infection. The findings suggest that obesity can be a modifiable risk factor for the severity of COVID-19 infection. In addition, the patient met the BMI-criteria for bariatric surgery based on the BMI on initial presentation. The patient should not be penalized for achieving such weight loss because ?it is not sustainable long-term without surgical intervention and it was achieved in preparation for bariatric surgery ?under my direction and based on my published research ([email or web address] and? [email or web address].soard.org/article/[email or web address]-X/pdf ) ?that a 10% preoperative weight loss improves long-term weight loss after surgery and reduces perioperative complications.? Insurance carriers such as [facility] have endorsed my recommendations ?and have included in their policies criteria to include a 10% preoperative weight loss requirement. PROCEDURE: Esophago-gastroscopy, laparoscopic lysis of adhesions, laparoscopic sleeve gastrectomy and laparoscopic gastropexy INDICATIONS: This is a 34 year-old female who was electively scheduled for laparoscopic, possibly open sleeve gastrectomy. The risks and complications of the procedure were discussed with the patient in advance, particularly the possibility of ; pulmonary embolism; staple line leak; bleeding; GERD; cardiac, pulmonary, or renal complications; as well as long-term problems such as insufficient weight loss, vitamin deficiency, strictures, or ulcers. The patient understood all the risks, and was in agreement to proceed with surgery. DESCRIPTION OF PROCEDURE: After informed consent was obtained from the patient, the patient was given preoperative antibiotics, and was transferred to the operating room. After successful induction of general anesthesia, pneumatic compression devices were placed on both lower extremities. An upper endoscopy was performed next. The oropharynx and esophagus appeared to be within normal limits. There was no diaphragmatic hernia present. The stomach was entered. Then after all fluid and air were suctioned and the stomach was fully decompressed, the scope was withdrawn and secured in the mid esophagus. The patient was then prepped and draped in the usual sterile manner, and abdominal access was established at the right upper quadrant with the Mehdi technique. A 12 mm blunt port was inserted, and the abdomen was insufflated with CO2 to a pressure of 15 mmHg. Under direct visualization, additional ports were placed, specifically two 5 mm Versi-step ports to the left upper quadrant, and a 5 mm Versi-Step port to the right upper quadrant. 1% lidocaine plain was used to infiltrate all port sites as well as all fascia defects. Following that, the patient was placed in a steep reverse Trendelenburg position. An additional 5 mm port was placed to the right flank for the Mediflex retractor that was used to retract the left lobe of the liver. The gastro-esophageal fat pad was opened with the ultrasonic device (Thloganerbeat, Olympus) and the anterior esophagus and hiatus were exposed. The angle of His was opened with the ultrasonic device the fundus of the stomach from any diaphragmatic and splenic attachments. I then opened the gastrocolic ligament between the transverse colon and the greater curvature of the stomach with the ultrasonic device to enter the lesser sac and facilitate the ligation of the short gastric vessels. I started at a mid -point along the greater curvature and using the Thunderbeat, all short gastric vessels were divided all the way to the angle of His until the left lars was completely dissected at its entirety. I then divided the gastro-colic ligament distally to a distance of about 3-4 cm proximal to the pylorus. 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 Those were lysed completely with the ultrasonic device. This dissection was complex and prolonged the operation. Adhesiolysis took approximately 45 min to complete. The stomach was then divided transversely with one Endo DEEPA-45 purple and three DEEPA-60 articulating purple loads using the [employer] stapler and loads. Every effort was made that the gastric sleeve had a tubular shape and an even caliber throughout. Once the sleeve resection was completed, the staple line of the gastric sleeve was reinforced with Hemoclips. The resected stomach was retrieved without difficulty from the Mehdi port. A gastropexy was then performed in order to prevent postoperative GERD and partial gastric volvulus. Several interrupted 2.0 Surgidac sutures were placed between the sleeve's staple line and the previously divided greater omentum and gastro-colic ligament using the Endo-Stitch device. ?An upper endoscopy was performed. There was no narrowing at the GE junction. The scope was easily advanced all the way to the pylorus which was clearly visualized. There was no narrowing anywhere and the sleeve's caliber was even throughout. The sleeve's staple line was inspected and there was no evidence of ischemia, bleeding or dehiscence. At that point the gastroscope was withdrawn from the patient?s mouth while we were decompressing the bowel and the stomach from any remaining air. I looked into the lesser sac to see how the sleeve was situating and it was situating well. There was no bleeding from the staple line, spleen, or short gastric vessels. The Mediflex retractor was removed, and the undersurface of the liver was inspected and there was no bleeding. The patient was placed in supine position. I closed the fascial defect of the 12 mm port site with a figure of eight #1 Polysorb suture. Then 30cc Ropivacaine plain with 10 mg of Dexamethasone were used to infiltrate the fascial closure as well as all skin incisions. At this point, the abdomen was deflated, all ports were removed under direct vision, and no bleeding was noted from any of the port sites. The skin incisions were irrigated with saline and were closed with 4-0 absorbable monofilament sutures. Steri-Strips and OpSites were used to cover all incisions. The patient was extubated and was transferred in stable condition to the recovery room for further care. I was present and performed all ramon parts of the procedure. Mr. Kelley was the syrup mixer assistant. There were no residents to assist with this case. Leland Guevara MD, PhD, FACS Surgeon: Rodney Guevara MD Anesthesia: local and other (TAP block) Was an Mass Communications Professor used for this Procedure?: Yes Mass Communications Professor: Rebel Kelley Estimated blood loss (mL): 10 IV fluids (mL): 2,000 Urine output (mL): 0 (No Paulson to record output) Pathology: other (1) Stomach, 2) Gastro-esophageal fat pad) Condition: stable Disposition: PACU
--- OUTSIDE RECORDS SUMMARY | 2025-01-09 12:41 | XMS_ITS | Clinical Summary ---
Author Organization [employer] Address [address] [facility] 7t [place] [address] Care Team Providers Care Parking Enforcement Officer Name Role Phone Maya Mcginnis NP Primary Care Provider [phone] Allergies No known active allergies Medications [...] bleeding noted on exam today, referral to digital marketing project manager placed for further work-up -cbc ordered [...] pt is able to get in with [facility] Assessment & Plan (12/05/2023 7:07 PM EDT): NEG test today Order vaginal swab and fu results RS appt with plisse machine operator Encounters Date Type Department Care Team Description 01/09/2025 Telephone [facility] [address] [place] [phone] Gris Ennis [place] CHARTPREP 12/02/2024 Orders Only [facility] External Provider, [facility] 11/08/2024 Orders Only GENERIC EXTERNAL DATA DEPARTMENT Provider, Generic External Data 11/05/2024 Orders Only GENERIC EXTERNAL DATA DEPARTMENT Provider, Generic External Data 10/21/2024 Telephone [facility] [address] [place] [phone] Maya Mcginnis NP Results 10/16/2024 Telephone [facility] [address] [place] [address] NUTRITION APPT REQUEST 10/14/2024 Orders Only GENERIC EXTERNAL DATA DEPARTMENT Provider, Generic External Data 2024 9:15 AM EDT Office Visit [facility] [address] [place] [address] Maya Mcginnis NP Morbid obesity due to excess calories (CMS/HCC) (Primary Dx); Routine adult health maintenance; Complicated grief; Dietary counseling; Exercise counseling 2024 Travel from Last 3 Months Immunizations Immunization Administration [...] 77 2024 9:16 AM EDT Temperature 36.7 C (98.1 F) 2024 9:16 AM EDT Respiratory Rate 18 2024 9:16 AM EDT [...] 2:30 PM EDT Office Visit [facility] [address] [place] [address] Maya Mcginnis NP [address] [place], [place] [phone] Health Maintenance Due Date Last Done Comments [...] Years) and At-Risk Patients (6 to 49) Years Aged Out No longer eligible based on [...] 11/05/2024 12:28 PM EDT AMB REFERRAL TO [facility] STAT 11/05/2024 DUB (dysfunctional uterine bleeding) XR [...] AM EDT Narrative 12/02/2024 10:00 AM EDT [place] [address] Ultrasound Report Signed Patient: Gloria Rodriguez MR#: [id number] : 1990 Acct:[id number] Age/Sex: 34 / F ADM Date: 12/02/24 Loc: HO.US Attending Dr: Rodney Guevara MD Ordering Physician: Rodney Guevara MD Date of Service: 12/02/24 Procedure(s): US abdomen comp w elastography Accession Number(s): [id number] cc: Maya Mcginnis; Rodney Guevara MD EXAMINATION: [...] Igor Mckeon MD 12/02/2024 09:57 AM EDT RP Dictated By: Igor Mckeon MD Signed By: <Electronically signed by Igor Mckeon MD in OV> 12/02/24956 DD/ 6 TD/TT: 12/02/24923 Clinical Data Analyst: Procedure Note Donotuseinterpreter, Image - 12/02/2024 [place] [address] Ultrasound Report Signed Patient: Gloria Rodriguez EMR#: [id number] : 1990Acct:[id number] Age/Sex: 34 / FADM Date: 12/02/24 Loc: HO.US Attending Dr: Rodney Guevara MD Ordering Physician: Rodney Guevara MD Date of Service: 12/02/24 Procedure(s): US abdomen comp w elastography Accession Number(s): [id number] cc: Maya Mcginnis; Rodney Guevara MD EXAMINATION: [...] signed by Igor Mckeon MD in OV> 12/02/24 0957 DD/ 0907 TD/TT: 12/02/24 0924 Clinical Data Analyst: [facility] External Provider IMG US PROCEDURES Edited Result - Final * Hematoxylin and Eosin Stain (11/08/2024 11:43 AM EDT) 11/08/2024 11:4 3 AM EDT 11/08/2024 1:05 PM EDT [facility] - 11/12/2024 2:07 PM EDT ----- ------- Name: Gloria Rodriguez Age/Sex: 34/F : 1990 [id number] Unit#: [id number] Attend Dr: Rodney Guevara MD Re11/08/24 Status: [facility] Location: [facility] Disch: ----- ------- SPEC : [id number] RECD: 11/08/24-1304 STATUS: LAI BERRIOS NUM: [id number] KETURAH: 11/08/24-[address]: Rodney Guevara MD ENTERED: 11/08/24-1310 SP TYPE: Surgical OTHR DR: Maya Mcginnis ORDERED: HE Stain/9, Gross Micro L4/4, IHC/2, Special st. 2/3, H. pylori/2, AB/PAS/3 Diagnosis A. Stomach, antrum, biopsy: Antral-type and oxyntic mucosa with mild chronic inactive inflammation; no Helicobacter organisms seen. B. Stomach, fundus, biopsy: Oxyntic mucosa with mild chronic inactive inflammation; no Helicobacter organisms seen. C. EG junction, biopsy: - Cardiac-type mucosa with moderate chronic inactive inflammation; no intestinal metaplasia seen. - Active esophagitis (maximum eosinophil count 2 per high powered field). D. Esophagus, biopsy: Squamous epithelium within normal limits; no inflammation seen. Clinical History Pre-Op Dx: Obesity Post-Op Dx: Normal EGD Microscopic Description A-D. Microscopic sections examined. No metaplastic changes are seen, supported by AB/PAS stains (A, B and C); no Helicobacter organisms are seen, supported by H. pylori immunostain (A and B). Material Received A. Antrum bx's B. Fundus bx's C. EG junction bx's D. Esophagus bx's Gross Description Received in four parts. Part A: Received in formalin labeled antrum bx (sic) is a 0.25 cm robles-pink rubbery irregular tissue fragment, submitted in toto in a cassette labeled A. Part B: Received in formalin labeled fundus bx (sic) is a 0.25 cm rubbery irregular robles- pink tissue fragment, submitted in toto in a cassette labeled B. Part C: Received in formalin labeled EG junction bx's are 2 rolbes-pink irregular tissue CONTINUED ON NEXT PAGE ----- ------- Name: Isabela MastGloria Age/Sex: 34/F : 1990 Unit#: [id number] Attend Dr: Rodney Guevara MD Re11/08/24 Status: [facility] Location: [facility] Disch: ----- ------- SPEC : [id number] RECD: 11/08/24-1304 STATUS: LAI BERRIOS NUM: [id number] KETURAH: 11/08/24-[address] [facility] [address]: Rodney Guevara MD ENTERED: 11/08/24-131 SP TYPE: Surgical OTHR DR: Maya Mcginnis ORDERED: HE Stain/9, Gross Micro L4/4, IHC/2, Special st. 2/3, H. pylori/2, AB/PAS/3 Gross Description (Continued) fragments measuring 0.25 and 0.35 cm, submitted in toto in a cassette labeled C. Part D: Received in formalin labeled esophagus bx (sic) are 2 dickinson-white and robles-red rectangular tissue fragments measuring 0.3 and 0.45 cm, submitted in toto in a cassette labeled D. CEDS Copies To: [place] [address] Rodney Guevara MD [facility] [address] [place] [phone] ----- ------- Signed (signature on file) Juan Diego Rowe MD 11/12/24 1407 ----- ------- END OF REPORT us Generic External Data Provider LAB BLOOD ORDERAB LES Final Result [facility] [address] [place] [phone] * hCG, Total, Quantitative (11/08/2024 10:26 AM EDT) Only the most recent of2 resultswithin the time period is included. HCG Quantitative <2 mIU/mL [facility] Comment:Weeks post LMP Appro ximate hCG(Last Menstrual Period) Range (mIU/ml)3 - 4 weeks 9 - 1304 - 5 weeks 75 - 2,6005 - 6 weeks 850 - 20,8006 - 7 weeks 4000 - 100,2007 - 12 weeks 11,500 - 289,31821 - 16 weeks 18,300 - 137,78730 - 29 weeks (2nd trimester) 1,400 - 53,19839 - 41 weeks (3rd trimester) 940 - [...] ORDERAB LES Final Result Performing Organization Address [facility] Co de Phone Number [facility] [address] [place] [phone] * TSH with Reflex to Free T4 (11/05/2024 12:28 PM EDT) Only the most recent of2 resultswithin the time period is included. TSH reflex Free T4 1.25 0.32 - 4.0 uIU/mL [facility] 11/05/2024 12:2 8 PM EDT 11/05/2024 12:28 PM EDT [facility] External Data Provider LAB BLOOD ORDERAB LES Final Result Performing Organization Address [facility] Co de Phone Number [facility] [address] [place] [phone] * 17-Hydroxyprogesterone (11/05/2024 12:28 PM EDT) 17-OHProgesterone 60 see note ng/dL [facility] Comment: Unable to flag abnormal result(s), please refer to reference range(s) below:Adult Female Reference Ranges for 17-Hydroxyprogesterone: Pre-Menopausal Mid Follicular: 23 - 102 ng/dL Pre-Menopausal Surge: 67 - 349 ng/dL Pre-Menopausal Mid Luteal: 139 - 431 ng/dL Postmenopausal Phase: < or = 45 ng/dL Female Tom Stages: II - III Females: 18 - 220 ng/dL IV - V Females: 36 - 200 ng/dLIncludes data from J Clin Endocrinol Metab. 1991;73:674-686; J Clin Endocrinol Metab. 1989;69;8417-3056; J Clin Endocrinol Metab. 1994;78:226-270. Pediatr Res 1988;23:525-529. MedLinePlus (accessed 12/30/13).This test was developed and its analytical performancecharacteristics have been determined by [facility] [place], [place]. It hasnot been cleared or approved by the U.S. Food and DrugAdministration. This assay has been validated pursuantto the CLIA regulations and is used for clinicalpurposes.THIS TEST WAS PERFORMED AT:[facility] [place] [address]GLLVGVOARCELIA LI MD,PHD 11/05/2024 12:2 8 PM EDT 11/05/2024 12:28 PM EDT Generic External Data Provider LAB BLOOD ORDERAB LES Final Result Performing Organization Address [facility] Co de Phone Number [facility] [address] [place] [address] [phone] * Prolactin (11/05/2024 12:28 PM EDT) Prolactin 15.8 ng/mL [facility] Comment:Reference Range Fema les Non- 3.0-30.0 10.0-209.0 Postmenopausal 2.0-20.0THIS TEST WAS PERFORMED AT:[facility] [address] [address]GYSHBSCOTT DELACRUZ MD 11/05/2024 12:2 8 PM EDT 11/05/2024 12:28 PM EDT Generic External Data Provider LAB BLOOD ORDERAB LES Final Result Performing Organization Address [facility] Co de Phone Number [facility] [address] [place] [phone] * (ABNORMAL) CBC (11/05/2024 12:28 PM EDT) White Blood Count 8.4 4.8 - 10.8 X10*3/uL [facility] Red Blood Count 4.68 4.20 - 5.50 X10*6/uL [facility] Hemoglobin 12.6 12.0 - 16.0 g/dl [facility] Hematocrit 39.7 37.0 - 47.0 % [facility] Mean Corpuscular Volume 84.8 80.0 - 98.0 fL [facility] Mean Corpuscular Hemoglobin 26.9(L) 27.0 - 33.0 pg [facility] Mean Corpuscular HGB Conc 31.7 31.0 - 35.0 g/dl [facility] Red Cell Distribution Width 14.1 11.0 - 16.0 % [facility] Platelet Count 307 160 - 400 X10*3/uL [facility] Mean Platelet Volume 11.1 9.4 - 12.3 fL [facility] NRBC Pct Auto 0.0 0.0 - 0.2 /100WBC [facility] NRBC Abs Auto 0.000 0.0 - 0.012 X10*3/uL [facility] 11/05/2024 12:2 8 PM EDT 11/05/2024 12:28 PM EDT us Generic External Data Provider LAB BLOOD ORDERAB LES Final Result [facility] [address] [place] [phone] * (ABNORMAL) Testosterone, Free (Dialysis) And Total, MS (11/05/2024 12:28 PM EDT) Testosterone, Total 43 2 - 45 ng/dL [facility] Comment:For additional infor walker, please refer tohttps://education.WorkingPoint/faq/ZLA168(This link is being provided for informational/educational purposes only.)(Note)This test was developed and its analytical performancecharacteristics have been determined by [employer]. It hasnot been cleared or approved by the FDA. This assay hasbeen validated pursuant to the CLIA regulations and isused for clinical purposes. Testosterone, Free 6.5(A) 0.1 - 6.4 pg/mL [facility] Comment:(Note)This test was developed and its analytical performancecharacteristics have been determined by [employer]. It hasnot been cleared or approved by the FDA. This assay hasbeen validated pursuant to the CLIA regulations and isused for clinical purposes.MDed [address]ryi[address] [place] [address],[address] [phone] Shailesh Gupta MD, PhDTHIS TEST WAS PERFORMED AT:[place] [address] [place] [address] 8163FADUMO GUPTA MD,PHD 11/05/2024 12:2 8 PM EDT 11/05/2024 12:28 PM EDT Generic External Data Provider LAB BLOOD ORDERAB LES Final Result Performing Organization Address City/State/[facility] Co de Phone Number [facility] [address] [place] [phone] * Referral to Obstetrics / Gynecology (11/05/2024) [facility] Paresh [employer] OUTPATIENT REFERRAL ORDERABLES Final Result * XR Chest 2 Views (10/14/2024 9:19 AM EDT) Anatomical Region Laterality Modality Chest Radiographic [place] ging 10/14/2024 9:19 AM EDT Narrative 10/14/2024 12:38 PM EDT [address] [address] XRay Report Signed Patient: Gloria Rodriguez MR#: [id number] : 1990 Acct:[id number] Age/Sex: 34 / F ADM Date: 10/14/24 Loc: MALLY Attending Dr: Rodney Guevara MD Ordering Physician: Rodney Guevara MD Date of Service: 10/14/24 Procedure(s): XR chest 2V Accession Number(s): [id number] cc: Maya Mcginnis; Rodney Guevara MD EXAMINATION: [...] 10/14/24 1235 DD/ 0919 TD/TT: 10/14/24 0938 Clinical Data Analyst: Procedure Note Donotuseinterpreter, Image - 10/14/2024 [place] [address] XRay Report Signed Patient: Gloria Rodriguez EMR#: [id number] : 1990Acct:[id number] Age/Sex: 34 / FADM Date: 10/14/24 Loc: MALLY Attending Dr: Rodney Guevara MD Ordering Physician: Rodney Guevara MD Date of Service: 10/14/24 Procedure(s): XR chest 2V Accession Number(s): [id number] cc: Maya Mcginnis; Rodney Guevara MD EXAMINATION: [...] OV> 10/14/24 1235 DD/ 8 TD/TT: 10/14/24 09 Clinical Data Analyst: [facility] External Provider IMG XR PROCEDURES Final Result * (ABNORMAL) Vitamin D, 25-Hydroxy, Total, Immunoassay (10/14/2024 9:18 AM EDT) Vitamin D 25-OH Total 24.4(L) >30 ng/mL [facility] Comment: Health Based Reference Values*< 20 ng/mL Widpamiop35-27 ng/mL Insufficient> 30 ng/mL Sufficient*Chacho SAUCEDA. N Engl J Med. 2007;357:266-280There is [...] Vitamin D results fromdifferent laboratories and methodologies. Published datademonstrated that results from patients undergoinghemodialysis may show a negative bias when tested withvarious automated 25-OH vitamin D assays when compared toLC-MS/MS.When testing samples from patients whose predominant form ofVitamin D is Vitamin D2, such as patients receiving VitaminD2 supplementation, results that are subtherapeutic shouldbe confirmed with another method such as LC-MS/MS. 10/14/2024 9:18 AM EDT 10/14/2024 9:18 AM EDT us Generic External Data Provider LAB BLOOD ORDERAB LES Final Result Performing Organization Address City/[facility]/ZIP Co de Phone Number [facility] [address] [place] [phone] * (ABNORMAL) Vitamin B12 (Cobalamin) and Folate Panel, Serum (10/14/2024 9:18 AM EDT) Pathologist [facility] Vitamin B12 1,047(H) 200 - 900 pg/mL [facility] Comment:NORMAL 200-900 PG/ML INDETERMINATE 160-199 PG/ML DEFICIENT < 160 PG/ML Folate 9.5 > or = 4.0 ng/mL [facility] Comment:Reference Values:> o r = 4.0 ng/mL< 4.0 ng/mL suggests folate deficiency Methotrexate, aminopterin and folinic acid(leucovorin) are chemotherapeutic agents whose molecularstructures are similar to folate; therefore, the Architectfolate assay cannot be used for patients using these drugs. 10/14/2024 9:18 AM EDT 10/14/2024 9:18 AM EDT Generic External Data Provider LAB BLOOD ORDERAB LES Final Result Performing Organization Address [facility] Co de Phone Number [facility] [address] [place] [phone] * CBC auto differential (10/14/2024 9:18 AM EDT) [facility] White Blood Count 6.5 4.8 - 10.8 X10*3/uL [facility] Red Blood Count 4.88 4.20 - 5.50 X10*6/uL [facility] Hemoglobin 13.2 12.0 - 16.0 g/dl [facility] Hematocrit 41.2 37.0 - 47.0 % [facility] Mean Corpuscular Volume 84.4 80.0 - 98.0 fL [facility] Mean Corpuscular Hemoglobin 27.0 27.0 - 33.0 pg [facility] Mean Corpuscular HGB Conc 32.0 31.0 - 35.0 g/dl [facility] Red Cell Distribution Width 13.8 11.0 - 16.0 % [facility] Platelet Count 267 160 - 400 X10*3/uL [facility] Mean Platelet Volume 11.3 9.4 - 12.3 fL [facility] Neutrophils Percent Auto 55.6 45 - 73 % [facility] Imm Gran Pct Auto 0.3 0.0 - 0.4 % [facility] Lymphocytes Percent Auto 34.6 20 - 40 % [facility] Monocytes Percent Auto 5.8 2 - 11 % [facility] Eosinophils Percent Auto 2.8 0 - 4 % [facility] Basophils Percent Auto 0.9 0 - 2 % [facility] NRBC Pct Auto 0.0 0.0 - 0.2 /100WBC [facility] Neutrophils Absolute Auto 3.6 2.0 - 8.3 x10*3/uL [facility] Imm Gran Abs Auto 0.02 0.00 - 0.03 X10*3/uL [facility] Lymphocytes Absolute Auto 2.3 1.2 - 4.9 X10*3/uL [facility] Monocytes Absolute Auto 0.4 0.1 - 1.2 X10*3/uL [facility] Eosinophils Absolute Auto 0.2 0.0 - 0.4 X10*3/uL [facility] Basophils Absolute Auto 0.1 0.0 - 0.2 X10*3/uL [facility] NRBC Abs Auto 0.000 0.0 - 0.012 X10*3/uL [facility] 10/14/2024 9:18 AM EDT 10/14/2024 9:18 AM EDT us Generic External Data Provider LAB BLOOD ORDERAB LES Final Result [facility] [address] [place], [place] [phone] * (ABNORMAL) Iron And Total Iron Binding Capacity (10/14/2024 9:18 AM EDT) Iron 33 30 - 160 mcg/dL [facility] Total Iron Binding Capacity 336 228 - 428 mcg/dL [facility] Percent Iron Saturation 10(L) 15 - 50 % [facility] Unsaturated Iron Binding 303 ug/dL [facility] 10/14/2024 9:18 AM EDT 10/14/2024 9:18 AM EDT Generic External Data Provider LAB BLOOD ORDERAB LES Final Result Performing Organization Address [facility] Co de Phone Number [facility] [address] [place] [phone] * Insulin (10/14/2024 9:18 AM EDT) [facility] Insulin 14 2 - 29 uU/mL [facility] Comment:This test was perfor med using the Visual Threat chemiluminescentmethod. Values obtained from different assay methods [...] ORDERAB LES Final Result Performing Organization Address [facility]/ZIP Co de Phone Number [facility] [address] [place] [phone] * Zinc (10/14/2024 9:18 AM EDT) Zinc 74 60 - 130 mcg/dL [facility] Comment:This test was develo ped and its analytical performancecharacteristics have been determined by [employer] [place]. It hasnot been cleared or approved by the U.S. Food and DrugAdministration. This assay has been validated pursuantto the CLIA regulations and is used for clinicalpurposes.THIS TEST WAS PERFORMED AT:[employer] [id number] [place] [id number] LI MD,PHD 10/14/2024 9:18 AM EDT 10/14/2024 9:18 AM EDT Generic External Data Provider LAB BLOOD ORDERAB LES Final Result Performing Organization Address City/[facility]/ZIP Co de Phone Number [facility] [address] [place] [phone] * (ABNORMAL) Vitamin A (10/14/2024 9:18 AM EDT) Vitamin A (Retinol) 37(A) 38 - 98 mcg/dL [facility] Comment:Vitamin supplementat ion within 24 hours prior toblood draw may affect the accuracy of the results.This test was developed and its analytical performancecharacteristics have been determined by [facility] [place], [place]. It hasnot been cleared or approved by the U.S. Food and DrugAdministration. This assay has been validated pursuantto the CLIA regulations and is used for clinicalpurposes.THIS TEST WAS PERFORMED AT:[employer] [id number] [place] [address]QRHXNORARCELIA LI MD,PHD 10/14/2024 9:18 AM EDT 10/14/2024 9:18 AM EDT Generic External Data Provider LAB BLOOD ORDERAB LES Final Result Performing Organization Address [facility] Co de Phone Number [facility] [address] [place] [phone] * (ABNORMAL) C-reactive Protein (10/14/2024 9:18 AM EDT) C Reactive Protein 2.25(H) < or = 0.50 mg/dL [facility] 10/14/2024 9:18 AM EDT 10/14/2024 9:18 AM EDT Generic External Data Provider LAB BLOOD ORDERAB LES Final Result Performing Organization Address [facility] Co de Phone Number [facility] [address] [place] [phone] * Vitamin B1 (10/14/2024 9:18 AM EDT) Pathologist [facility] Vitamin B1 14 8 - 30 nmol/L [facility] Comment:Vitamin supplementat ion within 24 hours prior toblood draw may affect the accuracy of the results.This test was developed and its analytical performancecharacteristics have been determined by [employer] [place], [place]. It hasnot been cleared or approved by the U.S. Food and DrugAdministration. This assay has been validated pursuantto the CLIA regulations and is used for clinicalpurposes.THIS TEST WAS PERFORMED AT:[employer]/[facility] [place] [address]OZKJWWWARCELIA LI MD,PHD 10/14/2024 9:18 AM EDT 10/14/2024 9:18 AM EDT Generic External Data Provider LAB BLOOD ORDERAB LES Final Result Performing Organization Address [facility] Co de Phone Number [facility] [address] [place] [phone] * Hemoglobin A1c (10/14/2024 9:18 AM EDT) Only the most recent of2 resultswithin the time period is included. Hemoglobin A1c 5.7 <6.0 % [facility] Comment:Hemoglobin A1C Refer ence Range Adults: 4.8 - 6.0 % Non diabetic: < 6.0 % Goal: < 7.0 %Additional Action Suggested: > 8.0 %Note: Hemoglobin A1c results are invalid for patients with abnormal amounts of HbF. Blood transfusions may impact the HbA1c concentration in the patient sample. Estimated Average Glucose 117 mg/dL [facility] Comment:eAG = Estimated ave rage glucose which is %A1C expressed asaverage glucose, using the formula of the J2P-TkgzmoxIrlijqa Glucose study (ADAG), Diabetes Care, Vol.31,#8,2007 10/14/2024 9:18 AM EDT 10/14/2024 9:18 AM EDT Generic External Data Provider LAB BLOOD ORDERAB LES Final Result Performing Organization Address [facility]/ZIP Co de Phone Number [facility] [address] [place] [phone] * Ferritin (10/14/2024 9:18 AM EDT) Ferritin 20 10 - 122 ng/mL [facility] 10/14/2024 9:18 AM EDT 10/14/2024 9:18 AM EDT Generic External Data Provider LAB BLOOD ORDERAB LES Final Result Performing Organization Address [facility] Co de Phone Number [facility] [address] [place] [phone] * Lipid Panel, Standard (10/14/2024 9:18 AM EDT) Only the most recent of2 resultswithin the time period is included. Triglycerides 120 <150 mg/dL [facility] Comment:Desirable Triglyceri de: less than 150 mg/dLBorderline High Triglyceride 150-199 mg/dLHigh Triglyceride: 200-499 mg/dLVery High Triglyceride: greater than or equal to 5OO mg/dL Cholesterol 159 <200 mg/dL [facility] Comment:Desirable Cholestero l: less than 200 mg/dLBorderline High Cholesterol: 200-239 mg/dLHigh Cholesterol: greater than 239 mg/dL LDL Cholesterol Calculated 93 <100 mg/dL [facility] Comment:Desirable LDL: less than 100 mg/dLNear Optimal/Above Optimal LDL: 110- 129 mg/dLBorderline High LDL: 130-159 mg/dLHigh LDL: 160-189 mg/dLVery High LDL: greater than or equal to 190 mg/dL HDL Cholesterol 42 >40 mg/dL [facility] Comment:Desirable HDL: great er than 40 mg/dL Note: This HDL assay may give artificially low results in patients with liver disease. 10/14/2024 9:18 AM EDT 10/14/2024 9:18 AM EDT us Generic External Data Provider LAB BLOOD ORDERAB LES Final Result [facility] [address] [place] [phone] * (ABNORMAL) Comprehensive Metabolic Panel (10/14/2024 9:18 AM EDT) Sodium 139 135 - 145 mmol/L [facility] Potassium 4.2 3.3 - 5.1 mmol/L [facility] Chloride 106 96 - 108 mmol/L [facility] Carbon Dioxide 26 22 - 29 mmol/L [facility] Anion Gap 11(L) 12 - 20 [facility] Urea Nitrogen (BUN) 9 9 - 16 mg/dL [facility] Creatinine, Serum 0.74 0.5 - 1.4 mg/dL [facility] Estimated Glomerular Filt Rate >60 [facility] Comment:Chronic Kidney Disea se: Estimated GFR < 60 mL/min/1.77z4Ppruua Kidney Disease: Estimated GFR < 15 mL/min/1.73m2 Glucose 105 60 - 115 mg/dL [facility] Calcium 9.1 8.4 - 10.2 mg/dL [facility] Bilirubin, Total 0.2 0.0 - 1.0 mg/dL [facility] Aspartate Amino Transferase 20 5 - 31 U/L [facility] Alanine Aminotransferase 19 0 - 31 U/L [facility] Total Protein 7.6 6.5 - 8.0 g/dL [facility] Albumin Level 3.9 3.5 - 5.0 g/dL [facility] Alkaline Phosphatase 70 39 - 117 U/L [facility] 10/14/2024 9:18 AM EDT 10/14/2024 9:18 AM EDT us Generic External Data Provider LAB BLOOD ORDERAB LES Final Result Performing Organization Address [facility]/ZIP Co de Phone Number [facility] [address] [place] [phone] * (ABNORMAL) Basic Metabolic Panel (2024 11:11 AM EDT) Sodium 137 135 - 145 mmol/L [facility] Potassium 4.1 3.3 - 5.1 mmol/L [facility] Chloride 105 96 - 108 mmol/L [facility] Carbon Dioxide 25 22 - 29 mmol/L [facility] Anion Gap 11(L) 12 - 20 [facility] Urea Nitrogen (BUN) 13 9 - 16 mg/dL [facility] Creatinine, Serum 0.69 0.5 - 1.4 mg/dL [facility] Estimated Glomerular Filt Rate >60 [facility] Comment:Chronic Kidney Disea se: Estimated GFR < 60 mL/min/1.20m2Oeszmi Kidney Disease: Estimated GFR < 15 mL/min/1.73m2 Glucose 96 60 - 115 mg/dL [facility] Calcium 9.3 8.4 - 10.2 mg/dL [facility] Blood Venous blood specimen / Unknown 2024 11:11 AM EDT 2024 1:41 PM EDT us Maya Mcginnis NP LAB BLOOD ORDERABLES Final Resu lt Performing Organization Address [facility]/ZIP Co de Phone Number [facility] [address] [place] [phone] * HPV mRNA E6/E7 (12/02/2020 12:00 AM EDT) [facility] HPV nRNA E6/E7 Not Detected Not Detected [facility] Comment: Methodology: Silo Painter-Mediated Amplification This assay detects E6/E7 viral messenger RNA (mRNA) from 14 high-risk HPV types (16,18,31,33,35,39,45,51,52,56,58,59,66,68). The analytical performance characteristics of this assay have been determined by [employer]. The modifications have not been cleared or approved by the FDA. This assay has been validated pursuant to the CLIA regulations and is used for clinical purposes. For additional information, please refer to http://[employer].WorkingPoint/faq/EGQ338r8 (This link if provided for information/ educational purposes only.) 12/02/2020 Morena Hare PHARMACY SALES REPRESENTATIVE LAB BLOOD ORDERABLES Final Res ult Performing Organization Address City/[facility]/ZIP Co de Phone Number [facility] [address] * Pap Smear (12/02/2020 12:00 AM EDT) Swab Marianne Hamilton [facility] CYTOLOGY ORDERABLES F inal Result Performing Organization Address City/[facility] Co de Phone Number [address], [place] [phone] * HEPATITIS C AB W/REFL TO HCV RNA, QN, PCR (10/23/2020 11:11 AM EDT) [facility] HEPATITIS C ANTIBODY NON-REACT HENRY NON-REACT HENRY [facility] INDEX 0.01 <1.00 [facility] Comment: HCV antibody was non-reactive. There is no laboratory evidence of HCV infection. In most cases, no further action is required. However, if recent HCV exposure is suspected, a test for HCV RNA (test code 86026) is suggested. For additional information please refer to http://[employer]Point/faq/EZB94i3 (This link is being provided for informational/ educational purposes only.) 10/23/2020 11:1 1 AM EDT Morena Ananya PHARMACY SALES REPRESENTATIVE HISTORICAL/NON ORDERABLE LABS Final Result Performing Organization Address [facility] de Phone Number [facility] [address] * HIV 1/2 ANTIGEN/ANTIBODY,FOURTH GENERATION W/RFL (10/23/2020 11:11 AM EDT) HIV-1/2 ANTIGEN AND ANTIBODIES, 4TH GENERATION W/ REFLEX NON-REACT HENRY NON-REACT HENRY [facility] Comment: HIV-1 antigen and HIV-1/HIV-2 antibodies were not detected. There is no laboratory evidence of HIV infection. PLEASE NOTE: This information has been disclosed to you from records whose confidentiality may be protected by state law. If your state requires such protection, then the state law prohibits you from making any further disclosure of the information without the specific written consent of the person to whom it pertains, or as otherwise permitted by law. A general authorization for the release of medical or other information is NOT sufficient for this purpose. For additional information please refer to http://education.WorkingPoint/faq/VMO732 (This link is being provided for informational/ educational purposes only.) The performance of this assay has not been clinically validated in patients less than 2 years old. 10/23/2020 11:1 1 AM EDT Morena Hare PHARMACY SALES REPRESENTATIVE LAB BLOOD ORDERABLES Final Res ult Performing Organization Address [facility] de Phone Number [facility] [address] from Last 3 Months or Most Recently Relevant to Health Maintenance Insurance [facility] C3 * Guarantor: Gloria Rodriguez Account Type Relation to Patient Date of Phone Billing Address Personal/Family Self [address] [place] [phone] * Guarantor: Gloria Rodriguez Account Type Relation to Patient Date of Phone Billing Address Personal/Family Self [address] [place] [address] * Guarantor: Gloria Rodriguez Account Type Relation to Patient Date of Phone Billing Address Personal/Family Self [address] [place] [phone] Care Teams Parking Enforcement Officer Relationship Specialty Start Date End Date Maya Mcginnis NP [address] [place] [phone] PCP - General Family Medicine 08/21/23
[2025-01-09] MEDS: levoFLOXacin/D5W 500 MG/100 ML PIGGYBACK 100 MG IV (13:08)
[2025-01-09] MEDS: Acetaminophen 1,000 MG/100 ML PIGGYBACK 400 MG IV (13:15)
--- NOTE | 2025-01-09 15:07 | PM.DS ---
DS: Providers Provider Date of Service: 01/10/25 Date of admission: 01/09/25 10:34 Date of discharge: 01/10/25 Primary care physician: Maya Mcginnis DS: Summary Hospital Course Hospital Course: ADMITTING DIAGNOSIS: morbid obesity, reina, anxiety, asthma ? DISCHARGE DIAGNOSIS: same, s/p laparoscopic sleeve gastrectomy ? PAST SURGICAL HISTORY: cesarian section ? PROCEDURE: upper endoscopy, laparoscopic sleeve gastrectomy ? DISCHARGE SUMMARY: ? History of Present Illness: ? The patient is a?34 year-old woman with a BMI of?54.6 kg/m2 and associated co-morbidities as described above. The patient had extensive work-up,lost?31.6 lbs preoperatively and was electively scheduled for laparoscopic, possible open sleeve gastrectomy and gastropexy. Risks and complications of the surgery were discussed with the patient in advance, particularly the possibility of , pulmonary embolism, anastomotic leak, bleeding, bowel injury, GERD, cardiac, renal or pulmonary complications. The patient understood all the risks and was in agreement with the surgical plan. ? Hospital Course: ? The patient underwent an uneventful laparoscopic sleeve gastrectomy with gastropexy on the day of admission. Postoperatively, the patient was transferred to the surgical floor. The patient received IV Acetaminophen and IV dilaudid for pain control. Patient was started on bariatric phase 1 diet POD #0. On postoperative day one, the patient was feeling well without nausea, vomiting, fevers, or tachycardia. The patient had some mild incisional pain and the abdomen was soft. ? On the morning of postoperative day one, the patient was continued on 1 ounce of water or ice every half hour. During the day, the patient did fairly well, having some incisional pain, but able to ambulate adequately and to tolerate liquids well. ? Since the patient is doing well, we decided that the patient was ready to be discharged. The patient was given instructions to follow-up with me next week and to call my office for any fever over 101, persistent abdominal pain, nausea, vomiting, GERD, symptoms of DVT such as calf tenderness, or leg swelling, or pulmonary embolism such as chest pain or shortness of breath. The patient was also instructed to drink 40-60 ounces of liquids per day using the 1-ounce cups. The patient had been given prescriptions for Tylenol for pain, Zofran prn for nausea, and pantoprazole and carafate previously. The patient was encouraged to ambulate and use the incentive spirometer. The patient was allowed to shower, but no baths, and encouraged to stay active at home. All of these instructions were given to the patient personally. All questions were answered and the patient understood all instructions, the instructions were also given to the patient in print. Time Attestation Total time managing care of this patient today: 25 mintues. Discharge Coordination Time (in mins): 25 Quality: Safe Use of Opioids Does Pt have an Active Cancer Diagnosis on the Problem List?: No Quality: Stroke Does the patient have a stroke diagnosis?: No Physical Exam Vital Signs: Vital Signs: Last Vital Signs Temp 97.8 F 01/09/25 15:00 Pulse 88 01/09/25 15:00 Resp 16 01/09/25 15:00 BP 123/72 01/09/25 15:00 Pulse Ox 94 01/09/25 15:00 O2 Del Method Simple Mask 01/09/25 15:00 O2 Flow Rate 10 01/09/25 15:00 BMI result Body Mass Index 49.4 DS: Data Data Completed and Pending Pending studies at discharge: Pending at discharge 01/09/25 14:25 Surgical [PTH] Routine Labs on day of discharge: Laboratory Results - last 24 hr 01/09/25 11:12 Beta HCG, Quant < 2 Discharge Plan Discharge Anticipated Discharge Date/Time: 01/10/25 10:00 Patient Disposition: Home, Self-Care Discharge Diagnosis: s/p laparoscopic sleeve gastrectomy Referrals: Maya Mcginnis [Primary Care Provider, Internal Medicine] - 1 Week Discharge Medications: Continued vitamin A palmitate 3,000 mcg (10,000 unit) capsule 10,000 unit PO DAILY Qty: 60 0RF Held cholecalciferol (vitamin D3) 125 mcg (5,000 unit) capsule 125 mcg PO DAILY Qty: 90 0RF Hold Instructions: Resume on 01/17/25. multivitamin Tablet 1 tab PO DAILY Hold Instructions: Resume on 01/17/25. omega-3 fatty acids-fish oil 684-1,200 mg Capsule,Delayed Release(Dr/Ec) 1 cap PO DAILY Hold Instructions: until discussed with Dr Guevara Discharge Orders: Discharge Order (Routine); Ordered 01/10/25 Ordered By: Rodney Guevara Activity on Discharge: No heavy lifting Stand Alone Forms: Patient Portal Discharge page Print Language: Thai Care Plan Goals: weight loss Health Concerns: morbid obesity Plan of Treatment: No tub baths, sex or returning to work until discussed at first post op appointment. No exercise, alcohol, tobacco or illegal drug use. Continue to use incentive spirometer hourly while awake. Walk in home for 5- 10 minutes every 2 hours during the first week. Follow all instructions in the bariatric handbook and call with any questions.Discharge Instructions 1. Please call your doctor or come back to the emergency room should any new symptoms arise. 2. You will receive a courtesy call from [facility] 24-48 hours after discharge. 3. Activity: abstain from alcohol, practice limited stair climbing, no bending, no driving, no exercise, no illicit substances, no lifting, no sex, no tub bath, no work. 4. Diet: continue as discussed with Dr. Guevara. 5. Dressing Change/Wound Care: Your incision is covered by clear bandages and guaze underneath. If the area is tender, you may apply an ice pack for short intervals (no more than 20 minutes on, followed by at least 20 minutes off). Do not apply heat. Do not use creams, lotions, or topical antibiotics unless instructed to do so by your surgeon. These can cause infection or allergic reaction. 6. Call your doctor if: - Your temperature exceeds 101.5 F - You experience excessive pain or swelling - You have an unexpected reaction to medication - You have excessive bleeding - You experience continued vomiting/nausea - Your incision begins to separate - Your incision shows signs of infection such as increased redness, swelling, excessive pain, heat, or drainage (light blood or clear fluid is normal) 7. General instructions: No lifting greater than 5 lbs for 1 week and not more than 20lbs the next 3?weeks. No driving until seen at the office in 5-7 days after surgery. If you do not move your bowels in the next 2 days, please tell?Dr. Guevara. Please walk around your home every hour or two to prevent blood clots from forming in your legs. You do not need to wake from sleeping to walk. Please sleep in a bed or couch to prevent kinking at the hips and knees. Please take your incentive spirometer (your lung compounder) home with you and use it for the next few days to prevent pneumonia. You may shower, no hot tubs, baths or swimming pools.?Please follow the post op diet instructions you are?given by Dr Guevara? and text me daily at 5-6pm for an update.?If you have any issues or concerns or questions please communicate this to him via text.? The Celebrate shakes have all of the bariatric vitamins you need if you consume these shakes. If you are drinking other protein shakes, you will need to purchase the Celebrate multivitamins and calcium that are available in the hospital gift shop on the first floor of the [facility].??Do not take anything without first discussing with Dr Guevara. Please make sure you are consuming at least 40 ounces of fluids per day starting the?day AFTER your discharge from the hospital. Always drink 1-2 ml per minute using the 5ml?syringe. If you drink faster you may experience?bloating,?gas pain, burping, nausea or heartburn. In that case please slow down your pace and use the syringe to?understand better the?proper?pace and volume of drinking. Do not hesitate to contact the office with any questions at . The patient's medical history has been reviewed and they are considered low risk for post op DVT and therefore DVT prophylaxis is not considered necessary. Travel after surgery was reviewed. The patient has not disclosed any travel plans during the first 30 days after surgery and they have been advised that within the first 30 days after surgery any bus, plane, train or car travel over 2 hours in duration is contraindicated due to the possibility of developing blood clots from immobility. Any travel, needs to include periods of ambulation of 10 minutes in duration every 2 hours.? The patient was instructed to discuss any plans for travel during this period with their bariatric surgeon. Assessment: stable s/p laparoscopic sleeve gastrectomy Discharge Date/Time: 01/10/25 10:09
--- NOTE | 2025-01-09 15:15 | P.PNGS_ITS ---
Subjective Subjective Date of Service: 01/10/25 Interval history: Feels well. Mild incisional pain. She is tolerating phase 1 bariatric diet Physical Exam 2 Vital Signs: Vital Signs: Last Vital Signs Temp 97.8 F 01/09/25 15:00 Pulse 88 01/09/25 15:00 Resp 16 01/09/25 15:00 BP 123/72 01/09/25 15:00 Pulse Ox 94 01/09/25 15:00 O2 Del Method Simple Mask 01/09/25 15:00 O2 Flow Rate 10 01/09/25 15:00 BMI result Body Mass Index 49.4 GI: Inspection: Yes normal to inspection, Yes incision (clean, dry and intact) and Yes obesity Palpation (GI): Soft to palpation Extrem: Right lower extremity: normal to inspection (no calf tenderness) L eft lower extremity: normal to inspection (no calf tenderness) Objective Data Active Medications Albuterol Sulfate (Albuterol Sulfate (0.083%) 2.5 Mg/3 Ml Vial.Neb) 2.5 mg INHALE ONCE PRN PRN Reason: Shortness of Breath/Wheezing Fentanyl (Fentanyl Citrate/Pf 100 Mcg/2 Ml Vial) 50 mcg IVPUSH Q5M PRN PRN Reason: Pain, Moderate to Severe (Pain Scale 4-10) Stop: 01/09/25 18:12 Hydromorphone HCl (Hydromorphone Hcl 0.5 Mg/0.5 Ml Syringe) 0.5 mg IVPUSH Q5M PRN PRN Reason: Pain, Moderate to Severe (Pain Scale 4-10) Stop: 01/09/25 18:12 Lactated Ringer's (Lr) 500 mls @ 20 mls/hr IVCONT .Q24H CATALINA Naloxone HCl (Naloxone Hcl 0.4 Mg/Ml Vial) 0.04 mg IVPUSH Q5M PRN PRN Reason: Excessive sedation or RR < 8 Ondansetron HCl (Ondansetron Hcl 4 Mg/2 Ml Vial) 4 mg IVPUSH ONCE PRN PRN Reason: Nausea and Vomiting Stop: 01/09/25 18:12 Labs 01/10/25 05:36 01/10/25 05:36 Labs: Laboratory Results - last 24 hr 01/09/25 11:12 Beta HCG, Quant < 2 Procedures Date of Service Date of Service: 01/10/25 Progress Note: A&P Assessment and plan (1) Morbid obesity: Status: Acute Assessment and Plan: s/p laparoscopic sleeve gastrectomy, lysis of adhesions and gastropexy Doing well Will check am labs and if OK the patient will be discharged home (2) Moderate major depression: Status: Acute (3) Anxiety: Status: Acute (4) Asthma: Status: Acute (5) Sleep apnea: Status: Acute (6) Congenital intra-abdominal adhesions: Status: Acute (7) S/P laparoscopic sleeve gastrectomy: Status: Acute Time Spent With Patient Time: Total time managing care of this patient today ____ minutes. Quality Stroke Does the patient have a stroke diagnosis?: No VTE Prior VTE?: No VTE Risk Level:: Surgical - moderate VTE Device Contraindication: N/A - Device Ordered VTE Drug Contraindication: Treatment Not Indicated
[2025-01-09] MEDS: fentaNYL citrate/PF 100 MCG/2 ML VIAL 50 MCG IVPUSH (16:04)
[2025-01-09 16:25] LABS: Hematocrit 38.2 % (37.0-47.0); Hemoglobin 12.4 g/dl (12.0-16.0)
[2025-01-09 16:32] LABS: Anion Gap 13 (12-20); Blood Urea Nitrogen 10 mg/dL (9-16); Calcium 8.7 mg/dL (8.4-10.2); Carbon Dioxide 23 mmol/L (22-29); Chloride 105 mmol/L (96-108); Creatinine Clr Calc Pharmacy 159.9; Estimated Glomerular Filt Rate > 60; Glucose Random 118 mg/dL (60-115); Potassium 4.4 mmol/L (3.3-5.1); Sodium 137 mmol/L (135-145)
[2025-01-09] MEDS: ceFAZolin Sodium/Dextrose,Iso 2 GM/50 ML PIGGYBACK IV (18:12)
[2025-01-09] MEDS: Lactated Ringers 1,000 ML 100 ML IVCONT (18:15)
[2025-01-09] MEDS: Metoclopramide HCl 10 MG/2 ML VIAL IVPUSH (19:05)
[2025-01-09] MEDS: Acetaminophen 1,000 MG/100 ML PIGGYBACK 16.7 MG IV (19:05)
[2025-01-09] MEDS: 0.9 % Sodium Chloride Flush 3 ML SYRINGE IVFLUSH (19:14)
[2025-01-10] MEDS: Acetaminophen 1,000 MG/100 ML PIGGYBACK 16.7 MG IV ×2 (00:49→06:45)
[2025-01-10] MEDS: Lactated Ringers 1,000 ML 100 ML IVCONT (02:34)
[2025-01-10 03:18] VITALS: BP 111/57; PULSE 66; RESP 18; TEMP 36.2; O2SAT 94
[2025-01-10] MEDS: Pantoprazole Sodium 40 MG/10 ML VIAL IVPUSH (05:47)
[2025-01-10 05:49] LABS: MANUAL DIFF FLAG NO
[2025-01-10 06:08] LABS: Anion Gap 15 (12-20); Blood Urea Nitrogen 7 mg/dL (9-16); Carbon Dioxide 23 mmol/L (22-29); Chloride 103 mmol/L (96-108); Creatinine Clr Calc Pharmacy 170.8; Estimated Glomerular Filt Rate > 60; Glucose Random 114 mg/dL (60-115); Potassium 4.4 mmol/L (3.3-5.1); Sodium 137 mmol/L (135-145)
[2025-01-10 06:17] LABS: Basophils Percent Auto 0.1 % (0-2); Hematocrit 40.1 % (37.0-47.0); Hemoglobin 12.8 g/dl (12.0-16.0); Imm Gran Abs Auto 0.03 X10*3/uL (0.00-0.03); Imm Gran Pct Auto 0.3 % (0.0-0.4); Lymphocytes Absolute Auto 0.9 X10*3/uL (1.2-4.9); Lymphocytes Percent Auto 9.9 % (20-40); Mean Corpuscular HGB Conc 31.9 g/dl (31.0-35.0); Mean Corpuscular Hemoglobin 26.8 pg (27.0-33.0); Mean Corpuscular Volume 84.1 fL (80.0-98.0); Mean Platelet Volume 12.6 fL (9.4-12.3); Monocytes Absolute Auto 0.2 X10*3/uL (0.1-1.2); Monocytes Percent Auto 2.4 % (2-11); Neutrophils Absolute Auto 8.3 x10*3/uL (2.0-8.3); Neutrophils Percent Auto 87.3 % (45-73); Platelet Count 240 X10*3/uL (160-400); Red Blood Count 4.77 X10*6/uL (4.20-5.50); Red Cell Distribution Width 14.2 % (11.0-16.0); White Blood Count 9.5 X10*3/uL (4.8-10.8)
[2025-01-10 07:04] VITALS: BP 113/56; PULSE 62; RESP 18; TEMP 36.3; O2SAT 94
--- NOTE | 2025-01-10 09:13 | HO.POSTANES ---
Post Anesthesia Evaluation Post Anesthesia Evaluation Date of Service: 01/10/25 Vital Signs: Vital Signs Temp Pulse Resp BP Pulse Ox O2 Del Method 01/10/25 07:04 97.4 F 62 18 113/56 L 94 Room Air 01/10/25 03:18 97.2 F 66 18 111/57 L 94 Room Air 01/09/25 23:28 97.0 F 80 16 115/57 L 95 Room Air Anesthesia: General Endotracheal-GETA Mental Status: Awake Pain Control: Satisfactory Nausea/Vomiting: None Hydration: Adequate Anesthesia-Related Issues: No Anes. Related Issues
--- NOTE | 2025-01-10 09:25 | MHC.CM.PN ---
S/P Gastric Sleeve lives with family. She is independent with all functional mobility. DP Home self care, she has arranged for a family member to provide transportation home.
[2025-01-10 10:04] VITALS: BP 126/70; PULSE 77; RESP 18; TEMP 36.6; O2SAT 99
== END 2025-01-10 10:09 | disposition home or self-care (01) | DRG 403 ==
LOC: HO.SSSA 10:48 → HO.S3 15:22
PROVIDERS: Anesthesiology; Physician Assistant Surgical; Admitting Provider Surgery; PCP Nurse Practitioner; Visit Provider Surgery
PROC: 0DB64Z3 Excision of Stomach, Percutaneous Endoscopic Approach, Vertical (ICD-10-PCS; CPT 43845; principal; 2025-01-09 14:00)
DX: E66.01 Morbid (severe) obesity due to excess calories (principal); K76.0 Fatty (change of) liver, not elsewhere classified; Q43.3 Congenital malformations of intestinal fixation; E03.9 Hypothyroidism, unspecified; F41.9 Anxiety disorder, unspecified; F32.9 Major depressive disorder, single episode, unspecified; F32.A Depression, unspecified; G47.33 Obstructive sleep apnea (adult) (pediatric); J45.909 Unspecified asthma, uncomplicated; Z79.899 Other long term (current) drug therapy
CPT/HCPCS: 36415; 80048; 80053; 80061; 83036; 83525; 84443; 84702; 85014; 85018; 85025; 85610; 85730; 86140; 86850; 86900; 86901; 88304; 88305; 88307; 88342; A4649; C9145; J0131; J0690; J1100; J1171; J1956; J2003; J2405; J2470; J2704; J2765; J2795; J3010; J7120

== ENCOUNTER → 2025-01-09 10:34 | Outpatient (BNV) | payer MEDICAID, SELFPAY | PROVIDERS: Admitting Provider Surgery; PCP Nurse Practitioner; Visit Provider Surgery | DX: E66.01 Morbid (severe) obesity due to excess calories (principal); Z68.42 Body mass index [BMI] 45.0-49.9, adult; K66.0 Peritoneal adhesions (postprocedural) (postinfection) | CPT/HCPCS: 43659; 43775; 99024; 99499 ==

== ENCOUNTER 2025-01-16 10:07 | Outpatient (AMB) | payer OTHER, SELFPAY ==
--- NOTE | 2025-01-16 10:00 | MHC.WMTHER ---
Intake Intake Visit Reasons: TV PO LSG 01/09/2025 Allergies Penicillins Allergy (Verified 01/16/25 14:26) Unknown [facility] Medical History (Updated 01/11/25 @ 00:02 by Antonio Benedict) Sleep apnea Anxiety Hypotension Hypothyroid Asthma Surgical History (Updated 01/16/25 @ 14:38 by Wanda Florence [facility]) S/P laparoscopic sleeve gastrectomy (01/09/25) History of esophagogastroduodenoscopy (EGD) Hx of section Family History Mother Diabetes Breast cancer Father No problems noted. Brother No problems noted. Brother No problems noted. Daughter Asthma Prediabetes Thyroid condition Daughter Asthma Daughter No problems noted. Social History Household Members: Significant Other Housing: Apartment Are you a primary home health aide caregiver to a significant other at home: No Do you presently have visiting nurse or other home services: No Alcohol intake: never Patient Tobacco Use Status: Never used Tobacco service: No Female Reproductive History Menstrual Age of Menarche: 8 Behavioral Health Assessment Weight Management Therapy Therapy Notes Details Subjective: Patient underwent weight loss surgery on 01/09/2025. Her weight on the day of surgery was 271 lbs; as of today, her weight is 265 lbs. She denies pain or any complications during recovery and reports tolerating the liquid diet well. She aims to consume 40?60 oz of fluids daily, including three protein shakes (each made with 8 oz of milk and one scoop of protein powder). The patient described feeling very anxious during the first four days post-op, but now reports feeling calmer and significantly improved. She identifies her daughters and partner as her primary support system. The patient denies feelings of hunger or food-related thoughts at this time. Objective: The patient presents for a behavioral health post-operative follow-up visit. A guided emotional check-in was conducted to assess her current functioning, recovery, mood, and emotional state. Psychoeducation was provided on the emotional and psychological adjustments commonly experienced after bariatric surgery and coping techniques for anxiety/stress were provided. Emphasis was placed on becoming mindful of her physical and mental needs during these times while staying on track. The importance of adhering to the Weight Management Program (WMP) providers' instructions was emphasized. Tips and recommendations for long-term success were also discussed. Program resources were provided, and the patient was invited to join our Facebook group to stay informed about ongoing events and activities. Assessment/Response: Mental status: mixed, preoccupation, but functioning well. Oriented x3, alert, cooperative. Risk reported/identified: None Food/Weight/Diet Expectations of change Her initial goal was to lose 10% of her weight before surgery, approximately 30 pounds. Ultimate weight goal: 278lbs before surgery. PT started the program on 10/10/2024 at 308 Lbs. weight on 10/27/24: 300 lbs. Weight on 11/18/2024: 295 Lbs Weight on day of surgery: 271Lbs PO weight as of 01/16/2025: 265Lbs PT is implementing the following: Current meal plan: Her goal is to drink 40-60oz total - including her 3 shakes 8oz milk 1 scoop Exercise plan: Not cleared yet Scale: yes Communication with provider: daily now. Assessment & Plan Assessment & Plan (1) Adjustment disorder: Code(s): F43.20 - Adjustment disorder, unspecified (2) Inappropriate diet or eating habits: Code(s): Z72.4 - Inappropriate diet and eating habits (3) S/P laparoscopic sleeve gastrectomy: Onset Date: 01/09/25 Code(s): Z98.84 - Bariatric surgery status Plan Patient had questions regarding recovery and was advised to discuss them with the PA during her 1-week post-operative visit today. She will return in 6?8 weeks for behavioral health post-operative support with this provider. Next appointment: March 13, 2025, at 10:00 AM via Telehealth. Telehealth Telehealth [facility]health [facility] Location of provider rendering services: other (Home office. [place], [place]) Location of patient: address on file Patient Identification confirmed using: Name, : Yes Patient verbally consented to treatment: Yes Patient verbally consented to billing insurance company: Yes Patient informed of any privacy concerns related to visit: Yes Minutes spent on Phone/Video with Pt.: 35 Coding Level of Care Code Tele Psytx 30 mins (72080) Diagnoses Adjustment disorder F43.20 Inappropriate diet or eating habits Z72.4 S/P laparoscopic sleeve gastrectomy Z98.84 Time Spent (min) 30
--- OUTSIDE RECORDS SUMMARY | 2025-01-16 10:49 | XMS_ITS | Clinical Summary ---
Author Organization [employer] Address [address] [facility] 7[address] [place] [address] Care Team Providers Care Game Agent Name Role Phone Maya Mcginnis NP Primary Care Provider [phone] Allergies No known active allergies Medications [...] bleeding noted on exam today, referral to armature winder repair helper placed for further work-up -cbc ordered today [...] pt is able to get in with BIOMETRICS INSTRUCTOR Assessment & Plan (12/05/2023 7:07 PM EDT): NEG test today Order vaginal swab and fu results RS appt with correction officer reformatory Encounters Date Type Department Care Team Description 01/09/2025 Telephone [facility] MEDICINE [address] [place] [address] Gris Ennis [place] CHARTPREP 12/02/2024 Orders Only [facility] External Provider, [facility] 11/08/2024 Orders Only GENERIC EXTERNAL DATA DEPARTMENT Provider, Generic External Data 11/05/2024 Orders Only GENERIC EXTERNAL DATA DEPARTMENT Provider, Generic External Data 10/21/2024 Telephone [facility] MEDICINE [address] [place] [address] Maya Mcginnis NP Results from Last 3 Months Immunizations Immunization Administration [...] 2024 9:16 AM EDT Plan of Treatment Health Maintenance Due Date Last Done Comments [...] TOTAL, QN Routine 11/08/2024 10:26 AM EDT 17-HYDROXYPROGESTERON E Routine 11/05/2024 12:28 PM EDT TESTOSTERONE, FREE (DIALYSIS) AND TOTAL,MS Routine 11/05/2024 12:28 PM EDT PROLACTIN Routine 11/05/2024 12:28 PM EDT HCG, TOTAL, QN Routine 11/05/2024 12:28 PM EDT TSH W/REFLEX TO FT4 Routine 11/05/2024 1 2:28 PM EDT CBC Routine 11/05/2024 12:28 PM EDT AMB REFERRAL TO OB-BIOMETRICS INSTRUCTOR STAT 11/05/2024 DUB (dysfunctional uterine bleeding) HEMOGLOBIN A1C Routine 10/14/2024 9:18 AM EDT LIPID PANEL, STANDARD Routine 10/14/2024 9:18 AM EDT HPV MRNA E6/E7 Routine 12/02/2020 12:00 AM [...] AM EDT Narrative 12/02/2024 10:00 AM EDT [address] [place] [address] Ultrasound Report Signed Patient: Gloria Rodriguez MR#: [id number] : 1990 Acct:[id number] Age/Sex: 34 / F ADM Date: 12/02/24 Loc: HO.US Attending Dr: Rodney Guevara MD Ordering Physician: Rodney Guevara MD Date of Service: 12/02/24 Procedure(s): US abdomen comp w elastography Accession Number(s): [id number] cc: Maya Mcginnis; Rodney Guevara MD EXAMINATION: [...] Radiologists in Ultrasound Liver Stiffness Thresholds (2019): LIVER STIFFNESS THRESHOLDS: *Shear wave velocity less [...] Igor Mckeon MD in OV> 12/02/2457 DD/ 09 TD/TT: 12/02/24923 Console Operator: Procedure Note Donotuseinterpreter, Image - 12/02/[address] [address] Ultrasound Report Signed Patient: Gloria Rodriguez EMR#: [id number] : 1990Acct:[id number] Age/Sex: 34 / FADM Date: 12/02/24 Loc: HO.US Attending Dr: Rodney Guevara MD Ordering Physician: Rodney Guevara MD Date of Service: 12/02/24 Procedure(s): US abdomen comp w elastography Accession Number(s): [id number] cc: Maya Mcginnis; Rodney Guevara MD EXAMINATION: [...] in OV> 12/02/24956 DD/ 6 TD/TT: 12/02/24923 Console Operator: us [facility] External Provider IMG US PROCEDURES Edited Result - Final * Hematoxylin and Eosin Stain (11/08/2024 11:43 AM EDT) 11/08/2024 11:4 3 AM EDT 11/08/2024 1:05 PM EDT Stacy [facility] - 11/12/2024 2:07 PM EDT ----- ------- Name: Gloria Rodriguez Age/Sex: 34/F : 1990 Unit#: [id number] Attend Dr: Rodney Guevara MD Re11/08/24 [place] [facility] [place] [facility] Disch: ----- ------- SPEC : [id number] RECD: 11/08/24-130 STATUS: LAI BERRIOS NUM: [id number] KETURAH: 11/08/24-11[address] [facility] [address]: Rodney Guevara MD ENTERED: 11/08/24-1311 SP TYPE: Surgical OTHR DR: Maya Mcginnis [...] formalin labeled EG junction bx's are 2 robles-pink irregular tissue CONTINUED ON NEXT PAGE ----- ------- Name: Gloria Rodriguez Age/Sex: 34/F : 1990 Unit#: [id number] Attend Dr: Rodney Guevara MD Re11/08/24 [place] [facility] [place] [facility] Disch: ----- ------- SPEC : [id number] RECD: 11/08/24-1304 STATUS: LAI BERRIOS NUM: [id number] KETURAH: 11/08/24-[address] [facility] [address]: Rodney Guevara MD ENTERED: 11/08/24 SP TYPE: Surgical OTHR DR: Maya Mcginnis [...] labeled D. CEDS Copies To: Maya Mcginnis [address] [place] [address] Rodney Guevara MD [facility] [place] Weight Management Program [address] [place], [place] [phone] ----- ------- Signed (signature on file) Juan Diego Rowe MD 11/12/24 1407 ----- ------- END OF REPORT Generic External Data Provider LAB BLOOD ORDERAB LES Final Result Performing Organization Address [facility] Co de Phone Number [facility] [address] [place] [address] [phone] * hCG, Total, Quantitative (11/08/2024 10:26 AM EDT) Only the most recent of2 resultswithin the time period is included. HCG Quantitative <2 mIU/mL [facility] Comment:Weeks post LMP Appr oximate hCG(Last Menstrual Period) Range (mIU/ml)3 - 4 weeks 9 - 1304 - 5 weeks 75 - 2,6005 - 6 weeks 850 - 20,8006 - 7 weeks 4000 - 100,2007 - 12 weeks 11,500 - 289,62495 - 16 weeks 18,300 - 137,63620 - 29 weeks (2nd trimester) 1,400 - 53,56501 - 41 weeks (3rd trimester) 940 - 60,000The Crenshaw B- hCG assay is used for the early detection ofpregnancy; it cannot be used to diagnose any conditionunrelated to . If a B-hCG level is not supportedby the clinical evidence, results should be confirmed by analternative method (qualitative urine hCG, for example). 11/08/2024 10:2 6 AM EDT 11/08/2024 10:29 AM EDT [employer] External Data Provider LAB BLOOD ORDERAB LES Final Result Performing Organization Address [facility] Co de Phone Number [facility] [address] [place] [address] [phone] * TSH with Reflex to Free T4 (11/05/2024 12:28 PM EDT) TSH reflex Free T4 1.25 0.32 - 4.0 uIU/mL [facility] 11/05/2024 12:2 8 PM EDT 11/05/2024 12:28 PM EDT us Generic External Data Provider LAB BLOOD ORDERAB LES Final Result [facility] [address] [place] [phone] * 17-Hydroxyprogesterone (11/05/2024 12:28 PM EDT) 17-OHProgesterone 60 see note ng/dL [facility] Comment: Unable to flag [...] Endocrinol Metab. 1991;73:674-686; J Clin Endocrinol Metab. 1989;69;5375-4060; J Clin Endocrinol Metab. 1994;78:226-270. Pediatr Res 1988;23:525-529. MedLinePlus (accessed 12/30/13).This test was developed and its analytical performancecharacteristics have been determined by [employer] [place], [place]. It hasnot been cleared or approved by the U.S. Food and DrugAdministration. This assay has been validated pursuantto the CLIA regulations and is used for clinicalpurposes.THIS TEST WAS PERFORMED AT:[employer]/[id number] [place] [address]LEUAAAIARCELIA LI MD,PHD 11/05/2024 12:2 8 PM EDT 11/05/2024 12:28 PM EDT Generic External Data Provider LAB BLOOD ORDERAB LES Final Result Performing Organization Address [facility] de Phone Number [facility] [address] [place] [phone] * Prolactin (11/05/2024 12:28 PM EDT) Pathologist [facility] Prolactin 15.8 ng/mL [facility] Comment:Reference Range Fema les Non- 3.0-30.0 10.0-209.0 Postmenopausal 2.0-20.0THIS TEST WAS PERFORMED AT:[employer] [place] [id number] DELACRUZ MD 11/05/2024 12:2 8 PM EDT 11/05/2024 12:28 PM EDT Generic External Data Provider LAB BLOOD ORDERAB LES Final Result Performing Organization Address [facility] de Phone Number [facility] [address] [place] [phone] * (ABNORMAL) CBC (11/05/2024 12:28 PM EDT) Pathologist [facility] White Blood Count 8.4 4.8 - 10.8 X10*3/uL [facility] Red Blood Count 4.68 4.20 - 5.50 X10*6/uL [facility] Hemoglobin 12.6 12.0 - 16.0 g/dl [facility] Hematocrit 39.7 37.0 - 47.0 % [facility] Mean Corpuscular Volume 84.8 80.0 - 98.0 fL [facility] Mean Corpuscular Hemoglobin 26.9(L) 27.0 - 33.0 pg [facility] Mean Corpuscular HGB Conc 31.7 31.0 - 35.0 g/dl [facility] Red Cell Distribution Width 14.1 11.0 - 16.0 % [facility] Platelet Count 307 160 - 400 X10*3/uL [facility] Mean Platelet Volume 11.1 9.4 - 12.3 fL [facility] NRBC Pct Auto 0.0 0.0 - 0.2 /100WBC [facility] NRBC Abs Auto 0.000 0.0 - 0.012 X10*3/uL [facility] 11/05/2024 12:2 8 PM EDT 11/05/2024 12:28 PM EDT us Generic External Data Provider LAB BLOOD ORDERAB LES Final Result [facility] [address] [place] [address] [phone] * (ABNORMAL) Testosterone, Free (Dialysis) And Total, MS (11/05/2024 12:28 PM EDT) Testosterone, Total 43 2 - 45 ng/dL [facility] Comment:For additional infor mation, please refer tohttps://education.[place].[employer]/faq/RNP587(This link is being provided for informational/educational purposes only.)(Note)This test was developed and its analytical performancecharacteristics have been determined by [employer]. It hasnot been cleared or approved by the FDA. This assay hasbeen validated pursuant to the CLIA regulations and isused for clinical purposes. Testosterone, Free 6.5(A) 0.1 - 6.4 pg/mL [facility] Comment:(Note)This test was developed and its analytical performancecharacteristics have been determined by [employer]. It hasnot been cleared or approved by the FDA. This assay hasbeen validated pursuant to the CLIA regulations and isused for clinical purposes.MDFmed [id number] [place] [address],[address] [place] [address] [phone] Gupta MD, PhDTHIS TEST WAS PERFORMED AT:[id number] [place] [address] [place] [phone] GUPTA MD,PHD 11/05/2024 12:2 8 PM EDT 11/05/2024 12:28 PM EDT Generic External Data Provider LAB BLOOD ORDERAB LES Final Result Performing Organization Address City/[facility]/ZIP Co de Phone Number [facility] [address] [place] [address] [phone] * Referral to Obstetrics / Gynecology (11/05/2024) Maya Mcginnis NP OUTPATIENT REFERRAL ORDERABLES Final Result * Hemoglobin A1c (10/14/2024 9:18 AM EDT) Hemoglobin A1c 5.7 <6.0 % [facility] Comment:Hemoglobin A1C Refer ence Range Adults: 4.8 - 6.0 % Non diabetic: < 6.0 % Goal: < 7.0 %Additional Action Suggested: > 8.0 %Note: Hemoglobin A1c results are invalid for patients with abnormal amounts of HbF. Blood transfusions may impact the HbA1c concentration in the patient sample. Estimated Average Glucose 117 mg/dL [facility] Comment:eAG = Estimated ave rage glucose which is %A1C expressed asaverage glucose, using the formula of the D8Y-FllrfczLpvswjl Glucose study (ADAG), Diabetes Care, Vol.31,#8,Feb. 2007 10/14/2024 9:18 AM EDT 10/14/2024 9:18 AM EDT us Generic External Data Provider LAB BLOOD ORDERAB LES Final Result Performing Organization Address City/[facility]/ZIP Co de Phone Number [facility] [address] [place] [address] [phone] * Lipid Panel, Standard (10/14/2024 9:18 AM EDT) Triglycerides 120 <150 mg/dL [facility] Comment:Desirable Triglyceri de: less than 150 mg/dLBorderline High Triglyceride 150-199 mg/dLHigh Triglyceride: 200-499 mg/dLVery High Triglyceride: greater than or equal to 5OO mg/dL Cholesterol 159 <200 mg/dL [facility] Comment:Desirable Cholestero l: less than 200 mg/dLBorderline High Cholesterol: 200-239 mg/dLHigh Cholesterol: greater than 239 mg/dL LDL Cholesterol Calculated 93 <100 mg/dL [facility] Comment:Desirable LDL: less than 100 mg/dLNear Optimal/Above Optimal LDL: 110- 129 mg/dLBorderline High LDL: 130-159 mg/dLHigh LDL: 160-189 mg/dLVery High LDL: greater than or equal to 190 mg/dL HDL Cholesterol 42 >40 mg/dL [facility] Comment:Desirable HDL: great er than 40 mg/dL Note: This HDL assay may give artificially low results in patients with liver disease. 10/14/2024 9:18 AM EDT 10/14/2024 9:18 AM EDT us Generic External Data Provider LAB BLOOD ORDERAB LES Final Result [facility] [address] [place] [phone] * HPV mRNA E6/E7 (12/02/2020 12:00 AM EDT) HPV nRNA E6/E7 Not Detected Not Detected [facility] Comment: Methodology: Ginner Helper-Mediated Amplification This assay detects E6/E7 viral messenger RNA (mRNA) from 14 high-risk HPV types (16,18,31,33,35,39,45,51,52,56,58,59,66,68). The analytical performance characteristics of this assay have been determined by [employer]. The modifications have not been cleared or approved by the FDA. This assay has been validated pursuant to the CLIA regulations and is used for clinical purposes. For additional information, please refer to http://education.ithinksport.[employer]/faq/BQW717h7 (This link if provided for information/ educational purposes only.) 12/02/2020 Morena Hare NURSERYMAN ASSISTANT LAB BLOOD ORDERABLES Final Res ult Performing Organization Address [facility] Co de Phone Number [facility] [address] [place] [address], * Pap Smear (12/02/2020 12:00 AM EDT) Swab Marianne Joy CN LAB CYTOLOGY ORDERABLES F inal Result Performing Organization Address [facility] Co de Phone Number [facility] [address] [facility], [facility], [place] [phone] * HEPATITIS C AB W/REFL TO HCV RNA, QN, PCR (10/23/2020 11:11 AM EDT) HEPATITIS C ANTIBODY NON-REACT HENRY NON-REACT HENRY [facility] INDEX 0.01 <1.00 [facility] Comment: HCV antibody was non-reactive. There is no laboratory evidence of HCV infection. In most cases, no further action is required. However, if recent HCV exposure is suspected, a test for HCV RNA (test code 49909) is suggested. For additional information please refer to http://education.[employer] View/faq/BUM75f4 (This link is being provided for informational/ educational purposes only.) 10/23/2020 11:1 1 AM EDT Morena Hare NURSERYMAN ASSISTANT HISTORICAL/NON ORDERABLE LABS Final Result Performing Organization Address [facility] de Phone Number [facility] [address] [place] [address], * HIV 1/2 ANTIGEN/ANTIBODY,FOURTH GENERATION W/RFL (10/23/2020 11:11 AM EDT) HIV-1/2 ANTIGEN AND ANTIBODIES, 4TH GENERATION W/ REFLEX NON-REACT HENRY NON-REACT HENRY [facility] Comment: HIV-1 antigen and HIV-1/HIV-2 [...] purpose. For additional information please refer to http://education.[employer] View/faq/GAF144 (This link is being provided for informational/ educational purposes only.) The performance of this assay has not been clinically validated in patients less than 2 years old. 10/23/2020 11:1 1 AM EDT us Morena Hare [facility] LAB BLOOD ORDERABLES Final Res ult [facility] [address] from Last 3 Months or Most Recently Relevant to Health Maintenance Insurance [address] [place] [phone] * Guarantor: Gloria Rodriguez Account Type Relation to Patient Date of Phone Billing Address Personal/Family Self [address] [place] [phone] Care Teams Game Agent Relationship Specialty Start Date End Date Maya Mcginnis NP [address] [place] [phone] PCP - General Family Medicine 08/21/23
== END 2025-01-16 10:36 | disposition home or self-care (01) ==
LOC: HO.HBST 10:07
PROVIDERS: PCP Nurse Practitioner; Visit Provider Counselor Mental Health
DX: F43.20 Adjustment disorder, unspecified (principal); Z72.4 Inappropriate diet and eating habits; Z98.84 Bariatric surgery status
CPT/HCPCS: 90832

== ENCOUNTER → 2025-01-16 10:07 | Outpatient (BNVA) | payer MEDICAID, SELFPAY | PROVIDERS: PCP Nurse Practitioner; Visit Provider Counselor Mental Health | DX: E66.01 Morbid (severe) obesity due to excess calories (principal); Z98.84 Bariatric surgery status | CPT/HCPCS: 99212 ==

== ENCOUNTER 2025-01-16 14:01 | Outpatient (AMB) | payer MEDICAID, SELFPAY ==
--- NOTE | 2025-01-16 14:09 | MHC.OFFVISWM ---
VS Expanded 01/16/25 14:27 BP 118/72 Blood Pressure Location Rt brachial Blood Pressure Position Sitting Pulse 86 Pulse Source Pulse Oximeter Temp 97.7 F Temperature Source Temporal Artery Scan Pulse Oximetry 98 Oxygen Delivery Method Room Air Height 5 ft 3 in Weight 264 lb 6.4 oz BMI 46.8 Body Fat % 49.5 Body Fat Mass 131.0 Fat Free Mass 133.4 Visceral Fat Rating 15.0 Body Water % 36.2 Body Water Mass 95.6 Muscle Mass/Score 126.6 Basal Metabolic Rate/Score 1,927 Intake Visit Reasons: OV PO LSG 01/09/2025 [employer] Motors Experimental Mechanic Required: Yes [employer] Experimental Mechanic Name: Janki [id number] Allergies Penicillins Allergy (Verified 01/16/25 14:26) Unknown Medication List - Last Reconciled 01/16/25 by EVITA Godoy cholecalciferol (vitamin D3) 125 mcg PO DAILY Held on 01/10/25. Instructions: Resume on 01/17/25. multivitamin 1 tab PO DAILY Held on 01/10/25. Instructions: Resume on 01/17/25. omega-3 fatty acids-fish oil 684-1,200 mg 1 cap PO DAILY Held on 01/10/25. Instructions: until discussed with Dr Guevara ondansetron mg PO pantoprazole 40 mg PO DAILY sucralfate 10 mL PO BID vitamin A palmitate 10,000 units PO DAILY HPI Comments Details: Pt is s/p LSG 01/09/2025. No pain. Tolerating 12oz protein drinks- Bariatric Fusion powder, was supposed to do 3 8oz drinks per day but unable to get all in due to some nausea. Hydration is adequate. [facility] Medical History (Updated 01/11/25 @ 00:02 by Antonio Benedict) Sleep apnea Anxiety Hypotension Hypothyroid Asthma Surgical History (Updated 01/16/25 @ 14:38 by Wanda Florence [facility]) S/P laparoscopic sleeve gastrectomy (01/09/25) History of esophagogastroduodenoscopy (EGD) Hx of section Family History Mother Diabetes Breast cancer Father No problems noted. Brother No problems noted. Brother No problems noted. Daughter Asthma Prediabetes Thyroid condition Daughter Asthma Daughter No problems noted. Social History Household Members: Significant Other Housing: Apartment Are you a primary career development director to a significant other at home: No Do you presently have visiting nurse or other home services: No Alcohol intake: never Patient Tobacco Use Status: Never used Tobacco service: No Female Reproductive History Menstrual Age of Menarche: 8 Physical Exam Vital Signs: Last Vital Signs Temp 97.7 F 01/16/25 14:27 Pulse 86 01/16/25 14:27 BP 118/72 01/16/25 14:27 Pulse Ox 98 01/16/25 14:27 Oxygen Delivery Method Room Air 01/16/25 14:27 BMI result Body Mass Index 46.8 Const General: cooperative, comfortable and no acute distress Orientation/consciousness: patient oriented x3 GI Other: soft, nontender, nondistended, steri-strips c/d/i Neuro General: patient oriented x3 Assessment & Plan Assessment & Plan (1) S/P laparoscopic sleeve gastrectomy: Onset Date: 01/09/25 Code(s): Z98.84 - Bariatric surgery status Category: Surgical (2) Morbid obesity: Code(s): E66.01 - Morbid (severe) obesity due to excess calories Category: Medical Plan May shower tomorrow but no bath or submersion of abdomen in water. May start exercise.? No abdominal exercises x 6 weeks. Abdominal binder for the next 2 weeks with activity or exercise. Continue meal plan per Dr Oneal until next f/u. Reviewed pantoprazole and carafate dosing. Reminded of the pace of drinking 2 mL/min or 1oz per 15 min. Will be emailed link for post op video for review.
[2025-01-16 14:27] VITALS: BP 118/72; PULSE 86; TEMP 36.5; O2SAT 98; BMI 46.8
== END 2025-01-16 15:02 | disposition home or self-care (01) ==
LOC: HO.HBS 14:02
PROVIDERS: PCP Nurse Practitioner; Visit Provider Physician Assistant Surgical
DX: E66.01 Morbid (severe) obesity due to excess calories (principal); Z68.42 Body mass index [BMI] 45.0-49.9, adult; Z90.3 Acquired absence of stomach [part of]; Z98.84 Bariatric surgery status
CPT/HCPCS: 99213

== ENCOUNTER 2025-02-10 13:35 | Outpatient (AMB) | payer MEDICAID, SELFPAY ==
--- NOTE | 2025-02-10 13:52 | MHC.OFFVISWM ---
VS Expanded 02/10/25 14:07 BP 130/86 Blood Pressure Location Rt brachial Blood Pressure Position Sitting Pulse 84 Pulse Source Pulse Oximeter Temp 97.1 F Temperature Source Temporal Artery Scan Pulse Oximetry 97 Oxygen Delivery Method Room Air Height 5 ft 3 in Weight 248 lb 9.6 oz BMI 44.0 Body Fat % 48.4 Body Fat Mass 120.2 Fat Free Mass 128.4 Visceral Fat Rating 14.0 Body Water % 37.01 Body Water Mass 92.0 Muscle Mass/Score 122.0 Basal Metabolic Rate/Score 1,844 Intake Visit Reasons: OV PO LSG 01/09/2025 Windows Support Engineer Required: Yes Windows Support Engineer Services: Windows Support Engineer Present Windows Support Engineer Name: hospital cmi Allergies Penicillins Allergy (Verified 02/10/25 13:58) Unknown Medication List - Last Reconciled 02/10/25 by EVITA Larson cholecalciferol (vitamin D3) 125 mcg PO DAILY multivitamin 1 tab PO DAILY Held on 01/10/25. Instructions: Resume on 01/17/25. omega-3 fatty acids-fish oil 684-1,200 mg 1 cap PO DAILY Held on 01/10/25. Instructions: until discussed with Dr Guevara pantoprazole 40 mg PO DAILY sucralfate 10 mL PO BID vitamin A palmitate 10,000 units PO DAILY HPI Comments Details: This is ?a?34?yo female who is s/p LSG without hiatal hernia repair on?01/09/2025. Presents for 1 month post op visit. Weight today is 248.6 pounds, with a BMI of 44. There has been a 60.2 pound weight loss,(initial weight 308.8 pounds) since starting the program on 10/10/2024 reflecting a 19.4 % total body weight loss and a weight loss of 28.6 pounds since surgery (operative weight 277.2 pounds) reflecting a 10.3 % TBWL since surgery. No complaints of nausea, emesis, abdominal pain or reflux. Reports infrequent but normal bowel movements every 3 days and uses stool softeners regularly. She's had difficulty tolerating shakes, tried celebrate, premier protein, fusion, Present meal plan includes: 2 nurri rtd shake 30 gm per shake fit crunch but doesn't like it? drinking 32 oz water Exercise routine includes: treadmill 20 min [facility] Medical History (Updated 01/11/25 @ 00:02 by Antonio Benedict) Sleep apnea Anxiety Hypotension Hypothyroid Asthma Surgical History (Updated 01/16/25 @ 14:38 by Wanda Florence [facility]) S/P laparoscopic sleeve gastrectomy (01/09/25) History of esophagogastroduodenoscopy (EGD) Hx of section Family History Mother Diabetes Breast cancer Father No problems noted. Brother No problems noted. Brother No problems noted. Daughter Asthma Prediabetes Thyroid condition Daughter Asthma Daughter No problems noted. Social History Household Members: Significant Other Housing: Apartment Are you a primary customer care manager to a significant other at home: No Do you presently have visiting nurse or other home services: No Alcohol intake: never Patient Tobacco Use Status: Never used Tobacco service: No Female Reproductive History Menstrual Age of Menarche: 8 Physical Exam Const General: healthy appearing and no acute distress Resp Effort & Inspection: normal respiratory effort Auscultation: clear to auscultation bilaterally Cardio Rate: regular rate Rhythm: regular rhythm GI Auscultation: normal bowel sounds Extrem General: Yes normal to inspection Assessment & Plan Assessment & Plan (1) S/P laparoscopic sleeve gastrectomy: Onset Date: 01/09/25 Code(s): Z98.84 - Bariatric surgery status Category: Surgical Plan: Patient is having difficulty finding a protein shake that she likes. Most of them are 2 suite for her. She will try protein 2.0, celebrate protein water, celebrate protein bar. She will try the celebrate rebuild with water as she had tried it with almond milk and did not like it. She will communicate this with Dr. Guevara. We will have her return to the office in 3 weeks.
[2025-02-10 14:07] VITALS: BP 130/86; PULSE 84; TEMP 36.2; O2SAT 97; BMI 44.0
--- OUTSIDE RECORDS SUMMARY | 2025-02-10 14:16 | XMS_ITS | Clinical Summary ---
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 Encounters Date Type Department Care Team Description 01/09/2025 Telephone [facility] [address] [place] [address] Gris Ennis [place] CHARTPREP 12/02/2024 Orders Only [facility] External Provider, [facility] from Last 3 Months Immunizations Immunization Administration [...] Care Team (Late st Contact Info) Description 04/22/2025 2:30 PM EDT Office Visit [facility] [address] [place] [address] Jennifer Spears, OD [address] [place] [address] Health Maintenance Due Date Last Done Comments HPV Vaccines (1 - 3-dose series) 10/12/2003 COVID-19 Vaccine ( season) 2024 05/14/2021, 04/23/2021 Influenza Vaccine (#1) 2025 05/23/2019 Depression Monitoring 04/13/2025 2024, 025 [...] Completed 10/23/2020 Hepatitis C Screening Completed 10/23/2020 Hepatitis A Vaccines Aged Out No long [...] WITH ELASTOGRAPHY Routine 12/02/2024 9:07 AM EDT HEMOGLOBIN A1C Routine 10/14/2024 9:18 [...] AM EDT Narrative 12/02/2024 10:00 AM EDT [place] [address] Ultrasound Report Signed Patient: Gloria Rodriguez MR#: [id number] : 1990 Acct:[id number] Age/Sex: 34 / F ADM Date: 12/02/24 Loc: .US Attending Dr: Rodney Guevara MD Ordering Physician: Rodney Guevara MD Date of Service: 12/02/24 Procedure(s): US abdomen comp w elastography Accession Number(s): [id number] cc: Vandana Mcginnis Ioannis MD EXAMINATION: US ABDOMEN COMPLETE WITH LIVER [...] OV> 12/02/24 0957 DD/ 0907 TD/TT: 12/02/24 09 Handle Sander Operator: Procedure Note Donotuseinterpreter, Image - 12/02/2024 [place] [address] Ultrasound Report Signed Patient: Gloria Rodriguez EMR#: [id number] : 1990Acct:[id number] Age/Sex: 34 / FADM Date: 12/02/24 Loc: HO.US Attending Dr: Rodney Guevara MD Ordering Physician: Rodney Guevara MD Date of Service: 12/02/24 Procedure(s): US abdomen comp w elastography Accession Number(s): [id number] cc: Maya Mcginnis; Rodney Guevara MD EXAMINATION: [...] 12/02/24 0957 DD/ 0907 TD/TT: 12/02/24 0924 Handle Sander Operator: us [facility] External Provider IMG US PROCEDURES Edited Result - Final * Hemoglobin A1c (10/14/2024 9:18 AM EDT) Hemoglobin A1c 5.7 <6.0 % [facility] Comment:Hemoglobin A1C Refer ence Range Adults: 4.8 - 6.0 % Non diabetic: < 6.0 % Goal: < 7.0 %Additional Action Suggested: > 8.0 %Note: Hemoglobin A1c results are invalid for patients with abnormal amounts of HbF. Blood transfusions may impact the HbA1c concentration in the patient sample. Estimated Average Glucose 117 mg/dL [facility] Comment:eAG = Estimated ave rage glucose which is %A1C expressed asaverage glucose, using the formula of the T1P-CxibczkYieupof Glucose study (ADAG), Diabetes Care, Vol.31,#8,Feb. 2007 10/14/2024 9:18 AM EDT 10/14/2024 9:18 AM EDT us Generic External Data Provider LAB BLOOD ORDERAB LES Final Result Performing Organization Address [facility]/ZIP Co de Phone Number [facility] [address] [place] [phone] * Lipid Panel, Standard (10/14/2024 9:18 AM EDT) Triglycerides 120 <150 mg/dL [facility] Comment:Desirable Triglyceri de: less than 150 mg/dLBorderline High Triglyceride 150-199 mg/dLHigh Triglyceride: 200-499 mg/dLVery High Triglyceride: greater than or equal to 5OO mg/dL Cholesterol 159 <200 mg/dL [facility] Comment:Desirable Cholestero l: less than 200 mg/dLBorderline High Cholesterol: 200-239 mg/dLHigh Cholesterol: greater than 239 mg/dL LDL Cholesterol Calculated 93 <100 mg/dL [facility] Comment:Desirable LDL: less than 100 mg/dLNear Optimal/Above Optimal LDL: 110- 129 mg/dLBorderline High LDL: 130-159 mg/dLHigh LDL: 160-189 mg/dLVery High LDL: greater than or equal to 190 mg/dL HDL Cholesterol 42 >40 mg/dL [facility] Comment:Desirable HDL: great er than 40 mg/dL Note: This HDL assay may give artificially low results in patients with liver disease. 10/14/2024 9:18 AM EDT 10/14/2024 9:18 AM EDT us Generic External Data Provider LAB BLOOD ORDERAB LES Final Result Performing Organization Address [facility]/ZIP Co de Phone Number [facility] [address] [place] [phone] * HPV mRNA E6/E7 (12/02/2020 12:00 AM EDT) HPV nRNA E6/E7 Not Detected Not Detected [facility] Comment: Methodology: [employer]-Mediated Amplification This assay detects E6/E7 viral messenger RNA (mRNA) from 14 high-risk HPV types (16,18,31,33,35,39,45,51,52,56,58,59,66,68). The analytical performance characteristics of this assay have been determined by [employer]. The modifications have not been cleared or approved by the FDA. This assay has been validated pursuant to the CLIA regulations and is used for clinical purposes. For additional information, please refer to http://App47.Teikon/faq/LQX850s8 (This link if provided for information/ educational purposes only.) 12/02/2020 Morena Hare DEVELOPMENT COACH LAB BLOOD ORDERABLES Final Res ult Performing Organization Address City/[facility]/ZIP Co de Phone Number [facility] [address] * Pap Smear (12/02/2020 12:00 AM EDT) Swab Marianne Hamilton [facility] CYTOLOGY ORDERABLES F inal Result Performing Organization Address City/[facility]/ZIP Co de Phone Number [address], [place] [phone] * HEPATITIS C AB W/REFL TO HCV RNA, QN, PCR (10/23/2020 11:11 AM EDT) HEPATITIS C ANTIBODY NON-REACT HENRY NON-REACT HENRY [facility] INDEX 0.01 <1.00 [facility] Comment: HCV antibody was non-reactive. There is no laboratory evidence of HCV infection. In most cases, no further action is required. However, if recent HCV exposure is suspected, a test for HCV RNA (test code 57415) is suggested. For additional information please refer to http://App47.Teikon/faq/OIT59j9 (This link is being provided for informational/ educational purposes only.) 10/23/2020 11:1 1 AM EDT Morena Ananya DEVELOPMENT COACH HISTORICAL/NON ORDERABLE LABS Final Result Performing Organization Address [facility] Co de Phone Number [facility] [address] * HIV 1/2 ANTIGEN/ANTIBODY,FOURTH GENERATION W/RFL [...] purpose. For additional information please refer to http://education.Teikon/faq/SSJ595 (This link is being provided for informational/ educational purposes only.) The performance of this assay has not been clinically validated in patients less than 2 years old. 10/23/2020 11:1 1 AM EDT Morena Hare DEVELOPMENT COACH LAB BLOOD ORDERABLES Final Res ult Performing Organization Address [facility] Co de Phone Number [facility] [address] from Last 3 Months or Most Recently Relevant to Health Maintenance Insurance [facility] C3 Care Teams Printer Repair Technician Relationship Specialty Start Date End Date Maya Mcginnis NP [address] [place] [phone] PCP - General Family Medicine 08/21/23
== END 2025-02-10 14:29 | disposition home or self-care (01) ==
LOC: HO.HBS 13:35
PROVIDERS: PCP Nurse Practitioner; Visit Provider Physician Assistant Surgical
DX: Z98.84 Bariatric surgery status (principal)
CPT/HCPCS: 99024

== ENCOUNTER → 2025-02-10 13:35 | Outpatient (BNVA) | payer OTHER, SELFPAY | PROVIDERS: PCP Nurse Practitioner; Visit Provider Physician Assistant Surgical | DX: Z98.84 Bariatric surgery status (principal) | CPT/HCPCS: 99212 ==